=== PATIENT | female | born 1960 | race Caucasian/White ===

== ENCOUNTER 2020-09-19 11:19 | Outpatient (REF) | payer MEDICARE, MEDICAID, SELFPAY ==
[2020-09-19 12:18] LABS: MANUAL DIFF FLAG NO
[2020-09-19 12:21] LABS: Basophils Percent Auto 0.3 % (0-2); Eosinophils Percent Auto 29.6 % (0-4); Hematocrit 34.4 % (37-47); Hemoglobin 10.9 g/dl (12.0-16.0); Imm Gran Abs Auto 0.02 X10*3/uL (0.00-0.03); Imm Gran Pct Auto 0.2 % (0.0-0.4); Lymphocytes Absolute Auto 2.1 X10*3/uL (1.2-4.9); Lymphocytes Percent Auto 20.8 % (20-40); Mean Corpuscular HGB Conc 31.7 g/dl (31.0-35.0); Mean Corpuscular Hemoglobin 27.2 pg (27.0-33.0); Mean Corpuscular Volume 85.8 fL (80-98); Mean Platelet Volume 11.3 fL (9.4-12.3); Monocytes Absolute Auto 0.5 X10*3/uL (0.1-1.2); Monocytes Percent Auto 4.6 % (2-11); Neutrophils Absolute Auto 4.5 X10*3/uL (2.0-8.3); Neutrophils Percent Auto 44.5 % (45-73); Platelet Count 154 X10*3/uL (160-400); Red Blood Count 4.01 X10*6/uL (4.20-5.50); Red Cell Distribution Width 15.5 % (11.0-16.0); White Blood Count 10.1 X10*3/uL (4.8-10.8)
[2020-09-19 12:55] LABS: Alanine Aminotransferase 23 U/L (0-31); Albumin Level 4.1 g/dL (3.5-5.0); Alkaline Phosphatase 108 U/L (39-117); Anion Gap 12 (12-20); Aspartate Amino Transferase 25 U/L (5-31); Bilirubin Total 0.7 mg/dL (0.0-1.0); Blood Urea Nitrogen 19 mg/dL (9-16); Calcium 9.1 mg/dL (8.4-10.2); Carbon Dioxide 30 mmol/L (22-29); Chloride 105 mmol/L (96-108); Estimated Glomerular Filt Rate 47; Glucose Random 65 mg/dL (60-115); Potassium 4.3 mmol/l (3.3-5.1); Sodium 143 mmol/L (135-145); Total Protein 6.6 g/dL (6.5-8.0)
== END 2020-09-19 11:20 | disposition home or self-care (01) ==
LOC: HO.LAB 11:19
PROVIDERS: PCP Internal Medicine; Visit Provider Physician Assistant Medical
DX: L40.0 Psoriasis vulgaris (principal); Z79.899 Other long term (current) drug therapy
CPT/HCPCS: 36415; 80053; 85025; 86481

== ENCOUNTER → 2020-09-20 13:46 | Outpatient (BNVA) | payer MEDICARE, MEDICAID, SELFPAY | PROVIDERS: PCP Internal Medicine; Visit Provider Internal Medicine Endocrinology, Diabetes & Metabolism | DX: Z13.89 Encounter for screening for other disorder (principal) | CPT/HCPCS: 99214 ==

== ENCOUNTER 2020-11-01 12:14 | Outpatient (REF) | payer MEDICARE, MEDICAID, SELFPAY ==
[2020-11-01 14:09] LABS: Estimated Average Glucose 128 mg/dL; Hemoglobin A1c % 6.1 %
== END 2020-11-01 12:15 | disposition home or self-care (01) ==
LOC: HO.WFDLDS 12:14
PROVIDERS: Visit Provider Internal Medicine Endocrinology, Diabetes & Metabolism
DX: E11.65 Type 2 diabetes mellitus with hyperglycemia (principal)
CPT/HCPCS: 83036

== ENCOUNTER → 2020-11-16 10:53 | Outpatient (BNVA) | payer MEDICAID, SELFPAY | PROVIDERS: PCP Internal Medicine; Referring Provider Internal Medicine; Visit Provider Dietitian, Registered | DX: Z76.89 Persons encountering health services in other specified circumstances (principal) ==

== ENCOUNTER → 2020-12-20 12:59 | Outpatient (BNVA) | payer MEDICARE, MEDICAID, SELFPAY | PROVIDERS: PCP Internal Medicine; Visit Provider Internal Medicine Endocrinology, Diabetes & Metabolism | DX: E11.65 Type 2 diabetes mellitus with hyperglycemia (principal); E11.22 Type 2 diabetes mellitus with diabetic chronic kidney disease; E11.21 Type 2 diabetes mellitus with diabetic nephropathy; I12.9 Hypertensive chronic kidney disease with stage 1 through stage 4 chronic kidney disease, or unspecified chronic kidney disease; N18.30 Chronic kidney disease, stage 3 unspecified; E78.5 Hyperlipidemia, unspecified; E66.01 Morbid (severe) obesity due to excess calories; Z71.3 Dietary counseling and surveillance; Z79.4 Long term (current) use of insulin; Z96.41 Presence of insulin pump (external) (internal); Z46.81 Encounter for fitting and adjustment of insulin pump | CPT/HCPCS: Q3014 ==

== ENCOUNTER 2021-03-08 10:37 | Outpatient (REF) | payer MEDICARE, MEDICAID, SELFPAY ==
[2021-03-08 15:39] LABS: Anion Gap 12 (12-20); Blood Urea Nitrogen 27 mg/dL (9-16); Calcium 9.2 mg/dL (8.4-10.2); Carbon Dioxide 32 mmol/L (22-29); Chloride 100 mmol/L (96-108); Estimated Glomerular Filt Rate 40; Phosphorus 4.2 mg/dL (2.7-4.5); Potassium 3.9 mmol/L (3.3-5.1); Sodium 140 mmol/L (135-145)
[2021-03-08 15:52] LABS: Creatinine Urine 42.62 mg/dL
[2021-03-08 19:18] LABS: Renal w Reflex Lab Use Only Order verified
== END 2021-03-08 10:38 | disposition home or self-care (01) ==
LOC: HO.WFDLDS 10:37
PROVIDERS: Visit Provider Internal Medicine Nephrology
DX: N17.9 Acute kidney failure, unspecified (principal); I12.9 Hypertensive chronic kidney disease with stage 1 through stage 4 chronic kidney disease, or unspecified chronic kidney disease; N18.30 Chronic kidney disease, stage 3 unspecified; R80.9 Proteinuria, unspecified
CPT/HCPCS: 36415; 80051; 82043; 82310; 82565; 84100; 84520

== ENCOUNTER → 2021-03-15 09:16 | Outpatient (BNVA) | payer MEDICARE, MEDICAID, SELFPAY | PROVIDERS: PCP Internal Medicine; Visit Provider Dietitian, Registered | DX: E11.22 Type 2 diabetes mellitus with diabetic chronic kidney disease (principal); I12.9 Hypertensive chronic kidney disease with stage 1 through stage 4 chronic kidney disease, or unspecified chronic kidney disease; N18.30 Chronic kidney disease, stage 3 unspecified; E66.01 Morbid (severe) obesity due to excess calories | CPT/HCPCS: 97803 ==

== ENCOUNTER → 2021-03-21 14:14 | Outpatient (BNVA) | payer MEDICARE, MEDICAID, SELFPAY | PROVIDERS: PCP Internal Medicine; Visit Provider Internal Medicine Endocrinology, Diabetes & Metabolism | DX: E11.65 Type 2 diabetes mellitus with hyperglycemia (principal); E11.21 Type 2 diabetes mellitus with diabetic nephropathy; E11.22 Type 2 diabetes mellitus with diabetic chronic kidney disease; I12.9 Hypertensive chronic kidney disease with stage 1 through stage 4 chronic kidney disease, or unspecified chronic kidney disease; N18.30 Chronic kidney disease, stage 3 unspecified; Z79.4 Long term (current) use of insulin; E78.5 Hyperlipidemia, unspecified; E66.01 Morbid (severe) obesity due to excess calories | CPT/HCPCS: 82947; 99212 ==

== ENCOUNTER → 2021-06-14 09:15 | Outpatient (BNVA) | payer MEDICARE, MEDICAID, SELFPAY | PROVIDERS: PCP Internal Medicine; Visit Provider Dietitian, Registered | DX: E11.22 Type 2 diabetes mellitus with diabetic chronic kidney disease (principal); N18.30 Chronic kidney disease, stage 3 unspecified; E66.01 Morbid (severe) obesity due to excess calories; Z68.42 Body mass index [BMI] 45.0-49.9, adult | CPT/HCPCS: 97803 ==

== ENCOUNTER → 2021-06-20 14:08 | Outpatient (BNVA) | payer MEDICARE, MEDICAID, SELFPAY | PROVIDERS: PCP Internal Medicine; Visit Provider Internal Medicine Endocrinology, Diabetes & Metabolism | DX: E11.65 Type 2 diabetes mellitus with hyperglycemia (principal); E11.21 Type 2 diabetes mellitus with diabetic nephropathy; E11.22 Type 2 diabetes mellitus with diabetic chronic kidney disease; I12.9 Hypertensive chronic kidney disease with stage 1 through stage 4 chronic kidney disease, or unspecified chronic kidney disease; N18.30 Chronic kidney disease, stage 3 unspecified; E66.01 Morbid (severe) obesity due to excess calories; Z68.42 Body mass index [BMI] 45.0-49.9, adult; Z96.41 Presence of insulin pump (external) (internal); Z88.8 Allergy status to other drugs, medicaments and biological substances; Z79.4 Long term (current) use of insulin; Z79.899 Other long term (current) drug therapy; Z46.81 Encounter for fitting and adjustment of insulin pump | CPT/HCPCS: 82947; 99212 ==

== ENCOUNTER → 2021-11-01 13:38 | Outpatient (BNVA) | payer MEDICARE, MEDICAID, SELFPAY | PROVIDERS: PCP Internal Medicine; Visit Provider Nurse Practitioner Gerontology | DX: E11.65 Type 2 diabetes mellitus with hyperglycemia (principal); E11.21 Type 2 diabetes mellitus with diabetic nephropathy; E11.22 Type 2 diabetes mellitus with diabetic chronic kidney disease; I12.9 Hypertensive chronic kidney disease with stage 1 through stage 4 chronic kidney disease, or unspecified chronic kidney disease; N18.30 Chronic kidney disease, stage 3 unspecified; E78.5 Hyperlipidemia, unspecified; E66.01 Morbid (severe) obesity due to excess calories; Z79.4 Long term (current) use of insulin | CPT/HCPCS: 82947; 83036; 99212 ==

== ENCOUNTER → 2021-12-11 10:00 | Outpatient (BNVA) | payer MEDICARE, MEDICAID, SELFPAY | PROVIDERS: PCP Internal Medicine; Visit Provider Registered Nurse Diabetes Educator | DX: Z46.81 Encounter for fitting and adjustment of insulin pump (principal); E11.22 Type 2 diabetes mellitus with diabetic chronic kidney disease; N18.30 Chronic kidney disease, stage 3 unspecified; Z79.4 Long term (current) use of insulin | CPT/HCPCS: 99211 ==

== ENCOUNTER → 2022-01-08 09:55 | Outpatient (BNVA) | payer MEDICARE, MEDICAID, SELFPAY | PROVIDERS: PCP Internal Medicine; Visit Provider Registered Nurse Diabetes Educator | DX: E11.22 Type 2 diabetes mellitus with diabetic chronic kidney disease (principal); N18.30 Chronic kidney disease, stage 3 unspecified | CPT/HCPCS: 99211 ==

== ENCOUNTER → 2022-02-05 12:54 | Outpatient (BNVA) | payer MEDICARE, MEDICAID, SELFPAY | PROVIDERS: PCP Internal Medicine; Visit Provider Registered Nurse Diabetes Educator | DX: E11.21 Type 2 diabetes mellitus with diabetic nephropathy (principal); Z79.4 Long term (current) use of insulin; Z96.41 Presence of insulin pump (external) (internal) | CPT/HCPCS: 98968; Q3014 ==

== ENCOUNTER 2022-02-10 10:06 | Outpatient (REF) | payer MEDICARE, MEDICAID, SELFPAY ==
[2022-02-10 12:38] LABS: Alanine Aminotransferase 21 U/L (0-31); Albumin Level 4.1 g/dL (3.5-5.0); Alkaline Phosphatase 70 U/L (39-117); Anion Gap 13 (12-20); Aspartate Amino Transferase 26 U/L (5-31); Bilirubin Total 0.6 mg/dL (0.0-1.0); Blood Urea Nitrogen 27 mg/dL (9-16); Calcium 9.9 mg/dL (8.4-10.2); Carbon Dioxide 30 mmol/L (22-29); Chloride 105 mmol/L (96-108); Cholesterol 128 mg/dL; Creatinine Urine 65.17 mg/dL; Estimated Glomerular Filt Rate 43; Glucose Fasting 92 mg/dL (60-99); HDL Cholesterol 38 mg/dL; Microalbum/Creatinine Ratio Ur 673.6 ug/mg cr; Potassium 4.7 mmol/L (3.3-5.1); Sodium 143 mmol/L (135-145); Total Protein 6.8 g/dL (6.5-8.0)
[2022-02-10 13:19] LABS: LDL Cholesterol Calculated 46 mg/dl; Triglycerides 223 mg/dL
[2022-02-11 18:25] LABS: LDL Cholesterol Direct 61 mg/dL (<100)
== END 2022-02-10 10:07 | disposition home or self-care (01) ==
LOC: HO.WFDLDS 10:06
PROVIDERS: Visit Provider Nurse Practitioner Gerontology
DX: E11.65 Type 2 diabetes mellitus with hyperglycemia (principal)
CPT/HCPCS: 36415; 80053; 80061; 82043; 83721

== ENCOUNTER → 2022-02-17 13:20 | Outpatient (BNVA) | payer MEDICARE, MEDICAID, SELFPAY | PROVIDERS: PCP Internal Medicine; Visit Provider Nurse Practitioner Gerontology | DX: E11.65 Type 2 diabetes mellitus with hyperglycemia (principal); E11.21 Type 2 diabetes mellitus with diabetic nephropathy; E11.22 Type 2 diabetes mellitus with diabetic chronic kidney disease; I12.9 Hypertensive chronic kidney disease with stage 1 through stage 4 chronic kidney disease, or unspecified chronic kidney disease; N18.30 Chronic kidney disease, stage 3 unspecified; E78.5 Hyperlipidemia, unspecified; E66.01 Morbid (severe) obesity due to excess calories; Z68.43 Body mass index [BMI] 50.0-59.9, adult; Z79.4 Long term (current) use of insulin | CPT/HCPCS: 82947; 83036; 99212 ==

== ENCOUNTER → 2022-03-20 12:31 | Outpatient (BNVA) | payer MEDICARE, MEDICAID, SELFPAY | PROVIDERS: PCP Internal Medicine; Visit Provider Registered Nurse Diabetes Educator | DX: Z46.81 Encounter for fitting and adjustment of insulin pump (principal); E11.21 Type 2 diabetes mellitus with diabetic nephropathy; E11.22 Type 2 diabetes mellitus with diabetic chronic kidney disease; N18.30 Chronic kidney disease, stage 3 unspecified | CPT/HCPCS: 99211 ==

== ENCOUNTER → 2022-04-16 10:17 | Outpatient (BNVA) | payer MEDICARE, MEDICAID, SELFPAY | PROVIDERS: PCP Internal Medicine; Visit Provider Registered Nurse Diabetes Educator | DX: E11.21 Type 2 diabetes mellitus with diabetic nephropathy (principal); Z46.81 Encounter for fitting and adjustment of insulin pump; Z79.4 Long term (current) use of insulin | CPT/HCPCS: 99211 ==

== ENCOUNTER → 2022-05-19 13:51 | Outpatient (BNVA) | payer MEDICARE, MEDICAID, SELFPAY | PROVIDERS: PCP Internal Medicine; Visit Provider Nurse Practitioner Gerontology | DX: E11.65 Type 2 diabetes mellitus with hyperglycemia (principal); E11.21 Type 2 diabetes mellitus with diabetic nephropathy; E11.22 Type 2 diabetes mellitus with diabetic chronic kidney disease; I12.9 Hypertensive chronic kidney disease with stage 1 through stage 4 chronic kidney disease, or unspecified chronic kidney disease; N18.30 Chronic kidney disease, stage 3 unspecified; E78.5 Hyperlipidemia, unspecified; I10 Essential (primary) hypertension; E66.01 Morbid (severe) obesity due to excess calories; Z79.4 Long term (current) use of insulin; Z68.43 Body mass index [BMI] 50.0-59.9, adult | CPT/HCPCS: 82947; 83036; 99212 ==

== ENCOUNTER → 2022-07-18 10:27 | Outpatient (BNVA) | payer MEDICARE, MEDICAID, SELFPAY | PROVIDERS: PCP Internal Medicine; Visit Provider Registered Nurse Diabetes Educator | DX: E11.65 Type 2 diabetes mellitus with hyperglycemia (principal); Z46.81 Encounter for fitting and adjustment of insulin pump; Z79.4 Long term (current) use of insulin | CPT/HCPCS: 99211 ==

== ENCOUNTER → 2022-08-19 10:23 | Outpatient (BNVA) | payer MEDICARE, MEDICAID, SELFPAY | PROVIDERS: PCP Internal Medicine; Visit Provider Internal Medicine Endocrinology, Diabetes & Metabolism | DX: E11.21 Type 2 diabetes mellitus with diabetic nephropathy (principal); Z96.41 Presence of insulin pump (external) (internal); Z79.4 Long term (current) use of insulin | CPT/HCPCS: 82947; 83036; 99212 ==

== ENCOUNTER 2022-08-25 11:52 | Outpatient (REF) | payer MEDICARE, MEDICAID, SELFPAY ==
[2022-08-25 14:44] LABS: Anion Gap 16 (12-20); Blood Urea Nitrogen 26 mg/dL (9-16); Calcium 10.1 mg/dL (8.4-10.2); Carbon Dioxide 30 mmol/L (22-29); Chloride 101 mmol/L (96-108); Estimated Glomerular Filt Rate 41; Potassium 4.4 mmol/L (3.3-5.1); Sodium 143 mmol/L (135-145)
[2022-08-25 15:03] LABS: Creatinine Urine 74.51 mg/dL; Protein/Creatinine Ratio, Ur 0.67 (<0.2); Total Protein Urine Random 50 mg/dL (<12)
== END 2022-08-25 11:53 | disposition home or self-care (01) ==
LOC: HO.WFDLDS 11:52
PROVIDERS: Visit Provider Internal Medicine Nephrology
DX: I12.9 Hypertensive chronic kidney disease with stage 1 through stage 4 chronic kidney disease, or unspecified chronic kidney disease (principal); E11.22 Type 2 diabetes mellitus with diabetic chronic kidney disease; N18.31 Chronic kidney disease, stage 3a; E11.21 Type 2 diabetes mellitus with diabetic nephropathy
CPT/HCPCS: 36415; 80051; 82310; 82565; 84156; 84520

== ENCOUNTER → 2022-09-30 11:25 | Outpatient (BNVA) | payer MEDICARE, MEDICAID, SELFPAY | PROVIDERS: PCP Internal Medicine; Visit Provider Internal Medicine Endocrinology, Diabetes & Metabolism | DX: E11.65 Type 2 diabetes mellitus with hyperglycemia (principal) | CPT/HCPCS: 82947; 99212 ==

== ENCOUNTER → 2022-10-17 10:36 | Outpatient (BNVA) | payer MEDICARE, MEDICAID, SELFPAY | PROVIDERS: PCP Internal Medicine; Visit Provider Registered Nurse Diabetes Educator | DX: E11.22 Type 2 diabetes mellitus with diabetic chronic kidney disease (principal); N18.30 Chronic kidney disease, stage 3 unspecified; Z96.41 Presence of insulin pump (external) (internal) | CPT/HCPCS: Q3014 ==

== ENCOUNTER → 2022-10-31 14:19 | Outpatient (BNVA) | payer MEDICARE, MEDICAID, SELFPAY | PROVIDERS: PCP Internal Medicine; Visit Provider Registered Nurse Diabetes Educator | DX: Z46.81 Encounter for fitting and adjustment of insulin pump (principal); E11.65 Type 2 diabetes mellitus with hyperglycemia; Z79.4 Long term (current) use of insulin | CPT/HCPCS: 99211 ==

== ENCOUNTER → 2022-12-17 12:26 | Outpatient (BNVA) | payer MEDICARE, MEDICAID, SELFPAY | PROVIDERS: PCP Internal Medicine; Visit Provider Registered Nurse Diabetes Educator | DX: Z46.81 Encounter for fitting and adjustment of insulin pump (principal); E11.21 Type 2 diabetes mellitus with diabetic nephropathy | CPT/HCPCS: 99211 ==

== ENCOUNTER → 2022-12-31 10:52 | Outpatient (BNVA) | payer MEDICARE, MEDICAID, SELFPAY | PROVIDERS: PCP Internal Medicine; Visit Provider Internal Medicine Endocrinology, Diabetes & Metabolism | DX: E11.65 Type 2 diabetes mellitus with hyperglycemia (principal); Z96.41 Presence of insulin pump (external) (internal) | CPT/HCPCS: 82947; 83036; 99212 ==

== ENCOUNTER → 2023-03-05 14:10 | Outpatient (BNVA) | payer MEDICARE, MEDICAID, SELFPAY | PROVIDERS: PCP Internal Medicine; Visit Provider Internal Medicine Endocrinology, Diabetes & Metabolism | DX: E11.65 Type 2 diabetes mellitus with hyperglycemia (principal) | CPT/HCPCS: 82947; 99212 ==

== ENCOUNTER → 2023-05-19 10:24 | Outpatient (BNVA) | payer MEDICARE, MEDICAID, SELFPAY | PROVIDERS: PCP Physician Assistant; Visit Provider Registered Nurse Diabetes Educator | DX: E11.22 Type 2 diabetes mellitus with diabetic chronic kidney disease (principal); N18.30 Chronic kidney disease, stage 3 unspecified; Z46.81 Encounter for fitting and adjustment of insulin pump | CPT/HCPCS: 99211 ==

== ENCOUNTER → 2023-06-04 13:55 | Outpatient (BNVA) | payer MEDICARE, MEDICAID, SELFPAY | PROVIDERS: PCP Physician Assistant; Visit Provider Internal Medicine Endocrinology, Diabetes & Metabolism | DX: E11.65 Type 2 diabetes mellitus with hyperglycemia (principal) | CPT/HCPCS: 82947; 83036; 99212 ==

== ENCOUNTER 2023-08-19 10:34 | Outpatient (AMB) | payer MEDICARE, MEDICAID, SELFPAY ==
--- NOTE | 2023-08-19 11:05 | MHC.AMDMED ---
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 Accompanied by: Self / Same As Patient Allergies citalopram [From Celexa] Allergy (Mild, Verified 06/04/23 14:01) cramps Niacin Preparations Allergy (Mild, Verified 06/04/23 14:01) vomitinf/flu symptoms/flushing lisinopril Allergy (Unknown, Verified 06/04/23 14:01) cough/all ACEI niacin Allergy (Unknown, Verified 06/04/23 14:01) unknown tirzepatide [From Mounjaro] Adverse Reaction (Severe, Verified 06/04/23 14:01) Diarrhea ziprasidone [Geodon] Adverse Reaction (Unknown, Verified 06/04/23 14:01) Unknown Metformin ER Allergy (Unknown, Uncoded 06/04/23 14:01) GI upset HPI Comprehensive Diabetes Asmnt Most Recent Diabetes Results: No Data to Display [facility] Medical History Anemia Arthritis CKD stage 3 due to type 2 diabetes mellitus Diabetes type 2, uncontrolled Diabetic nephropathy associated with type 2 diabetes mellitus Dyslipidemia Hypertension senior living (current) use of insulin Morbid obesity Psoriasis Stress incontinence Surgical History History of carpal tunnel release History of selective laser trabeculoplasty History of total abdominal hysterectomy and bilateral salpingo-oophorectomy Hx of cholecystectomy Family History Father CVD (cardiovascular disease) Obesity Diabetes Mother CVD (cardiovascular disease) Diabetes Obesity Chronic lymphocytic leukemia Hx of myocardial infarction Social History Household Members: Spouse and Children Alcohol intake: current Alcohol intake frequency: does not drink Patient Tobacco Use Status: Never used Tobacco Assessment & Plan Assessment & Plan (1) Diabetes type 2, uncontrolled: Code(s): E11.65 - Type 2 diabetes mellitus with hyperglycemia Plan: Patient presents for pump training for transitioning from Omnipod dash to Omnipod 5 with Dexcom G6 patient given copy of pump settings recommended she call Omnipod to enter new settings into new PDM The following topics were reviewed today: - activity setting, for exercise or yd work - manual mode verses automatic mode ?Sensor setting (if applicable) ??? High Alert: 200 mg/dl ??? Low Alert: 70 mg/dl ?patient's average glucose for the past 2 weeks 144 mg/dL ?above target 19% ?at target 79% ?below target 2% Patient's last A1c on 06/04/2023 6.7% At visit today we discussed GLP 1 action. Patient has tried Ozempic and Mounjaro was unable to tolerate either of them due to GI side effects. Recommended patient's would like to consider additional GLP 1 she discuss Trulicity at her next visit with Dr. Wolfe Reviewed with patient importance of changing insulin delivery set/Pod every 72 hours, with site rotation. ?no changes made to patient's pump settings at today's visit Basal rate(s) (units/hour) : 12 AM? to 1 AM? 1.5 units / hr 1 AM? to 8 AM? 1.4 units / hr 8 AM to 8 PM? 1.3 units / hr 8 PM? to 12 AM? 1.7 units / hr Bolus setting Insulin Carbohydrate Ratio (s) 12 AM? to 5 PM? 1:5 5 PM to 12 AM 1:4.5 Correction Factor / Sensitivity Factor 12 AM? to 12 PM? 1:15 Active Insulin Time:? 4 hours Target(s): 12 AM? to 12 PM? 120 mg/dL Correction Threshhold 120 mg/dL Patient Instructions: Patient will follow-up with nurses educator in 3 months Coding Level of Care Code Est Pt Level 1 (60293) Diagnoses Diabetes type 2, uncontrolled E11.65
== END 2023-08-19 11:12 | disposition home or self-care (01) ==
PROVIDERS: PCP Physician Assistant; Visit Provider Registered Nurse Diabetes Educator
DX: E11.65 Type 2 diabetes mellitus with hyperglycemia (principal)

== ENCOUNTER → 2023-08-19 10:34 | Outpatient (BNVA) | payer MEDICARE, MEDICAID, SELFPAY | PROVIDERS: PCP Physician Assistant; Visit Provider Registered Nurse Diabetes Educator | DX: Z46.81 Encounter for fitting and adjustment of insulin pump (principal); E11.65 Type 2 diabetes mellitus with hyperglycemia; Z79.4 Long term (current) use of insulin | CPT/HCPCS: 99211 ==

== ENCOUNTER 2023-09-03 11:45 | Outpatient (AMB) | payer MEDICARE, MEDICAID, SELFPAY ==
[2023-09-03 11:47] VITALS: BP 126/62; PULSE 60; BMI 49.7
--- NOTE | 2023-09-03 11:47 | MHC.OFFVIS ---
Intake Vital Signs 09/03/23 11:47 Height 5 ft 2 in Weight 271 lb 13.279 oz BMI 49.7 BP 126/62 Blood Pressure Location Lt brachial Position Sitting Pulse 60 Pulse Source Pulse Oximeter Intake Visit Reasons: DM-CONFIRMED Intake Note: Patient present today to follow up on Type 2 Diabetes Mellitus. [facility]. [facility]od 5 gen are rec'd [facility]. Last Diabetic Eye exam: 06/2023 Last Podiatry Visit: 11/2022 Random Glucose: 104 mg/dl HgA1C: 6.6% Desizing Machine Back Tender Required: No Accompanied by: Self / Same As Patient Allergies citalopram [From Celexa] Allergy (Mild, Verified 09/03/23 11:54) cramps Niacin Preparations Allergy (Mild, Verified 09/03/23 11:54) vomitinf/flu symptoms/flushing lisinopril Allergy (Unknown, Verified 09/03/23 11:54) cough/all ACEI niacin Allergy (Unknown, Verified 09/03/23 11:54) unknown tirzepatide [From Mounjaro] Adverse Reaction (Severe, Verified 09/03/23 11:54) Diarrhea ziprasidone [Geodon] Adverse Reaction (Unknown, Verified 09/03/23 11:54) Unknown Metformin ER Allergy (Unknown, Uncoded 06/04/23 14:01) GI upset HPI HPI Comments History of Present Illness Details Patient is a 63-year-old female with DM type 2 diagnosed in 2002 who presents for management of diabetes. Past medical history: Diabetes type 2 dyslipidemia, hypertension chronic kidney disease stage 3, nephropathy, psoriasis Micro and macrovascular complications: nephropathy Diabetes medications: Humulin U 500 via Omnipod 5. Reports that she did not tolerate Ozempic or Trulicity due to constipation. She did not tolerate Jardiance due to vaginal itching.Not on Mounjaro 2.5 mg Qwkly because of GI side effects Total Daily Dose 56.1 units a day 51% basal 49 % bolus Basal rate(s) (units/hour) : 12 AM? to 1 AM? 1.5 units / hr 1 AM? to 8 AM? 1.4 units / hr 8 AM to 8 PM? 1.3 units / hr 8 PM? to 12 AM? 1.7 units / hr Bolus setting Insulin Carbohydrate Ratio (s) 12 AM? to 5 PM? 1:5 5 PM to 12 AM 1:4.5 Correction Factor / Sensitivity Factor 12 AM? to 12 PM? 1:15 Active Insulin Time:? 4 hours Target(s): 12 AM? to 12 PM? 120 mg/dL Correction Threshhold 120 mg/d Continuous glucose monitoring: Average blood glucose 155, blood glucose low from 55-69, 1%. Glucose in target range of 70-180, 69%. Glucose high from 181-249,26 %. Blood glucose very high over 250,4 %. GMI is 7 CGMS active 100%. Symptoms reported: denies numbness, tingling, cramping in lower extremities Hypoglycemia:none , Symptoms of shakiness and sweatiness Hyperglycemia: reports urinary frequency (reports diuretic), +nocturia, +polydypsia (reports drymouth) Exercise: limited due to arthritis, walks some. Has some chair exercises that is beginning. 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 no retinopathy Other specialists: nephrology, dermatology, hematology Laboratory Tests 02/17/22 13:50 Hgb A1c (Clinic) 6.9 H 02/10/22 02/10/22 02/10/22 10:14 10:14 10:14 Creatinine 1.27 Estimated GFR 43 Triglycerides 223 Cholesterol 128 LDL Cholesterol Di rect 61 LDL Cholesterol, C alc 46 HDL Cholesterol 38 Microalb/Creat Rat io 673.6 03/08/21 03/08/21 06/20/21 10:55 10:55 14:36 Creatinine 1.36 Estimated GFR 40 Hgb A1c (Clinic) 7.5 H Microalb/Creat Rat io 739.0 [facility] Medical History Anemia Arthritis CKD stage 3 due to type 2 diabetes mellitus Diabetes type 2, uncontrolled Diabetic nephropathy associated with type 2 diabetes mellitus Dyslipidemia 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 Morbid obesity Psoriasis Stress incontinence Surgical History History of selective laser trabeculoplasty History of total abdominal hysterectomy and bilateral salpingo-oophorectomy History of carpal tunnel release Hx of cholecystectomy Family History Father CVD (cardiovascular disease) Obesity Diabetes Mother CVD (cardiovascular disease) Diabetes Obesity Chronic lymphocytic leukemia Hx of myocardial infarction Social History Household Members: Spouse and Children Alcohol intake: current Alcohol intake frequency: does not drink Patient Tobacco Use Status: Never used Tobacco Physical Exam Vital Signs: Last Vital Signs Pulse 60 09/03/23 11:47 BP 126/62 09/03/23 11:47 BMI result Body Mass Index 49.7 Absence of Cushingoid features. Absence of acromegalic features. Neck exam reveals nl size thyroid about 15 gms. No thyroid nodules palpable. No carotid bruits present. Lungs CTA. Heart S1 S2, Reg R/R. No M/R/ G. Skin exam reveals absence of vitiligo but presence of acanthosis nigricans behind neck with excessive skin tags . Abdominal exam reveals Soft NT/ND with NA BS. No organomegaly present. Neck Other: . Extrem Other: Visual exam of foot performed. No ulcerations or open lesions. No onchomycosis, no callouses.Pulses 2 + distally Sensation intact to monofilament exam. Vibratory sensation sensed is intact with 128 Hz tuning fork Results AMB Hemoglobin A1c AMB Hemoglobin A1c 6.6 % Last Edit by Abeba Reynoso on 09/03/23 13:17 Results Reviewed Results Reviewed: 09/03/23 11:58 Glucose, Whole Blood Routine Laboratory Last Values Glucose (Clinic) 104 mg/dL (60-115) 09/03/23 11:58 Hgb A1c (Clinic) 6.6 % (4.0-6.0) H 09/03/23 12:17 Assessment & Plan Assessment & Plan (1) Diabetes type 2, uncontrolled: Code(s): E11.65 - Type 2 diabetes mellitus with hyperglycemia Plan: This is a 63-year-old white female with a history of type 2 diabetes insulin resistance currently being treated with an Omnipod 5 with excellent glycemic control and known microvascular complications namely CKD stage 3. patient did not tolerate Ozempic or Trulicity or Mounjaro in the past The plan is to continue the current regimen. she will follow-up with the outreach educator. Orders: Orders AMB Hemoglobin A1c Today E11.65 - Type 2 diabetes mellitus with hyperglycemia Coding Level of Care Code Est Pt Level 4 (33324) Diagnoses Diabetes type 2, uncontrolled E11.65
== END 2023-09-03 12:15 | disposition home or self-care (01) ==
PROVIDERS: PCP Physician Assistant; Visit Provider Internal Medicine Endocrinology, Diabetes & Metabolism
DX: E11.65 Type 2 diabetes mellitus with hyperglycemia (principal)
CPT/HCPCS: 99214

== ENCOUNTER → 2023-09-03 11:45 | Outpatient (BNVA) | payer MEDICARE, MEDICAID, SELFPAY | PROVIDERS: PCP Physician Assistant; Visit Provider Internal Medicine Endocrinology, Diabetes & Metabolism | DX: E11.65 Type 2 diabetes mellitus with hyperglycemia (principal); E11.22 Type 2 diabetes mellitus with diabetic chronic kidney disease; N18.30 Chronic kidney disease, stage 3 unspecified; Z96.41 Presence of insulin pump (external) (internal) | CPT/HCPCS: 82947; 83036; 99212 ==

== ENCOUNTER 2023-11-02 10:14 | Outpatient (AMB) | payer MEDICARE, MEDICAID, SELFPAY ==
[2023-11-02 10:36] VITALS: BP 130/70; PULSE 67; BMI 49.5
--- NOTE | 2023-11-02 10:36 | HO.NEPHOV_ITS ---
HPI HPI Comments History of Present Illness Details I had the privilege of seeing Dyan in follow-up of her chronic kidney disease, diabetic nephropathy and hypertension. Her bipedal edema was resolved after discontinuation of amlodipine and being on diuretics. She is trying to have a low-sodium diet. Her weight is stable. Her blood sugars are better. She is on insulin pump. She could not tolerate Jardiance. She denies nausea, vomiting, shortness of breath, proximal nocturnal dyspnea, orthopnea, urinary symptoms. She does not have any vascular complaints. She has no orthostasis. She feels well otherwise. [facility] Medical History Anemia Arthritis CKD stage 3 due to type 2 diabetes mellitus Diabetes type 2, uncontrolled Diabetic nephropathy associated with type 2 diabetes mellitus Dyslipidemia Hypertension [facility] (current) use of insulin Morbid obesity Psoriasis Stress incontinence Surgical History History of selective laser trabeculoplasty History of total abdominal hysterectomy and bilateral salpingo-oophorectomy History of carpal tunnel release Hx of cholecystectomy Family History Father CVD (cardiovascular disease) Obesity Diabetes Mother CVD (cardiovascular disease) Diabetes Obesity Chronic lymphocytic leukemia Hx of myocardial infarction Social History Household Members: Spouse and Children Alcohol intake: current Alcohol intake frequency: does not drink Patient Tobacco Use Status: Never used Tobacco Vital Signs 11/02/23 10:36 Height 5 ft 2 in Weight 270 lb 8 oz BMI 49.5 BP 130/70 Blood Pressure Location Rt brachial Position Sitting Pulse 67 Pulse Source Pulse Oximeter Physical Exam Vital Signs: Last Vital Signs Pulse 67 11/02/23 10:36 BP 130/70 11/02/23 10:36 BMI result Body Mass Index 49.5 Const General: comfortable and no acute distress Orientation/consciousness: patient oriented x3 HEENT Head: Yes normocephalic Mouth: Normal oral and palatal mucosa present Eyes EOM: EOMs intact bilaterally Neck Neck: Yes supple Resp Auscultation: clear to auscultation bilaterally Cardio Jugular venous distension: no JVD Rate: regular rate GI Palpation (GI): Soft to palpation Auscultation: normal bowel sounds General: Yes no CVA tenderness Back/Spine/Pelvis Back: no CVA tenderness Skin General skin exam: no rashes or lesions noted Neuro General: patient oriented x3 and moves all extremities Extrem General: Yes no pedal edema Assessment & Plan Assessment & Plan (1) CKD stage 3 due to type 2 diabetes mellitus: Code(s): E11.22 - Type 2 diabetes mellitus with diabetic chronic kidney disease; N18.30 - Chronic kidney disease, stage 3 unspecified (2) Diabetic nephropathy associated with type 2 diabetes mellitus: Code(s): E11.21 - Type 2 diabetes mellitus with diabetic nephropathy Plan Reason has chronic kidney disease due to diabetic nephropathy. She is hypertensive and is on medications. Her blood pressure needs to be at goal. Her serum creatinine has been marginally up from baseline which could be due to progression of renal disease. She could not tolerate Jardiance. She will benefit from gastric sleeve surgery. She avoids nonsteroidal anti-inflammatory medications and maintain good hydration. Follow-up blood work ordered. Answered all questions. Follow-up given Orders: Orders Blood Urea Nitrogen 11/02/23 E11.22 - Type 2 diabetes mellitus with diabetic chronic kidney disease, N18.30 - Chronic kidney disease, stage 3 unspecified, E11.21 - Type 2 diabetes mellitus with diabetic nephropathy Electrolytes 11/02/23 E11.22 - Type 2 diabetes mellitus with diabetic chronic kidney disease, N18.30 - Chronic kidney disease, stage 3 unspecified, E11.21 - Type 2 diabetes mellitus with diabetic nephropathy Creatinine 11/02/23 E11.22 - Type 2 diabetes mellitus with diabetic chronic kidney disease, N18.30 - Chronic kidney disease, stage 3 unspecified, E11.21 - Type 2 diabetes mellitus with diabetic nephropathy Coding Level of Care Code Est Pt Level 3 (41967) Diagnoses CKD stage 3 due to type 2 diabetes mellitus E11.22; N18.30 Diabetic nephropathy associated with type 2 diabetes mellitus E11.21 Results Reviewed Nephrology Results: No Data to Display
== END 2023-11-02 11:13 | disposition home or self-care (01) ==
PROVIDERS: PCP Physician Assistant; Referring Provider Physician Assistant; Visit Provider Internal Medicine Nephrology
DX: E11.22 Type 2 diabetes mellitus with diabetic chronic kidney disease (principal); N18.30 Chronic kidney disease, stage 3 unspecified; E11.21 Type 2 diabetes mellitus with diabetic nephropathy
CPT/HCPCS: 99213

== ENCOUNTER → 2023-11-02 10:14 | Outpatient (BNVA) | payer MEDICARE, MEDICAID, SELFPAY | PROVIDERS: PCP Physician Assistant; Visit Provider Internal Medicine Nephrology | DX: E11.65 Type 2 diabetes mellitus with hyperglycemia (principal); E11.22 Type 2 diabetes mellitus with diabetic chronic kidney disease; E11.21 Type 2 diabetes mellitus with diabetic nephropathy; I12.9 Hypertensive chronic kidney disease with stage 1 through stage 4 chronic kidney disease, or unspecified chronic kidney disease; N18.30 Chronic kidney disease, stage 3 unspecified; Z79.4 Long term (current) use of insulin | CPT/HCPCS: 99212 ==

== ENCOUNTER 2024-02-11 09:32 | Outpatient (REF) | payer MEDICARE, MEDICAID, SELFPAY ==
[2024-02-11 11:50] LABS: Anion Gap 12 (12-20); Blood Urea Nitrogen 29 mg/dL (9-16); Calcium 9.6 mg/dL (8.4-10.2); Carbon Dioxide 26 mmol/L (22-29); Chloride 105 mmol/L (96-108); Estimated Glomerular Filt Rate 33; Potassium 3.9 mmol/L (3.3-5.1); Sodium 139 mmol/L (135-145)
[2024-02-11 12:02] LABS: Creatinine Urine 54.26 mg/dL; Protein/Creatinine Ratio, Ur 0.22 (<0.2); Total Protein Urine Random 12 mg/dL (<12)
== END 2024-02-11 09:33 | disposition home or self-care (01) ==
LOC: HO.WFDLDS 09:32
PROVIDERS: Visit Provider Internal Medicine Nephrology
DX: E11.22 Type 2 diabetes mellitus with diabetic chronic kidney disease (principal); N18.30 Chronic kidney disease, stage 3 unspecified; E11.21 Type 2 diabetes mellitus with diabetic nephropathy
CPT/HCPCS: 36415; 80051; 82310; 82565; 82570; 84156; 84520

== ENCOUNTER 2024-02-18 13:58 | Outpatient (AMB) | payer MEDICARE, MEDICAID, SELFPAY ==
[2024-02-18 14:06] VITALS: BP 146/74; PULSE 73; O2SAT 97; BMI 49.2
--- NOTE | 2024-02-18 14:06 | HO.NEPHOV_ITS ---
HPI HPI Comments History of Present Illness Details I had the privilege of seeing Dyan in follow-up of her chronic kidney disease, diabetic nephropathy and hypertension. Her bipedal edema was resolved after discontinuation of amlodipine and being on diuretics. She is trying to have a low-sodium diet. Her weight is stable. Her blood sugars are better. She is on insulin pump. She could not tolerate Jardiance. She denies nausea, vomiting, shortness of breath, proximal nocturnal dyspnea, orthopnea, urinary symptoms. She does not have any vascular complaints. She has no orthostasis. She feels well otherwise. 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 Morbid obesity Psoriasis Stress incontinence Surgical History History of selective laser trabeculoplasty History of total abdominal hysterectomy and bilateral salpingo-oophorectomy History of carpal tunnel release Hx of cholecystectomy Family History Father CVD (cardiovascular disease) Obesity Diabetes Mother CVD (cardiovascular disease) Diabetes Obesity Chronic lymphocytic leukemia Hx of myocardial infarction Social History Household Members: Spouse and Children Alcohol intake: current Alcohol intake frequency: does not drink Patient Tobacco Use Status: Never used Tobacco Vital Signs 02/18/24 14:06 Height 5 ft 2 in Weight 269 lb BMI 49.2 BP 146/74 H Blood Pressure Location Lt brachial Position Sitting Pulse 73 Pulse Source Pulse Oximeter Pulse Oximetry (%) 97 Oxygen Delivery Method Room Air Physical Exam Vital Signs: Last Vital Signs Pulse 73 02/18/24 14:06 BP 146/74 H 02/18/24 14:06 Pulse Ox 97 02/18/24 14:06 Oxygen Delivery Method Room Air 02/18/24 14:06 BMI result Body Mass Index 49.2 Const General: comfortable and no acute distress Orientation/consciousness: patient oriented x3 HEENT Head: Yes normocephalic Mouth: Normal oral and palatal mucosa present Eyes EOM: EOMs intact bilaterally Neck Neck: Yes supple Resp Auscultation: clear to auscultation bilaterally Cardio Jugular venous distension: no JVD Rate: regular rate GI Palpation (GI): Soft to palpation Auscultation: normal bowel sounds General: Yes no CVA tenderness Back/Spine/Pelvis Back: no CVA tenderness Skin General skin exam: no rashes or lesions noted Neuro General: patient oriented x3 and moves all extremities Extrem General: Yes no pedal edema Assessment & Plan Assessment & Plan (1) CKD stage 3 due to type 2 diabetes mellitus: Code(s): E11.22 - Type 2 diabetes mellitus with diabetic chronic kidney disease; N18.30 - Chronic kidney disease, stage 3 unspecified (2) Hypertension: Code(s): I10 - Essential (primary) hypertension Qualifiers: Hypertension type: primary hypertension Qualified Code(s): I10 - Essential (primary) hypertension (3) Diabetic nephropathy associated with type 2 diabetes mellitus: Code(s): E11.21 - Type 2 diabetes mellitus with diabetic nephropathy Jose Looney has chronic kidney disease due to diabetic nephropathy. She is hypertensive and is on medications. Her blood pressure needs to be at goal. Her serum creatinine has been marginally up from baseline which could be due to progression of renal disease. She could not tolerate Jardiance. She will benefit from gastric sleeve surgery. I may back off on losartan if her serum creatinine rises. She avoids nonsteroidal anti-inflammatory medications and maintain good hydration. Follow-up blood work ordered. Answered all questions. Follow-up given Orders: Orders Creatinine Today E11.21 - Type 2 diabetes mellitus with diabetic nephropathy, E11.22 - Type 2 diabetes mellitus with diabetic chronic kidney disease, I10 - Essential (primary) hypertension, N18.30 - Chronic kidney disease, stage 3 unspecified Electrolytes Today E11.21 - Type 2 diabetes mellitus with diabetic nephropathy, E11.22 - Type 2 diabetes mellitus with diabetic chronic kidney disease, I10 - Essential (primary) hypertension, N18.30 - Chronic kidney disease, stage 3 unspecified Blood Urea Nitrogen Today E11.21 - Type 2 diabetes mellitus with diabetic nephropathy, E11.22 - Type 2 diabetes mellitus with diabetic chronic kidney disease, I10 - Essential (primary) hypertension, N18.30 - Chronic kidney disease, stage 3 unspecified Coding Level of Care Code Est Pt Level 4 (39417) Diagnoses CKD stage 3 due to type 2 diabetes mellitus E11.22; N18.30 Primary hypertension I10 Hypertension type: primary hypertension Diabetic nephropathy associated with type 2 diabetes mellitus E11.21 Results Reviewed Nephrology Results: Sodium 139 mmol/L (135-145) 02/11/24 Potassium 3.9 mmol/L (3.3-5.1) 02/11/24 Chloride 105 mmol/L (96-108) 02/11/24 Carbon Dioxide 26 mmol/L (22-29) 02/11/24 BUN 29 mg/dL (9-16) H 02/11/24 Creatinine 1.60 mg/dL (0.5-1.4) H 02/11/24 Calcium 9.6 mg/dL (8.4-10.2) 02/11/24 Urine Creatinine 54.26 mg/dL 02/11/24 Protein/Creatinin Ratio 0.22 (<0.2) H 02/11/24
== END 2024-02-18 14:35 | disposition home or self-care (01) ==
PROVIDERS: PCP Physician Assistant; Visit Provider Internal Medicine Nephrology
DX: E11.22 Type 2 diabetes mellitus with diabetic chronic kidney disease (principal); N18.30 Chronic kidney disease, stage 3 unspecified; I10 Essential (primary) hypertension; E11.21 Type 2 diabetes mellitus with diabetic nephropathy
CPT/HCPCS: 99214

== ENCOUNTER → 2024-02-18 13:58 | Outpatient (BNVA) | payer MEDICARE, MEDICAID, SELFPAY | PROVIDERS: PCP Physician Assistant; Visit Provider Internal Medicine Nephrology | DX: E11.22 Type 2 diabetes mellitus with diabetic chronic kidney disease (principal); I12.9 Hypertensive chronic kidney disease with stage 1 through stage 4 chronic kidney disease, or unspecified chronic kidney disease; N18.30 Chronic kidney disease, stage 3 unspecified; E11.21 Type 2 diabetes mellitus with diabetic nephropathy | CPT/HCPCS: 99212 ==

== ENCOUNTER 2024-04-04 10:39 | Outpatient (AMB) | payer MEDICARE, MEDICAID, SELFPAY ==
--- NOTE | 2024-04-04 10:41 | MHC.OFFVIS ---
Vital Signs 04/04/24 10:42 Height 5 ft 2 in Weight 274 lb 4.081 oz BMI 50.2 BP 138/72 Blood Pressure Location Lt brachial Position Sitting Pulse 72 Pulse Source Pulse Oximeter Intake Visit Reasons: F/u Type 2 DM Intake Note: Patient presents today to follow up on D2MT. 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 Accompanied by: Self / Same As Patient Allergies citalopram [From Celexa] Allergy (Mild, Verified 04/04/24 10:47) cramps Niacin Preparations Allergy (Mild, Verified 04/04/24 10:47) vomitinf/flu symptoms/flushing lisinopril Allergy (Unknown, Verified 04/04/24 10:47) cough/all ACEI niacin Allergy (Unknown, Verified 04/04/24 10:47) unknown tirzepatide [From Mounjaro] Adverse Reaction (Severe, Verified 04/04/24 10:47) Diarrhea ziprasidone [Geodon] Adverse Reaction (Unknown, Verified 04/04/24 10:47) Unknown Metformin ER Allergy (Unknown, Uncoded 04/04/24 10:47) GI upset HPI Comments Details: Patient is a 63-year-old female with DM type 2 diagnosed in 2002 who presents for management of diabetes. Past medical history: Diabetes type 2 dyslipidemia, hypertension chronic kidney disease stage 3, nephropathy, psoriasis Micro and macrovascular complications: nephropathy Diabetes medications: Humulin U 500 via Omnipod 5. Reports that she did not tolerate Ozempic or Trulicity due to constipation. She did not tolerate Jardiance due to vaginal itching.Not on Mounjaro 2.5 mg Qwkly because of GI side effects Total Daily Dose 63.1 units a day 54% basal 46 % bolus Basal rate(s) (units/hour) : 12 AM? to 1 AM? 1.5 units / hr 1 AM? to 8 AM? 1.4 units / hr 8 AM to 8 PM? 1.3 units / hr 8 PM? to 12 AM? 1.7 units / hr Bolus setting Insulin Carbohydrate Ratio (s) 12 AM? to 5 PM? 1:5 5 PM to 12 AM 1:4.5 Correction Factor / Sensitivity Factor 12 AM? to 12 PM? 1:15 Active Insulin Time:? 4 hours Target(s): 12 AM? to 12 PM? 120 mg/dL Correction Threshhold 120 mg/d Continuous glucose monitoring: Average blood glucose 159, blood glucose low from 55-69, 2%. Glucose in target range of 70-180, 66%. Glucose high from 181-249,29 %. Blood glucose very high over 250,3 %. GMI is 7.1CGMS active 100%. Symptoms reported: denies numbness, tingling, cramping in lower extremities Hypoglycemia:none , Symptoms of shakiness and sweatiness. Very rare hypoglycemia Hyperglycemia: reports urinary frequency (reports diuretic), +nocturia, +polydypsia (reports drymouth) Exercise: limited due to arthritis, walks some. Has some chair exercises that is beginning. 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 no retinopathy Other specialists: nephrology, dermatology, hematology Laboratory Tests 02/17/22 13:50 Hgb A1c (Clinic) 6.9 H 02/10/22 02/10/22 02/10/22 10:14 10:14 10:14 Creatinine 1.27 Estimated GFR 43 Triglycerides 223 Cholesterol 128 LDL Cholesterol Direct 61 LDL Cholesterol, Calc 46 HDL Cholesterol 38 Microalb/Creat Ratio 673.6 03/08/21 03/08/21 06/20/21 10:55 10:55 14:36 Creatinine 1.36 Estimated GFR 40 Hgb A1c (Clinic) 7.5 H Microalb/Creat Ratio 739.0 [facility] Medical History Anemia Arthritis CKD stage 3 due to type 2 diabetes mellitus Diabetes type 2, uncontrolled Diabetic nephropathy associated with type 2 diabetes mellitus Dyslipidemia Hypertension 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 Morbid obesity Psoriasis Stress incontinence Surgical History History of selective laser trabeculoplasty History of total abdominal hysterectomy and bilateral salpingo-oophorectomy History of carpal tunnel release Hx of cholecystectomy Family History Father CVD (cardiovascular disease) Obesity Diabetes Mother CVD (cardiovascular disease) Diabetes Obesity Chronic lymphocytic leukemia Hx of myocardial infarction Social History Household Members: Spouse and Children Alcohol intake: current Alcohol intake frequency: does not drink Patient Tobacco Use Status: Never used Tobacco Physical Exam Vital Signs: Last Vital Signs Pulse 72 04/04/24 10:42 BP 138/72 04/04/24 10:42 BMI result Body Mass Index 50.2 Absence of Cushingoid features. Absence of acromegalic features. Neck exam reveals nl size thyroid about 15 gms. No thyroid nodules palpable. No carotid bruits present. Lungs CTA. Heart S1 S2, Reg R/R. No M/R/ G. Skin exam reveals absence of vitiligo but presence of acanthosis nigricans behind neck with excessive skin tags . Abdominal exam reveals Soft NT/ND with NA BS. No organomegaly present. Neck Other: . Extrem Other: Visual exam of foot performed. No ulcerations or open lesions. No onchomycosis, no callouses.Pulses 2 + distally Sensation intact to monofilament exam. Vibratory sensation sensed is intact with 128 Hz tuning fork Results AMB Hemoglobin A1c AMB Hemoglobin A1c 6.8 % Last Edit by LYLE Guzman on 04/04/24 11:01 Results Reviewed Results Reviewed: Laboratory Last Values Glucose (Clinic) 226 mg/dL (60-115) H 04/04/24 10:50 Assessment & Plan Assessment & Plan (1) Diabetes type 2, uncontrolled: Code(s): E11.65 - Type 2 diabetes mellitus with hyperglycemia Category: Medical Plan: This is a 63-year-old white female with a history of type 2 diabetes insulin resistance currently being treated with an Omnipod 5 with excellent glycemic control and known microvascular complications namely CKD stage 3. patient did not tolerate Ozempic or Trulicity or Mounjaro in the past The plan is to continue the current regimen. she will follow-up with the bookmaker map. Orders: Orders AMB Hemoglobin A1c Today E11.65 - Type 2 diabetes mellitus with hyperglycemia, Z13.9 - Encounter for screening, unspecified Coding Level of Care Code Est Pt Level 4 (19395) Diagnoses Diabetes type 2, uncontrolled E11.65
[2024-04-04 10:42] VITALS: BP 138/72; PULSE 72; BMI 50.2
[2024-04-04 10:54] LABS: Glucose, Whole Blood 226 mg/dL (60-115)
== END 2024-04-04 12:10 | disposition home or self-care (01) ==
PROVIDERS: PCP Physician Assistant; Visit Provider Internal Medicine Endocrinology, Diabetes & Metabolism
DX: Z13.9 Encounter for screening, unspecified (principal); E11.65 Type 2 diabetes mellitus with hyperglycemia
CPT/HCPCS: 99214

== ENCOUNTER → 2024-04-04 10:39 | Outpatient (BNVA) | payer MEDICARE, MEDICAID, SELFPAY | PROVIDERS: PCP Physician Assistant; Visit Provider Internal Medicine Endocrinology, Diabetes & Metabolism | DX: Z46.81 Encounter for fitting and adjustment of insulin pump (principal); E11.65 Type 2 diabetes mellitus with hyperglycemia; Z79.4 Long term (current) use of insulin | CPT/HCPCS: 82947; 83036; 99212 ==

== ENCOUNTER 2024-05-25 14:01 | Outpatient (AMB) | payer MEDICARE, MEDICAID, SELFPAY ==
--- NOTE | 2024-05-25 14:03 | A.OFFPC_ITS ---
Vital Signs 05/25/24 14:16 Height 5 ft 2 in Weight 272 lb 4 oz BMI 49.8 BP 122/72 Blood Pressure Location Rt brachial Position Sitting Pulse 68 Pulse Source Pulse Oximeter Pulse Oximetry (%) 98 Oxygen Delivery Method Room Air Intake Visit Reasons: Mental health Intake Note: patient here for new patient visit c/o mental health issues and ENT issues. Early Interventionist Required: No Is last menstrual period known: No Post menopausal: No Patient : No Allergies citalopram [From Celexa] Allergy (Mild, Verified 05/25/24 14:11) cramps Niacin Preparations Allergy (Mild, Verified 05/25/24 14:11) vomitinf/flu symptoms/flushing lisinopril Allergy (Unknown, Verified 05/25/24 14:11) cough/all ACEI niacin Allergy (Unknown, Verified 05/25/24 14:11) unknown tirzepatide [From Mounjaro] Adverse Reaction (Severe, Verified 05/25/24 14:11) Diarrhea ziprasidone [Geodon] Adverse Reaction (Unknown, Verified 05/25/24 14:11) Unknown Metformin ER Allergy (Unknown, Uncoded 04/04/24 10:47) GI upset Medication List - Last Reconciled 05/25/24 by Shelby Escobar PA-C atenolol 75 mg PO BID blood sugar diagnostic As directed testing 5x per day. blood sugar diagnostic (OneTouch Verio test strips) 5 x/day blood-glucose meter (OneTouch Verio Meter) As directed blood-glucose sensor (Dexcom G6 Sensor device) DIRECTED EVERY 10 DAYS blood-glucose transmitter (Dexcom G6 Transmitter device) USE 1 EVERY 3 MONTHS DIRECTED chlorthalidone 25 mg PO DAILY cholecalciferol (vitamin D3) 2,000 units PO DAILY clobetasol 0.05% mL topical diclofenac sodium 1% 1 g topical TID insulin pump cart,auto,BT-cntr (Omnipod 5 G6 Intro Kit (Gen 5) subcutaneous cartridge with controller) As directed insulin pump cart,automated,BT (Omnipod 5 G6 Pods (Gen 5) subcutaneous cartridge) CHANGE POD EVERY 72 HOURS insulin regular hum U-500 conc (Humulin R U-500 (Concentrated) Insulin) Use up to 450 units via insulin pump subcut daily; insulin regular hum U-500 conc (Humulin R U-500 (Conc) Insulin Kwikpen) 16 units subcutaneously prior to meals; insulin U-500 syringe-needle As directed 4 times a day ixekizumab (Taltz Autoinjector) mg subcut lancets As directed 5 times a day lorazepam 1 mg PO Q8H PRN losartan 50 mg PO BID 90 days pen needle, diabetic (Comfort EZ Pen [place]) As directed simvastatin 40 mg PO BEDTIME Tobacco use date assessed: 05/25/24 Dental Screening Dental Screen Date: 05/25/24 Did you have a dental visit in the last 12 months?: Yes Did you have a dental problem in the last 6 months where you did not have access to dental care?: No Was dental information given to patient?: Patient has dentist HPI Mental health HPI Details Patient is a 64-year-old female with a significant past medical history of anxiety, depression, type 2 diabetes, insulin-dependent, proteinuria, CKD, anemia, hypertension, hyperlipidemia, morbid obesity and psoriasis. She made this appointment for increased anxiety Endo: Follows with Dr. Wolfe and has a CGM and a pump. Last a1c was 6.8. No lows. Nephro: Her laundry tub maker is Dr. Santos and sees him every 6 months. CV: Blood pressure today in the office is 122/72 and she is on chlorthalidone, losartan and atenolol. She is excited because her cholesterol has come down with simvastatin. She says that she needs a refill of this today. Psych: She has followed for years with a therapist and almost 20 years ago was on different SSRIs for her anxiety and depression but it has generally been under good control until recently. She states that her has been suffering from increased chronic back pain and has been somewhat miserable at home. 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 She states that everything seems to be coming to a head in her life and she just feels overwhelmed. She states that she is increasingly tearful and just feeling frustrated. No SI/HI. She would like to go on something regularly. In the past has only used lorazepam as needed. She states that the other day she had a panic attack at [facility] and took 1 and it was helpful but made her feel drowsy. She has 1 mg tablets at home. Musculoskeletal: reports bilateral hand pain and weakness. Has had carpal tunnel syndrome surgery and then repeat EMG showed unchanged CTS. She does not want to repeat her EMG as the last test was very painful and she states it was just a few years ago. She does not have much numbness but she is getting weakness in her hands. She has a hard time holding dishes. Her hands are very painful. She has seen the hand surgeon who told her there was not a lot that he could do and she has seen a overhead crane operator who she felt was overall dismissive of her joint pains. She would like a 2nd opinion. -her recent x-ray from the [facility] showed the following: Findings: X-ray of the hands and wrists show signs of mild narrowing of the right 1st CMC joint with subchondral cysts and small osteophytes. There is also a small osteophyte at the right thumb IP joint. There is a large cyst in the capitate bone in the wrist. The intercarpal and radiocarpal joint spaces appear normal. In the left hand there is a moderate-sized osteophyte in the 1st IP joint. There is also mild narrowing and small osteophyte at the 1st CMC joint. The remaining left hand and wrist joints are, otherwise, normal. Derm: Follows with Dr. Swift and has been managed with Taltz. Recently she has been getting some increased hand pain and her bilingual trainer wonders if she has psoriatic arthritis. She states that the overhead crane operator disagreed with this. HEENT: Also complains today of feeling like her ears are full and she has a hard time hearing. Endoscopy: 2019-peptic duodenitis-was told to stop aspirin and symptoms and anemia resolved. 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 Diabetic nephropathy associated with type 2 diabetes mellitus Diabetes type 2, uncontrolled Surgical History (Updated 05/25/24 @ 14:21 by Lucy Benavides CMA) Hx of colonoscopy History of selective laser trabeculoplasty History of total abdominal hysterectomy and bilateral salpingo-oophorectomy History of carpal tunnel release Hx of cholecystectomy Family History (Updated 05/25/24 @ 14:23 by Lucy Benavides CMA) Father CVD (cardiovascular disease) Obesity Diabetes Alcohol abuse CAD (coronary artery disease) Mother CVD (cardiovascular disease) Diabetes Obesity Chronic lymphocytic leukemia Hx of myocardial infarction Brother Substance abuse Daughter FH: mental illness Paternal Aunt Breast cancer Social History Household Members: Spouse and Children Housing: Condominium Alcohol intake: current Alcohol intake frequency: does not drink Patient Tobacco Use Status: Never used Tobacco e-Cigarette/Vaping Use: Never Used Second Hand Smoke Exposure: No service: No Current occupational status: disabled Current occupational exposures/hazards: No Cognitive needs: No Hearing needs: Yes Vision needs: Yes Questionnaire PHQ-9 Over the last 2 weeks, how often have you been bothered by any of the following problems? 1. Little interest or pleasure in doing things: more than half the days 2. Feeling down, depressed, or hopeless: more than half the days 3. Trouble falling or staying asleep, or sleeping too much: nearly every day 4. Feeling tired or having little energy: nearly every day 5. Poor appetite or overeating: more than half the days 6. Feeling bad about yourself - or that you are a failure or have let yourself or your family down: more than half the days 7. Trouble concentrating on things, such as reading the newspaper or watching television: more than half the days 8. Moving or speaking so slowly that other people could have noticed. Or the opposite - being so fidgety or restless that you have been moving around a lot more than usual: not at all 9. Thoughts that you would be better off or of hurting yourself in some wa y: several days Total score: 17 Depression Screening Interpretation: Positive Depression Screening Follow-up: Existing condition, In treatment and New Medication prescribed Depression Screening Done: Yes 21258 - PHQ-9 Billing: Yes Source: Developed by Drs. Eligio Méndez, Mignon Colon, Pepe Turner and colleagues, with an educational nanette from [employer]. Thrive Questionnaire Date Thrive assessed: 05/25/24 I am a: Patient What is your living situation today?: I have a steady place to live Within the past 12 months, did the food you bought not last and you didn't have the money to get more?: Never true Within the past 12 months, did you worry whether your food would run out before you got money to buy more?: Never true Do you have trouble paying for medicines?: No Do you have trouble getting transportation to medical appointments?: No Do you have trouble paying your heating and electricity bill?: Yes Do you have trouble taking care of your child, family member or friend?: No Do you have trouble with day-to-day activities such as bathing, preparing meals, shopping, managing finances, etc.?: No Are you currently unemployed and looking for a job?: No Are you interested in more education?: No Please select the resources that you would like help with: Utilities Currently or been in a relationship where the following occur: No concerns reported THRIVE Score: 1 AUDIT C Alcohol Use Questionnaire (AUDIT-C) 1. How often do you have a drink containing alcohol?: Monthly or less 2. How many drinks containing alcohol do you have on a typical day when you are drinking?: 1 or 2 3. How often do you have six or more drinks on one occasion?: Never Total Score: 1 DENNIS-7 AMB Questionnaire DENNIS-7 Date DENNIS - 7 assessed: 05/25/24 Feeling nervous, anxious, or on edge: 2 = More than half the days Not being able to stop or control worryin = Nearly every day Worrying too much about different things: 3 = Nearly every day Trouble relaxin = More than half the days Being so restless that it is hard to sit still: 0 = Not at all Becoming easily annoyed or irritable: 3 = Nearly every day Feeling afraid as if something awful might happen: 0 = Not at all Total DENNIS-7 score (0-4 normal; 5-9 mild; 10-14 moderate; 15-21 severe): 13 Source: Developed by Drs. Eligio Méndez, Mignon Colon, Pepe Turner and colleagues, with an educational nanette from [employer] DENNIS-7 Assessment Billing DENNIS-7 Assessment Tool: DENNIS-7 Assessment 99774 Physical exam (Primary Care) Vital Signs: Last Vital Signs Pulse 68 05/25/24 14:16 BP 122/72 05/25/24 14:16 Pulse Ox 98 05/25/24 14:16 Oxygen Delivery Method Room Air 05/25/24 14:16 BMI result Body Mass Index 49.8 Tobacco/Smoking Status: Tobacco use Status Tobacco use date assessed 05/25/24 05/25/24 14:13 Patient Tobacco Use Status Never used Tobacco 05/25/24 14:04 e-Cigarette/Vaping Use Never Used 05/25/24 14:13 PHQ-9: PHQ-9 Score PHQ-9: Total score 17 05/25/24 14:28 Depression Screening Interpretation: Positive Depression Screening Follow-up: Existing condition, In treatment and New Medication prescribed Thrive Assessment: Date of Thrive Assessment Date Thrive assessed 05/25/24 05/25/24 14:28 Currently or been in a relationship where the following occur: No concerns reported Const Orientation/consciousness: patient oriented x3 HENMT Ears: hearing grossly normal bilaterally, external ears normal and TM's normal bilaterally Face and sinus: Yes sinuses nontender Mouth: Normal oral and palatal mucosa present Neck Thyroid: Thyroid normal Lymphatic: no lymphadenopathy noted Resp Auscultation: clear to auscultation bilaterally Cardio Rate: regular rate Rhythm: regular rhythm Heart sounds: S1 normal heart sound present and S2 normal heart sound present GI Inspection: Yes normal to inspection Palpation (GI): Soft to palpation and Other GI palpation findings present (nontender, no cva tenderness) Auscultation: normoactive bowel sounds Rectal Exam - Female: deferred Skin General skin exam: no rashes or lesions noted Neuro General: patient oriented x3, gait normal and no focal motor deficits Extrem Other: Sensation intact. Radial pulses 2+ bilaterally. General: Yes full ROM and Yes capillary refill normal Results Reviewed Results Reviewed: Laboratory Tests 02/11/24 04/04/24 09:33 11:00 Sodium 139 Potassium 3.9 Chloride 105 Carbon Dioxide 26 BUN 29 H Creatinine 1.60 H Estimated GFR 33 Hgb A1c (Clinic) 6.8 H LDL 59 HDL 46 Triglycerides 161 total 132 Assessment and Plan Assessment & Plan (1) Hard of hearing: Code(s): H91.90 - Unspecified hearing loss, unspecified ear Qualifiers: Hearing loss type: unspecified Laterality: bilateral Qualified Code(s): H91.93 - Unspecified hearing loss, bilateral Plan: Referral to audiology (2) CKD stage 3 due to type 2 diabetes mellitus: Code(s): E11.22 - Type 2 diabetes mellitus with diabetic chronic kidney disease; N18.30 - Chronic kidney disease, stage 3 unspecified Plan: We will continue to monitor. (3) Hypertension: Code(s): I10 - Essential (primary) hypertension Qualifiers: Hypertension type: primary hypertension Qualified Code(s): I10 - Essent ial (primary) hypertension Plan: WNL. Continue current regimen (4) Dyslipidemia: Code(s): E78.5 - Hyperlipidemia, unspecified Plan: Refill simvastatin today. Labs ordered to be done in 6 months. 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 Wolfe. (6) Psoriasis: Code(s): L40.9 - Psoriasis, unspecified Plan: Continue with Dr. Swift (7) Bilateral hand pain: Code(s): M79.641 - Pain in right hand; M79.642 - Pain in left hand Plan: She will contact her insurance and let me know who she wants to see for a 2nd opinion for rheumatology. (8) Anxiety with depression: Code(s): F41.8 - Other specified anxiety disorders Plan: We will start on Prozac. Discussed risks and benefits and adverse effects of this medication including GI upset, increased risk of SI/HI. Advised to seek emergent medical treatment should she develop this. Follow up in 3-4 weeks. Sooner if needed. A short term prescription for lorazepam was provided. Orders: Referrals Audiology Referral H91.90 - Unspecified hearing loss, unspecified ear Medications: New lorazepam 0.5 mg PO DAILY 30 days PRN 30 tabs 0RF anxiety fluoxetine (Prozac) 10 mg PO DAILY 30 caps 1RF simvastatin 40 mg PO BEDTIME 90 tabs 3RF Coding Level of Care Code Est Pt Level 4 (94642) Complex EM visit Add On G2211 Diagnoses Bilateral hearing loss, unspecified hearing loss type H91.93 Hearing loss type: unspecified Laterality: bilateral CKD stage 3 due to type 2 diabetes mellitus E11.22; N18.30 Primary hypertension I10 Hypertension type: primary hypertension Dyslipidemia E78.5 group home (current) use of insulin Z79.4 Psoriasis L40.9 Bilateral hand pain M79.641; M79.642 Anxiety with depression F41.8 Additional Codes DENNIS-7 Assessment Billing - DENNIS-7 Assessment Tool: DENNIS-7 Assessment [id number] ([id number])
[2024-05-25 14:16] VITALS: BP 122/72; PULSE 68; O2SAT 98; BMI 49.8
== END 2024-05-25 15:19 | disposition home or self-care (01) ==
PROVIDERS: PCP Physician Assistant; Visit Provider Physician Assistant
DX: I12.9 Hypertensive chronic kidney disease with stage 1 through stage 4 chronic kidney disease, or unspecified chronic kidney disease (principal); E11.22 Type 2 diabetes mellitus with diabetic chronic kidney disease; N18.30 Chronic kidney disease, stage 3 unspecified; Z79.4 Long term (current) use of insulin; H91.93 Unspecified hearing loss, bilateral; E78.5 Hyperlipidemia, unspecified; L40.9 Psoriasis, unspecified; M79.641 Pain in right hand; M79.642 Pain in left hand; F41.8 Other specified anxiety disorders
CPT/HCPCS: 99214; G2211

== ENCOUNTER 2024-06-16 11:27 | Outpatient (REF) | payer MEDICARE, MEDICAID, SELFPAY ==
[2024-06-16 14:19] LABS: Anion Gap 17 (12-20); Blood Urea Nitrogen 32 mg/dL (9-16); Carbon Dioxide 25 mmol/L (22-29); Chloride 103 mmol/L (96-108); Estimated Glomerular Filt Rate 40; Potassium 4.1 mmol/L (3.3-5.1); Sodium 141 mmol/L (135-145)
[2024-06-16 14:35] LABS: Creatinine Urine 65.62 mg/dL; Microalbum/Creatinine Ratio Ur 473.9 ug/mg cr (<30)
== END 2024-06-16 11:28 | disposition home or self-care (01) ==
LOC: HO.WFDLDS 11:27
PROVIDERS: Internal Medicine Endocrinology, Diabetes & Metabolism; Visit Provider Internal Medicine Nephrology
DX: I10 Essential (primary) hypertension (principal); E11.22 Type 2 diabetes mellitus with diabetic chronic kidney disease; N18.30 Chronic kidney disease, stage 3 unspecified; E11.21 Type 2 diabetes mellitus with diabetic nephropathy; E11.65 Type 2 diabetes mellitus with hyperglycemia
CPT/HCPCS: 36415; 80051; 82043; 82565; 82570; 84520

== ENCOUNTER 2024-06-21 12:08 | Outpatient (AMB) | payer MEDICARE, MEDICAID, SELFPAY ==
[2024-06-21 12:16] VITALS: BP 132/78; PULSE 70; O2SAT 97; BMI 49.4
--- NOTE | 2024-06-21 12:16 | HO.NEPHOV_ITS ---
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 Accompanied by: Self / Same As Patient Allergies citalopram [From Celexa] Allergy (Mild, Verified 06/21/24 12:18) cramps Niacin Preparations Allergy (Mild, Verified 06/21/24 12:18) vomitinf/flu symptoms/flushing lisinopril Allergy (Unknown, Verified 06/21/24 12:18) cough/all ACEI niacin Allergy (Unknown, Verified 06/21/24 12:18) unknown tirzepatide [From Mounjaro] Adverse Reaction (Severe, Verified 06/21/24 12:18) Diarrhea ziprasidone [Geodon] Adverse Reaction (Unknown, Verified 06/21/24 12:18) Unknown Metformin ER Allergy (Unknown, Uncoded 04/04/24 10:47) GI upset HPI Comments Details: I had the privilege of seeing Dyan in follow-up of her chronic kidney disease, diabetic nephropathy and hypertension. Her bipedal edema was resolved after discontinuation of amlodipine and being on diuretics. She is trying to have a low-sodium diet. Her weight is stable. Her blood sugars are better. She is on insulin pump. She could not tolerate Jardiance. She denies nausea, vomiting, shortness of breath, proximal nocturnal dyspnea, orthopnea, urinary symptoms. She does not have any vascular complaints. She has no orthostasis. She feels well otherwise. 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 Diabetic nephropathy associated with type 2 diabetes mellitus Diabetes type 2, uncontrolled Surgical History Hx of colonoscopy History of selective laser trabeculoplasty History of total abdominal hysterectomy and bilateral salpingo-oophorectomy History of carpal tunnel release Hx of cholecystectomy Family History Father CVD (cardiovascular disease) Obesity Diabetes Alcohol abuse CAD (coronary artery disease) Mother CVD (cardiovascular disease) Diabetes Obesity Chronic lymphocytic leukemia Hx of myocardial infarction Brother Substance abuse Daughter FH: mental illness Paternal Aunt Breast cancer Social History Household Members: Spouse and Children Housing: Condominium Alcohol intake: current Alcohol intake frequency: does not drink Patient Tobacco Use Status: Never used Tobacco e-Cigarette/Vaping Use: Never Used Second Hand Smoke Exposure: No service: No Current occupational status: disabled Current occupational exposures/hazards: No Cognitive needs: No Hearing needs: Yes Vision needs: Yes Physical Exam Vital Signs: Last Vital Signs Pulse 70 06/21/24 12:16 BP 132/78 06/21/24 12:16 Pulse Ox 97 06/21/24 12:16 Oxygen Delivery Method Room Air 06/21/24 12:16 BMI result Body Mass Index 49.4 Const General: comfortable and no acute distress Orientation/consciousness: patient oriented x3 HEENT Head: Yes normocephalic Mouth: Normal oral and palatal mucosa present Eyes EOM: EOMs intact bilaterally Neck Neck: Yes supple Resp Auscultation: clear to auscultation bilaterally Cardio Jugular venous distension: no JVD Rate: regular rate GI Palpation (GI): Soft to palpation Auscultation: normal bowel sounds General: Yes no CVA tenderness Back/Spine/Pelvis Back: no CVA tenderness Skin General skin exam: no rashes or lesions noted Neuro General: patient oriented x3 and moves all extremities Extrem General: Yes no pedal edema Results Reviewed Nephrology Results: Sodium 141 mmol/L (135-145) 06/16/24 Potassium 4.1 mmol/L (3.3-5.1) 06/16/24 Chloride 103 mmol/L (96-108) 06/16/24 Carbon Dioxide 25 mmol/L (22-29) 06/16/24 BUN 32 mg/dL (9-16) H 06/16/24 Creatinine 1.35 mg/dL (0.5-1.4) 06/16/24 Calcium 9.6 mg/dL (8.4-10.2) 02/11/24 Urine Creatinine 65.62 mg/dL 06/16/24 Protein/Creatinin Ratio 0.22 (<0.2) H 02/11/24 Assessment & Plan Assessment & Plan (1) CKD stage 3 due to type 2 diabetes mellitus: Code(s): E11.22 - Type 2 diabetes mellitus with diabetic chronic kidney disease; N18.30 - Chronic kidney disease, stage 3 unspecified Category: Medical (2) Hypertension: Code(s): I10 - Essential (primary) hypertension Category: Medical Qualifiers: Hypertension type: primary hypertension Qualified Code(s): I10 - Essential (primary) hypertension (3) Diabetic nephropathy associated with type 2 diabetes mellitus: Code(s): E11.21 - Type 2 diabetes mellitus with diabetic nephropathy Category: Medical Plan Aure has chronic kidney disease due to diabetic nephropathy. She is hypertensive and is on medications. Her blood pressure needs to be at goal. Her serum creatinine is better. She could not tolerate Jardiance. I may back off on losartan if her serum creatinine rises. She avoids nonsteroidal anti- inflammatory medications and maintain good hydration. Follow-up blood work ordered. Answered all questions. Follow-up given Orders: Orders Blood Urea Nitrogen 6 Months E11.22 - Type 2 diabetes mellitus with diabetic chronic kidney disease, N18.30 - Chronic kidney disease, stage 3 unspecified Creatinine 6 Months E11.22 - Type 2 diabetes mellitus with diabetic chronic kidney disease, N18.30 - Chronic kidney disease, stage 3 unspecified Electrolytes 6 Months E11.22 - Type 2 diabetes mellitus with diabetic chronic kidney disease, N18.30 - Chronic kidney disease, stage 3 unspecified Protein Creatinine Ratio, Ur 6 Months E11.22 - Type 2 diabetes mellitus with diabetic chronic kidney disease, N18.30 - Chronic kidney disease, stage 3 unspecified Coding Level of Care Code Est Pt Level 4 (71202) Diagnoses CKD stage 3 due to type 2 diabetes mellitus E11.22; N18.30 Primary hypertension I10 Hypertension type: primary hypertension Diabetic nephropathy associated with type 2 diabetes mellitus E11.21
== END 2024-06-21 12:39 | disposition home or self-care (01) ==
PROVIDERS: PCP Physician Assistant; Visit Provider Internal Medicine Nephrology
DX: E11.22 Type 2 diabetes mellitus with diabetic chronic kidney disease (principal); N18.30 Chronic kidney disease, stage 3 unspecified; I10 Essential (primary) hypertension; E11.21 Type 2 diabetes mellitus with diabetic nephropathy
CPT/HCPCS: 99214

== ENCOUNTER → 2024-06-21 12:08 | Outpatient (BNVA) | payer MEDICARE, MEDICAID, SELFPAY | PROVIDERS: PCP Physician Assistant; Visit Provider Internal Medicine Nephrology | DX: E11.22 Type 2 diabetes mellitus with diabetic chronic kidney disease (principal); N18.30 Chronic kidney disease, stage 3 unspecified; E11.21 Type 2 diabetes mellitus with diabetic nephropathy | CPT/HCPCS: 99212 ==

== ENCOUNTER 2024-06-22 10:00 | Outpatient (AMB) | payer MEDICARE, MEDICAID, SELFPAY ==
--- NOTE | 2024-06-22 10:27 | MHC.PC.OV ---
Vital Signs 06/22/24 10:29 BMI Reason not done Patient refused/unable BP 124/68 Blood Pressure Location Lt brachial Position Sitting Pulse 58 Pulse Source Pulse Oximeter Pulse Oximetry (%) 96 Oxygen Delivery Method Room Air Intake Visit Reasons: anxiey f/u Intake Note: Follow up Quality Assurance Coordinator Required: No Allergies citalopram [From Celexa] Allergy (Mild, Verified 06/22/24 10:27) cramps Niacin Preparations Allergy (Mild, Verified 06/22/24 10:27) vomitinf/flu symptoms/flushing lisinopril Allergy (Unknown, Verified 06/22/24 10:27) cough/all ACEI niacin Allergy (Unknown, Verified 06/22/24 10:27) unknown tirzepatide [From Mounjaro] Adverse Reaction (Severe, Verified 06/22/24 10:27) Diarrhea ziprasidone [Geodon] Adverse Reaction (Unknown, Verified 06/22/24 10:27) Unknown Metformin ER Allergy (Unknown, Uncoded 06/22/24 10:27) GI upset Medication List - Last Reconciled 06/22/24 by Shelby Escobar PA-C atenolol 75 mg PO BID blood sugar diagnostic As directed testing 5x per day. blood sugar diagnostic (OneTouch Verio test strips) 5 x/day blood-glucose meter (OneTouch Verio Meter) As directed blood-glucose sensor (Dexcom G6 Sensor device) DIRECTED EVERY 10 DAYS blood-glucose transmitter (Dexcom G6 Transmitter device) USE 1 EVERY 3 MONTHS DIRECTED chlorthalidone 25 mg PO DAILY cholecalciferol (vitamin D3) 2,000 units PO DAILY clobetasol 0.05% mL topical diclofenac sodium 1% 1 g topical TID insulin pump cart,auto,BT-cntr (Omnipod 5 G6 Intro Kit (Gen 5) subcutaneous cartridge with controller) As directed insulin pump cart,automated,BT (Omnipod 5 G6 Pods (Gen 5) subcutaneous cartridge) CHANGE POD EVERY 72 HOURS insulin regular hum U-500 conc (Humulin R U-500 (Concentrated) Insulin) Use up to 450 units via insulin pump subcut daily; insulin regular hum U-500 conc (Humulin R U-500 (Conc) Insulin Kwikpen) 16 units subcutaneously prior to meals; insulin U-500 syringe-needle As directed 4 times a day ixekizumab (Taltz Autoinjector) mg subcut lancets As directed 5 times a day lorazepam 0.5 mg PO DAILY PRN 30 days losartan 50 mg PO BID 90 days pen needle, diabetic (Comfort EZ Pen Mcloud) As directed simvastatin 40 mg PO BEDTIME Tobacco use date assessed: 05/25/24 Dental Screening Dental Screen Date: 05/25/24 HPI anxiey f/u HPI Details Patient is a 64-year-old female who presents today for a follow up. Psych: At our last visit I started her on Prozac. She says that this has made her feel drowsy. She would like to try something different. Her daughter was recently started on Lexapro and this has working well for her. Denies any SI/HI. States that she definitely feels much more mellow and less reactive. She has not needed to use the lorazepam. Endo: She follows with Dr. Wolfe for her diabetes and her last A1c was 6.8. She is on a pump and very compliant with her current regimen. She was on Ozempic and Trulicity in the past but it caused constipation. The last time she tried Mounjaro she actually was able to lose weight but had severe diarrhea. She says that she did not get this side effect for the 1st few weeks while taking this medication. She wonders if she could try it again because she really wants to lose weight. She denies any hypoglycemic events. She controls her cholesterol with simvastatin 40 mg. She is on an Arb. She does have diabetic nephropathy. She follows with Dr. Santos. Nephro: Up-to-date with Nephrology. Last kidney function stable. Avoid NSAIDs. CV: Blood pressure today in the office is 124/68. 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 Diabetic nephropathy associated with type 2 diabetes mellitus Diabetes type 2, uncontrolled Surgical History Hx of colonoscopy History of selective laser trabeculoplasty History of total abdominal hysterectomy and bilateral salpingo-oophorectomy History of carpal tunnel release Hx of cholecystectomy Family History Father CVD (cardiovascular disease) Obesity Diabetes Alcohol abuse CAD (coronary artery disease) Mother CVD (cardiovascular disease) Diabetes Obesity Chronic lymphocytic leukemia Hx of myocardial infarction Brother Substance abuse Daughter FH: mental illness Paternal Aunt Breast cancer Social History Household Members: Spouse and Children Housing: Condominium Alcohol intake: current Alcohol intake frequency: does not drink Patient Tobacco Use Status: Never used Tobacco e-Cigarette/Vaping Use: Never Used Second Hand Smoke Exposure: No service: No Current occupational status: disabled Current occupational exposures/hazards: No Cognitive needs: No Hearing needs: Yes Vision needs: Yes Questionnaire PHQ-9 Over the last 2 weeks, how often have you been bothered by any of the following problems? 1. Little interest or pleasure in doing things: not at all 2. Feeling down, depressed, or hopeless: not at all 3. Trouble falling or staying asleep, or sleeping too much: nearly every day 4. Feeling tired or having little energy: nearly every day 5. Poor appetite or overeating: not at all 6. Feeling bad about yourself - or that you are a failure or have let yourself or your family down: not at all 7. Trouble concentrating on things, such as reading the newspaper or watching television: not at all 8. Moving or speaking so slowly that other people could have noticed. Or the opposite - being so fidgety or restless that you have been moving around a lot more than usual: not at all 9. Thoughts that you would be better off or of hurting yourself in some way: not at all Total score: 6 Depression Screening Interpretation: Positive Depression Screening Done: Yes 94089 - PHQ-9 Billing: Yes Source: Developed by Drs. Eligio Méndez, Mignon Colon, Pepe Turner and colleagues, with an educational nanette from [employer]. Thrive Questionnaire Date Thrive assessed: 05/25/24 DENNIS-7 AMB Questionnaire DENNIS-7 Date DENNIS - 7 assessed: 06/22/24 Feeling nervous, anxious, or on edge: 0 = Not at all Not being able to stop or control worryin = Not at all Worrying too much about different things: 0 = Not at all Trouble relaxin = Not at all Being so restless that it is hard to sit still: 0 = Not at all Becoming easily annoyed or irritable: 0 = Not at all Feeling afraid as if something awful might happen: 0 = Not at all Total DENNIS-7 score (0-4 normal; 5-9 mild; 10-14 moderate; 15-21 severe): 0 Source: Developed by Drs. Eligio Méndez, Mignon Colon, Pepe Turner and colleagues, with an educational nanette from [employer]. DENNIS-7 Assessment Billing DENNIS-7 Assessment Tool: DENNIS-7 Assessment 43081 Physical exam (Primary Care) Vital Signs: Last Vital Signs Pulse 58 06/22/24 10:29 BP 124/68 06/22/24 10:29 Pulse Ox 96 06/22/24 10:29 Oxygen Delivery Method Room Air 06/22/24 10:29 Tobacco/Smoking Status: Tobacco use Status Tobacco use date assessed 05/25/24 06/22/24 10:32 Patient Tobacco Use Status Never used Tobacco 06/22/24 10:32 e-Cigarette/Vaping Use Never Used 06/22/24 10:32 PHQ-9: PHQ-9 Score PHQ-9: Total score 6 06/22/24 11:12 Depression Screening Interpretation: Positive Thrive Assessment: Date of Thrive Assessment Date Thrive assessed 05/25/24 06/22/24 10:32 Assessment and Plan Assessment & Plan (1) Anxiety with depression: Code(s): F41.8 - Other specified anxiety disorders Plan: We will discontinue the Prozac. We will start Lexapro. Discussed risks and benefits and adverse effects of this medication. Follow up in 4 weeks. Sooner if needed. (2) CKD stage 3 due to type 2 diabetes mellitus: Code(s): E11.22 - Type 2 diabetes mellitus with diabetic chronic kidney disease; N18.30 - Chronic kidney disease, stage 3 unspecified Plan: Last labs reviewed with patient. Continue follow up with Dr. Santos. (3) Morbid obesity: Code(s): E66.01 - Morbid (severe) obesity due to excess calories Plan: We will start Mounjaro. (4) Diabetic nephropathy associated with type 2 diabetes mellitus: Code(s): E11.21 - Type 2 diabetes mellitus with diabetic nephropathy Plan: As above. Has follow up in the fall arranged with Dr. Wolfe. (5) Dyslipidemia: Code(s): E78.5 - Hyperlipidemia, unspecified Plan: Lipids and LFTs ordered. We will follow up pending test results. Orders: Orders Complete Blood Count Auto Diff Today E11.21 - Type 2 diabetes mellitus with diabetic nephropathy, E11.22 - Type 2 diabetes mellitus with diabetic chronic kidney disease, E66.01 - Morbid (severe) obesity due to excess calories, E78.5 - Hyperlipidemia, unspecified, F41.8 - Other specified anxiety disorders, N18.30 - Chronic kidney disease, stage 3 unspecified TSH reflex Free T4 Today E11.21 - Type 2 diabetes mellitus with diabetic nephropathy, E11.22 - Type 2 diabetes mellitus with diabetic chronic kidney disease, E66.01 - Morbid (severe) obesity due to excess calories, E78.5 - Hyperlipidemia, unspecified, F41.8 - Other specified anxiety disorders, N18.30 - Chronic kidney disease, stage 3 unspecified Vitamin B12 and Folate Today E11.21 - Type 2 diabetes mellitus with diabetic nephropathy, E11.22 - Type 2 diabetes mellitus with diabetic chronic kidney disease, E66.01 - Morbid (severe) obesity due to excess calories, E78.5 - Hyperlipidemia, unspecified, F41.8 - Other specified anxiety disorders, N18.30 - Chronic kidney disease, stage 3 unspecified Lipid Panel Today E11.21 - Type 2 diabetes mellitus with diabetic nephropathy, E11.22 - Type 2 diabetes mellitus with diabetic chronic kidney disease, E66.01 - Morbid (severe) obesity due to excess calories, E78.5 - Hyperlipidemia, unspecified, F41.8 - Other specified anxiety disorders, N18.30 - Chronic kidney disease, stage 3 unspecified IRON PROFILE Today E11.22 - Type 2 diabetes mellitus with diabetic chronic kidney disease, E66.01 - Morbid (severe) obesity due to excess calories, F41.8 - Other specified anxiety disorders, N18.30 - Chronic kidney disease, stage 3 unspecified Comprehensive [place]. Panel Fast Today E11.21 - Type 2 diabetes mellitus with diabetic nephropathy, E11.22 - Type 2 diabetes mellitus with diabetic chronic kidney disease, E66.01 - Morbid (severe) obesity due to excess calories, E78.5 - Hyperlipidemia, unspecified, F41.8 - Other specified anxiety disorders, N18.30 - Chronic kidney disease, stage 3 unspecified Referrals Open Access Screening Colonoscopy Referral Z12.11 - Encounter for screening for malignant neoplasm of colon, Z12.12 - Encounter for screening for malignant neoplasm of rectum Medications: New escitalopram oxalate (Lexapro) 5 mg PO DAILY 90 tabs 0RF tirzepatide (Mounjaro) 2.5 mg (0.5 mL) subcut QWEEK 4 weeks 2 mL 3RF Coding Level of Care Code Est Pt Level 4 (30623) Complex EM visit Add On G2211 Diagnoses Anxiety with depression F41.8 CKD stage 3 due to type 2 diabetes mellitus E11.22; N18.30 Morbid obesity E66.01 Diabetic nephropathy associated with type 2 diabetes mellitus E11.21 Dyslipidemia E78.5 Additional Codes DENNIS-7 Assessment Billing - DENNIS-7 Assessment Tool: DENNIS-7 Assessment [id number] ([id number])
[2024-06-22 10:29] VITALS: BP 124/68; PULSE 58; O2SAT 96
== END 2024-06-22 11:29 | disposition home or self-care (01) ==
PROVIDERS: PCP Physician Assistant; Visit Provider Physician Assistant
DX: E11.22 Type 2 diabetes mellitus with diabetic chronic kidney disease (principal); N18.30 Chronic kidney disease, stage 3 unspecified; E66.01 Morbid (severe) obesity due to excess calories; E11.21 Type 2 diabetes mellitus with diabetic nephropathy; F41.8 Other specified anxiety disorders; E78.5 Hyperlipidemia, unspecified
CPT/HCPCS: 96127; 99214; G2211

== ENCOUNTER 2024-06-25 10:47 | Outpatient (REF) | payer MEDICARE, MEDICAID, SELFPAY ==
[2024-06-25 11:03] LABS: MANUAL DIFF FLAG NO
[2024-06-25 11:14] LABS: Basophils Percent Auto 0.3 % (0-2); Eosinophils Absolute Auto 0.9 X10*3/uL (0.0-0.4); Eosinophils Percent Auto 10.2 % (0-4); Hematocrit 36.6 % (37.0-47.0); Hemoglobin 11.8 g/dl (12.0-16.0); Imm Gran Abs Auto 0.03 X10*3/uL (0.00-0.03); Imm Gran Pct Auto 0.3 % (0.0-0.4); Lymphocytes Absolute Auto 1.9 X10*3/uL (1.2-4.9); Lymphocytes Percent Auto 21.1 % (20-40); Mean Corpuscular HGB Conc 32.2 g/dl (31.0-35.0); Mean Corpuscular Hemoglobin 28.5 pg (27.0-33.0); Mean Corpuscular Volume 88.4 fL (80.0-98.0); Mean Platelet Volume 10.8 fL (9.4-12.3); Monocytes Absolute Auto 0.6 X10*3/uL (0.1-1.2); Monocytes Percent Auto 6.9 % (2-11); Neutrophils Absolute Auto 5.4 x10*3/uL (2.0-8.3); Neutrophils Percent Auto 61.2 % (45-73); Platelet Count 208 X10*3/uL (160-400); Red Blood Count 4.14 X10*6/uL (4.20-5.50); Red Cell Distribution Width 14.2 % (11.0-16.0); White Blood Count 8.9 X10*3/uL (4.8-10.8)
[2024-06-25 12:13] LABS: Alanine Aminotransferase 18 U/L (0-31); Albumin Level 4.2 g/dL (3.5-5.0); Alkaline Phosphatase 76 U/L (39-117); Anion Gap 13 (12-20); Aspartate Amino Transferase 20 U/L (5-31); Bilirubin Total 0.8 mg/dL (0.0-1.0); Blood Urea Nitrogen 36 mg/dL (9-16); Calcium 9.4 mg/dL (8.4-10.2); Carbon Dioxide 28 mmol/L (22-29); Chloride 104 mmol/L (96-108); Cholesterol 119 mg/dL (<200); Estimated Glomerular Filt Rate 34; Glucose Fasting 133 mg/dL (60-99); HDL Cholesterol 42 mg/dL (>40); Iron 70 mcg/dL (30-160); LDL Cholesterol Calculated 55 mg/dL (<100); Percent Iron Saturation 23 % (15-50); Potassium 4.4 mmol/L (3.3-5.1); Sodium 141 mmol/L (135-145); Total Iron Binding Capacity 303 mcg/dL (228-428); Triglycerides 113 mg/dL (<150); Unsaturated Iron Binding 233 ug/dL
[2024-06-25 12:15] LABS: TSH reflex Free T4 0.31 uIU/mL (0.32-4.0)
[2024-06-25 12:28] LABS: Folate 6.2 ng/mL (> or = 4.0); Vitamin B12 471 pg/mL (200-900)
[2024-06-25 12:45] LABS: Free T4 (Free Thyroxine) 0.93 ng/dL (0.71-1.85)
== END 2024-06-25 10:48 | disposition home or self-care (01) ==
LOC: HO.LAB 10:47
PROVIDERS: Absent Provider Internal Medicine Endocrinology, Diabetes & Metabolism; PCP Physician Assistant; Referring Provider Internal Medicine Endocrinology, Diabetes & Metabolism; Visit Provider Physician Assistant
DX: F41.8 Other specified anxiety disorders (principal); E11.22 Type 2 diabetes mellitus with diabetic chronic kidney disease; N18.30 Chronic kidney disease, stage 3 unspecified; E66.01 Morbid (severe) obesity due to excess calories; E78.5 Hyperlipidemia, unspecified; E11.21 Type 2 diabetes mellitus with diabetic nephropathy
CPT/HCPCS: 36415; 80053; 80061; 82607; 82746; 83540; 84439; 84443; 85025

== ENCOUNTER 2024-07-01 10:23 | Outpatient (AMB) | payer MEDICARE, MEDICAID, SELFPAY ==
--- NOTE | 2024-07-01 10:26 | A.OFFVIS_ITS ---
Vital Signs 07/01/24 10:34 Height 5 ft 2 in Weight 271 lb 2.697 oz BMI 49.6 BP 120/70 Blood Pressure Location Rt brachial Position Sitting Pulse 59 Pulse Source Pulse Oximeter Intake Visit Reasons: Type 2 DM/CONFIRMED Intake Note: Patient presents today to re-establish treatment for Type 2 Diabetes Mellitus: Last Diabetic eye exam was on: DUE, next appt end of Jun Last Podiatry exam was on: Does not see a Bricklayer Tender Most recent HbA1c: 6.8%, 04/04/2024 Random Glucose- 142 mg/dL, Today Take Away Man Required: No Accompanied by: Self / Same As Patient Allergies citalopram [From Celexa] Allergy (Mild, Verified 07/01/24 10:29) cramps Niacin Preparations Allergy (Mild, Verified 07/01/24 10:29) vomitinf/flu symptoms/flushing lisinopril Allergy (Unknown, Verified 07/01/24 10:29) cough/all ACEI niacin Allergy (Unknown, Verified 07/01/24 10:29) unknown tirzepatide [From Mounjaro] Adverse Reaction (Severe, Verified 07/01/24 10:29) Diarrhea ziprasidone [Geodon] Adverse Reaction (Unknown, Verified 07/01/24 10:29) Unknown Metformin ER Allergy (Unknown, Uncoded 07/01/24 10:29) GI upset HPI Comments Details: Patient is a 64-year-old female with DM type 2 diagnosed in 2002 who presents for management of diabetes. She has been on an Omnipod 5 with G6 for several ye ars. Past medical history: Diabetes type 2 dyslipidemia, hypertension chronic kidney disease stage 3, nephropathy, psoriasis Micro and macrovascular complications: nephropathy Diabetes medications: Humulin U 500 via Omnipod 5. PCP recently sent prescription for mounjaro, has some GI intolerance in the past Reports that she did not tolerate Ozempic or Trulicity due to constipation. She did not tolerate Jardiance due to vaginal itching. Total Daily Dose 51 49 % basal 25 51 % bolus 26 Dexcom average glucose: [141 ] Glucose Managment indicator 6.7 % TIme in range: [ 2] % very high (above 250) Fourteen % high ?(181-250) 82 % in range ?(70-180] 2 % low (69-55) 0 % ?very low (below 54) [ 94] % TIme CGM Active Details [some lows after lunch ] Basal rate(s) (units/hour) : 12 AM? to 1 AM? 1.5 units / hr 1 AM? to 8 AM? 1.4 units / hr 8 AM to 8 PM? 1.3 units / hr 8 PM? to 12 AM? 1.7 units / hr Bolus setting Insulin Carbohydrate Ratio (s) 12 AM? to 5 PM? 1:5 5 PM to 12 AM 1:4.5 Correction Factor / Sensitivity Factor 12 AM? to 12 PM? 1:15 new 12am 1:15 12pm 1:18 4pm 1:15 Active Insulin Time:? 4 hours Target(s): 12 AM? to 12 PM? 120 mg/dL Correction Threshhold 120 mg/d Symptoms reported: denies numbness, tingling, cramping in lower extremities Hypoglycemia:none , Symptoms of shakiness and sweatiness. Very rare hypoglycemia Hyperglycemia: reports urinary frequency (reports diuretic), +nocturia, +polydypsia (reports drymouth) Treats low with 3-4 tablets has been having some lows after lunch when she has higher before lunch Exercise: limited due to arthritis, walks some. 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: has been awhile Dental exam: goes every 6 months Ophthalmology evaluation: last appt in 06/2023 scheduled this month no reti nopathy Other specialists: nephrology, dermatology, no longer seeing hematology(anemia resolved) She has follow-up scheduled with nephrology Fibrosis-4 (Fib-4) Index for liver fibrosis (calculated on most recent lab work 2023) [ 0.62] points Advanced fibrosis [excluded] Approximate Fibrosis stage Tor[place] [0-1] PFSH Medical History Hx of mammogram Psoriatic arthritis Microalbuminuria due to type 2 diabetes mellitus Anxiety Arthritis Anemia CKD stage 3 due to type 2 diabetes mellitus Psoriasis Stress incontinence Morbid obesity Hypertension Dyslipidemia senior care (current) use of insulin Diabetic nephropathy associated with type 2 diabetes mellitus Diabetes type 2, uncontrolled Surgical History Hx of colonoscopy History of selective laser trabeculoplasty History of total abdominal hysterectomy and bilateral salpingo-oophorectomy History of carpal tunnel release Hx of cholecystectomy Family History Father CVD (cardiovascular disease) Obesity Diabetes Alcohol abuse CAD (coronary artery disease) Mother CVD (cardiovascular disease) Diabetes Obesity Chronic lymphocytic leukemia Hx of myocardial infarction Brother Substance abuse Daughter FH: mental illness Paternal Aunt Breast cancer Social History Household Members: Spouse and Children Housing: [facility] Alcohol intake: current Alcohol intake frequency: does not drink Patient Tobacco Use Status: Never used Tobacco e-Cigarette/Vaping Use: Never Used Second Hand Smoke Exposure: No service: No Current occupational status: disabled Current occupational exposures/hazards: No Cognitive needs: No Hearing needs: Yes Vision needs: Yes Physical Exam Vital Signs: Last Vital Signs Pulse 59 07/01/24 10:34 BP 120/70 07/01/24 10:34 BMI result Body Mass Index 49.6 Const General: cooperative and healthy appearing Nutritional Appearance: obese Orientation/consciousness: patient oriented x3 Neck Neck: Yes normal visual inspection Thyroid: Thyroid normal Resp Effort & Inspection: normal respiratory effort Cardio Jugular venous distension: no JVD Rhythm: regular rhythm Heart sounds: S1 normal heart sound present and S2 normal heart sound present Neuro General: patient oriented x3 Extrem Other: Visual exam of foot performed. No ulcerations or open lesions. No onchomycosis, no callouses. skin drySensation intact to monofilament exam. Vibratory sensation is normal with 128 Hz tuning fork. Results Reviewed Results Reviewed: Laboratory Last Values Glucose (Clinic) 142 mg/dL (60-115) H 07/01/24 10:42 Laboratory Tests 06/16/24 06/25/24 11:42 11:01 Potassium 4.4 Creatinine 1.56 H Estimated GFR 34 Fasting Glucose 133 H Calcium 9.4 AST 20 ALT 18 Triglycerides 113 Cholesterol 119 LDL Cholesterol, Calc 55 HDL Cholesterol 42 TSH 0.31 L Free T4 0.93 Urine Creatinine 65.62 Urine Microalbumin 311.0 Microalb/Creat Ratio 473.9 H Assessment & Plan Assessment & Plan (1) Diabetes type 2, uncontrolled: Code(s): E11.65 - Type 2 diabetes mellitus with hyperglycemia Category: Medical Plan: Type 2 diabetic with good control. Insulin pump settings were changed to deliver less of a correction after lunch when she is high. She was recently prescribed Mounjaro 0.25 mg by her PCP. She has had some intolerability to other GLP ones in the past. Fib 4 calculation excludes advanced fibrosis no additional studies ordered. We will switch over to G7. She just picked up several months worth of sensors so she was scheduled a follow-up with the Nory JOSÉ to convert over in about 9 weeks and I will see her several weeks after about. She will continue to follow up with her rigging loft mechanic and is up-to-date with Ophthalmology. Patient teaching: The patient was counseled to always carry a source of sugar and on the rule of 15's: Take 3 glucose tablets and repeat again in 15 minutes if blood sugar is not in normal range. Continue to repeat every 15 minutes until blood sugar is normal. Symptoms of DKA were reviewed: early: frequent urination, dry mouth, ketones in the urine, severe symptoms: abdominal pain, nausea, vomiting and weakness. It is important to hydrate with sugar free liquids every 30 minutes and bring the sugars down to normal levels. Backup insulin plan for pump failure. High glucose pump protocol reviewed. We will switch over to G7. She just picked up several months worth of sensors so she was scheduled a follow-up with the Nory JOSÉ to convert over in about 9 weeks and I will see her several weeks after about. She will continue to follow up with her rigging loft mechanic and is up-to-date with Ophthalmology. Patient teaching: The patient was counseled to always carry a source of sugar and on the rule of 15's: Take 3 glucose tablets and repeat again in 15 minutes if blood sugar is not in normal range. Continue to repeat every 15 minutes until blood sugar is normal. Symptoms of DKA were reviewed: early: frequent urination, dry mouth, ketones in the urine, severe symptoms: abdominal pain, nausea, vomiting and weakness. It is important to hydrate with sugar free liquids every 30 minutes and bring the sugars down to normal levels. Backup insulin plan for pump failure. High glucose pump protocol reviewed. We will switch over to G7. She just picked up several months worth of sensors so she was scheduled a follow-up with the Nory Schaefer CDE to convert over in about 9 weeks and I will see her several weeks after about. Coding Level of Care Code Est Pt Level 5 (56112) Complex EM visit Add On G2211 Diagnoses Diabetes type 2, uncontrolled E11.65
[2024-07-01 10:34] VITALS: BP 120/70; PULSE 59; BMI 49.6
[2024-07-01 10:46] LABS: Glucose, Whole Blood 142 mg/dL (60-115)
== END 2024-07-01 11:24 | disposition home or self-care (01) ==
PROVIDERS: PCP Physician Assistant; Visit Provider Nurse Practitioner Adult Health
DX: E11.65 Type 2 diabetes mellitus with hyperglycemia (principal)
CPT/HCPCS: 99215; G2211

== ENCOUNTER 2024-07-14 10:12 | Outpatient (REF) | payer MEDICARE, MEDICAID, SELFPAY | END 2024-07-14 10:13 | disposition home or self-care (01) | LOC: HO.SH 10:12 | PROVIDERS: Visit Provider Physician Assistant | DX: Z01.118 Encounter for examination of ears and hearing with other abnormal findings (principal); H90.3 Sensorineural hearing loss, bilateral | CPT/HCPCS: 92557; 92567 ==

== ENCOUNTER 2024-08-17 10:19 | Outpatient (AMB) | payer MEDICARE, MEDICAID, SELFPAY ==
--- NOTE | 2024-08-17 10:22 | A.OFFPC_ITS ---
Vital Signs 08/17/24 10:33 Height 5 ft 2 in Weight 277 lb 4 oz BMI 50.7 BP 128/74 Blood Pressure Location Lt brachial Position Sitting Pulse 71 Pulse Source Pulse Oximeter Pulse Oximetry (%) 97 Oxygen Delivery Method Room Air Intake Visit Reasons: follow up mounjaro/meds Intake Note: Medication follow up. Hasn't started Mounjaro, wanted to wait until after her anniversary incase it made her sick. Allergies citalopram [From Celexa] Allergy (Mild, Verified 08/17/24 10:32) cramps Niacin Preparations Allergy (Mild, Verified 08/17/24 10:32) vomitinf/flu symptoms/flushing lisinopril Allergy (Unknown, Verified 08/17/24 10:32) cough/all ACEI niacin Allergy (Unknown, Verified 08/17/24 10:32) unknown tirzepatide [From Mounjaro] Adverse Reaction (Severe, Verified 08/17/24 10:32) Diarrhea ziprasidone [Geodon] Adverse Reaction (Unknown, Verified 08/17/24 10:32) Unknown Metformin ER Allergy (Unknown, Uncoded 08/17/24 10:32) GI upset Medication List - Last Reconciled 08/17/24 by Shelby Escobar PA-C atenolol 75 mg PO BID blood sugar diagnostic As directed testing 5x per day. blood sugar diagnostic (OneTouch Verio test strips) 5 x/day blood-glucose meter (OneTouch Verio Meter) As directed blood-glucose sensor (Dexcom G6 Sensor device) DIRECTED EVERY 10 DAYS blood-glucose transmitter (Dexcom G6 Transmitter device) USE 1 EVERY 3 MONTHS DIRECTED chlorthalidone 25 mg PO DAILY cholecalciferol (vitamin D3) 2,000 units PO DAILY clobetasol 0.05% mL topical diclofenac sodium 1% 1 g topical TID insulin pump cart,auto,BT-cntr (Omnipod 5 G6 Intro Kit (Gen 5) subcutaneous cartridge with controller) As directed insulin pump cart,automated,BT (Omnipod 5 G6 Pods (Gen 5) subcutaneous cartridge) CHANGE POD EVERY 72 HOURS insulin regular hum U-500 conc (Humulin R U-500 (Concentrated) Insulin) Use up to 450 units via insulin pump subcut daily; insulin U-500 syringe-needle As directed 4 times a day ixekizumab (Taltz Autoinjector) 80 mg subcut lancets As directed 5 times a day lorazepam 0.5 mg PO DAILY PRN 30 days losartan 50 mg PO BID 90 days pen needle, diabetic (Comfort EZ Pen [place]) As directed simvastatin 40 mg PO BEDTIME tirzepatide (Mounjaro) 2.5 mg (0.5 mL) subcut QWEEK 4 weeks Tobacco use date assessed: 05/25/24 Dental Screening Dental Screen Date: 05/25/24 HPI follow up mounjaro/meds HPI Details Patient is a 64-year-old female with a significant past medical history of type 2 diabetes, psoriasis, psoriatic arthritis, hypertension, hyperlipidemia, obesity, anxiety and depression presenting today for a follow up. Endo: At our last visit I started her on Mounjaro to help with her diabetes and weight loss. She has not started this medication yet and plans to start it next week. She wanted to wait until after her anniversary in case it caused any GI upset. She is on an insulin pump in well managed. Denies any hypoglycemic events. Monitors her blood sugars very closely. CV: Blood pressure today in the office is 128/74. She is currently on atenolol 75 mg twice a day, chlorthalidone 25 mg daily, and losartan 50 mg twice a day. Cholesterol is managed with simvastatin 40 mg. Last lipids and LFTs WNL. Derm: Has been on Taltz for her psoriasis which is effective but initially also had improvement of her psoriatic arthritis. She states that unfortunately, after the 1st couple of months of taking the Taltz the joint pains returned. She has been on Taltz for about a year. Her cracking still operator has encouraged her to see a new shipping helper. She did not like the arthritis treatment [facility]. She was last there in October. Most of her joint pains are in her hands and wrists. Her left ankle has a recently just started bothering her. -in the past she has tried skyrizi, met hotrexate and Humira. Rheum: Joint pain started 3-4 years ago. States that it it was gradual with his onset. She states that she has RA negative and was [facility] that she has psoriatic arthritis. Most of the joint pains are in her hands, wrists and now her left ankle. She has not get any swelling. The pain is improved with NSAIDs but she unfortunately, can not take this due to her kidney function. Tylenol is ineffective. Nephro: Follows regularly with Nephrology. Kidney function has been stable. 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 Diabetic nephropathy associated with type 2 diabetes mellitus Diabetes type 2, uncontrolled Surgical History Hx of colonoscopy History of selective laser trabeculoplasty History of total abdominal hysterectomy and bilateral salpingo-oophorectomy History of carpal tunnel release Hx of cholecystectomy Family History Father CVD (cardiovascular disease) Obesity Diabetes Alcohol abuse CAD (coronary artery disease) Mother CVD (cardiovascular disease) Diabetes Obesity Chronic lymphocytic leukemia Hx of myocardial infarction Brother Substance abuse Daughter FH: mental illness Paternal Aunt Breast cancer Social History Household Members: Spouse and Children Housing: Condominium Alcohol intake: current Alcohol intake frequency: does not drink Patient Tobacco Use Status: Never used Tobacco e-Cigarette/Vaping Use: Never Used Second Hand Smoke Exposure: No service: No Current occupational status: disabled Current occupational exposures/hazards: No Cognitive needs: No Hearing needs: Yes Vision needs: Yes Questionnaire PHQ-9 Over the last 2 weeks, how often have you been bothered by any of the following problems? 1. Little interest or pleasure in doing things: not at all 2. Feeling down, depressed, or hopeless: several days 3. Trouble falling or staying asleep, or sleeping too much: several days 4. Feeling tired or having little energy: more than half the days 5. Poor appetite or overeating: more than half the days 6. Feeling bad about yourself - or that you are a failure or have let yourself or your family down: not at all 7. Trouble concentrating on things, such as reading the newspaper or watching television: several days 8. Moving or speaking so slowly that other people could have noticed. Or the opposite - being so fidgety or restless that you have been moving around a lot more than usual: not at all 9. Thoughts that you would be better off or of hurting yourself in some way: not at all Total score: 7 Source: Developed by Drs. Eligio Méndez, Mignon Colon, Pepe Turner and colleagues, with an educational nanette from [employer]. Thrive Questionnaire Date Thrive assessed: 08/15/24 I am a: Patient What is your living situation today?: I have a steady place to live Within the past 12 months, did the food you bought not last and you didn't have the money to get more?: Never true Within the past 12 months, did you worry whether your food would run out before you got money to buy more?: Never true Do you have trouble paying for medicines?: No Do you have trouble getting transportation to medical appointments?: No Do you have trouble paying your heating and electricity bill?: No Do you have trouble taking care of your child, family member or friend?: No Do you have trouble with day-to-day activities such as bathing, preparing meals, shopping, managing finances, etc.?: No Are you currently unemployed and looking for a job?: No Are you interested in more education?: No Please select the resources that you would like help with: None Currently or been in a relationship where the following occur: No concerns reported THRIVE Score: 0 AUDIT C Alcohol Use Questionnaire (AUDIT-C) 1. How often do you have a drink containing alcohol?: Monthly or less 2. How many drinks containing alcohol do you have on a typical day when you are drinking?: 1 or 2 3. How often do you have six or more drinks on one occasion?: Never Total Score: 1 DENNIS-7 AMB Questionnaire DENNIS-7 Date DENNIS - 7 assessed: 06/22/24 Feeling nervous, anxious, or on edge: 1 = Several days Not being able to stop or control worryin = Several days Worrying too much about different things: 1 = Several days Trouble relaxin = Several days Being so restless that it is hard to sit still: 0 = Not at all Becoming easily annoyed or irritable: 2 = More than half the days Feeling afraid as if something awful might happen: 0 = Not at all Total DENNIS-7 score (0-4 normal; 5-9 mild; 10-14 moderate; 15-21 severe): 6 Source: Developed by Drs. Eligio Méndez, Mignon Colon, Pepe Turner and colleagues, with an educational nanette from [employer]. Physical exam (Primary Care) Vital Signs: Last Vital Signs Pulse 71 08/17/24 10:33 BP 128/74 08/17/24 10:33 Pulse Ox 97 08/17/24 10:33 Oxygen Delivery Method Room Air 08/17/24 10:33 BMI result Body Mass Index 50.7 Tobacco/Smoking Status: Tobacco use Status Tobacco use date assessed 05/25/24 08/17/24 10:23 Patient Tobacco Use Status Never used Tobacco 08/17/24 10:23 e-Cigarette/Vaping Use Never Used 08/17/24 10:23 PHQ-9: PHQ-9 Score PHQ-9: Total score 7 08/17/24 10:38 Thrive Assessment: Date of Thrive Assessment Date Thrive assessed 08/15/24 08/17/24 10:23 Currently or been in a relationship where the following occur: No concerns reported Const Orientation/consciousness: patient oriented x3 HENMT Ears: hearing grossly normal bilaterally Neck Thyroid: Thyroid normal Lymphatic: no lymphadenopathy noted Resp Auscultation: clear to auscultation bilaterally Cardio Rate: regular rate Rhythm: regular rhythm Heart sounds: S1 normal heart sound present and S2 normal heart sound present Skin General skin exam: no rashes or lesions noted Neuro General: patient oriented x3, gait normal and no focal motor deficits Extrem General: Yes normal to inspection, Yes full ROM, Yes capillary refill normal and Yes no joint enlargement Results Reviewed Results Reviewed: Laboratory Tests 06/25/24 07/01/24 11:01 10:42 Sodium 141 Potassium 4.4 Chloride 104 Carbon Dioxide 28 Anion Gap 13 Creatinine 1.56 H Estimated GFR 34 Glucose (Clinic) 142 H AST 20 ALT 18 Triglycerides 113 Cholesterol 119 LDL Cholesterol, Calc 55 HDL Cholesterol 42 Vitamin B12 471 Assessment and Plan Assessment & Plan (1) Psoriatic arthritis: Code(s): L40.50 - Arthropathic psoriasis, unspecified Plan: Referral to rheumatology. (2) CKD stage 3 due to type 2 diabetes mellitus: Code(s): E11.22 - Type 2 diabetes mellitus with diabetic chronic kidney disease; N18.30 - Chronic kidney disease, stage 3 unspecified Plan: Currently stable. Discussed the importance of avoiding NSAIDs. (3) Diabetic nephropathy associated with type 2 diabetes mellitus: Code(s): E11.21 - Type 2 diabetes mellitus with diabetic nephropathy Plan: Labs reviewed. Continue current regimen. She will let me know how she does with the Raghu. (4) Hypertension: Code(s): I10 - Essential (primary) hypertension Qualifiers: Hypertension type: primary hypertension Qualified Code(s): I10 - Essential (primary) hypertension Plan: Well-controlled. Continue current regimen. Orders: Referrals Rheumatology Referral L40.50 - Arthropathic psoriasis, unspecified Coding Level of Care Code Est Pt Level 4 (24121) Complex EM visit Add On G2211 Diagnoses Psoriatic arthritis L40.50 CKD stage 3 due to type 2 diabetes mellitus E11.22; N18.30 Diabetic nephropathy associated with type 2 diabetes mellitus E11.21 Primary hypertension I10 Hypertension type: primary hypertension
[2024-08-17 10:33] VITALS: BP 128/74; PULSE 71; O2SAT 97; BMI 50.7
== END 2024-08-17 11:19 | disposition home or self-care (01) ==
PROVIDERS: PCP Physician Assistant; Visit Provider Physician Assistant
DX: L40.50 Arthropathic psoriasis, unspecified (principal); E11.22 Type 2 diabetes mellitus with diabetic chronic kidney disease; N18.30 Chronic kidney disease, stage 3 unspecified; E11.21 Type 2 diabetes mellitus with diabetic nephropathy; I10 Essential (primary) hypertension

== ENCOUNTER → 2024-08-17 10:19 | Outpatient (BNVA) | payer MEDICARE, MEDICAID, SELFPAY | PROVIDERS: PCP Physician Assistant; Visit Provider Physician Assistant | DX: L40.50 Arthropathic psoriasis, unspecified (principal); I12.9 Hypertensive chronic kidney disease with stage 1 through stage 4 chronic kidney disease, or unspecified chronic kidney disease; N18.30 Chronic kidney disease, stage 3 unspecified | CPT/HCPCS: 99212 ==

== ENCOUNTER 2024-09-02 14:59 | Outpatient (REF) | payer MEDICARE, MEDICAID, SELFPAY ==
[2024-09-02 17:46] LABS: MANUAL DIFF FLAG NO
[2024-09-02 18:18] LABS: TSH reflex Free T4 0.33 uIU/mL (0.32-4.0)
[2024-09-02 18:50] LABS: Anion Gap 10 (12-20); Blood Urea Nitrogen 28 mg/dL (9-16); Calcium 9.1 mg/dL (8.4-10.2); Carbon Dioxide 30 mmol/L (22-29); Chloride 104 mmol/L (96-108); Estimated Glomerular Filt Rate 34; Glucose Random 139 mg/dL (60-115); Sodium 140 mmol/L (135-145)
[2024-09-02 19:20] LABS: Basophils Percent Auto 0.3 % (0-2); Eosinophils Absolute Auto 0.9 X10*3/uL (0.0-0.4); Eosinophils Percent Auto 10.5 % (0-4); Hematocrit 36.1 % (37.0-47.0); Hemoglobin 11.6 g/dl (12.0-16.0); Imm Gran Abs Auto 0.03 X10*3/uL (0.00-0.03); Imm Gran Pct Auto 0.3 % (0.0-0.4); Lymphocytes Absolute Auto 1.9 X10*3/uL (1.2-4.9); Lymphocytes Percent Auto 21.9 % (20-40); Mean Corpuscular HGB Conc 32.1 g/dl (31.0-35.0); Mean Corpuscular Volume 90.3 fL (80.0-98.0); Mean Platelet Volume 11.2 fL (9.4-12.3); Monocytes Absolute Auto 0.6 X10*3/uL (0.1-1.2); Monocytes Percent Auto 6.5 % (2-11); Neutrophils Absolute Auto 5.2 x10*3/uL (2.0-8.3); Neutrophils Percent Auto 60.5 % (45-73); Platelet Count 220 X10*3/uL (160-400); Red Cell Distribution Width 14.3 % (11.0-16.0); White Blood Count 8.6 X10*3/uL (4.8-10.8)
[2024-09-05 08:38] LABS: TS Negative Control Passed; TS Panel A 0; TS Panel B 0; TS Positive Control Passed; TSpotTB Negative (Negative)
== END 2024-09-02 15:00 | disposition home or self-care (01) ==
LOC: HO.WFDLDS 14:59
PROVIDERS: Referring Provider Physician Assistant Medical; Visit Provider Physician Assistant
DX: R79.89 Other specified abnormal findings of blood chemistry (principal); L40.0 Psoriasis vulgaris; Z79.899 Other long term (current) drug therapy; L40.59 Other psoriatic arthropathy; L91.8 Other hypertrophic disorders of the skin
CPT/HCPCS: 36415; 80048; 84443; 85025; 86481

== ENCOUNTER → 2024-09-21 13:08 | Outpatient (BNVA) | payer MEDICARE, MEDICAID, SELFPAY | PROVIDERS: PCP Physician Assistant; Visit Provider Physician Assistant ==

== ENCOUNTER 2024-10-07 10:12 | Outpatient (AMB) | payer MEDICARE, MEDICAID, SELFPAY ==
--- NOTE | 2024-10-07 08:07 | A.OFFVIS_ITS ---
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 Supervisor Most recent HbA1c: 6.9%, 10/07/2024 Random Glucose- 128 mg/dL, Today Volumetric Weigher Required: No Accompanied by: Self / Same As Patient Allergies citalopram [From Celexa] Allergy (Mild, Verified 08/17/24 10:32) cramps Niacin Preparations Allergy (Mild, Verified 08/17/24 10:32) vomitinf/flu symptoms/flushing lisinopril Allergy (Unknown, Verified 08/17/24 10:32) cough/all ACEI niacin Allergy (Unknown, Verified 08/17/24 10:32) unknown tirzepatide [From Mounjaro] Adverse Reaction (Severe, Verified 08/17/24 10:32) Diarrhea ziprasidone [Geodon] Adverse Reaction (Unknown, Verified 08/17/24 10:32) Unknown Metformin ER Allergy (Unknown, Uncoded 08/17/24 10:32) GI upset Medication List - Last Reconciled 10/07/24 by Sally Sapp NP acetone (urine) test (Ketone Urine Test strips) prn glucose over 250, illness, nausea or vomiting tid atenolol 75 mg PO BID blood sugar diagnostic As directed testing 5x per day. blood sugar diagnostic (OneTouch Verio test strips) 5 x/day blood-glucose meter (OneTouch Verio Meter) As directed blood-glucose sensor (Dexcom G7 Sensor device) As directed every 10 days blood-glucose sensor (Dexcom G6 Sensor device) DIRECTED EVERY 10 DAYS blood-glucose sensor (Dexcom G6 Sensor device) As directed every 10 days (needs while she is off g7) blood-glucose transmitter (DexTransferGo G6 Transmitter device) USE 1 EVERY 3 MONTHS DIRECTED chlorthalidone 25 mg PO DAILY cholecalciferol (vitamin D3) 2,000 units PO DAILY clobetasol 0.05% mL topical diclofenac sodium 1% 1 g topical TID glucagon 3 mg/actuation (Baqsimi) 3 mg intranasal ONCE PRN 30 days MDD 6mg may repeat in 15 minutes insulin pump cart,auto,BT-cntr (Omnipod 5 G6 Intro Kit (Gen 5) subcutaneous cartridge with controller) As directed insulin pump cart,automated,BT (Omnipod 5 G6 Pods (Gen 5) subcutaneous cartridge) CHANGE POD EVERY 72 HOURS insulin regular hum U-500 conc (Humulin R U-500 (Concentrated) Insulin) Use up to 450 units via insulin pump subcut daily; insulin U-500 syringe-needle As directed 4 times a day ixekizumab (Taltz Autoinjector) 80 mg subcut lancets As directed 5 times a day lorazepam 0.5 mg PO DAILY PRN 30 days losartan 50 mg PO BID 90 days pen needle, diabetic (Comfort EZ Pen Presho) As directed simvastatin 40 mg PO BEDTIME tramadol 50 mg PO BID PRN 30 days HPI Comments Details: Patient is a 64-year-old female with DM type 2 diagnosed in 2002 who presents for management of diabetes. She was last seen by myself 3 months ago. She has been on an Omnipod 5 with G6 for several years. Hgb A1C 10/07/24 %, 04/04/24 6.8% Past medical history: Diabetes type 2 dyslipidemia, hypertension chronic kidney disease stage 3, nephropathy, psoriasis Micro and macrovascular complications: nephropathy Diabetes medications: Humulin U 500 via Omnipod 5. Raghu had some GI intolerance in the past restarted and felt too much nausea Reports that she did not tolerate Ozempic or Trulicity due to constipation. She did not tolerate Jardiance due to vaginal itching. 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 to 1 AM? 1.5 units / hr 1 AM? to 8 AM? 1.4 units / hr 8 AM to 8 PM? 1.3 units / hr 8 PM? to 12 AM? 1.7 units / hr Bolus setting Insulin Carbohydrate Ratio (s) 12 AM? to 5 PM? 1:5 5 PM to 12 AM 1:4.5 Correction Factor / Sensitivity Factor 12am 1:15 12pm 1:18 4pm 1:15 Active Insulin Time:? 4 hours Target(s): 12 AM? to 12 PM? 120 mg/dL Correction Threshhold 120 mg/d Symptoms reported: denies numbness, tingling, cramping in lower extremities Hypoglycemia:none , Symptoms of shakiness and sweatiness. Very rare hypoglycemi a Hyperglycemia: reports urinary frequency (reports diuretic), +nocturia, +polydypsia (reports drymouth) Treats low with 3-4 tablets has been having some lows after lunch when she has higher before lunch Exercise: limited due to arthritis, walks some. 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 Major Fibrosis-4 (Fib-4) Index for liver fibrosis (calculated on most recent lab work 2023) [ 0.62] points Advanced fibrosis [excluded] Approximate Fibrosis stage Torrey [0-1] PFSH Medical History (Updated 10/07/24 @ 10:27 by LYLE Harvey) Hx of mammogram Psoriatic arthritis Anxiety Arthritis Anemia Psoriasis Stress incontinence Morbid obesity Hypertension Dyslipidemia senior living (current) use of insulin Surgical History Hx of colonoscopy History of selective laser trabeculoplasty History of total abdominal hysterectomy and bilateral salpingo-oophorectomy History of carpal tunnel release Hx of cholecystectomy Family History Father CVD (cardiovascular disease) Obesity Diabetes Alcohol abuse CAD (coronary artery disease) Mother CVD (cardiovascular disease) Diabetes Obesity Chronic lymphocytic leukemia Hx of myocardial infarction Brother Substance abuse Daughter FH: mental illness Paternal Aunt Breast cancer Social History Household Members: Spouse and Children [facility] Alcohol intake: current Alcohol intake frequency: does not drink Patient Tobacco Use Status: Never used Tobacco e-Cigarette/Vaping Use: Never Used Second Hand Smoke Exposure: No service: No Current occupational status: disabled Current occupational exposures/hazards: No Cognitive needs: No Hearing needs: Yes Vision needs: Yes Physical Exam Vital Signs: Last Vital Signs Pulse 81 10/07/24 10:18 BP 128/72 10/07/24 10:18 BMI result Body Mass Index 49.6 Const Other: Absence of Cushingoid features. Absence of acromegalic features. Neck exam reveals nl size thyroid about 15 gms. No thyroid nodules palpable. No carotid bruits present. Lungs CTA. Heart S1 S2, Reg R/R. No M/R G. Skin exam reveals absence of vitiligo or acanthosis nigricans. No edema Visual exam of foot performed. No ulcerations or open lesions. No inter digit maceration or fissuring. No onychomycosis, no callouses. Sensation intact to monofilament exam. Vibratory sensation is normal with 128 Hz tuning fork. skin dry Office Procedures Glucose Monitoring Details Details: see [facility] 44988 - Glucose monitoring, continuous-physician I&R Procedure code (CPT) selection complete Results AMB Hemoglobin A1c AMB Hemoglobin A1c 6.9 % Last Edit by LYLE Harvey on 10/07/24 10:53 Results Reviewed Results Reviewed: Laboratory Last Values Glucose (Clinic) 128 mg/dL (60-115) H 10/07/24 10:20 Assessment & Plan Assessment & Plan (1) Diabetes type 2, uncontrolled: Code(s): E11.65 - Type 2 diabetes mellitus with hyperglycemia Category: Medical Plan: Type 2 diabetic on an Omnipod with Dexcom G6 with an A1c of 6.8% she is doing quite well. Had mild lows in the afternoon which he attributes to being overactive from painting a room. She recently purchased a treadmill in his doing 15 minutes and we will put the pods and exercise mode. No change in pump settings Prescription sent for ketone test strips and nasal spray glucagon. The patient had an opportunity to ask questions regarding treatment plan. The patient expressed understanding and agreement with the above treatment plan. The patient is aware they should contact our office by phone for worsening glu cose readings or for any low blood sugars which may warrant a change in diabetes medication. Compliance is encouraged with medications and any followup testing/consults which may have been ordered. Orders: Orders AMB Glucose Monitoring Today E11.65 - Type 2 diabetes mellitus with hyperglyc emia AMB Hemoglobin A1c Today E10.9 - Type 1 diabetes mellitus without complications Medications: New 2 acetone (urine) test (Ketone Urine Test strips) prn glucose over 250, illness, nausea or vomiting tid 25 ea 1RF glucagon 3 mg/actuation (Baqsimi) 3 mg intranasal ONCE 30 days PRN 2 ea 1RF unresponsive hypoglycemia MDD 6mg may repeat in 15 minutes Patient Instructions: The patient was counseled to always carry a source of sugar and on the rule of 15's: Take 3 glucose tablets and repeat again in 15 minutes if blood sugar is not in normal range. Continue to repeat every 15 minutes until blood sugar is normal. Symptoms of DKA (diabetic ketoacidosis): early: frequent urination, dry mouth, fatigue, feeling ill, severe symptoms: ketones in the urine, abdominal pain, nausea, vomiting and weakness. It is important to hydrate with sugar free liquids every 15-30 minutes and bring the sugars down to normal levels. If you are moderate or severe with ketones or unable to bring glucose to less than 200, go to the emergency room. Troubleshooting after starting new pod or inserting new insulin set: Occlusion, adhesive tape sensitivity, redness Check BG 2 hours after site change Safety information: Importance of a backup plan, for manual injections, proper prescriptions and emergency supplies ketone strips, and rules for testing for ketones Wear closed toe shoes, never walk barefooted and inspect the feet daily. For any signs of infection or open wound patient you should notify your PCP or go to urgent care/ER. Coding Level of Care Code Est Pt Level 5 (21350) Diagnoses Diabetes type 2, uncontrolled E11.65 CPT Codes Details - CPT: 57102 - Glucose monitoring, continuous-physician I&R ([id number]) Time Spent (min) 45 Comment Reviewing labs/provider notes, glucose sensor/pump reports, face to face, chart doc
[2024-10-07 10:18] VITALS: BP 128/72; PULSE 81; BMI 49.6
[2024-10-07 10:26] LABS: Glucose, Whole Blood 128 mg/dL (60-115)
== END 2024-10-07 11:07 | disposition home or self-care (01) ==
PROVIDERS: PCP Physician Assistant; Visit Provider Nurse Practitioner Adult Health
DX: E11.65 Type 2 diabetes mellitus with hyperglycemia (principal)
CPT/HCPCS: 95251; 99215

== ENCOUNTER → 2024-10-07 10:12 | Outpatient (BNVA) | payer MEDICARE, MEDICAID, SELFPAY | PROVIDERS: PCP Physician Assistant; Visit Provider Nurse Practitioner Adult Health | DX: Z46.81 Encounter for fitting and adjustment of insulin pump (principal); E11.65 Type 2 diabetes mellitus with hyperglycemia; Z79.4 Long term (current) use of insulin | CPT/HCPCS: 82947; 83036; 99212 ==

== ENCOUNTER 2024-10-12 14:51 | Outpatient (AMB) | payer MEDICARE, MEDICAID, SELFPAY ==
--- NOTE | 2024-10-12 14:52 | MHC.OFFVIS ---
Vital Signs 10/12/24 14:57 Height 5 ft 3 in Weight 273 lb 2.444 oz BMI 48.4 BP 122/64 Blood Pressure Location Lt brachial Position Sitting Pulse 71 Pulse Source Pulse Oximeter Pulse Oximetry (%) 97 Oxygen Delivery Method Room Air Intake Visit Reasons: Psoriasis/LM Intake Note: Patient presents for Psoriasis. Allergies citalopram [From Celexa] Allergy (Mild, Verified 10/12/24 14:56) cramps Niacin Preparations Allergy (Mild, Verified 10/12/24 14:56) vomitinf/flu symptoms/flushing lisinopril Allergy (Unknown, Verified 10/12/24 14:56) cough/all ACEI niacin Allergy (Unknown, Verified 10/12/24 14:56) unknown tirzepatide [From Mounjaro] Adverse Reaction (Severe, Verified 10/12/24 14:56) Diarrhea methotrexate Adverse Reaction (Intermediate, Verified 10/12/24 15:21) Nausea ziprasidone [Geodon] Adverse Reaction (Unknown, Verified 10/12/24 14:56) Unknown Metformin ER Allergy (Unknown, Uncoded 08/17/24 10:32) GI upset Medication List - Last Reconciled 10/12/24 by Antionette Paulino MD acetone (urine) test (Ketone Urine Test strips) prn glucose over 250, illness, nausea or vomiting tid atenolol 75 mg PO BID blood sugar diagnostic As directed testing 5x per day. blood sugar diagnostic (OneTouch Verio test strips) 5 x/day blood-glucose meter (OneTouch Verio Meter) As directed blood-glucose sensor (Dexcom G7 Sensor device) As directed every 10 days blood-glucose sensor (Dexcom G6 Sensor device) DIRECTED EVERY 10 DAYS blood-glucose sensor (Dexcom G6 Sensor device) As directed every 10 days (needs while she is off g7) blood-glucose transmitter (Dexcom G6 Transmitter device) USE 1 EVERY 3 MONTHS DIRECTED chlorthalidone 25 mg PO DAILY cholecalciferol (vitamin D3) 2,000 units PO DAILY clobetasol 0.05% mL topical diclofenac sodium 1% 1 g topical TID glucagon 3 mg/actuation (Baqsimi) 3 mg intranasal ONCE PRN 30 days MDD 6mg may repeat in 15 minutes insulin pump cart,auto,BT-cntr (Omnipod 5 G6 Intro Kit (Gen 5) subcutaneous cartridge with controller) As directed insulin pump cart,automated,BT (Omnipod 5 G6 Pods (Gen 5) subcutaneous cartridge) CHANGE POD EVERY 72 HOURS insulin regular hum U-500 conc (Humulin R U-500 (Concentrated) Insulin) Use up to 450 units via insulin pump subcut daily; insulin U-500 syringe-needle As directed 4 times a day ixekizumab (Taltz Autoinjector) 80 mg subcut lancets As directed 5 times a day lorazepam 0.5 mg PO DAILY PRN 30 days losartan 50 mg PO BID 90 days pen needle, diabetic (Comfort EZ Pen Rumely) As directed simvastatin 40 mg PO BEDTIME tramadol 50 mg PO BID PRN 30 days HPI Comments Details: This is a 64-year-old female with psoriasis and psoriatic arthritis who presents for follow-up. Since then she was diagnosed with psoriasis around 2011. Per patient, She took methotrexate briefly. Could not tolerate it due to significant nausea. She then took Humira for some time, it worked reasonably well for 1 year then it was discontinued due to secondary nonresponse. She was then switched to Cosentyx. She took it for approximately 1 year then it was discontinued due to secondary nonresponse. She then took site greasy did the same thing happened. She has been on Taltz regularly since 2021. Per patient it has been most effective. She takes 160 mg every 4 weeks. She states that she does feel the difference if her dose is delayed. She states that her psoriasis is generally very well controlled. She continues to have some patches behind her ears and on her scalp. She states that she has pain, stiffness and tingling and numbness of both her hands, more severe on the right, the stiffness lasts 30 minutes to 1 hour. Denies any other joint pain or swelling. Tylenol is not effective. Can not take NSAIDs due to CKD PFSH Medical History Hx of mammogram Psoriatic arthritis Anxiety Arthritis Anemia Psoriasis Stress incontinence Morbid obesity Hypertension Dyslipidemia senior care (current) use of insulin Surgical History Hx of colonoscopy History of selective laser trabeculoplasty History of total abdominal hysterectomy and bilateral salpingo-oophorectomy History of carpal tunnel release Hx of cholecystectomy Family History Father CVD (cardiovascular disease) Obesity Diabetes Alcohol abuse CAD (coronary artery disease) Mother CVD (cardiovascular disease) Diabetes Obesity Chronic lymphocytic leukemia Hx of myocardial infarction Brother Substance abuse Daughter FH: mental illness Paternal Aunt Breast cancer Social History Household Members: Spouse and Children Housing: Condominium Alcohol intake: current Alcohol intake frequency: does not drink Patient Tobacco Use Status: Never used Tobacco e-Cigarette/Vaping Use: Never Used Second Hand Smoke Exposure: No service: No Current occupational status: disabled Current occupational exposures/hazards: No Cognitive needs: No Hearing needs: Yes Vision needs: Yes Review of Systems Musc Reports arthralgias, Reports joint swelling and Reports stiffness Skin/Breast Reports rash Physical Exam Vital Signs: Last Vital Signs Pulse 71 10/12/24 14:57 BP 122/64 10/12/24 14:57 Pulse Ox 97 10/12/24 14:57 Oxygen Delivery Method Room Air 10/12/24 14:57 BMI result Body Mass Index 48.4 Const General: cooperative, healthy appearing and comfortable Nutritional Appearance: obese morbidly obese Orientation/consciousness: patient oriented x3 Limitations: no limitations HEENT Head: Yes normocephalic and Yes atraumatic Mouth: moist mucous membranes Resp Effort & Inspection: normal respiratory effort and able to speak in complete sentences Auscultation: clear to auscultation bilaterally Skin Other: Psoriasis patches behind left ear, small flaky patches on the outside of her right ear lobule Neuro General: patient oriented x3 Extrem Other: Osteoarthritic changes of both hands with no active synovitis Normal pain-free range of motion of hands, elbows, shoulders No knee pain with full flexion-extension No ankle swelling or tenderness bilaterally Assessment & Plan Assessment & Plan (1) Psoriasis: Comment: 2011 MTX DC d.t. nausea Humira DC about 1 year 2ry non-response Cosentyx DC about 1 year 2ry non-response Skyrizi BLANQUITA after 1 year 2ry nonresponse Ml 2021 Code(s): L40.9 - Psoriasis, unspecified Category: Medical (2) Psoriatic arthritis: Comment: dx 2021 Code(s): L40.50 - Arthropathic psoriasis, unspecified Category: Medical Plan: This is a 64-year-old female with psoriasis and psoriatic arthritis who presents for follow-up. Patient has been on multiple DMARDs over the years. She has been on Taltz 160 mg every 4 weeks regularly for the last 2 years. Per patient this seems to have been the most effective DMARD. She continues to have some pain and stiffness of her hands, mostly on the right, morning stiffness lasting 30 minutes to 1 hour. No significant swelling. On exam there is no active synovitis. I think at this time her psoriatic arthritis is very well controlled with Taltz. Residual symptoms are likely due to osteoarthritis. I do not think adding additional DMARDs is worth the risk given her comorbidities. Discussed symptoms and signs that are suggestive of active psoriatic arthritis. Advised patient to return as needed. Can consider adding a DMARD such as leflunomide 10 mg 2-3 days a week Follow-up as needed Plan I spent 30 minutes reviewing patient's chart, evaluating patient, counseling patient and documenting in the chart Coding Level of Care Code New Pt Level 3 (35282) Diagnoses Psoriasis L40.9 Psoriatic arthritis L40.50
[2024-10-12 14:57] VITALS: BP 122/64; PULSE 71; O2SAT 97; BMI 48.4
== END 2024-10-12 15:26 | disposition home or self-care (01) ==
PROVIDERS: PCP Physician Assistant; Visit Provider Student in an Organized Health Care Education/Training Program
DX: L40.9 Psoriasis, unspecified (principal); L40.50 Arthropathic psoriasis, unspecified
CPT/HCPCS: 99203

== ENCOUNTER → 2024-10-12 14:51 | Outpatient (BNVA) | payer MEDICARE, MEDICAID, SELFPAY | PROVIDERS: PCP Physician Assistant; Visit Provider Student in an Organized Health Care Education/Training Program | DX: L40.50 Arthropathic psoriasis, unspecified (principal); L40.9 Psoriasis, unspecified | CPT/HCPCS: 99202 ==

== ENCOUNTER 2024-11-17 11:04 | Outpatient (AMB) | payer MEDICARE, MEDICAID, SELFPAY ==
--- NOTE | 2024-11-17 11:16 | A.OFFPC_ITS ---
Vital Signs 11/17/24 11:21 Height 5 ft 2 in Weight 274 lb BMI 50.1 BP 136/74 Blood Pressure Location Lt brachial Position Sitting Pulse 66 Pulse Source Pulse Oximeter Pulse Oximetry (%) 99 Oxygen Delivery Method Room Air Intake Visit Reasons: med check Intake Note: Follow up medication Research Epidemiologist Required: No Allergies citalopram [From Celexa] Allergy (Mild, Verified 11/17/24 11:17) cramps Niacin Preparations Allergy (Mild, Verified 11/17/24 11:17) vomitinf/flu symptoms/flushing lisinopril Allergy (Unknown, Verified 11/17/24 11:17) cough/all ACEI niacin Allergy (Unknown, Verified 11/17/24 11:17) unknown tirzepatide [From Mounjaro] Adverse Reaction (Severe, Verified 11/17/24 11:17) Diarrhea methotrexate Adverse Reaction (Intermediate, Verified 11/17/24 11:17) Nausea ziprasidone [Geodon] Adverse Reaction (Unknown, Verified 11/17/24 11:17) Unknown Metformin ER Allergy (Unknown, Uncoded 11/17/24 11:17) GI upset Medication List - Last Reconciled 11/17/24 by Shelby Escobar PA-C acetone (urine) test (Ketone Urine Test strips) prn glucose over 250, illness, nausea or vomiting tid atenolol 75 mg PO BID blood sugar diagnostic As directed testing 5x per day. blood sugar diagnostic (OneTouch Verio test strips) USE 5 TIMES DAILY blood-glucose meter (OneTouch Verio Meter) As directed blood-glucose sensor (Dexcom G7 Sensor device) As directed every 10 days blood-glucose sensor (Dexcom G6 Sensor device) DIRECTED EVERY 10 DAYS blood-glucose sensor (Dexcom G6 Sensor device) As directed every 10 days (needs while she is off g7) blood-glucose transmitter (Dexcom G6 Transmitter device) USE DIRECTED TO CHECK BLOOD SUGAR. CHANGE EVERY 3 MONTHS. chlorthalidone 25 mg PO DAILY cholecalciferol (vitamin D3) 2,000 units PO DAILY clobetasol 0.05% mL topical diclofenac sodium 1% 1 g topical TID glucagon 3 mg/actuation (Baqsimi) 3 mg intranasal ONCE PRN 30 days MDD 6mg may repeat in 15 minutes insulin pump cart,auto,BT-cntr (Omnipod 5 G6 Intro Kit (Gen 5) subcutaneous cartridge with controller) As directed insulin pump cart,automated,BT (Omnipod 5 G6 Pods (Gen 5) subcutaneous cartridge) CHANGE POD EVERY 72 HOURS insulin regular hum U-500 conc (Humulin R U-500 (Concentrated) Insulin) Use up to 450 units via insulin pump subcut daily; insulin U-500 syringe-needle As directed 4 times a day ixekizumab (Taltz Autoinjector) 80 mg subcut lancets As directed 5 times a day lorazepam 0.5 mg PO DAILY PRN 30 days losartan 50 mg PO BID 90 days pen needle, diabetic (Comfort EZ Pen [place]) As directed simvastatin 40 mg PO BEDTIME tramadol 50 mg PO BID PRN 30 days Tobacco use date assessed: 05/25/24 Dental Screening Dental Screen Date: 05/25/24 HPI med check HPI Details History of Present Illness The patient is a 64-year-old female presenting for a follow-up visit to assess the management of multiple chronic conditions, including generalized anxiety disorder, type 2 diabetes mellitus, hyperlipidemia, hypertension, and obesity. Her anxiety has been less problematic due to increased involvement with her christianity as a coping mechanism. However, she has discontinued bupropion due to adverse effects such as drowsiness. Diabetes management has transitioned from Dr. Wolfe to Sally, who provided intensive information regarding diabetes care. The patient is on simvastatin for hyperlipidemia and reports it is well-managed. Hypertension is managed with losartan, chlorthalidone, and atenolol, with home monitoring showing blood pressures around 130/70 mmHg. The patient expressed interest in weight management options due to a history of unsuccessful weight loss with Mounjaro citing gastrointestinal side effects. She has taken Ozempic in the past but did have some constipation with it so discontinued it and trialed the Mounjaro which caused diarrhea. Additionally, she struggles with sugar cravings and reports difficulty moving due to weight, exacerbated by osteoarthritis. Chronic kidney disease was noted, limiting the use of certain weight management medications. The patient reported a productive cough, initially following a cold in August, which has persisted intermittently since then, improving somewhat recently. wonders if she is getting reoccurrence colds or if there is an allergy co mponent. Denies any GERD. Health Maintenance - Discussion of pneumonia vaccine approp riateness. - Weight management through dietary adju stments and medication (Ozempic). - Emphasis on reducing sugar and carbohy drate intake. - Kidney function monitoring due to mode rate chronic kidney disease. - Monitoring and management of hypertens ion, diabetes, and hyperlipidemia. Social History - Actively involved with her christianity, pro viding an outlet for anxiety management. 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 - Mentioned difficulty with mobility and exercise influenced by osteoarthritis and weight. - No current alcohol use. Discussed diet tim changes for weight management. Review of Systems - Constitutional: Reports feeling exhaus amos, weight gain. - Respiratory: Reports a persistent coug h with clear to green sputum since August. - Genitourinary: Negative for signs of s ignificant kidney function decline. - Musculoskeletal: Reports joint pain du e to osteoarthritis. - Neurological: Denies headaches or othe r nervous system issues not previously mentioned. - Psychiatric: Anxiety manageable throug h christianity involvement. Physical Exam General: Well developed, well nourished, in no acute distress. Appears stated age. Head: Normocephalic, atraumatic. Eyes: Pupils are equal, round and reactive to light and accommodation. Conjunc tivae are clear. Vision grossly normal. Ears: Tympanic membranes clear bilaterally, external auditory canal within normal limits Nose: Patent, without discharge. Mouth: There are no ulcers or lesions noted. No inflammation, no post nasal drip, no plaques nor exudates. Neck: Supple, no adenopathy or thyromegaly. Lungs: Clear to auscultation bilaterally. Heart: Regular rate and rhythm. No murmurs Extremities: No clubbing, cyanosis nor edema is noted. Skin: No rashes Psych: Normal eye contact, affect and mood appropriate, and normal interactions. Patient is alert and appropriate to context. Results - Labs: Moderate chronic kidney disease. - Proposed Diagnostic Test: Chest x-ray for intermittent cough evaluation. Plan 1. 25 mg with close monitoring of kidney function and address GI side effects preemptively with stool softeners: - Hyperlipidemia: Continue simvastatin; assess cholesterol levels regularly. - Hypertension: Continue current regimen of losartan, chlorthalidone, and aten olol; encourage regular blood pressure monitoring. - Obesity: Initiate Ozempic; focus on narvaez gar restriction and potential introduction of additional weight loss interventions as required. - Chronic Kidney Disease: Monitor kidney function biweekly and reassess based on results; avoid nephrotoxic medications where possible. - Respiratory: Order a chest x-ray to in vestigate chronic cough; initiate trial of Zyrtec for potential allergy component. Patient was informed and verbally consented to the use of an ambient scribe for clinic note documentation during this visit. Discussion Notes I discussed with the patient the various aspects and progressions of her chronic conditions. Continuation of non-pharmacologic interventions for anxiety was highlighted, and the patient was advised on the possible benefits and side effects of Ozempic. The importance of weight management considering her chronic kidney disease was emphasized, as well as the need for regular monitoring of kidney function. The risks of using bupropion and the interactions with potential new weight management drugs were addressed, given her previous reactions. The potential cause of her chronic cough was theorized, and a chest x-ray was ordered to explore further. Additionally, I reminded her about upcoming re-evaluations and follow-ups, ensuring informed decision-making for future management plans. Patient Instructions - Continue involvement in christianity and [facility] anxiety-reducing activities. - Follow the prescribed Ozempic regimen and report any adverse side effects. - Monitor blood pressure at home and wesly ntain dietary adjustments. - Obtain a chest x-ray and begin Zyrtec for allergy management. - Schedule a follow-up appointment for prasanna roper in four weeks, during which kidney function will be re-evaluated. - Consider lifestyle measures to prevent exacerbation of chronic conditions, such as regular light physical activity tailored to tolerance and capabilities. PFSH Medical History Hx of mammogram Psoriatic arthritis Anxiety Arthritis Anemia Psoriasis Stress incontinence Morbid obesity Hypertension Dyslipidemia care home (current) use of insulin Surgical History Hx of colonoscopy History of selective laser trabeculoplasty History of total abdominal hysterectomy and bilateral salpingo-oophorectomy History of carpal tunnel release Hx of cholecystectomy Family History Father CVD (cardiovascular disease) Obesity Diabetes Alcohol abuse CAD (coronary artery disease) Mother CVD (cardiovascular disease) Diabetes Obesity Chronic lymphocytic leukemia Hx of myocardial infarction Brother Substance abuse Daughter FH: mental illness Paternal Aunt Breast cancer Social History Household Members: Spouse and Children Housing: Condominium Alcohol intake: current Alcohol intake frequency: does not drink Patient Tobacco Use Status: Never used Tobacco e-Cigarette/Vaping Use: Never Used Second Hand Smoke Exposure: No service: No Current occupational status: disabled Current occupational exposures/hazards: No Cognitive needs: No Hearing needs: Yes Vision needs: Yes Questionnaire Thrive Questionnaire Date Thrive assessed: 08/15/24 I am a: Patient What is your living situation today?: I have a steady place to live Within the past 12 months, did the food you bought not last and you didn't have the money to get more?: Never true Within the past 12 months, did you worry whether your food would run out before you got money to buy more?: Never true Do you have trouble paying for medicines?: No Do you have trouble getting transportation to medical appointments?: No Do you have trouble paying your heating and electricity bill?: No Do you have trouble taking care of your child, family member or friend?: No Do you have trouble with day-to-day activities such as bathing, preparing meals, shopping, managing finances, etc.?: No Are you currently unemployed and looking for a job?: No Are you interested in more education?: No Please select the resources that you would like help with: None Currently or been in a relationship where the following occur: No concerns reported THRIVE Score: 0 DENNIS-7 AMB Questionnaire DENNIS-7 Date DENNIS - 7 assessed: 06/22/24 Source: Developed by Drs. Eligio Méndez, Mignon Colon, Pepe Turner and colleagues, with an educational nanette from [employer]. Physical exam (Primary Care) Vital Signs: Last Vital Signs Pulse 66 11/17/24 11:21 BP 136/74 11/17/24 11:21 Pulse Ox 99 11/17/24 11:21 Oxygen Delivery Method Room Air 11/17/24 11:21 BMI result Body Mass Index 50.1 Tobacco/Smoking Status: Tobacco use Status Tobacco use date assessed 05/25/24 11/17/24 11:18 Patient Tobacco Use Status Never used Tobacco 11/17/24 11:18 e-Cigarette/Vaping Use Never Used 11/17/24 11:18 Thrive Assessment: Date of Thrive Assessment Date Thrive assessed 08/15/24 11/17/24 11:18 Currently or been in a relationship where the following occur: No concerns reported Coding Level of Care Code Est Pt Level 4 (11540) Complex EM visit Add On G2211 Diagnoses Primary hypertension I10 Hypertension type: primary hypertension Morbid obesity E66.01 CKD stage 3 due to type 2 diabetes mellitus E11.22; N18.30 Assessment & Plan Assessment & Plan (1) Hypertension: Code(s): I10 - Essential (primary) hypertension Category: Medical Qualifiers: Hypertension type: primary hypertension Qualified Code(s): I10 - Essential (primary) hypertension (2) Morbid obesity: Code(s): E66.01 - Morbid (severe) obesity due to excess calories Category: Medical (3) CKD stage 3 due to type 2 diabetes mellitus: Code(s): E11.22 - Type 2 diabetes mellitus with diabetic chronic kidney disease; N18.30 - Chronic kidney disease, stage 3 unspecified Category: Medical Plan . Orders: Orders XR chest 2V Today R05.9 - Cough, unspecified Basic Metabolic Panel Today E11.22 - Type 2 diabetes mellitus with diabetic chronic kidney disease, E66.01 - Morbid (severe) obesity due to excess calories, I10 - Essential (primary) hypertension, N18.30 - Chronic kidney disease, stage 3 unspecified Medications: New semaglutide (Ozempic) for 4 weeks; then increase to 0.5 mg every week 0.25 mg (0.368 mL) subcut QWEEK 3 mL 1RF docusate sodium (Colace) 100 mg PO BID 60 caps 11RF cetirizine (Zyrtec) 10 mg PO DAILY 90 tabs 1RF Discontinued tramadol Discontinued Reason: Doctor's Order 50 mg PO BID 30 days PRN 60 tabs 0RF pain
[2024-11-17 11:21] VITALS: BP 136/74; PULSE 66; O2SAT 99; BMI 50.1
== END 2024-11-17 11:57 | disposition home or self-care (01) ==
PROVIDERS: PCP Physician Assistant; Visit Provider Physician Assistant
DX: I12.9 Hypertensive chronic kidney disease with stage 1 through stage 4 chronic kidney disease, or unspecified chronic kidney disease (principal); E66.01 Morbid (severe) obesity due to excess calories; E11.22 Type 2 diabetes mellitus with diabetic chronic kidney disease; N18.30 Chronic kidney disease, stage 3 unspecified; Z68.43 Body mass index [BMI] 50.0-59.9, adult

== ENCOUNTER → 2024-11-17 11:04 | Outpatient (BNVA) | payer MEDICARE, MEDICAID, SELFPAY | PROVIDERS: PCP Physician Assistant; Visit Provider Physician Assistant | DX: L40.50 Arthropathic psoriasis, unspecified (principal); I12.9 Hypertensive chronic kidney disease with stage 1 through stage 4 chronic kidney disease, or unspecified chronic kidney disease; E11.22 Type 2 diabetes mellitus with diabetic chronic kidney disease; N18.30 Chronic kidney disease, stage 3 unspecified; E66.01 Morbid (severe) obesity due to excess calories | CPT/HCPCS: 99212 ==

== ENCOUNTER 2024-11-29 09:53 | Outpatient (REF) | payer MEDICARE, SELFPAY ==
[2024-11-29 11:50] LABS: B Type Natriuretic Peptide 25 pg/mL (<100)
[2024-11-29 11:56] LABS: Anion Gap 11 (12-20); Blood Urea Nitrogen 25 mg/dL (9-16); Calcium 9.4 mg/dL (8.4-10.2); Carbon Dioxide 30 mmol/L (22-29); Chloride 107 mmol/L (96-108); Cholesterol 129 mg/dL (<200); Estimated Glomerular Filt Rate 40; Glucose Random 115 mg/dL (60-115); HDL Cholesterol 44 mg/dL (>40); LDL Cholesterol Calculated 58 mg/dL (<100); Potassium 3.9 mmol/L (3.3-5.1); Sodium 144 mmol/L (135-145); Triglycerides 138 mg/dL (<150)
[2024-11-29 15:40] LABS: Creatinine Urine 128.54 mg/dL; Protein/Creatinine Ratio, Ur 0.79 (<0.2); Total Protein Urine Random 101 mg/dL (<12)
== END 2024-11-29 09:54 | disposition home or self-care (01) ==
LOC: HO.WFDLDS 09:53
PROVIDERS: Internal Medicine Endocrinology, Diabetes & Metabolism; Referring Provider Internal Medicine Nephrology; Visit Provider Physician Assistant
DX: E11.65 Type 2 diabetes mellitus with hyperglycemia (principal); I12.9 Hypertensive chronic kidney disease with stage 1 through stage 4 chronic kidney disease, or unspecified chronic kidney disease; E11.22 Type 2 diabetes mellitus with diabetic chronic kidney disease; N18.30 Chronic kidney disease, stage 3 unspecified; E66.01 Morbid (severe) obesity due to excess calories; I51.7 Cardiomegaly; J18.9 Pneumonia, unspecified organism
CPT/HCPCS: 36415; 80048; 80061; 82570; 83880; 84156

== ENCOUNTER → 2024-12-08 10:51 | Outpatient (REF) | payer MEDICARE, SELFPAY ==
--- NOTE | 2024-12-08 10:54 | CA_ITS ---
Transthoracic Echocardiogram Patient (Last, First, Middle): uAre Ricks, Gender: Female Date of : 1960 Age: 64 Procedure Date: 12/08/2024 Procedure Type: Transthoracic Echocardiogram Location: OP Height: 157.48 cm Weight: 124.29 kg BSA: 2.19 m2 Heart Rate: bpm BP: 136 / 74 mmHg Acid Leveler: MAYTE Referring MD: Shelby Escobar PA-C Symptoms: I51.7 - Cardiomegaly Study Quality: Fair/Contrast ECG Rhythm: Sinus Conclusions: - The left ventricular systolic function is normal. The calculated ejection fraction is 64% by biplane method. - No obvious valvular pathology seen on this study. Findings Procedure Information Contrast agent, definity, is being given per protocol without apparent complications. Left Ventricle Normal left ventricular cavity size. There is mildly increased left ventricular wall thickness. The left ventricular systolic function is normal. The calculated ejection fraction is 64% by biplane method. There is no evidence of regional wall motion abnormalities. Diastolic function is normal for age. Right Ventricle Normal right ventricular cavity size and systolic function. Atria Both atria are normal in size. Aortic Valve The aortic valve was not well visualized. There is no aortic valve stenosis. There is no aortic valve regurgitation. Mitral Valve The mitral valve appears normal. There is no mitral valve regurgitation. There is no mitral valve stenosis. Pulmonic Valve The pulmonic valve is likely normal. Tricuspid Valve There is trace tricuspid valve regurgitation. Tricuspid regurgitation envelope is inadequate for calculation of right ventricular systolic pressure. Great Vessels The asc aorta is normal in size. Venous The inferior vena cava was not well visualized. Pericardium/Pleural There is no evidence of pericardial effusion. Prior Study Comparison No prior study available for comparison. Recommendations, Care & Conclusions No obvious valvular pathology seen on this study. Measurements 2D Linear Measurements IVSd: 1.15 0.6-0.9/0.6-1.0 cm LVIDd: 4.99 3.9-5.3/4.2-5.9 cm LVIDd Index: 2.28 2.4-3.2/2.2-3.1 cm/m2 LVIDs: 3.16 2.0-3.6 cm LVPWd: 1.42 0.7-1.1 cm LA Diam: 4.40 2.7-3.8/3.0-4.0 cm LAIDs Index: 2.01 1.5-2.3 cm/m2 LV Mass: 320.14 67-162/88-224 g LV Mass Index: 146.18 43-95/49-115 g/m2 LVOT Diam: 2.00 3.0+(-)1.3 cm 2D Systolic Function EF 4C: 65.80 >55% EF 2C: 65.20 >55% EF BiP: 63.60 >55% Mitral Valve MV Pk E: 1.13 MV PK A: 0.99 MV Decel Time: 230.00 E/A: 1.10 E'Lateral: 6.64 E'Medial: 5.66 E/E' Med: 20.00 E/E' Lat: 17.00 PHT: 67.00 MVA PHT: 3.28 Decel [place]: 4.92 Aortic Valve AoV Pk Felix: 1.85 AoV Mn Felix: 1.27 AoV VTI: 0.41 AoV Pk Grad: 14.00 Aov Mn Grad: 7.00 JAMARI Cont.VTI: 1.92 LVOT LVOT Pk Felix: 1.13 LVOT Mn Felix: 0.67 LVOT VTI: 0.25 LVOT Pk Grad: 5.00 LVOT Mn Grad: 2.00 LVOT Diam: 2.00 LVOT Area: 3.14 Diastolic Function MV Pk E: 1.13 MV Pk A: 0.99 E/A: 1.10 E'Medial: 5.66 E/E' Med: 20.00 E' Laterial: 6.64 E/E' Lat: 17.00 Right Ventricle TAPSE (mm): 27.20 TVS' Felix: 12.90 Great Vessels Aorta Sinus of Valsalva: 2.74 2.0-3.[address] [place]: 2.50 1.7-3.4 cm Ao Asc: 3.30 2.1-3.4 cm Updated in Other Vendor System with Status of Final Grey Wilkins MD electronically signed on 12/10/2024 11:39:11 AM with status of Final
== END ==
LOC: HO.CARD 10:51
PROVIDERS: PCP Physician Assistant; Visit Provider Physician Assistant
DX: I51.7 Cardiomegaly (principal); J18.9 Pneumonia, unspecified organism
CPT/HCPCS: 93306; Q9957

== ENCOUNTER → 2024-12-08 10:54 | Outpatient (BNV) | payer MEDICARE, SELFPAY | PROVIDERS: PCP Physician Assistant; Visit Provider Internal Medicine | DX: I51.7 Cardiomegaly (principal) | CPT/HCPCS: 93306 ==

== ENCOUNTER 2024-12-21 15:08 | Outpatient (AMB) | payer MEDICARE, MEDICAID, SELFPAY ==
--- NOTE | 2024-12-21 15:32 | A.OFFPC_ITS ---
Intake Visit Reasons: labs and weight Intake Note: Lab results and discuss weight. Gate Keeper Required: No Allergies citalopram [From Celexa] Allergy (Mild, Verified 12/21/24 15:32) cramps Niacin Preparations Allergy (Mild, Verified 12/21/24 15:32) vomitinf/flu symptoms/flushing lisinopril Allergy (Unknown, Verified 12/21/24 15:32) cough/all ACEI niacin Allergy (Unknown, Verified 12/21/24 15:32) unknown tirzepatide [From Mounjaro] Adverse Reaction (Severe, Verified 12/21/24 15:32) Diarrhea methotrexate Adverse Reaction (Intermediate, Verified 12/21/24 15:32) Nausea ziprasidone [Geodon] Adverse Reaction (Unknown, Verified 12/21/24 15:32) Unknown Metformin ER Allergy (Unknown, Uncoded 12/21/24 15:32) GI upset Medication List - Last Reconciled 12/21/24 by Shelby Escobar PA-C acetone (urine) test (Ketone Urine Test strips) prn glucose over 250, illness, nausea or vomiting tid atenolol 75 mg PO BID blood sugar diagnostic As directed testing 5x per day. blood sugar diagnostic (OneTouch Verio test strips) USE 5 TIMES DAILY blood-glucose meter (OneTouch Verio Meter) As directed blood-glucose sensor (Dexcom G7 Sensor device) As directed every 10 days blood-glucose sensor (Dexcom G6 Sensor device) DIRECTED EVERY 10 DAYS blood-glucose sensor (Dexcom G6 Sensor device) As directed every 10 days (needs while she is off g7) blood-glucose transmitter (Dexcom G6 Transmitter device) USE DIRECTED TO CHECK BLOOD SUGAR. CHANGE EVERY 3 MONTHS. cetirizine (Zyrtec) 10 mg PO DAILY chlorthalidone 25 mg PO DAILY cholecalciferol (vitamin D3) 2,000 units PO DAILY clobetasol 0.05% mL topical diclofenac sodium 1% 1 g topical TID docusate sodium (Colace) 100 mg PO BID glucagon 3 mg/actuation (Baqsimi) 3 mg intranasal ONCE PRN 30 days MDD 6mg may repeat in 15 minutes insulin pump cart,auto,BT-cntr (Omnipod 5 G6 Intro Kit (Gen 5) subcutaneous cartridge with controller) As directed insulin pump cart,automated,BT (Omnipod 5 G6 Pods (Gen 5) subcutaneous cartridge) CHANGE POD EVERY 72 HOURS insulin regular hum U-500 conc (Humulin R U-500 (Concentrated) Insulin) Use up to 450 units via insulin pump subcut daily; insulin U-500 syringe-needle As directed 4 times a day ixekizumab (Taltz Autoinjector) 80 mg subcut lactobacillus combination no.4 (Probiotic) 3,000 mmu cells PO DAILY lancets As directed 5 times a day lorazepam 0.5 mg PO DAILY PRN 30 days losartan 50 mg PO BID 90 days pen needle, diabetic (Comfort EZ Pen [place]) As directed semaglutide (Ozempic) 0.25 mg (0.368 mL) subcut QWEEK simvastatin 40 mg PO BEDTIME Tobacco use date assessed: 05/25/24 Dental Screening Dental Screen Date: 05/25/24 HPI labs and weight HPI Details Patient is a 64-year-old female with a significant past medical history of diabetes, diabetic nephropathy, chronic kidney disease, anemia, anxiety and depression, psoriatic arthritis, hypertension, hyperlipidemia morbid obesity presenting today for a follow up. Endo: Last A1c was 6.9. Managed by endocrinology. Controlled with her current insulin regimen. Recently starting on a diet. She was supposed to trial Ozempic but has not done this yet. States that she was unsure if doing this around the holidays but she plans to started this week. Derm: Psoriasis is currently well-controlled on Taltz. She does have some exacerbation of arthritic changes. Has not yet trialed tramadol. She can not use NSAIDs due to her kidney disease. PULM: Was recently seen and treated for a possible lung infection with doxycycline. States that her cough has significantly improved/resolved. She is due to get her chest x-ray rechecked. Nephro: Labs are stable. Follows closely with Nephrology. Psych: Stable. Does not want any medications for this. CV: Blood pressure today in the office is 136/74. She is currently on losartan 50 mg daily, chlorthalidone 25 mg and atenolol 75 mg twice a day. Cholesterol is managed with simvastatin 40 mg. [facility] Medical History Hx of mammogram Psoriatic arthritis Anxiety Arthritis Anemia Psoriasis Stress incontinence Morbid obesity Hypertension Dyslipidemia detention (current) use of insulin Surgical History Hx of colonoscopy History of selective laser trabeculoplasty History of total abdominal hysterectomy and bilateral salpingo-oophorectomy History of carpal tunnel release Hx of cholecystectomy Family History Father CVD (cardiovascular disease) Obesity Diabetes Alcohol abuse CAD (coronary artery disease) Mother CVD (cardiovascular disease) Diabetes Obesity Chronic lymphocytic leukemia Hx of myocardial infarction Brother Substance abuse Daughter FH: mental illness Paternal Aunt Breast cancer Social History Household Members: Spouse and Children Housing: Condominium Alcohol intake: current Alcohol intake frequency: does not drink Patient Tobacco Use Status: Never used Tobacco e-Cigarette/Vaping Use: Never Used Second Hand Smoke Exposure: No service: No Current occupational status: disabled Current occupational exposures/hazards: No Cognitive needs: No Hearing needs: Yes Vision needs: Yes Questionnaire Thrive Questionnaire Date Thrive assessed: 12/15/24 I am a: Patient What is your living situation today?: I have a steady place to live Within the past 12 months, did the food you bought not last and you didn't have the money to get more?: Never true Within the past 12 months, did you worry whether your food would run out before you got money to buy more?: Never true Do you have trouble paying for medicines?: No Do you have trouble getting transportation to medical appointments?: No Do you have trouble paying your heating and electricity bill?: No Do you have trouble taking care of your child, family member or friend?: No Do you have trouble with day-to-day activities such as bathing, preparing meals, shopping, managing finances, etc.?: No Are you currently unemployed and looking for a job?: No Are you interested in more education?: No Please select the resources that you would like help with: None Currently or been in a relationship where the following occur: No concerns reported THRIVE Score: 0 AUDIT C Alcohol Use Questionnaire (AUDIT-C) 1. How often do you have a drink containing alcohol?: 2-4 times a month 2. How many drinks containing alcohol do you have on a typical day when you are drinking?: 1 or 2 3. How often do you have six or more drinks on one occasion?: Never Total Score: 2 DENNIS-7 AMB Questionnaire DENNIS-7 Date DENNIS - 7 assessed: 06/22/24 Feeling nervous, anxious, or on edge: 0 = Not at all Not being able to stop or control worryin = Several days Worrying too much about different things: 1 = Several days Trouble relaxin = Several days Being so restless that it is hard to sit still: 0 = Not at all Becoming easily annoyed or irritable: 1 = Several days Feeling afraid as if something awful might happen: 0 = Not at all Total DENNIS-7 score (0-4 normal; 5-9 mild; 10-14 moderate; 15-21 severe): 4 Source: Developed by Drs. Eligio Méndez, Mignon Colon, Pepe Turner and colleagues, with an educational nanette from [employer]. Physical exam (Primary Care) Tobacco/Smoking Status: Tobacco use Status Tobacco use date assessed 05/25/24 12/21/24 15:35 Patient Tobacco Use Status Never used Tobacco 12/21/24 15:35 e-Cigarette/Vaping Use Never Used 12/21/24 15:35 Thrive Assessment: Date of Thrive Assessment Date Thrive assessed 12/15/24 12/21/24 15:35 Currently or been in a relationship where the following occur: No concerns reported Const Orientation/consciousness: patient oriented x3 HENMT Ears: hearing grossly normal bilaterally Neck Thyroid: Thyroid normal Lymphatic: no lymphadenopathy noted Resp Auscultation: clear to auscultation bilaterally Cardio Rate: regular rate Rhythm: regular rhythm Heart sounds: S1 normal heart sound present and S2 normal heart sound present GI Inspection: Yes normal to inspection Palpation (GI): Soft to palpation and Other GI palpation findings present (nontender, no cva tenderness) Auscultation: normoactive bowel sounds Rectal Exam - Female: deferred Skin General skin exam: no rashes or lesions noted Neuro General: patient oriented x3, gait normal and no focal motor deficits Results AMB Hemoglobin A1c AMB Hemoglobin A1c 6.3 % Last Edit by Lucy Benavides CMA on 12/21/24 16:16 Coding Level of Care Code Est Pt Level 4 (55474) Complex EM visit Add On G2211 Diagnoses Diabetic nephropathy associated with type 2 diabetes mellitus E11.21 CKD stage 3 due to type 2 diabetes mellitus E11.22; N18.30 Morbid obesity E66.01 Primary hypertension I10 Hypertension type: primary hypertension Dyslipidemia E78.5 Assessment & Plan Assessment & Plan (1) Diabetic nephropathy associated with type 2 diabetes mellitus: Code(s): E11.21 - Type 2 diabetes mellitus with diabetic nephropathy Category: Medical Plan: See below (2) CKD stage 3 due to type 2 diabetes mellitus: Code(s): E11.22 - Type 2 diabetes mellitus with diabetic chronic kidney disease; N18.30 - Chronic kidney disease, stage 3 unspecified Category: Medical Plan: Plans to trial Ozempic. Last A1c was 6.9. Follows with endocrinology and nephrology (3) Morbid obesity: Code(s): E66.01 - Morbid (severe) obesity due to excess calories Category: Medical Plan: Has not yet started Ozempic but plans to this week. (4) Hypertension: Code(s): I10 - Essential (primary) hypertension Category: Medical Qualifiers: Hypertension type: primary hypertension Qualified Code(s): I10 - Essential (primary) hypertension Plan: continue current plan (5) Dyslipidemia: Code(s): E78.5 - Hyperlipidemia, unspecified Category: Medical Plan: Continue simvastatin Orders: Orders AMB Hemoglobin A1c Today E11.21 - Type 2 diabetes mellitus with diabetic nephropathy Medications: Refilled semaglutide (Ozempic) for 4 weeks; then increase to 0.5 mg every week 0.25 mg (0.368 mL) subcut QWEEK 3 mL 1RF
--- OUTSIDE RECORDS SUMMARY | 2024-12-21 17:35 | XMS_ITS | Clinical Summary ---
Author Organization [facility] Address [address] [facility] [address] [place] [address] Phone Care Team Providers Care Information Clerk Cashier Name Role Phone Keiko Reyes MD Primary Care Provider [phone] Allergies Active Allergy Reactions Criticality Noted Date Comments Roberto Inhibitors 01/24/2020 Amoxicillin 01/24/2020 Citalopram Other (see comments) 01/24/2020 Niacin Other (see comments) 01/24/2020 Ziprasidone 01/24/2020 Medications cholecalciferol (VITAMIN D-3) 25 MCG (1000 UT) capsule Take 1 capsule by mouth 2 (two) times a day Active insulin regular (HumuLIN R) 500 UNIT/ML CONCENTRATED injection Active LORazepam (ATIVAN) 1 MG tablet Take 1 tablet by mouth if needed Active Multiple Vitamins-Minerals (OCUVITE PO) Take 1 tablet by mouth 1 (one) time each day Active clobetasol (TEMOVATE) 0.05 % external solution APPLY TWICE DAILY TO PSORIASIS ON SCALP FOR TWO WEEKS, THEN BREAK 1 WEEK AND REPEAT NEEDED FOR FLARES 1 Active Skyrizi Pen 150 MG/ML solution auto-injector 1 Active acetaminophen (TYLENOL) 500 MG tablet Take by mouth every 6 (six) hours if needed for mild pain Active Tirzepatide (Mounjaro) 2.5 MG/0.5ML solution pen-injector 2 Active Baqsimi Two Pack 3 MG/DOSE powder 2 Active Diclofenac Sodium 1 % gel APPLY 1GM TOPICALLY 3 TIMES DAILY NEEDED FOR PAIN 2 Active hydrALAZINE (APRESOLINE) 10 MG tablet Take 1 tablet (10 mg total) by mouth in the morning and 1 tablet (10 mg total) in the evening. 60 tablet 3 3 Active chlorthalidone 25 MG tablet TAKE ONE TABLET BY MOUTH DAILY 30 tablet 5 3 Active losartan (COZAAR) 50 MG tablet TAKE 1 TABLET BY MOUTH TWICE DAILY 180 tablet 3 3 Active Insulin Disposable Pump (Omnipod 5 G6 Pod, Gen 5,) misc CHANGE POD EVERY 72 HOURS 3 Active atenolol (TENORMIN) 50 MG tablet Take 1.5 tablets (75 mg total) by mouth in the morning and 1.5 tablets (75 mg total) in the evening. 270 tablet 11 3 Active simvastatin (ZOCOR) 40 MG tablet Take 1 tablet (40 mg total) by mouth every night 90 tablet 4 Active Active Problems Problem Noted Date Diagnosed Date Type 2 diabetes mellitus with diabetic nephropat hy 10/11/2021 Acute nontraumatic kidney injury 01/17/2021 Stage 3a chronic kidney disease 01/17/2021 Essential hypertension 01/17/2021 Proteinuria 01/17/2021 Type 2 diabetes mellitus wit h diabetic chronic kidney disease 01/17/2021 Hypertension 01/17/2021 Chronic iron deficiency anemia secondary to bloo d loss 01/25/2020 Normocytic anemia 01/25/2020 Immunizations Name Administration Dates Next Due Influenza, Quadrivalent, Preservative Free 09/23 Family History Medical History Relation Comments Cancer Child Diabetes Father Heart disease Father Hypertension Father Cancer Mother Diabetes Mother Hypertension Mother Relation Status Comments Child Father Mother Social History Tobacco Use Types Packs/Day Years Used Date Smoking Tobacco: Never Smokeless Tobacco: Never Tobacco Cessation:Counseling Given: No Alcohol Use Standard Drinks/Week Comments Not Currently 0 (1 standard drink = 0.6 oz pur e alcohol) Comments Unknown Sex and Gender Information Value Date Recorded Sex Assigned at Not on file Legal Sex Female 5:04 PM EST Gender Identity Not on file Sexual Orientation Not on file Last Filed Vital Signs Vital Sign Reading Time Taken Comments Blood Pressure 120/60 05/25/2023 2:54 PM EDT Pulse 72 08/26/2022 2:32 PM EDT Temperature - - Respiratory Rate - - Oxygen Saturation 96% 08/26/2022 2:32 PM EDT Inhaled Oxygen Concentration - - Weight 122 kg (269 lb) 05/25/2023 2:29 PM EDT Height 160 cm (5' 3 ) 10/11/2021 1:27 PM EST Body Mass Index 47.65 10/11/2021 1:27 PM EST Plan of Treatment Health Maintenance Due Date Last Done Comments Breast Cancer Screening 1962 Pneumococcal Vaccine: Pediat rics (0 to 5 Years) and At-Risk Patients (6 to 64 Years) (1 of 2 - PCV) 1968 Colorectal Cancer Screening: Annual FOBT 2011 Colorectal Cancer Screening: Colonoscopy 2011 Colorectal Cancer Screening: Sigmoidoscopy 2011 Diabetes: Hemoglobin A1C 01/17/2021 Diabetes: Ophthalmology Exam 01/17/2021 Diabetes: Pedal Pulse Checked 01/17/2021 Diabetes: Sensory Foot Exam 01/17/2021 Diabetes: Visual Foot Exam 01/17/2021 Influenza Vaccine (#1) 2024 09/23/2020 Hepatitis B Vaccine Aged Out No longe r eligible based on patient's age to complete this topic Insurance [facility] [place] [facility] [place] Care Teams Information Clerk Cashier Relationship Specialty Start Date End Date Keiko Reyes MD PCP - General Internal Medicine 03/15/21
--- OUTSIDE RECORDS SUMMARY | 2024-12-21 17:35 | XMS_ITS | Encounter Summary ---
Author Organization [facility] Address [address] [place] [address] Phone Care Team Providers Care Dryer And Washer Mechanic Name Role Phone Keiko Reyes MD Primary Care Provider [phone] Encounter Details Date Type Department Care Team ([facility] st Contact Info) Description 09/10/2023 Office Communication [facility] [address] [place] [id number] Alessandro Roman MD [address] [facility] [address] [place] [phone] Social History Tobacco Use Types Packs/Day Years Used Date Smoking Tobacco: Never Smokeless Tobacco: Never Alcohol Use Standard Drinks/Week Comments Not Currently 0 (1 standard drink = 0.6 oz pur e alcohol) Comments Unknown Sex and Gender Information Value Date Recorded Sex Assigned at Not on file Legal Sex Female 5:04 PM EST Gender Identity Not on file Sexual Orientation Not on file documented as of this encounter Miscellaneous Notes * Telephone Encounter - Alessandro Roman MD - 09/10/2023 4:52 PM EDT Needs f/u with me in 3-4 wks documented in this encounter Plan of Treatment Not on file documented as of this encounter Visit Diagnoses Not on filedocumented in this encounter Care Teams Dryer And Washer Mechanic Relationship Specialty Start Date End Date Keiko Reyes MD PCP - General Internal Medicine 03/15/21 documented as of this encounter
--- OUTSIDE RECORDS SUMMARY | 2024-12-21 17:35 | XMS_ITS | Encounter Summary ---
Author Organization [facility] Address [address] [place] [address] Phone Care Team Providers Care Seedling Sorter Name Role Phone Keiko Reyes MD Primary Care Provider [phone] Encounter Details Date Type Department Care Team (Late st Contact Info) Description 04/16/2021 Orders Only [facility] [address] [place] [address] Otto Major MD Type 2 diabetes mellitus with diabetic chronic kidney disease (HCC); Other proteinuria; Hypertension; Stage 3a chronic kidney disease (HCC) Social History Tobacco Use Types Packs/Day Years [...] on file documented as of this encounter Plan of Treatment Not on file documented as of this encounter Procedures Procedure Name Priority Date/Time Associated Diagnosis Comments RENAL FUNCTION PANEL Routine 05/30/2021 1:18 PM EDT Type 2 diabetes mellitus with diabetic chronic kidney disease (HCC) Other proteinuria Hypertension Stage 3a chronic kidney disease (HCC) documented in this encounter Results * (ABNORMAL) Renal function panel (05/30/2021 1:18 PM EDT) Glucose 141(H) (70-99) MG/DL [facility] BUN 19 (6-20) MG/DL [facility] Creatinine 1.4(H) (0.5-1.0) MG/DL [facility] Sodium 143 (133-145) MMOL/L [facility] Potassium 4.8 (3.6-5.2) MMOL/L [facility] Chloride 104 (98-107) MMOL/L [facility] Bicarbonate (CO2) 31(H) (22-29) MMOL/L [facility] Anion Gap 8 (4-17) [facility] Albumin 4.2 (3.4-4.8) GM/DL [facility] Calcium 9.5 (8.6-10.5) MG/DL [facility] Phosphorus, Serum 3.9 (2.5-4.5) MG/DL [facility] Est GFR Non 41 ML/MIN/1.7 3 M2 [facility] Comment: Creatinine based estimated glomerular filtration rate (eGFR) is calculated using the Chronic Kidney Disease Epidemiology Collaboration (CKD-EPI). The CKD-EPI creatinine equation has not been validated in children (<18 years), women or in some racial or ethnic subgroups other than Caucasians and Americans. EST GFR 47 ML/MIN/1.7 3 M2 [facility] Comment: Creatinine based estimated glomerular filtration rate (eGFR) is calculated using the Chronic Kidney Disease Epidemiology Collaboration (CKD-EPI). The CKD-EPI creatinine equation has not been validated in children (<18 years), women or in some racial or ethnic subgroups other than Caucasians and Americans. Testing performed or reported by [facility], a Service of [facility], [address] [place] [address] Oksana Siegel MD, Rebar Fabricator Blood (Blood, Venous) 05/30/2021 1:18 PM EDT 05/30/2021 1:20 PM EDT us Otto Major MD LAB BLOOD ORDERABLES Final Resul t [facility] documented in this encounter Visit Diagnoses Diagnosis Type 2 diabetes mellitus with diabetic chronic kidney disease (HCC) Other proteinuria Hypertension Stage 3a chronic kidney disease (HCC) documented in this encounter Care Teams Seedling Sorter Relationship Specialty Start Date End Date Keiko Reyes MD PCP - General Internal Medicine 03/15/21 documented as of this encounter
--- OUTSIDE RECORDS SUMMARY | 2024-12-21 17:35 | XMS_ITS | Encounter Summary ---
Author Organization [facility] Address [address] [place] [address] Phone Care Team Providers Care Cotton Tipper Name Role Phone Keiko Reyes MD Primary Care Provider [phone] Encounter Details Date Type Department Care Team ([facility] st Contact Info) Description 05/24/2024 Office Communication [facility] [address] [place] [address] Alessadnro Roman MD [address] [facility] [address] [place] [phone] Social History Tobacco Use Types Packs/Day Years [...] on filedocumented in this encounter Care Teams Cotton Tipper Relationship Specialty Start Date End Date Keiko Reyes MD PCP - General Internal Medicine 03/15/21 documented as of this encounter
--- OUTSIDE RECORDS SUMMARY | 2024-12-21 17:35 | XMS_ITS | Clinical Summary ---
Author Organization [facility] Address [address] [place] [address] Care Team Providers Care Chief Ultrasound Technologist Name Role Phone Shelby Escobar PA-C Primary Care Provider Allergies Active Allergy Reactions Criticality Noted Date Comments Roberto Inhibitors 01/24/2020 Amoxicillin 01/24/2020 Citalopram 01/24/2020 Ziprasidone 01/24/2020 Niacin 01/24/2020 Medications Medication Sig Dispensed Refills Start Date End Date Status polyethylene glycol-electrolytes (NULYTELY) 420 g solution Take 4,000 mL by mouth once. 0 Active Guselkumab (TREMFYA SC) Inject under the skin. 0 Active LORazepam (ATIVAN) 1 MG tablet Take 1 mg by mouth every 6 (six) hours as needed. 0 Active Semaglutide (OZEMPIC, 1 MG/DOSE, SC) Inject under the skin every 7 days. 0 Active Iron-Vitamin C 65-125 MG TABS Take 1 tablet by mouth 3 (three) times a day after meals. 0 Active atenolol (TENORMIN) tablet 50 mg Take 575 mg by mouth 2 (two) times a week. 1 1/2 tab bid 0 Active latanoprost (XALATAN) 0.005 % ophthalmic solution 1 drop. 0 Active losartan 50 MG TABS 2 tablet, hydroCHLOROthiazide 25 MG TABS 1 tablet Take 1 tablet by mouth daily. 0 Active insulin regular (concentrated) (HumuLIN R U-500) injection 500 units/mL Inject under the skin 3 (three) times a day before meals. 0 Active Multiple Vitamins-Minerals (MULTIVITAMIN PO) Take by mouth daily. 0 Active metFORMIN (GLUCOPHAGE) tablet 500 mg Take 500 mg by mouth every morning with breakfast. 0 Active Clobetasol Prop Emollient Base 0.05 % emollient cream Apply topically 2 (two) times a day. 0 Active Cholecalciferol (VITAMIN D3) 50 MCG (2000 UT) capsule Take 1,000 Units by mouth daily. 0 Active ibuprofen (ADVIL,MOTRIN) 800 MG tablet Take by mouth every 8 (eight) hours as needed for pain. 0 Active Probiotic Product (PROBIOTIC ADVANCED) CAPS Take by mouth. 0 Active cetirizine (ZyrTEC) 10 MG tablet Take 10 mg by mouth daily. 0 Active simvastatin (ZOCOR) tablet 40 mg Take 40 mg by mouth every night at bedtime. 0 Active aspirin EC 81 MG tablet Take 81 mg by mouth daily. 0 Active amLODIPine (NORVASC) tablet 5 mg Take 5 mg by mouth daily. 0 Active losartan (COZAAR) tablet 50 mg Take 50 mg by mouth daily. 0 Active risankizumab-rzaa (Skyrizi Pen) 150 MG/ML SOAJ Inject under the skin. 0 Active CHLORTHALIDONE PO Take by mouth. 0 Act lorena Active Problems Problem Noted Date Diagnosed Date Normocytic anemia 01/25/2020 Iron deficiency anemia due to chronic blood loss 01/25/2020 Social History Tobacco Use Types Packs/Day Years Used Date Smoking Tobacco: Never Smokeless Tobacco: Never Alcohol Use Standard Drinks/Week Comments Yes 0 (1 standard drink = 0.6 oz pur e alcohol) Sex and Gender Information Value Date Recorded Sex Assigned at Not on file Gender Identity Not on file Sexual Orientation Not on file Job Start Date Occupation Industry Not on file Not on file Not on file Last Filed Vital Signs Vital Sign Reading Time Taken Comments Blood Pressure 190/72 07/21/2023 10:30 AM EDT Pulse 68 07/21/2023 10:30 AM EDT Temperature 36.3 ??C (97.4 ??F) 07/21/2023 1 0:29 AM EDT Respiratory Rate - - Oxygen Saturation 98% 07/21/2023 10: 30 AM EDT Inhaled Oxygen Concentration - - Weight 123.6 kg (272 lb 6.4 oz) 023 10:29 AM EDT Height 160 cm (5' 3 ) 07/21/2023 10:29 AM EDT Body Mass Index 48.25 07/21/2023 10:29 AM EDT Plan of Treatment Health Maintenance Due Date Last Done Comments Hepatitis C Screening 1962 COVID-19 Vaccine (#1) 1962 Depression Screening 1974 BMI Counseling 1980 Preventative Health Evaluation 1980 Cervical Cancer Screening (Pap Smear) 1983 Colon Cancer Screening (Colonoscopy) 2007 Breast Cancer Screening (Mammogram) 2012 DTap / Tdap / Td (2 - Td or Tdap) 08/26/2022 08/26/2012 Influenza Vaccine (#1) 2024 , 08/28/2021, 08/28/2021, Additional history exists RSV Adult > 60+ Yrs or (1 - 1-dose 75+ series) 2037 Pneumococcal Vaccine Aged Out 01/09/2007 No long er eligible based on patient's age to complete this topic Shingrix-Zoster Vaccine Completed 02/15/2022, 10/03 Hepatitis B Vaccines Aged Out No long er eligible based on patient's age to complete this topic RSV Ped < 20 months Aged Out No longe r eligible based on patient's age to complete this topic Care Teams Chief Ultrasound Technologist Relationship Specialty Start Date End Date Shelby Escobar, ROYCEC PCP - General Physician Wet Finisher Wool 07/21/23
== END 2024-12-21 16:02 | disposition home or self-care (01) ==
PROVIDERS: PCP Physician Assistant; Visit Provider Physician Assistant
DX: I12.9 Hypertensive chronic kidney disease with stage 1 through stage 4 chronic kidney disease, or unspecified chronic kidney disease (principal); E11.21 Type 2 diabetes mellitus with diabetic nephropathy; E11.22 Type 2 diabetes mellitus with diabetic chronic kidney disease; N18.30 Chronic kidney disease, stage 3 unspecified; E66.01 Morbid (severe) obesity due to excess calories; E78.5 Hyperlipidemia, unspecified

== ENCOUNTER → 2024-12-21 15:08 | Outpatient (BNVA) | payer MEDICARE, MEDICAID, SELFPAY | PROVIDERS: PCP Physician Assistant; Visit Provider Physician Assistant | DX: E11.21 Type 2 diabetes mellitus with diabetic nephropathy (principal); I12.9 Hypertensive chronic kidney disease with stage 1 through stage 4 chronic kidney disease, or unspecified chronic kidney disease; E11.22 Type 2 diabetes mellitus with diabetic chronic kidney disease; N18.30 Chronic kidney disease, stage 3 unspecified; E66.01 Morbid (severe) obesity due to excess calories; E78.5 Hyperlipidemia, unspecified; Z71.3 Dietary counseling and surveillance | CPT/HCPCS: 83036; 99212 ==

== ENCOUNTER 2025-01-03 15:11 | Outpatient (AMB) | payer MEDICARE, MEDICAID, SELFPAY ==
--- NOTE | 2025-01-03 15:13 | HO.NEPHOV ---
Vital Signs 01/03/25 15:20 Height 5 ft 2 in Weight 277 lb 6 oz BMI 50.7 BP 150/80 H Blood Pressure Location Lt brachial Position Sitting Pulse 67 Pulse Source Pulse Oximeter Pulse Oximetry (%) 97 Oxygen Delivery Method Room Air Intake Visit Reasons: 4 month F/U-Conf Paper Sheeter Required: No Accompanied by: Self / Same As Patient Allergies citalopram [From Celexa] Allergy (Mild, Verified 01/03/25 15:20) cramps Niacin Preparations Allergy (Mild, Verified 01/03/25 15:20) vomitinf/flu symptoms/flushing lisinopril Allergy (Unknown, Verified 01/03/25 15:20) cough/all ACEI niacin Allergy (Unknown, Verified 01/03/25 15:20) unknown tirzepatide [From Mounjaro] Adverse Reaction (Severe, Verified 01/03/25 15:20) Diarrhea methotrexate Adverse Reaction (Intermediate, Verified 01/03/25 15:20) Nausea ziprasidone [Geodon] Adverse Reaction (Unknown, Verified 01/03/25 15:20) Unknown Metformin ER Allergy (Unknown, Uncoded 12/21/24 15:32) GI upset HPI Comments Details: Dyan was seen in follow-up of her chronic kidney disease, diabetic nephropathy and hypertension. Her bipedal edema was resolved after discontinuation of amlodipine and being on diuretics. She is trying to have a low-sodium diet. Her weight is stable. Her blood sugars are better. She is on insulin pump. She could not tolerate Jardiance. She denies nausea, vomiting, shortness of breath, proximal nocturnal dyspnea, orthopnea, urinary symptoms. She does not have any vascular complaints. She has no orthostasis. She feels well otherwise. 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 Surgical History Hx of colonoscopy History of selective laser trabeculoplasty History of total abdominal hysterectomy and bilateral salpingo-oophorectomy History of carpal tunnel release Hx of cholecystectomy Family History Father CVD (cardiovascular disease) Obesity Diabetes Alcohol abuse CAD (coronary artery disease) Mother CVD (cardiovascular disease) Diabetes Obesity Chronic lymphocytic leukemia Hx of myocardial infarction Brother Substance abuse Daughter FH: mental illness Paternal Aunt Breast cancer Social History Household Members: Spouse and Children Housing: Condominium Alcohol intake: current Alcohol intake frequency: does not drink Patient Tobacco Use Status: Never used Tobacco e-Cigarette/Vaping Use: Never Used Second Hand Smoke Exposure: No service: No Current occupational status: disabled Current occupational exposures/hazards: No Cognitive needs: No Hearing needs: Yes Vision needs: Yes Review of Systems Const All systems reviewed & are unremarkable except as noted in HPI and below Physical Exam Vital Signs: Last Vital Signs Pulse 67 01/03/25 15:20 BP 150/80 H 01/03/25 15:20 Pulse Ox 97 01/03/25 15:20 Oxygen Delivery Method Room Air 01/03/25 15:20 BMI result Body Mass Index 50.7 Const General: comfortable and no acute distress Orientation/consciousness: patient oriented x3 HEENT Head: Yes normocephalic Mouth: Normal oral and palatal mucosa present Eyes EOM: EOMs intact bilaterally Neck Neck: Yes supple Resp Auscultation: clear to auscultation bilaterally Cardio Jugular venous distension: no JVD Rate: regular rate GI Palpation (GI): Soft to palpation Auscultation: normal bowel sounds General: Yes no CVA tenderness Back/Spine/Pelvis Back: no CVA tenderness Skin General skin exam: no rashes or lesions noted Neuro General: patient oriented x3 and moves all extremities Extrem General: Yes no pedal edema Results Reviewed Nephrology Results: Sodium 144 mmol/L (135-145) 11/29/24 Potassium 3.9 mmol/L (3.3-5.1) 11/29/24 Chloride 107 mmol/L (96-108) 11/29/24 Carbon Dioxide 30 mmol/L (22-29) H 11/29/24 BUN 25 mg/dL (9-16) H 11/29/24 Creatinine 1.33 mg/dL (0.5-1.4) 11/29/24 Calcium 9.4 mg/dL (8.4-10.2) 11/29/24 Urine Creatinine 128.54 mg/dL 11/29/24 Protein/Creatinin Ratio 0.79 (<0.2) H 11/29/24 Assessment & Plan Assessment & Plan (1) CKD stage 3 due to type 2 diabetes mellitus: Code(s): E11.22 - Type 2 diabetes mellitus with diabetic chronic kidney disease; N18.30 - Chronic kidney disease, stage 3 unspecified Category: Medical (2) Hypertension: Code(s): I10 - Essential (primary) hypertension Category: Medical Qualifiers: Hypertension type: primary hypertension Qualified Code(s): I10 - Essential (primary) hypertension (3) Diabetic nephropathy associated with type 2 diabetes mellitus: Code(s): E11.21 - Type 2 diabetes mellitus with diabetic nephropathy Category: Medical Plan Aure has chronic kidney disease due to diabetic nephropathy. She is hypertensive and is on medications. Her blood pressure needs to be at goal. Her serum creatinine is better/stable. She could not tolerate Jardiance. I reduced her Chlorthalidone to every other day. I may back off on losartan if her serum creatinine rises. She avoids nonsteroidal anti-inflammatory medications and maintain good hydration. Follow-up blood work ordered. Answered all questions. Follow-up given Orders: Orders Creatinine 6 Months E11.22 - Type 2 diabetes mellitus with diabetic chronic kidney disease, N18.30 - Chronic kidney disease, stage 3 unspecified Blood Urea Nitrogen 6 Months E11.22 - Type 2 diabetes mellitus with diabetic chronic kidney disease, N18.30 - Chronic kidney disease, stage 3 unspecified Electrolytes 6 Months E11.22 - Type 2 diabetes mellitus with diabetic chronic kidney disease, N18.30 - Chronic kidney disease, stage 3 unspecified Coding Level of Care Code Est Pt Level 4 (35987) Diagnoses CKD stage 3 due to type 2 diabetes mellitus E11.22; N18.30 Primary hypertension I10 Hypertension type: primary hypertension Diabetic nephropathy associated with type 2 diabetes mellitus E11.21
--- OUTSIDE RECORDS SUMMARY | 2025-01-03 15:14 | XMS_ITS | Encounter Summary ---
Author Organization [facility] Address [address] [place] [address] Phone Care Team Providers Care Group Exercise Manager Name Role Phone Keiko Reyes MD Primary Care Provider [phone] Encounter Details Date Type Department Care Team (Late st Contact Info) Description 04/16/2021 Orders Only [facility] [address] [place] [address] Otto Major MD Type 2 diabetes mellitus [...] 1:18 PM EDT) Glucose 141(H) (70-99) MG/DL [facility] BUN 19 (6-20) MG/DL [facility] Creatinine 1.4(H) (0.5-1.0) MG/DL [facility] Sodium 143 (133-145) MMOL/L [facility] Potassium 4.8 (3.6-5.2) MMOL/L [facility] Chloride 104 (98-107) MMOL/L [facility] Bicarbonate (CO2) 31(H) (22-29) MMOL/L [facility] Anion Gap 8 (4-17) [facility] Albumin 4.2 (3.4-4.8) GM/DL [facility] Calcium 9.5 (8.6-10.5) MG/DL [facility] Phosphorus, Serum 3.9 (2.5-4.5) MG/DL [facility] Est GFR Non 41 ML/MIN/1.7 3 M2 [facility] Comment: Creatinine based estimated glomerular filtration rate (eGFR) is calculated using the Chronic Kidney Disease Epidemiology Collaboration (CKD-EPI). The CKD-EPI creatinine equation has not been validated in children (<18 years), women or in some racial or ethnic subgroups other than Caucasians and Americans. EST GFR 47 ML/MIN/1.7 3 M2 [facility] Comment: Creatinine based estimated glomerular filtration rate (eGFR) is calculated using the Chronic Kidney Disease Epidemiology Collaboration (CKD-EPI). The CKD-EPI creatinine equation has not been validated in children (<18 years), women or in some racial or ethnic subgroups other than Caucasians and Americans. Testing performed or reported by [facility], a Service of [facility], [address] [place] [address] Oksana Siegel MD, Concert Or Lecture Hall Manager Blood (Blood, Venous) 05/30/2021 1:18 PM EDT 05/30/2021 1:20 PM EDT us Otto Major MD LAB BLOOD ORDERABLES Final Resul t [facility] documented in this encounter Visit Diagnoses Diagnosis Type 2 diabetes mellitus with diabetic chronic kidney disease (HCC) Other proteinuria Hypertension Stage 3a chronic kidney disease (HCC) documented in this encounter Care Teams Group Exercise Manager Relationship Specialty Start Date End Date Keiko Reyes MD PCP - General Internal Medicine 03/15/21 documented as of this encounter
--- OUTSIDE RECORDS SUMMARY | 2025-01-03 15:14 | XMS_ITS | Encounter Summary ---
Author Organization [facility] Address [address] [place] [address] Phone Care Team Providers Care Journalism Professor Name Role Phone Keiko Reyes MD Primary Care Provider [phone] Encounter Details Date Type Department Care Team ([facility] st Contact Info) Description 05/24/2024 Office Communication [facility] [address] [place] [address] Alessandro Rmoan MD [address] [facility] [address] [place] [phone] Social History Tobacco Use Types Packs/Day Years [...] on filedocumented in this encounter Care Teams Journalism Professor Relationship Specialty Start Date End Date Keiko Reyes MD PCP - General Internal Medicine 03/15/21 documented as of this encounter
--- OUTSIDE RECORDS SUMMARY | 2025-01-03 15:14 | XMS_ITS | Clinical Summary ---
Author Organization [facility] Address [address] [place] [address] Care Team Providers Care Specimen Transporter Name Role Phone Shelby Escobar PA-C Primary [...] age to complete this topic Care Teams Specimen Transporter Relationship Specialty Start Date End Date Shelby Escobar, ROYCEC PCP - General Physician Social Media Developer 07/21/23
--- OUTSIDE RECORDS SUMMARY | 2025-01-03 15:14 | XMS_ITS | Encounter Summary ---
Author Organization [facility] Address [address] [place] [address] Phone Care Team Providers Care Qa Internship Name Role Phone Keiko Reyes MD Primary Care Provider [phone] Encounter Details Date Type Department Care Team ([facility] st Contact Info) Description 09/10/2023 Office Communication [facility] [address] [place] [phone] Alessandro Roman MD [address] [facility] [address] [place] [phone] Social History Tobacco Use Types Packs/Day Years [...] on filedocumented in this encounter Care Teams Qa Internship Relationship Specialty Start Date End Date Keiko Reyes MD PCP - General Internal Medicine 03/15/21 documented as of this encounter
--- OUTSIDE RECORDS SUMMARY | 2025-01-03 15:14 | XMS_ITS | Clinical Summary ---
Author Organization [facility] Address [address] [facility] [address] [place] [address] Phone Care Team Providers Care Skimmer Reverberatory Name Role Phone Keiko Reyes MD Primary Care Provider [phone] Allergies Active Allergy Reactions Criticality Noted Date [...] patient's age to complete this topic Insurance [facility] [place]ID [place] [facility] [place]ID [place] Care Teams Skimmer Reverberatory Relationship Specialty Start Date End Date Keiko Reyes MD PCP - General Internal Medicine 03/15/21
[2025-01-03 15:20] VITALS: BP 150/80; PULSE 67; O2SAT 97; BMI 50.7
== END 2025-01-03 15:37 | disposition home or self-care (01) ==
PROVIDERS: PCP Physician Assistant; Visit Provider Internal Medicine Nephrology
DX: E11.22 Type 2 diabetes mellitus with diabetic chronic kidney disease (principal); N18.30 Chronic kidney disease, stage 3 unspecified; I10 Essential (primary) hypertension; E11.21 Type 2 diabetes mellitus with diabetic nephropathy
CPT/HCPCS: 99214

== ENCOUNTER → 2025-01-03 15:11 | Outpatient (BNVA) | payer MEDICARE, MEDICAID, SELFPAY | PROVIDERS: PCP Physician Assistant; Visit Provider Internal Medicine Nephrology | DX: E11.22 Type 2 diabetes mellitus with diabetic chronic kidney disease (principal); I12.9 Hypertensive chronic kidney disease with stage 1 through stage 4 chronic kidney disease, or unspecified chronic kidney disease; E11.21 Type 2 diabetes mellitus with diabetic nephropathy; N18.30 Chronic kidney disease, stage 3 unspecified | CPT/HCPCS: 99212 ==

== ENCOUNTER → 2025-01-06 11:40 | Outpatient (BNVA) | payer MEDICARE, MEDICAID, SELFPAY | PROVIDERS: PCP Physician Assistant; Visit Provider Nurse Practitioner Adult Health | DX: E11.9 Type 2 diabetes mellitus without complications (principal) | CPT/HCPCS: 82947; 99212 ==

== ENCOUNTER → 2025-01-06 11:40 | Outpatient (AMB) | payer MEDICARE, MEDICAID, SELFPAY ==
--- NOTE | 2025-01-06 10:25 | MHC.OFFVIS ---
Vital Signs 01/06/25 11:43 Height 5 ft 2 in Weight 277 lb 12.519 oz BMI 50.8 BP 132/78 Blood Pressure Location Rt brachial Position Sitting Pulse 77 Pulse Source Pulse Oximeter Intake Visit Reasons: T2DM Intake Note: Patient presents today to re-establish treatment for Type 1 Diabetes Mellitus: Last Diabetic eye exam was on: 06/2024 Last Podiatry exam was on: Does not see a Technical Services Consultant Most recent HbA1c: 6.3%, 12/21/2024 Random Glucose- 150 mg/dL, Today Fell Cutter Required: No Accompanied by: Self / Same As Patient Allergies citalopram [From Celexa] Allergy (Mild, Verified 01/03/25 15:20) cramps Niacin Preparations Allergy (Mild, Verified 01/03/25 15:20) vomitinf/flu symptoms/flushing lisinopril Allergy (Unknown, Verified 01/03/25 15:20) cough/all ACEI niacin Allergy (Unknown, Verified 01/03/25 15:20) unknown tirzepatide [From Mounjaro] Adverse Reaction (Severe, Verified 01/03/25 15:20) Diarrhea methotrexate Adverse Reaction (Intermediate, Verified 01/03/25 15:20) Nausea ziprasidone [Geodon] Adverse Reaction (Unknown, Verified 01/03/25 15:20) Unknown Metformin ER Allergy (Unknown, Uncoded 12/21/24 15:32) GI upset Medication List - Last Reconciled 01/06/25 by Sally Sapp NP acetone (urine) test (Ketone Urine Test strips) prn glucose over 250, illness, nausea or vomiting tid atenolol 75 mg PO BID blood sugar diagnostic As directed testing 5x per day. blood sugar diagnostic (OneTouch Verio test strips) USE 5 TIMES DAILY blood-glucose meter (OneTouch Verio Meter) As directed blood-glucose sensor (Dexcom G7 Sensor device) As directed every 10 days blood-glucose sensor (Dexcom G6 Sensor device) DIRECTED EVERY 10 DAYS blood-glucose sensor (Dexcom G6 Sensor device) As directed every 10 days (needs while she is off g7) blood-glucose transmitter (Dexcom G6 Transmitter device) USE DIRECTED TO CHECK BLOOD SUGAR. CHANGE EVERY 3 MONTHS. cetirizine (Zyrtec) 10 mg PO DAILY chlorthalidone 25 mg PO Q OTHER DAY cholecalciferol (vitamin D3) 2,000 units PO DAILY clobetasol 0.05% mL topical diclofenac sodium 1% 1 g topical TID docusate sodium (Colace) 100 mg PO BID glucagon 3 mg/actuation (Baqsimi) 3 mg intranasal ONCE PRN 30 days MDD 6mg may repeat in 15 minutes insulin pump cart,auto,BT,G6/7 (Omnipod 5 G6-G7 Pods (Gen 5) subcutaneous cartridge) CHANGE POD EVERY 72 HOURS insulin pump cart,auto,BT-cntr (Omnipod 5 G6 Intro Kit (Gen 5) subcutaneous cartridge with controller) As directed insulin regular hum U-500 conc (Humulin R U-500 (Concentrated) Insulin) Use up to 450 units via insulin pump subcut daily; insulin U-500 syringe-needle As directed 4 times a day ixekizumab (Taltz Autoinjector) 80 mg subcut lactobacillus combination no.4 (Probiotic) 3,000 mmu cells PO DAILY lancets As directed 5 times a day lorazepam 0.5 mg PO DAILY PRN 30 days losartan 50 mg PO BID 90 days pen needle, diabetic (Comfort EZ Pen [place]) As directed semaglutide (Ozempic) 0.25 mg (0.368 mL) subcut QWEEK simvastatin 40 mg PO BEDTIME HPI Comments Details: Patient is a 64-year-old female with DM type 2 diagnosed in 2002 who presents for management of diabetes. She was last seen by myself 3 months ago. She has been on an Omnipod 5 with G6 for several years. Hgb A1C 12/21/24 6.3%, 10/07/24 6.9%, 04/04/24 6.8% Diabetes medications: Humulin U 500 via Omnipod 5. Raghu had some GI intolerance in the past restarted and felt too much nausea Reports that she did not tolerate Ozempic or Trulicity due to constipation. She did not tolerate Jardiance due to vaginal itching. Dexcom average glucose: 159 14 day continuous glucose monitor report reviewed Glucose Managment indicator [ ] % Days with CGM data 100 % TIme in ranges: Eight % very high (above 250) 30 % high ?(181-250) 60 % in range ?(70-180] 2 % low (69-55) Less than 1 % ?very low (below 54) Interpretation [ some lows after meals Basal rate(s) (units/hour) : 12 AM? to 1 AM? 1.5 units / hr 1 AM? to 8 AM? 1.4 units / hr 8 AM to 8 PM? 1.3 units / hr 8 PM? to 12 AM? 1.7 units / hr Bolus setting Insulin Carbohydrate Ratio (s) 12 AM? to 5 PM? 1:5 new 5.5 5 PM to 12 AM 1:4.5 new 5.0 Correction Factor / Sensitivity Factor 12am 1:15 12pm 1:18 4pm 1:15 Active Insulin Time:? 4 hours new 5 Target(s): 12 AM? to 12 PM? 120 mg/dL Correction Threshhold 120 mg/d Symptoms reported: denies numbness, tingling, cramping in lower extremities Hypoglycemia:none , Symptoms of shakiness and sweatiness. Very rare hypoglycemia Treats low with 3-4 tablets has been having some lows after lunch when she has higher before lunch Exercise: limited due to arthritis, walks some. 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 Surgical History Hx of colonoscopy History of selective laser trabeculoplasty History of total abdominal hysterectomy and bilateral salpingo-oophorectomy History of carpal tunnel release Hx of cholecystectomy Family History Father CVD (cardiovascular disease) Obesity Diabetes Alcohol abuse CAD (coronary artery disease) Mother CVD (cardiovascular disease) Diabetes Obesity Chronic lymphocytic leukemia Hx of myocardial infarction Brother Substance abuse Daughter FH: mental illness Paternal Aunt Breast cancer Social History Household Members: Spouse and Children Housing: Condominium Alcohol intake: current Alcohol intake frequency: does not drink Patient Tobacco Use Status: Never used Tobacco e-Cigarette/Vaping Use: Never Used Second Hand Smoke Exposure: No service: No Current occupational status: disabled Current occupational exposures/hazards: No Cognitive needs: No Hearing needs: Yes Vision needs: Yes Physical Exam Vital Signs: Last Vital Signs Pulse 77 01/06/25 11:43 BP 132/78 01/06/25 11:43 BMI result Body Mass Index 50.8 Const Other: Absence of Cushingoid features. Absence of acromegalic features. Neck exam reveals nl size thyroid about 15 gms. No thyroid nodules palpable. No carotid bruits present. Lungs CTA. Heart S1 S2, Reg R/R. No M/R G. Skin exam reveals absence of vitiligo or acanthosis nigricans. No edema Visual exam of foot performed. No ulcerations or open lesions. No inter digit maceration or fissuring. No onychomycosis, no callouses. Sensation intact to monofilament exam. Vibratory sensation is normal with 128 Hz tuning fork. Office Procedures Glucose Monitoring Details Details: [facility] - Glucose monitoring, continuous-physician I&R Procedure code (CPT) selection complete Results Reviewed Results Reviewed: Laboratory Last Values Glucose (Clinic) 150 mg/dL (60-115) H 01/06/25 11:47 Assessment & Plan Assessment & Plan (1) Type 2 diabetes mellitus: Code(s): E11.9 - Type 2 diabetes mellitus without complications Category: Medical Plan: 64-year-old type 2 diabetic with nephropathy on an insulin pump with U500 insulin. She is having some postprandial lows in the afternoon. Settings were adjusted to give her less prandial insulin in the active insulin time of the U500 was reduced to 4 hours. Today she questioned whether she might be able to switch to a U 200. She has almost a full 3 days and was advised if she switch to U 200 she would need to fill the pods from the pen which would need to be transferred to a syringe and that she would need to change the pods every 1-1/2 days. She will set up an appointment with Nory JOSÉ to discuss switching over and also to change from G6 to G7. She has been given a a prescription for Ozempic at 0.25 which she plans to start next week. She has had constipation with several GLP 1 agonist in the past. She was given a prescription for Colace by her provider and she was advised to increase her water and to discontinue if she becomes constipated. She was also advised she may need additional adjustment to her prandial insulin once on Ozempic and that she should watch her sugars quite closely. The patient had an opportunity to ask questions regarding treatment plan. The patient expressed understanding and agreement with the above treatment plan. The patient is aware they should contact our office by phone for worsening glucose readings or for any low blood sugars which may warrant a change in diabetes medication. Compliance is encouraged with medications and any followup testing/consults which may have been ordered. Orders: Orders AMB Glucose Monitoring Today E11.9 - Type 2 diabetes mellitus without complications Patient Instructions: Take 15 carb carbohydrate grams to treat a low sugar (3-4 glucose tablets, half a glass of juice or 15 carbohydrate grams of soft candy such as gummie snacks). Recheck your sugar in 15 minutes and re-treat again with 15 carbohydrate grams if low or still with symptoms. Do not drive a car or operate machinery if you do not know what your blood sugar is, if it is low or in excess of 300. The patient was counseled to achieve a target A1C of 7% (154 avg). Fasting blood sugars should be 90-130 in the morning and less than 180 two hours after meals. Reviewed the relationship between poor diabetic control and the development of complications. Check your feet daily looking for any signs of infection, drainage, redness, ulceration and seek medical attention if this occurs. Break in shoes gradually and do not wear open-toed shoes or walk stocking footed or barefooted. Coding Level of Care Code Est Pt Level 4 (05148) Complex EM visit Add On G2211 Diagnoses Type 2 diabetes mellitus E11.9 CPT Codes Details - CPT: 11261 - Glucose monitoring, continuous-physician I&R ([id number])
[2025-01-06 11:52] LABS: Glucose, Whole Blood 150 mg/dL (60-115)
== END | disposition home or self-care (01) ==
PROVIDERS: PCP Physician Assistant; Visit Provider Nurse Practitioner Adult Health
DX: E11.9 Type 2 diabetes mellitus without complications (principal)
CPT/HCPCS: 95251; 99214; G2211

== ENCOUNTER 2025-01-31 11:29 | Outpatient (AMB) | payer MEDICARE, MEDICAID, SELFPAY ==
--- NOTE | 2025-01-31 12:29 | A.OFFVIS_ITS ---
Intake Intake Visit Reasons: T2DM Adjudication Specialist Required: No Accompanied by: Self / Same As Patient Allergies citalopram [From Celexa] Allergy (Mild, Verified 01/03/25 15:20) cramps Niacin Preparations Allergy (Mild, Verified 01/03/25 15:20) vomitinf/flu symptoms/flushing lisinopril Allergy (Unknown, Verified 01/03/25 15:20) cough/all ACEI niacin Allergy (Unknown, Verified 01/03/25 15:20) unknown tirzepatide [From Mounjaro] Adverse Reaction (Severe, Verified 01/03/25 15:20) Diarrhea methotrexate Adverse Reaction (Intermediate, Verified 01/03/25 15:20) Nausea ziprasidone [Geodon] Adverse Reaction (Unknown, Verified 01/03/25 15:20) Unknown Metformin ER Allergy (Unknown, Uncoded 12/21/24 15:32) GI upset HPI Comprehensive Diabetes Asmnt Most Recent Diabetes Results: Microalb/Creat Ratio 473.9 ug/mg cr (<30) H 06/16/24 Cholesterol 129 mg/dL (<200) 11/29/24 HDL Cholesterol 44 mg/dL (>40) 11/29/24 Triglycerides 138 mg/dL (<150) 11/29/24 Creatinine 1.33 mg/dL (0.5-1.4) 11/29/24 Blood Urea Nitrogen 25 mg/dL (9-16) H 11/29/24 Sodium 144 mmol/L (135-145) 11/29/24 Potassium 3.9 mmol/L (3.3-5.1) 11/29/24 Chloride 107 mmol/L (96-108) 11/29/24 Carbon Dioxide 30 mmol/L (22-29) H 11/29/24 Calcium 9.4 mg/dL (8.4-10.2) 11/29/24 AST 20 U/L (5-31) 06/25/24 ALT 18 U/L (0-31) 06/25/24 Total Protein 7.0 g/dL (6.5-8.0) 06/25/24 Albumin 4.2 g/dL (3.5-5.0) 06/25/24 [facility] Medical History (Updated 01/06/25 @ 14:29 by Sally J Senait, FLAT HAMMERER) Type 2 diabetes mellitus Hx of mammogram Psoriatic arthritis Anxiety Arthritis Anemia Psoriasis Stress incontinence Morbid obesity Hypertension Dyslipidemia senior care (current) use of insulin Surgical History Hx of colonoscopy History of selective laser trabeculoplasty History of total abdominal hysterectomy and bilateral salpingo-oophorectomy History of carpal tunnel release Hx of cholecystectomy Family History Father CVD (cardiovascular disease) Obesity Diabetes Alcohol abuse CAD (coronary artery disease) Mother CVD (cardiovascular disease) Diabetes Obesity Chronic lymphocytic leukemia Hx of myocardial infarction Brother Substance abuse Daughter FH: mental illness Paternal Aunt Breast cancer Social History Household Members: Spouse and Children [facility] Alcohol intake: current Alcohol intake frequency: does not drink Patient Tobacco Use Status: Never used Tobacco e-Cigarette/Vaping Use: Never Used Second Hand Smoke Exposure: No service: No Current occupational status: disabled Current occupational exposures/hazards: No Cognitive needs: No Hearing needs: Yes Vision needs: Yes Assessment & Plan Assessment & Plan (1) Type 2 diabetes mellitus: Code(s): E11.9 - Type 2 diabetes mellitus without complications Plan: Patient presents for pump training for transitioning from Omnipod 5 with Dexcom G6 to Dexcom G7 Downloaded G7 kimmy on patient's smart phone, patient did not remember log in information, could not reset password through e-mail. Called Dexcom support, password reset for Dexcom account with help The following topics were reviewed today: - Dexcom G6 verses Dexcom G7 - ?Sensor setting (if applicable) ??? High Alert: 200 mg/dl ??? Low Alert: 70 mg/dl ?patient's average glucose for the past 2 weeks 156 mg/dL ?above target 29% ?at target 67% ?below target 1% Auto mode 98% Manual mode 2% Patient's last A1c on 01/21/2025 6.3% Instructed patient on how to insert and set up Dexcom G7 sensor, in Omnipod 5 blind hanger Set up Dexcom G7 kimmy on patient's smart phone Patient left visit with Dexcom G7 sensor in warmup on back of right arm ?no changes made to patient's pump settings at today's visit Basal rate(s) (units/hour) : 12 AM? to 1 AM? 1.5 units / hr 1 AM? to 8 AM? 1.4 units / hr 8 AM to 8 PM? 1.3 units / hr 8 PM? to 12 AM? 1.7 units / hr Bolus setting Insulin Carbohydrate Ratio (s) 12 AM? to 5 PM? 1:5.5 5 PM to 12 AM 1:5.5 Correction Factor / Sensitivity Factor 12 AM? to 4 AM? 1:15 4 AM to 12 AM 1:22 Active Insulin Time:? 4 hours Target(s): 12 AM? to 12 PM? 120 mg/dL Correction Threshhold 180 mg/dL Medications: Discontinued blood-glucose sensor (Dexcom G6 Sensor device) Discontinued Reason: No Longer Medically Relevant DIRECTED EVERY 10 DAYS 9 ea 11RF E11.65 - Type 2 diabetes mellitus with hyperglycemia blood-glucose sensor (Dexcom G6 Sensor device) Discontinued Reason: No Longer Medically Relevant As directed every 10 days (needs while she is off g7) 3 ea 6RF blood-glucose transmitter (Dexcom G6 Transmitter device) Discontinued Reason: No Longer Medically Relevant USE DIRECTED TO CHECK BLOOD SUGAR. CHANGE EVERY 3 MONTHS. 1 ea 1RF E11.65 - Type 2 diabetes mellitus with hyperglycemia Coding Level of Care Code Est Pt Level 1 (07602) Diagnoses Type 2 diabetes mellitus E11.9
--- OUTSIDE RECORDS SUMMARY | 2025-01-31 14:32 | XMS_ITS | Clinical Summary ---
Author Organization [facility] Address [address] [place] [address] Care Team Providers Care Senior Linux Systems Engineer Name Role Phone Shelby Escobar PA-C Primary [...] age to complete this topic Care Teams Senior Linux Systems Engineer Relationship Specialty Start Date End Date Shelby Escobar, ROYCEC PCP - General Physician Coat Presser 07/21/23
== END 2025-01-31 12:54 | disposition home or self-care (01) ==
PROVIDERS: PCP Physician Assistant; Visit Provider Registered Nurse Diabetes Educator
DX: E11.9 Type 2 diabetes mellitus without complications (principal)

== ENCOUNTER 2025-01-31 13:54 | Outpatient (REF) | payer MEDICARE, MEDICAID, SELFPAY ==
--- NOTE | ~2025-01-31 | XR_ITS ---
EXAMINATION: XR CHEST CLINICAL INFORMATION: I51.7 - Cardiomegaly COMPARISON: None available. TECHNIQUE: 2 views of the chest were obtained. FINDINGS: Pulmonary reticular pattern. Linear opacities in the left lower hemithorax, peripherally. No gross consolidation, pleural effusion or pneumothorax. Cardiomediastinal silhouette is mildly prominent. Multilevel thoracic and upper lumbar spondylosis. Vascular clips right upper quadrant abdomen. XR/XR chest 2V IMPRESSION: Chronic interstitial lung disease. Mild interstitial lung edema should be considered in the correct clinical settings. Electronically signed by: Gt Panchal MD 02/03/2025 08:56 AM EST
--- OUTSIDE RECORDS SUMMARY | 2025-01-31 17:33 | XMS_ITS | Encounter Summary ---
Author Organization [facility] Address [address] [place] [address] Phone Care Team Providers Care Real Estate Sales Supervisor Name Role Phone Keiko Reyes MD Primary Care Provider [phone] Encounter Details Date Type Department Care Team ([facility] st Contact Info) Description 09/10/2023 Office Communication [facility] [address] [place] [id number] Alessandro Roman MD [address] [facility] [address] [place] [phone] Social History Tobacco Use Types Packs/Day Years [...] on filedocumented in this encounter Care Teams Real Estate Sales Supervisor Relationship Specialty Start Date End Date Keiko Reyes MD PCP - General Internal Medicine 03/15/21 documented as of this encounter
--- OUTSIDE RECORDS SUMMARY | 2025-01-31 17:33 | XMS_ITS | Encounter Summary ---
Author Organization [facility] Address [address] [place] [address] Phone Care Team Providers Care Computerized Table Cutter Name Role Phone Keiko Reyes MD Primary Care Provider [phone] Encounter Details Date Type Department Care Team (Late st Contact Info) Description 04/16/2021 Orders Only [facility] [address] [place] [phone] Otto Major MD Type 2 diabetes mellitus [...] 1:18 PM EDT) Glucose 141(H) (70-99) MG/DL [facility] BUN 19 (6-20) MG/DL [facility] Creatinine 1.4(H) (0.5-1.0) MG/DL [facility] Sodium 143 (133-145) MMOL/L [facility] Potassium 4.8 (3.6-5.2) MMOL/L [facility] Chloride 104 (98-107) MMOL/L [facility] Bicarbonate (CO2) 31(H) (22-29) MMOL/L [facility] Anion Gap 8 (4-17) [facility] Albumin 4.2 (3.4-4.8) GM/DL [facility] Calcium 9.5 (8.6-10.5) MG/DL [facility] Phosphorus, Serum 3.9 (2.5-4.5) MG/DL [facility] Est GFR Non 41 ML/MIN/1.7 3 M2 [facility] Comment: Creatinine based estimated glomerular filtration rate (eGFR) is calculated using the Chronic Kidney Disease Epidemiology Collaboration (CKD-EPI). The CKD-EPI creatinine equation has not been validated in children (<18 years), women or in some racial or ethnic subgroups other than Caucasians and Americans. EST GFR 47 ML/MIN/1.7 3 M2 [facility] Comment: Creatinine based estimated glomerular filtration rate (eGFR) is calculated using the Chronic Kidney Disease Epidemiology Collaboration (CKD-EPI). The CKD-EPI creatinine equation has not been validated in children (<18 years), women or in some racial or ethnic subgroups other than Caucasians and Americans. Testing performed or reported by [facility], a Service of [facility], [address] [place] [address] Oksana Siegel MD, Jailer/Training Officer Blood (Blood, Venous) 05/30/2021 1:18 PM EDT 05/30/2021 1:20 PM EDT us Otto Major MD LAB BLOOD ORDERABLES Final Resul t [facility] documented in this encounter Visit Diagnoses Diagnosis Type 2 diabetes mellitus with diabetic chronic kidney disease (HCC) Other proteinuria Hypertension Stage 3a chronic kidney disease (HCC) documented in this encounter Care Teams Computerized Table Cutter Relationship Specialty Start Date End Date Keiko Reyes MD PCP - General Internal Medicine 03/15/21 documented as of this encounter
--- OUTSIDE RECORDS SUMMARY | 2025-01-31 17:33 | XMS_ITS | Clinical Summary ---
Author Organization [facility] Address [address] [facility] [address] [place] [address] Phone Care Team Providers Care Stud Driver Name Role Phone Keiko Reyes MD Primary Care Provider [phone] Allergies Active Allergy Reactions Criticality Noted Date [...] Comments Breast Cancer Screening 1960 Pneumococcal Vaccine: Pediatrics (0 to 5 Years) and At-Risk Patients (6 to 64 Years) (2 of 2 - PCV) 01/09/2008 01/09/2007 Colorectal Cancer Screening: Annual FOBT 2011 Colorectal Cancer Screening: Colonoscopy 2011 Colorectal Cancer Screening: Sigmoidoscopy 2011 Diabetes: Hemoglobin A1C 01/17/2021 Diabetes: Ophthalmology Exam 01/17/2021 Diabetes: Pedal Pulse Checked 01/17/2021 Diabetes: Sensory Foot Exam 01/17/2021 Diabetes: Visual Foot Exam 01/17/2021 Influenza Vaccine (#1) 2024 0, 12/10/2006 Hepatitis B Vaccine Aged Out No longe r eligible based on patient's age to complete this topic Insurance [facility] [place] [facility] [place] Care Teams Stud Driver Relationship Specialty Start Date End Date Keiko Reyes MD PCP - General Internal Medicine 03/15/21
--- OUTSIDE RECORDS SUMMARY | 2025-01-31 17:33 | XMS_ITS | Encounter Summary ---
Author Organization [facility] Address [address] [place] [address] Phone Care Team Providers Care Commissary Production Supervisor Name Role Phone Keiko Reyes MD Primary Care Provider [phone] Encounter Details Date Type Department Care Team ([facility] st Contact Info) Description 05/24/2024 Office Communication [facility] [address] [place] [address] Alessandro Roman MD [address] [facility] [address] [place] [phone] Social History Tobacco Use Types Packs/Day Years [...] on filedocumented in this encounter Care Teams Commissary Production Supervisor Relationship Specialty Start Date End Date Keiko Reyes MD PCP - General Internal Medicine 03/15/21 documented as of this encounter
--- OUTSIDE RECORDS SUMMARY | 2025-01-31 17:33 | XMS_ITS | Clinical Summary ---
Author Organization [facility] Address [address] [place] [address] Care Team Providers Care Senior Pastor Name Role Phone Shelby Escobar PA-C Primary [...] to complete this topic Care Teams Senior Pastor Relationship Specialty Start Date End Date Shelby Escobar, ROYCEC PCP - General Physician Panama Hat Smearer 07/21/23
== END 2025-01-31 13:55 | disposition home or self-care (01) ==
LOC: HO.XRAY 13:54
PROVIDERS: PCP Physician Assistant; Visit Provider Physician Assistant
DX: I51.7 Cardiomegaly (principal); J18.9 Pneumonia, unspecified organism; E11.9 Type 2 diabetes mellitus without complications
CPT/HCPCS: 71046; 99211

== ENCOUNTER → 2025-01-31 14:02 | Outpatient (BNV) | payer MEDICARE, MEDICAID, SELFPAY | PROVIDERS: PCP Physician Assistant; Visit Provider Radiology Diagnostic Radiology | DX: I51.7 Cardiomegaly (principal) | CPT/HCPCS: 71046 ==

== ENCOUNTER 2025-02-28 10:27 | Outpatient (AMB) | payer MEDICARE, MEDICAID, SELFPAY ==
[2025-02-28 10:30] VITALS: BP 142/70; PULSE 77; O2SAT 93; BMI 50.3
--- NOTE | 2025-02-28 10:30 | A.OFFVIS_ITS ---
Vital Signs 02/28/25 10:30 Height 5 ft 2 in Weight 275 lb BMI 50.3 BP 142/70 H Blood Pressure Location Lt brachial Position Sitting Pulse 77 Pulse Source Pulse Oximeter Pulse Oximetry (%) 93 Oxygen Delivery Method Room Air Intake Visit Reasons: Interstitial pulmonary disease Insurance Attorney Required: No Oncology Research Rn: Oncology Research Rn offered & declined Allergies citalopram [From Celexa] Allergy (Mild, Verified 02/28/25 10:37) cramps Niacin Preparations Allergy (Mild, Verified 02/28/25 10:37) vomitinf/flu symptoms/flushing lisinopril Allergy (Unknown, Verified 02/28/25 10:37) cough/all ACEI niacin Allergy (Unknown, Verified 02/28/25 10:37) unknown tirzepatide [From Mounjaro] Adverse Reaction (Severe, Verified 02/28/25 10:37) Diarrhea methotrexate Adverse Reaction (Intermediate, Verified 02/28/25 10:37) Nausea ziprasidone [Geodon] Adverse Reaction (Unknown, Verified 02/28/25 10:37) Unknown Metformin ER Allergy (Unknown, Uncoded 02/28/25 10:37) GI upset Medication List - Last Reconciled 02/28/25 by Rita Houston LPN acetone (urine) test (Ketone Urine Test strips) prn glucose over 250, illness, nausea or vomiting tid atenolol 75 mg PO BID bimekizumab-bkzx (Bimzelx Autoinjector) 160 mg subcut Q4W blood sugar diagnostic As directed testing 5x per day. blood sugar diagnostic (OneTouch Verio test strips) USE 5 TIMES DAILY blood-glucose meter (OneTouch Verio Meter) As directed blood-glucose sensor (StartSpanish G7 Sensor device) As directed every 10 days cetirizine (Zyrtec) 10 mg PO DAILY chlorthalidone 25 mg PO DAILY cholecalciferol (vitamin D3) 2,000 units PO DAILY clobetasol 0.05% mL topical diclofenac sodium 1% 1 g topical TID docusate sodium (Colace) 100 mg PO BID glucagon 3 mg/actuation (Baqsimi) 3 mg intranasal ONCE PRN 30 days MDD 6mg may repeat in 15 minutes insulin pump cart,auto,BT,G6/7 (Omnipod 5 G6-G7 Pods (Gen 5) subcutaneous cartridge) CHANGE POD EVERY 72 HOURS insulin pump cart,auto,BT-cntr (Omnipod 5 G6 Intro Kit (Gen 5) subcutaneous cartridge with controller) As directed insulin regular hum U-500 conc (Humulin R U-500 (Concentrated) Insulin) Use up to 450 units via insulin pump subcut daily; insulin U-500 syringe-needle As directed 4 times a day ixekizumab (Taltz Autoinjector) 80 mg subcut lactobacillus combination no.4 (Probiotic) 3,000 mmu cells PO DAILY lancets As directed 5 times a day lorazepam 0.5 mg PO DAILY PRN 30 days losartan 50 mg PO BID 90 days pen needle, diabetic (Comfort EZ Pen [place]) As directed semaglutide (Ozempic) 0.25 mg (0.368 mL) subcut QWEEK simvastatin 40 mg PO BEDTIME HPI HPI Interstitial pulmonary disease: Details: Aure montiel a pleasant 64 year old female, never smoker with underlying Psoriatic Arthritis, HTN, DMII, Anemia and CKDIII. She was referred by PCP for pulmonary evaluation after abnormal CXR. Patient was recently treated for URI, treated with Doxycycline with significant improvement in symptoms and sent for repeat CXR to assess for resolution. CXR revealed chronic interstial changes and was sent here for further evaluation. She denies prior h/o abnormal chest imaging. Denies prior chest CT. She continues with intermittent dry cough and wheezing, mostly at night, denies dyspnea or chest tightness. She denies h/o asthma, endorses second hand smoke exposure. Reports prior h/o recurrent respiratory infections however since retiring in 2013 she denies reccurence. She denies seasonal allergies however with ear/sinus symptoms recently prescribed zyrtec. She denies occupational exposures. She denies any pertinent family history. She was previosly under the care of rheumatology for Psoriatic arthritis and has trialed multiple DMARDS including methotrexate, Humira, Cosentyz and Skyrizi with suboptimal effect. She is currently doing well on Talz and has upcoming appt with rheumatology to reestablish care. 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 Surgical History Hx of colonoscopy History of selective laser trabeculoplasty History of total abdominal hysterectomy and bilateral salpingo-oophorectomy History of carpal tunnel release Hx of cholecystectomy Family History Father CVD (cardiovascular disease) Obesity Diabetes Alcohol abuse CAD (coronary artery disease) Mother CVD (cardiovascular disease) Diabetes Obesity Chronic lymphocytic leukemia Hx of myocardial infarction Brother Substance abuse Daughter FH: mental illness Paternal Aunt Breast cancer Social History Household Members: Spouse and Children Housing: Condominium Alcohol intake: current Alcohol intake frequency: does not drink Patient Tobacco Use Status: Never used Tobacco e-Cigarette/Vaping Use: Never Used Second Hand Smoke Exposure: No service: No Current occupational status: disabled Current occupational exposures/hazards: No Cognitive needs: No Hearing needs: Yes Vision needs: Yes Review of Systems Const Denies chills, Denies excessive sweating, Denies fever(s), Denies headache(s) and Denies night sweats Eyes Denies dry eyes, Denies irritation and Denies itchy eyes ENT Reports Normal hearing present, Denies headache(s), Denies nasal congestion, Denies nasal discharge, Denies post nasal drip and Denies sore throat Card Denies chest pain, Denies chest pain at rest, Denies chest pain with activity, Denies claudication, Denies leg edema, Denies orthopnea and Denies paroxysmal nocturnal dyspnea Resp Denies chest congestion, Denies cough, Denies excessive phlegm production, Denies pain on inspiration, Denies pain with cough and Denies stridor Musc Denies myalgias Neuro Reports Normal hearing present and Denies headache(s) Endo Denies excessive sweating Donell/Lymph Denies lymphadenopathy Aller/Immun Denies itchy eyes and Denies seasonal rhinorrhea Physical Exam Vital Signs: Last Vital Signs Pulse 77 02/28/25 10:30 BP 142/70 H 02/28/25 10:30 Pulse Ox 93 02/28/25 10:30 Oxygen Delivery Method Room Air 02/28/25 10:30 BMI result Body Mass Index 50.3 Const General: cooperative, healthy appearing, comfortable, no acute distress, well developed and alert Nutritional Appearance: obese Orientation/consciousness: patient oriented x3 Limitations: no limitations HEENT Head: Yes normal to inspection, Yes normocephalic and Yes atraumatic Ears: hearing grossly normal bilaterally and external ears normal Eyes General: appearance normal, both eyes and all related structures Eyelids: Yes eyelids normal Sclerae: sclerae normal EOM: EOMs intact bilaterally Neck Neck: Yes normal visual inspection and Yes no lymphadenopathy Lymphatic: no lymphadenopathy noted Chest Chest palpation & inspection: normal inspection of the chest Resp Effort & Inspection: normal respiratory effort, able to speak in complete sentences, no audible wheezes, no cough, no stridor, not tachypneic, no tripod positioning and no use of accessory muscles Auscultation: clear to auscultation bilaterally Cardio Jugular venous distension: no JVD Rate: regular rate Rhythm: regular rhythm Skin Other: warm, dry General skin exam: no rashes or lesions noted Neuro General: patient oriented x3 Cranial nerves: Yes Normal hearing present Cognition (Neuro): normal cognition Gait exam (Neuro): Normal gait present Extrem General: Yes normal to inspection, Yes capillary refill normal, Yes no clubbing, cyanosis or edema and Yes no pedal edema Psych Appearance: grossly normal and well kempt Speech and movement: Normal speech and movement present and Clear speech present Affect: normal affect Attitude: cooperative Thought process: Normal thought process present Thought content: Normal thought content present Insight: Good insight present (Psych) Judgement: Good judgement present (Psych) Assessment & Plan Assessment & Plan (1) Chronic cough: Code(s): R05.3 - Chronic cough Category: Medical (2) Abnormal chest xray: Code(s): R93.89 - Abnormal findings on diagnostic imaging of other specified body structures Category: Medical (3) Psoriatic arthritis: Comment: dx 2021 Code(s): L40.50 - Arthropathic psoriasis, unspecified Category: Medical Plan Aure presents with improving cough after recent URI and abnormal CXR revealing chronic interstitial changes. Unclear if interstitial changes may be related to underlying autoimmune condition. Will attempt to obtain [facility]. PCP sent for PFT and chest CT for further evaluation scheduled 03/24. All questions were answered and patient is in agreement of plan. Will follow up to review result or sooner if needed. Medications: New nystatin administer 1/2 of dose in each side of the mouth 400,000 units (4 mL) buccal QID 473 mL 0RF Coding Level of Care Code New Pt Level 4 (65423) Diagnoses Chronic cough R05.3 Abnormal chest xray R93.89 Psoriatic arthritis L40.50
--- OUTSIDE RECORDS SUMMARY | 2025-02-28 12:22 | XMS_ITS | Clinical Summary ---
Author Organization [facility] Address [address] [facility] [address] [place] [address] Phone Care Team Providers Care Bean Weigher Name Role Phone Keiko Reyes MD Primary Care Provider [phone] Allergies Active Allergy Reactions Criticality Noted Date [...] patient's age to complete this topic Insurance [facility] [place]ID [place] [facility] [place] Care Teams Bean Weigher Relationship Specialty Start Date End Date Keiko Reyes MD PCP - General Internal Medicine 03/15/21
--- OUTSIDE RECORDS SUMMARY | 2025-02-28 12:22 | XMS_ITS | Encounter Summary ---
Author Organization [facility] Address [address] [place] [address] Phone Care Team Providers Care Tobacco Wetter Name Role Phone Keiko Reyes MD Primary Care Provider [phone] Encounter Details Date Type Department Care Team (Late st Contact Info) Description 04/16/2021 Orders Only [facility] [address] [place] [address] Otto Major MD Type 2 diabetes mellitus [...] 1:18 PM EDT) Glucose 141(H) (70-99) MG/DL [facility] BUN 19 (6-20) MG/DL [facility] Creatinine 1.4(H) (0.5-1.0) MG/DL [facility] Sodium 143 (133-145) MMOL/L [facility] Potassium 4.8 (3.6-5.2) MMOL/L [facility] Chloride 104 (98-107) MMOL/L [facility] Bicarbonate (CO2) 31(H) (22-29) MMOL/L [facility] Anion Gap 8 (4-17) [facility] Albumin 4.2 (3.4-4.8) GM/DL [facility] Calcium 9.5 (8.6-10.5) MG/DL [facility] Phosphorus, Serum 3.9 (2.5-4.5) MG/DL [facility] Est GFR Non 41 ML/MIN/1.7 3 M2 [facility] Comment: Creatinine based estimated glomerular filtration rate (eGFR) is calculated using the Chronic Kidney Disease Epidemiology Collaboration (CKD-EPI). The CKD-EPI creatinine equation has not been validated in children (<18 years), women or in some racial or ethnic subgroups other than Caucasians and Americans. EST GFR 47 ML/MIN/1.7 3 M2 [facility] Comment: Creatinine based estimated glomerular filtration rate (eGFR) is calculated using the Chronic Kidney Disease Epidemiology Collaboration (CKD-EPI). The CKD-EPI creatinine equation has not been validated in children (<18 years), women or in some racial or ethnic subgroups other than Caucasians and Americans. Testing performed or reported by [facility], a Service of [facility], [address] [place] [address] Oksana Siegel MD, Radio Broadcaster Blood (Blood, Venous) 05/30/2021 1:18 PM EDT 05/30/2021 1:20 PM EDT us Otto Major MD LAB BLOOD ORDERABLES Final Resul t [facility] documented in this encounter Visit Diagnoses Diagnosis Type 2 diabetes mellitus with diabetic chronic kidney disease (HCC) Other proteinuria Hypertension Stage 3a chronic kidney disease (HCC) documented in this encounter Care Teams Tobacco Wetter Relationship Specialty Start Date End Date Keiko Reyes MD PCP - General Internal Medicine 03/15/21 documented as of this encounter
--- OUTSIDE RECORDS SUMMARY | 2025-02-28 12:22 | XMS_ITS | Encounter Summary ---
Author Organization [facility] Address [address] [place] [address] Phone Care Team Providers Care Assistant Executive Housekeeper Name Role Phone Keiko Reyes MD Primary Care Provider [phone] Encounter Details Date Type Department Care Team ([facility] st Contact Info) Description 05/24/2024 Office Communication [facility] [address] [place] [address] Alessandro Roman MD [id number] [facility] [address] [place] [id number] Social History Tobacco Use Types Packs/Day Years [...] on filedocumented in this encounter Care Teams Assistant Executive Housekeeper Relationship Specialty Start Date End Date Keiko Reyes MD PCP - General Internal Medicine 03/15/21 documented as of this encounter
== END 2025-02-28 11:12 | disposition home or self-care (01) ==
LOC: HO.HPSW 10:29
PROVIDERS: PCP Physician Assistant; Referring Provider Physician Assistant; Visit Provider Nurse Practitioner Family
DX: R05.3 Chronic cough (principal); R93.89 Abnormal findings on diagnostic imaging of other specified body structures; L40.50 Arthropathic psoriasis, unspecified
CPT/HCPCS: 99204

== ENCOUNTER → 2025-02-28 10:27 | Outpatient (BNVA) | payer MEDICARE, MEDICAID, SELFPAY | PROVIDERS: PCP Physician Assistant; Referring Provider Physician Assistant; Visit Provider Nurse Practitioner Family | DX: R05.3 Chronic cough (principal); R93.89 Abnormal findings on diagnostic imaging of other specified body structures; L40.50 Arthropathic psoriasis, unspecified | CPT/HCPCS: 99202 ==

== ENCOUNTER 2025-03-22 11:00 | Outpatient (AMB) | payer MEDICARE, MEDICAID, SELFPAY ==
--- NOTE | 2025-03-22 11:08 | MHC.PC.OV ---
Vital Signs 03/22/25 11:18 Height 5 ft 2 in Weight 277 lb BMI 50.7 BP 136/80 Blood Pressure Location Rt brachial Position Sitting Respiration 16 Pulse 61 Pulse Source Pulse Oximeter Pulse Oximetry (%) 98 Oxygen Delivery Method Room Air Intake Visit Reasons: dm, htn, labs Intake Note: Diabetes and HTN followup. County Sheriff Required: No Allergies citalopram [From Celexa] Allergy (Mild, Verified 03/22/25 11:16) cramps Niacin Preparations Allergy (Mild, Verified 03/22/25 11:16) vomitinf/flu symptoms/flushing lisinopril Allergy (Unknown, Verified 03/22/25 11:16) cough/all ACEI niacin Allergy (Unknown, Verified 03/22/25 11:16) unknown tirzepatide [From Mounjaro] Adverse Reaction (Severe, Verified 03/22/25 11:16) Diarrhea methotrexate Adverse Reaction (Intermediate, Verified 03/22/25 11:16) Nausea ziprasidone [Geodon] Adverse Reaction (Unknown, Verified 03/22/25 11:16) Unknown Metformin ER Allergy (Unknown, Uncoded 03/22/25 11:16) GI upset Medication List - Last Reconciled 03/22/25 by Shelby Escobar PA-C acetone (urine) test (Ketone Urine Test strips) prn glucose over 250, illness, nausea or vomiting tid atenolol 75 mg (1.5 x 50 mg) PO BID 90 days blood sugar diagnostic As directed testing 5x per day. blood sugar diagnostic (OneTouch Verio test strips) USE 5 TIMES DAILY blood-glucose meter (OneTouch Verio Meter) As directed blood-glucose sensor (DexCityHawk G7 Sensor device) As directed every 10 days bupropion HCl XL (Wellbutrin XL) 150 mg PO QAM cetirizine (Zyrtec) 10 mg PO DAILY chlorthalidone 25 mg PO DAILY cholecalciferol (vitamin D3) 2,000 units PO DAILY clobetasol 0.05% mL topical diclofenac sodium 1% 1 g topical TID glucagon 3 mg/actuation (Baqsimi) 3 mg intranasal ONCE PRN 30 days MDD 6mg may repeat in 15 minutes insulin pump cart,auto,BT,G6/7 (Omnipod 5 G6-G7 Pods (Gen 5) subcutaneous cartridge) CHANGE POD EVERY 72 HOURS insulin pump cart,auto,BT-cntr (Omnipod 5 G6 Intro Kit (Gen 5) subcutaneous cartridge with controller) As directed insulin regular hum U-500 conc (Humulin R U-500 (Concentrated) Insulin) Use up to 450 units via insulin pump subcut daily; insulin U-500 syringe-needle As directed 4 times a day lactobacillus combination no.4 (Probiotic) 3,000 mmu cells PO DAILY lancets As directed 5 times a day lorazepam 0.5 mg PO DAILY PRN 30 days losartan 50 mg PO BID 90 days nystatin 400,000 units (4 mL) buccal QID pen needle, diabetic (Comfort EZ Pen [place]) As directed Tobacco use date assessed: 05/25/24 Dental Screening Dental Screen Date: 05/25/24 HPI dm, htn, labs HPI Details Patient is a 64-year-old female with a significant past medical history of diabetes, diabetic nephropathy, chronic kidney disease, anemia, anxiety and depression, psoriatic arthritis, hypertension, hyperlipidemia morbid obesity presenting today for a follow up. Endo: Her A1c today is 6.8. Managed by endocrinology. Controlled with her current insulin regimen. Recently starting on a diet. She was supposed to trial Ozempic to see if this could help with weight loss but she states that she is just too nervous to take this as she had side effects in the past. She just is going to cancel this. Derm: Psoriasis was controlled on Taltz but insurance would not cover. She is going back [facility]. She did have some exacerbation of arthritic symptoms however, stopped the statin and states that this improved significantly. Rheum: Recently discontinued simvastatin and states that her aches and pains in her hands are significantly improved. She is seeing [facility] rheumatology next week. PULM: Was recently seen and treated for a possible lung infection with doxycycline. States that her cough has significantly improved/resolved. She did repeat her chest x-ray which is consistent with interstitial lung disease and possible pulmonary edema. Has an appointment for a CT soon. She is following with pulmonology. She says that she is not really getting any shortness on breath. There is no chest pain. Nephro: Labs are stable. Follows closely with Nephrology. Psych: A bit exacerbated. Has been recently had spine surgery and she states that he is very inactive and she is taking care of him a lot. She is working a lot at the [employer] and takes care of her handicapped daughter who struggles significantly with mental health. Patient states that she wants to try something that is not going to make her feel too tired. She is following with her therapist closely. No SI/HI. She has tried prozac, zoloft, lexapro, geodon, CV: Blood pressure today in the office is 136/74. She is currently on losartan 50 mg daily, chlorthalidone 25 mg and atenolol 75 mg twice a day. Cholesterol is currently being diet controlled. She has been off of the statin for 2 months and states that her aches and pains are a lot better. [facility] Medical History (Updated 03/03/25 @ 13:16 by Manju Hargrove NP) Type 2 diabetes mellitus Hx of mammogram Psoriatic arthritis Anxiety Arthritis Anemia Psoriasis Stress incontinence Morbid obesity Hypertension Dyslipidemia shelter (current) use of insulin Surgical History Hx of colonoscopy History of selective laser trabeculoplasty History of total abdominal hysterectomy and bilateral salpingo-oophorectomy History of carpal tunnel release Hx of cholecystectomy Family History Father CVD (cardiovascular disease) Obesity Diabetes Alcohol abuse CAD (coronary artery disease) Mother CVD (cardiovascular disease) Diabetes Obesity Chronic lymphocytic leukemia Hx of myocardial infarction Brother Substance abuse Daughter FH: mental illness Paternal Aunt Breast cancer Social History Household Members: Spouse and Children Housing: Condominium Alcohol intake: current Alcohol intake frequency: does not drink Patient Tobacco Use Status: Never used Tobacco e-Cigarette/Vaping Use: Never Used Second Hand Smoke Exposure: No service: No Current occupational status: disabled Current occupational exposures/hazards: No Cognitive needs: No Hearing needs: Yes Vision needs: Yes Questionnaire PHQ-9 Over the last 2 weeks, how often have you been bothered by any of the following problems? 1. Little interest or pleasure in doing things: several days 2. Feeling down, depressed, or hopeless: more than half the days 3. Trouble falling or staying asleep, or sleeping too much: more than half the days 4. Feeling tired or having little energy: more than half the days 5. Poor appetite or overeating: several days 6. Feeling bad about yourself - or that you are a failure or have let yourself or your family down: several days 7. Trouble concentrating on things, such as reading the newspaper or watching television: several days 8. Moving or speaking so slowly that other people could have noticed. Or the opposite - being so fidgety or restless that you have been moving around a lot more than usual: not at all 9. Thoughts that you would be better off or of hurting yourself in some way: not at all Total score: 10 Depression Screening Interpretation: Positive Depression Screening Follow-up: Existing condition and New Medication prescribed Depression Screening Done: Yes 64437 - PHQ-9 Billing: Yes Source: Developed by Drs. Eligio Méndez, Mignon Colon, Pepe Turner and colleagues, with an educational nanette from [employer]. Thrive Questionnaire Date Thrive assessed: 03/22/25 I am a: Patient What is your living situation today?: I have a steady place to live Within the past 12 months, did the food you bought not last and you didn't have the money to get more?: Never true Within the past 12 months, did you worry whether your food would run out before you got money to buy more?: Never true Do you have trouble paying for medicines?: No Do you have trouble getting transportation to medical appointments?: No Do you have trouble paying your heating and electricity bill?: No Do you have trouble taking care of your child, family member or friend?: No Do you have trouble with day-to-day activities such as bathing, preparing meals, shopping, managing finances, etc.?: No Are you currently unemployed and looking for a job?: No Are you interested in more education?: No Please select the resources that you would like help with: None Currently or been in a relationship where the following occur: No concerns reported THRIVE Score: 0 DENNIS-7 AMB Questionnaire DENNIS-7 Date DENNIS - 7 assessed: 06/22/24 Source: Developed by Drs. Eligio Méndez, Mignon Colon, Pepe Turner and colleagues, with an educational nanette from [employer]. Physical exam (Primary Care) Vital Signs: Last Vital Signs Pulse 61 03/22/25 11:18 Resp 16 03/22/25 11:18 BP 136/80 03/22/25 11:18 Pulse Ox 98 03/22/25 11:18 Oxygen Delivery Method Room Air 03/22/25 11:18 BMI result Body Mass Index 50.7 Tobacco/Smoking Status: Tobacco use Status Tobacco use date assessed 05/25/24 03/22/25 11:09 Patient Tobacco Use Status Never used Tobacco 03/22/25 11:09 e-Cigarette/Vaping Use Never Used 03/22/25 11:09 PHQ-9: PHQ-9 Score PHQ-9: Total score 10 03/22/25 11:46 Depression Screening Interpretation: Positive Depression Screening Follow-up: Existing condition and New Medication prescribed Thrive Assessment: Date of Thrive Assessment Date Thrive assessed 03/22/25 03/22/25 11:09 Currently or been in a relationship where the following occur: No concerns reported Const Orientation/consciousness: patient oriented x3 HENMT Ears: hearing grossly normal bilaterally Neck Thyroid: Thyroid normal Lymphatic: no lymphadenopathy noted Resp Auscultation: clear to auscultation bilaterally Cardio Rate: regular rate Rhythm: regular rhythm Heart sounds: S1 normal heart sound present and S2 normal heart sound present GI Inspection: Yes normal to inspection Palpation (GI): Soft to palpation and Other GI palpation findings present (nontender, no cva tenderness) Auscultation: normoactive bowel sounds Rectal Exam - Female: deferred Skin General skin exam: no rashes or lesions noted Neuro General: patient oriented x3, gait normal and no focal motor deficits Results AMB Hemoglobin A1c AMB Hemoglobin A1c 6.8 % Last Edit by Lucy Benavides CMA on 03/22/25 12:18 Results Reviewed Results Reviewed: Laboratory Last Values Hgb A1c (Clinic) 6.8 % (4.0-6.0) H 03/22/25 12:18 Coding Level of Care Code Est Pt Level 4 (86927) Complex EM visit Add On G2211 Diagnoses Diabetic nephropathy associated with type 2 diabetes mellitus E11.21 shelter (current) use of insulin Z79.4 Dyslipidemia E78.5 Primary hypertension I10 Hypertension type: primary hypertension Psoriatic arthritis L40.50 Anxiety with depression F41.8 Chronic interstitial lung disease J84.9 Additional Codes PHQ-9 - 86494 - PHQ-9 Billing: Yes ([id number]) Assessment & Plan Assessment & Plan (1) Diabetic nephropathy associated with type 2 diabetes mellitus: Code(s): E11.21 - Type 2 diabetes mellitus with diabetic nephropathy Category: Medical Plan: A1c is stable. Continue current regimen. (2) superintendent container terminal (current) use of insulin: Code(s): Z79.4 - superintendent container terminal (current) use of insulin Category: Medical Plan: As above (3) Dyslipidemia: Code(s): E78.5 - Hyperlipidemia, unspecified Category: Medical Plan: Currently off of statins. States that she really does not want to take an and is curious to see what her cholesterol looks like. (4) Hypertension: Code(s): I10 - Essential (primary) hypertension Category: Medical Qualifiers: Hypertension type: primary hypertension Qualified Code(s): I10 - Essential (primary) hypertension Plan: WNL. Continue current regimen (5) Psoriatic arthritis: Comment: dx 2021 Code(s): L40.50 - Arthropathic psoriasis, unspecified Category: Medical Plan: Has an appointment with a new upholstered goods crafter next week. The arthritis pains are improved with discontinuation of the statin. (6) Anxiety with depression: Code(s): F41.8 - Other specified anxiety disorders Category: Medical Plan: We will try Wellbutrin. We discussed risks and benefits and adverse effects of this medication. Wants her cortisol checked. (7) Chronic interstitial lung disease: Code(s): J84.9 - Interstitial pulmonary disease, unspecified Category: Medical Plan: following with pulm and has chest CT ordered. Orders: Orders Cortisol Random Today E11.21 - Type 2 diabetes mellitus with diabetic nephropathy, E78.5 - Hyperlipidemia, unspecified, F41.8 - Other specified anxiety disorders, I10 - Essential (primary) hypertension, L40.50 - Arthropathic psoriasis, unspecified, Z79.4 - superintendent container terminal (current) use of insulin Lipid Panel Today E11.21 - Type 2 diabetes mellitus with diabetic nephropathy, E78.5 - Hyperlipidemia, unspecified, F41.8 - Other specified anxiety disorders, I10 - Essential (primary) hypertension, L40.50 - Arthropathic psoriasis, unspecified, Z79.4 - superintendent container terminal (current) use of insulin Comprehensive Churdan. Panel Fast Today E11.21 - Type 2 diabetes mellitus with diabetic nephropathy, E78.5 - Hyperlipidemia, unspecified, F41.8 - Other specified anxiety disorders, I10 - Essential (primary) hypertension, L40.50 - Arthropathic psoriasis, unspecified, Z79.4 - superintendent container terminal (current) use of insulin TSH reflex Free T4 Today E11.21 - Type 2 diabetes mellitus with diabetic nephropathy, E78.5 - Hyperlipidemia, unspecified, F41.8 - Other specified anxiety disorders, I10 - Essential (primary) hypertension, L40.50 - Arthropathic psoriasis, unspecified, Z79.4 - shelter (current) use of insulin AMB Hemoglobin A1c Today E11.9 - Type 2 diabetes mellitus without complications Medications: New bupropion HCl XL (Wellbutrin XL) 150 mg PO QAM 90 tabs 0RF Discontinued simvastatin Discontinued Reason: Doctor's Order 40 mg PO BEDTIME 90 tabs 3RF
[2025-03-22 11:18] VITALS: BP 136/80; PULSE 61; RESP 16; O2SAT 98; BMI 50.7
--- OUTSIDE RECORDS SUMMARY | 2025-03-22 13:17 | XMS_ITS | Encounter Summary ---
Author Organization [facility] Address [address] [place] [address] Phone Care Team Providers Care Bench Grinder Name Role Phone Keiko Reyes MD Primary Care Provider [phone] Encounter Details Date Type Department Care Team ([facility] st Contact Info) Description 05/24/2024 Office Communication [facility] [address] [place] [address] Alessandro Roman MD [address] [facility] [address] [place] [phone] Social History Tobacco Use Types Packs/Day Years [...] on filedocumented in this encounter Care Teams Bench Grinder Relationship Specialty Start Date End Date Keiko Reyes MD PCP - General Internal Medicine 03/15/21 documented as of this encounter
--- OUTSIDE RECORDS SUMMARY | 2025-03-22 13:17 | XMS_ITS | Clinical Summary ---
Author Organization [facility] Address [address] [place] [address] Care Team Providers Care Lav Crewman Name Role Phone Shelby Escobar PA-C Primary Care Provider [phone] Allergies Active Allergy Reactions Criticality Noted Date [...] age to complete this topic Care Teams Lav Crewman Relationship Specialty Start Date End Date Shelby Escobar, ROYCEC PCP - General Physician Yield Loss Inspector 07/21/23
--- OUTSIDE RECORDS SUMMARY | 2025-03-22 13:17 | XMS_ITS | Encounter Summary ---
Author Organization [facility] Address [address] [place] [address] Phone Care Team Providers Care Search Advertising Strategist Name Role Phone Keiko Reyes MD Primary Care Provider [phone] Encounter Details Date Type Department Care Team (Late st Contact Info) Description 04/16/2021 Orders Only [facility] [address] [place] [address] Otto Major MD Type 2 diabetes mellitus [...] 1:18 PM EDT) Glucose 141(H) (70-99) MG/DL [facility] BUN 19 (6-20) MG/DL [facility] Creatinine 1.4(H) (0.5-1.0) MG/DL [facility] Sodium 143 (133-145) MMOL/L [facility] Potassium 4.8 (3.6-5.2) MMOL/L [facility] Chloride 104 (98-107) MMOL/L [facility] Bicarbonate (CO2) 31(H) (22-29) MMOL/L [facility] Anion Gap 8 (4-17) [facility] Albumin 4.2 (3.4-4.8) GM/DL [facility] Calcium 9.5 (8.6-10.5) MG/DL [facility] Phosphorus, Serum 3.9 (2.5-4.5) MG/DL [facility] Est GFR Non 41 ML/MIN/1.7 3 M2 [facility] Comment: Creatinine based estimated glomerular filtration rate (eGFR) is calculated using the Chronic Kidney Disease Epidemiology Collaboration (CKD-EPI). The CKD-EPI creatinine equation has not been validated in children (<18 years), women or in some racial or ethnic subgroups other than Caucasians and Americans. EST GFR 47 ML/MIN/1.7 3 M2 [facility] Comment: Creatinine based estimated glomerular filtration rate (eGFR) is calculated using the Chronic Kidney Disease Epidemiology Collaboration (CKD-EPI). The CKD-EPI creatinine equation has not been validated in children (<18 years), women or in some racial or ethnic subgroups other than Caucasians and Americans. Testing performed or reported by [facility], a Service of [facility], [address] [place] [address] Oksana Siegel MD, Naval Inspector Blood (Blood, Venous) 05/30/2021 1:18 PM EDT 05/30/2021 1:20 PM EDT us Otto Major MD LAB BLOOD ORDERABLES Final Resul t [facility] documented in this encounter Visit Diagnoses Diagnosis Type 2 diabetes mellitus with diabetic chronic kidney disease (HCC) Other proteinuria Hypertension Stage 3a chronic kidney disease (HCC) documented in this encounter Care Teams Search Advertising Strategist Relationship Specialty Start Date End Date Keiko Reyes MD PCP - General Internal Medicine 03/15/21 documented as of this encounter
--- OUTSIDE RECORDS SUMMARY | 2025-03-22 13:17 | XMS_ITS | Clinical Summary ---
Author Organization [facility] Address [address] [facility] [address] [place] [address] Phone Care Team Providers Care Paper Pattern Inspector Name Role Phone Keiko Reyes MD Primary Care Provider [phone] Allergies Active Allergy Reactions Criticality Noted Date [...] d loss 01/25/2020 Normocytic anemia 01/25/2020 Immunizations Immunization Administration Dates Next Due Influenza, Quadrivalent, Preservative [...] Comments Breast Cancer Screening 1960 Pneumococcal Vaccine: 50+ Years (2 of 2 - PCV) 01/09/2008 01/09/2007 Colorectal Cancer Screening: Annual FOBT 2011 Colorectal Cancer Screening: Colonoscopy 2011 Colorectal Cancer Screening: Sigmoidoscopy 2011 Diabetes: Hemoglobin A1C 01/17/2021 Diabetes: Ophthalmology Exam 01/17/2021 Diabetes: Pedal Pulse Checked 01/17/2021 Diabetes: Sensory Foot Exam 01/17/2021 Diabetes: Visual Foot Exam 01/17/2021 Influenza Vaccine (Season Ended) 2025 09/23/2020, 12/10/2006 Pneumococcal Vaccine: Peds ( 0 to 5 Years) and At-Risk Patients (6 to 49 Years) Discontinued 01/09/2007 Hepatitis B Vaccine Aged Out No longe r eligible based on patient's age to complete this topic Insurance [facility] Medicaid [place] [facility] Medicaid [place] Care Teams Paper Pattern Inspector Relationship Specialty Start Date End Date Keiko Reyes MD PCP - General Internal Medicine 03/15/21
== END 2025-03-22 12:00 | disposition home or self-care (01) ==
LOC: HO.HMCFM 11:00
PROVIDERS: PCP Physician Assistant; Visit Provider Physician Assistant
DX: E11.21 Type 2 diabetes mellitus with diabetic nephropathy (principal); Z79.4 Long term (current) use of insulin; E78.5 Hyperlipidemia, unspecified; I10 Essential (primary) hypertension; L40.50 Arthropathic psoriasis, unspecified; F41.8 Other specified anxiety disorders; J84.9 Interstitial pulmonary disease, unspecified

== ENCOUNTER → 2025-03-22 11:00 | Outpatient (BNVA) | payer MEDICARE, MEDICAID, SELFPAY | PROVIDERS: PCP Physician Assistant; Visit Provider Physician Assistant | DX: E11.21 Type 2 diabetes mellitus with diabetic nephropathy (principal); E11.22 Type 2 diabetes mellitus with diabetic chronic kidney disease; I12.9 Hypertensive chronic kidney disease with stage 1 through stage 4 chronic kidney disease, or unspecified chronic kidney disease; N18.9 Chronic kidney disease, unspecified; D63.1 Anemia in chronic kidney disease; F41.8 Other specified anxiety disorders; F32.A Depression, unspecified; L40.50 Arthropathic psoriasis, unspecified; E78.5 Hyperlipidemia, unspecified; E66.01 Morbid (severe) obesity due to excess calories; J84.9 Interstitial pulmonary disease, unspecified; Z68.43 Body mass index [BMI] 50.0-59.9, adult | CPT/HCPCS: 83036; 96127; 99212 ==

== ENCOUNTER 2025-03-23 09:52 | Outpatient (REF) | payer MEDICARE, MEDICAID, SELFPAY ==
--- OUTSIDE RECORDS SUMMARY | 2025-03-23 11:06 | XMS_ITS | Encounter Summary ---
Author Organization [facility] Address [address] [place] [address] Phone Care Team Providers Care General Maintenance Technician Name Role Phone Keiko Reyes MD Primary Care Provider [phone] Encounter Details Date Type Department Care Team (Late st Contact Info) Description 04/16/2021 Orders Only [facility] [address] [place] [address] Otto Major MD Type 2 diabetes mellitus [...] 1:18 PM EDT) Glucose 141(H) (70-99) MG/DL [facility] BUN 19 (6-20) MG/DL [facility] Creatinine 1.4(H) (0.5-1.0) MG/DL [facility] Sodium 143 (133-145) MMOL/L [facility] Potassium 4.8 (3.6-5.2) MMOL/L [facility] Chloride 104 (98-107) MMOL/L [facility] Bicarbonate (CO2) 31(H) (22-29) MMOL/L [facility] Anion Gap 8 (4-17) [facility] Albumin 4.2 (3.4-4.8) GM/DL [facility] Calcium 9.5 (8.6-10.5) MG/DL [facility] Phosphorus, Serum 3.9 (2.5-4.5) MG/DL [facility] Est GFR Non 41 ML/MIN/1.7 3 M2 [facility] Comment: Creatinine based estimated glomerular filtration rate (eGFR) is calculated using the Chronic Kidney Disease Epidemiology Collaboration (CKD-EPI). The CKD-EPI creatinine equation has not been validated in children (<18 years), women or in some racial or ethnic subgroups other than Caucasians and Americans. EST GFR 47 ML/MIN/1.7 3 M2 [facility] Comment: Creatinine based estimated glomerular filtration rate (eGFR) is calculated using the Chronic Kidney Disease Epidemiology Collaboration (CKD-EPI). The CKD-EPI creatinine equation has not been validated in children (<18 years), women or in some racial or ethnic subgroups other than Caucasians and Americans. Testing performed or reported by [facility], a Service of [facility], [address] [place] [address] Oksana Siegel MD, Hand Fur Cleaner Blood (Blood, Venous) 05/30/2021 1:18 PM EDT 05/30/2021 1:20 PM EDT us Otto Major MD LAB BLOOD ORDERABLES Final Resul t [facility] documented in this encounter Visit Diagnoses Diagnosis Type 2 diabetes mellitus with diabetic chronic kidney disease (HCC) Other proteinuria Hypertension Stage 3a chronic kidney disease (HCC) documented in this encounter Care Teams General Maintenance Technician Relationship Specialty Start Date End Date Keiko Reyes MD PCP - General Internal Medicine 03/15/21 documented as of this encounter
--- OUTSIDE RECORDS SUMMARY | 2025-03-23 11:06 | XMS_ITS | Encounter Summary ---
Author Organization [facility] Address [address] [place] [address] Phone Care Team Providers Care Outside Event Sales Specialist Name Role Phone Keiko Reyes MD Primary Care Provider [phone] Encounter Details Date Type Department Care Team ([facility] st Contact Info) Description 05/24/2024 Office Communication [facility] [address] [place] [address] Alessandro Roman MD [address] [facility] [address] [place] [phone] Social History Tobacco Use Types Packs/Day Years [...] on filedocumented in this encounter Care Teams Outside Event Sales Specialist Relationship Specialty Start Date End Date Keiko Reyes MD PCP - General Internal Medicine 03/15/21 documented as of this encounter
--- OUTSIDE RECORDS SUMMARY | 2025-03-23 11:07 | XMS_ITS | Clinical Summary ---
Author Organization [facility] Address [address] [facility] [address] [place] [address] Phone Care Team Providers Care Lab Rn Name Role Phone Keiko Reyes MD Primary Care Provider [phone] Allergies Active Allergy Reactions Criticality Noted Date [...] complete this topic Insurance [facility] Medicaid [place] [facility] Medicaid [place] Care Teams Lab Rn Relationship Specialty Start Date End Date Keiko Reyes MD PCP - General Internal Medicine 03/15/21
--- OUTSIDE RECORDS SUMMARY | 2025-03-23 11:07 | XMS_ITS | Clinical Summary ---
Author Organization [facility] Address [address] [place] [address] Care Team Providers Care Cooler Conveyor Loader Name Role Phone Shelby Escobar PA-C Primary [...] age to complete this topic Care Teams Cooler Conveyor Loader Relationship Specialty Start Date End Date Shelby Escobar, ROYCEC PCP - General Physician Driver Guard 07/21/23
[2025-03-23 11:55] LABS: Alanine Aminotransferase 20 U/L (0-31); Alkaline Phosphatase 75 U/L (39-117); Anion Gap 10 (12-20); Aspartate Amino Transferase 33 U/L (5-31); Bilirubin Total 0.5 mg/dL (0.0-1.0); Blood Urea Nitrogen 27 mg/dL (9-16); Calcium 9.4 mg/dL (8.4-10.2); Carbon Dioxide 29 mmol/L (22-29); Chloride 105 mmol/L (96-108); Cholesterol 209 mg/dL (<200); Estimated Glomerular Filt Rate 47; Glucose Fasting 128 mg/dL (60-99); HDL Cholesterol 42 mg/dL (>40); LDL Cholesterol Calculated 124 mg/dL (<100); Sodium 140 mmol/L (135-145); Total Protein 7.1 g/dL (6.5-8.0); Triglycerides 216 mg/dL (<150)
[2025-03-23 11:59] LABS: TSH reflex Free T4 0.45 uIU/mL (0.32-4.0)
[2025-03-23 12:11] LABS: Cortisol Random 8.9 ug/dL
== END 2025-03-23 09:53 | disposition home or self-care (01) ==
LOC: HO.WFDLDS 09:52
PROVIDERS: Visit Provider Physician Assistant
DX: E11.21 Type 2 diabetes mellitus with diabetic nephropathy (principal); I10 Essential (primary) hypertension; E78.5 Hyperlipidemia, unspecified; F41.8 Other specified anxiety disorders; L40.50 Arthropathic psoriasis, unspecified; Z79.4 Long term (current) use of insulin
CPT/HCPCS: 36415; 80053; 80061; 82533; 84443

== ENCOUNTER 2025-03-24 13:57 | Outpatient (REF) | payer MEDICARE, MEDICAID, SELFPAY ==
--- NOTE | ~2025-03-24 | CT_ITS ---
CLINICAL HISTORY: J84.9 - Interstitial pulmonary disease, unspecified CT chest without contrast, HRCT Comparison: CR/SC/SR - XR CHEST 2V - 01/31/25 14:12 EST Findings: No mediastinal mass or lymphadenopathy. Unremarkable heart and vasculature. Subsegmental atelectasis versus linear scarring in the right middle lobe, lingula and left lower lobe. Calcified granuloma. Pulmonary nodules measure up to 2 mm. No pneumothorax or pleural effusion. No acute osseous or soft tissue abnormality. No acute pathology in the imaged portion of the upper abdomen. Status post cholecystectomy. Nodular contour of the liver capsule may indicate cirrhosis. Impression: No evidence of interstitial lung disease. Pulmonary nodules measuring up to 2 mm, likely infectious/inflammatory. No follow-up is required in low risk individuals. High risk individuals have the option of a 1 year follow-up chest CT. This document has been electronically signed by: Lacey Ortega MD on 03/27/2025 17:20:01
--- NOTE | 2025-03-24 14:39 | PFT_ITS ---
Flows: FEV1: 62 % of predicted at 1.39 L FVC: 50 % of predicted at 1.67 L FEV1/FVC: 83 % Bronchodilator response: Absent Volumes: Total lung capacity: 60 % of predicted at 2.84 L Residual volume: 56 % of predicted at 0.93 L Slow vital capacity: 62 % of predicted at 1.92 L Expiratory reserve volume: 0 % of predicted at 0 L Diffusion capacity: Mildly decreased, corrects to normal after adjustment for alveolar ventilation. Impression: Moderate restrictive ventilatory defect with no bronchodilator response. Decreased expiratory reserve volume suggests extrathoracic restriction likely secondary to abdominal obesity. Combination of decreased diffusion capacity and restrictive ventilatory defect suggests underlying pulmonary parenchymal disease. Clinical correlation is advised. MTDD
--- OUTSIDE RECORDS SUMMARY | 2025-03-24 14:39 | XMS_ITS | Encounter Summary ---
Author Organization [facility] Address [address] [place] [address] Phone Care Team Providers Care Reactor Kettle Operator Name Role Phone Keiko Reyes MD Primary Care Provider Encounter Details Date Type Department Care Team (Late st Contact Info) Description 04/16/2021 Orders Only [facility] [address] [place] [address] Otto Major MD Type 2 diabetes mellitus [...] PM EDT) Glucose 141(H) (70-99) MG/DL [facility] BUN 19 (6-20) MG/DL [facility] Creatinine 1.4(H) (0.5-1.0) MG/DL [facility] Sodium 143 (133-145) MMOL/L [facility] Potassium 4.8 (3.6-5.2) MMOL/L [facility] Chloride 104 (98-107) MMOL/L [facility] Bicarbonate (CO2) 31(H) (22-29) MMOL/L [facility] Anion Gap 8 (4-17) [facility] Albumin 4.2 (3.4-4.8) GM/DL [facility] Calcium 9.5 (8.6-10.5) MG/DL [facility] Phosphorus, Serum 3.9 (2.5-4.5) MG/DL [facility] Est GFR Non 41 ML/MIN/1.7 3 M2 [facility] Comment: Creatinine based estimated glomerular filtration rate (eGFR) is calculated using the Chronic Kidney Disease Epidemiology Collaboration (CKD-EPI). The CKD-EPI creatinine equation has not been validated in children (<18 years), women or in some racial or ethnic subgroups other than Caucasians and Americans. EST GFR 47 ML/MIN/1.7 3 M2 [facility] Comment: Creatinine based estimated glomerular filtration rate (eGFR) is calculated using the Chronic Kidney Disease Epidemiology Collaboration (CKD-EPI). The CKD-EPI creatinine equation has not been validated in children (<18 years), women or in some racial or ethnic subgroups other than Caucasians and Americans. Testing performed or reported by [facility], a Service of [facility], [address] [place] [address] Oksana Siegel MD, Print Binding And Finishing Worker Blood (Blood, Venous) 05/30/2021 1:18 PM EDT 05/30/2021 1:20 PM EDT us Otto Major MD LAB BLOOD ORDERABLES Final Resul t [facility] documented in this encounter Visit Diagnoses Diagnosis Type 2 diabetes mellitus with diabetic chronic kidney disease (HCC) Other proteinuria Hypertension Stage 3a chronic kidney disease (HCC) documented in this encounter Care Teams Reactor Kettle Operator Relationship Specialty Start Date End Date Keiko Reyes MD PCP - General Internal Medicine 03/15/21 documented as of this encounter
--- OUTSIDE RECORDS SUMMARY | 2025-03-24 14:40 | XMS_ITS | Encounter Summary ---
Author Organization [facility] Address [address] [place] [address] Phone Care Team Providers Care Hot Metal Crane Operator Name Role Phone eKiko Reyes MD Primary Care Provider [phone] Encounter Details Date Type Department Care Team ([facility] st Contact Info) Description 05/24/2024 Office Communication [facility] [address] [place] [address] Alessandro Roman MD [address] [facility] [address] [place] [id number] Social History Tobacco Use Types Packs/Day Years [...] on filedocumented in this encounter Care Teams Hot Metal Crane Operator Relationship Specialty Start Date End Date Keiko Reyes MD PCP - General Internal Medicine 03/15/21 documented as of this encounter
--- OUTSIDE RECORDS SUMMARY | 2025-03-24 14:40 | XMS_ITS | Clinical Summary ---
Author Organization [facility] Address [address] [place] [address] Care Team Providers Care Custody Assistant Name Role Phone Shelby Escobar PA-C Primary Care Provider [phone] Allergies Active Allergy Reactions Criticality Noted Date [...] age to complete this topic Care Teams Custody Assistant Relationship Specialty Start Date End Date Shelby Escobar, ROYCEC PCP - General Physician Ice Skater 07/21/23
--- OUTSIDE RECORDS SUMMARY | 2025-03-24 14:40 | XMS_ITS | Clinical Summary ---
Author Organization [facility] Address [address] [facility] [address] [place] [address] Phone Care Team Providers Care Grain Drier Operator Name Role Phone Keiko Reyes MD Primary Care Provider Allergies Active Allergy Reactions [...] patient's age to complete this topic Insurance [facility] [place] [facility] [place] Care Teams Grain Drier Operator Relationship Specialty Start Date End Date Keiko Reyes MD PCP - General Internal Medicine 03/15/21
[2025-03-24 15:52] VITALS: PULSE 72; O2SAT 95
== END 2025-03-24 13:58 | disposition home or self-care (01) ==
LOC: HO.CT 13:57
PROVIDERS: PCP Physician Assistant; Visit Provider Physician Assistant
DX: J84.9 Interstitial pulmonary disease, unspecified (principal); R93.89 Abnormal findings on diagnostic imaging of other specified body structures; R05.3 Chronic cough; E78.5 Hyperlipidemia, unspecified
CPT/HCPCS: 71250; 94010; 94640; 94727; 94729

== ENCOUNTER → 2025-03-24 14:03 | Outpatient (BNV) | payer MEDICARE, MEDICAID, SELFPAY | PROVIDERS: PCP Physician Assistant; Visit Provider Radiology Diagnostic Radiology | DX: R91.8 Other nonspecific abnormal finding of lung field (principal) | CPT/HCPCS: 71250 ==

== ENCOUNTER → 2025-03-24 14:39 | Outpatient (BNV) | payer MEDICARE, MEDICAID, SELFPAY | PROVIDERS: PCP Physician Assistant; Visit Provider Internal Medicine Pulmonary Disease | DX: J84.9 Interstitial pulmonary disease, unspecified (principal) | CPT/HCPCS: 94060; 94727; 94729 ==

== ENCOUNTER 2025-03-29 11:09 | Outpatient (AMB) | payer MEDICARE, MEDICAID, SELFPAY ==
[2025-03-29 11:15] VITALS: BP 130/70; PULSE 76; O2SAT 97; BMI 50.1
--- NOTE | 2025-03-29 11:15 | A.OFFVIS_ITS ---
Vital Signs 03/29/25 11:15 Height 5 ft 2 in Weight 274 lb BMI 50.1 BP 130/70 Blood Pressure Location Rt brachial Position Sitting Pulse 76 Pulse Source Pulse Oximeter Pulse Oximetry (%) 97 Oxygen Delivery Method Room Air Intake Visit Reasons: Interstitial pulmonary disease Squeegee Finisher Required: No Dehydrator Tender: Dehydrator Tender offered & declined Accompanied by: Self / Same As Patient Allergies citalopram [From Celexa] Allergy (Mild, Verified 03/29/25 11:19) cramps Niacin Preparations Allergy (Mild, Verified 03/29/25 11:19) vomitinf/flu symptoms/flushing lisinopril Allergy (Unknown, Verified 03/29/25 11:19) cough/all ACEI niacin Allergy (Unknown, Verified 03/29/25 11:19) unknown tirzepatide [From Mounjaro] Adverse Reaction (Severe, Verified 03/29/25 11:19) Diarrhea methotrexate Adverse Reaction (Intermediate, Verified 03/29/25 11:19) Nausea ziprasidone [Geodon] Adverse Reaction (Unknown, Verified 03/29/25 11:19) Unknown Metformin ER Allergy (Unknown, Uncoded 03/29/25 11:19) GI upset Medication List - Last Reconciled 03/29/25 by Rita Houston LPN acetone (urine) test (Ketone Urine Test strips) prn glucose over 250, illness, nausea or vomiting tid atenolol 75 mg (1.5 x 50 mg) PO BID 90 days blood sugar diagnostic As directed testing 5x per day. blood sugar diagnostic (OneTouch Verio test strips) USE 5 TIMES DAILY blood-glucose meter (OneTouch Verio Meter) As directed blood-glucose sensor (Bouncefootball G7 Sensor device) As directed every 10 days bupropion HCl XL (Wellbutrin XL) 150 mg PO QAM cetirizine (Zyrtec) 10 mg PO DAILY chlorthalidone 25 mg PO DAILY cholecalciferol (vitamin D3) 2,000 units PO DAILY clobetasol 0.05% mL topical diclofenac sodium 1% 1 g topical TID glucagon 3 mg/actuation (Baqsimi) 3 mg intranasal ONCE PRN 30 days MDD 6mg may repeat in 15 minutes insulin pump cart,auto,BT,G6/7 (Omnipod 5 G6-G7 Pods (Gen 5) subcutaneous cartridge) CHANGE POD EVERY 72 HOURS insulin pump cart,auto,BT-cntr (Omnipod 5 G6 Intro Kit (Gen 5) subcutaneous cartridge with controller) As directed insulin regular hum U-500 conc (Humulin R U-500 (Concentrated) Insulin) Use up to 450 units via insulin pump subcut daily; insulin U-500 syringe-needle As directed 4 times a day lactobacillus combination no.4 (Probiotic) 3,000 mmu cells PO DAILY lancets As directed 5 times a day lorazepam 0.5 mg PO DAILY PRN 30 days losartan 50 mg PO BID 90 days nystatin 400,000 units (4 mL) buccal QID pen needle, diabetic (Comfort EZ Pen [place]) As directed HPI HPI Interstitial pulmonary disease: Details: Aure montiel a pleasant 64 year old female, never smoker with underlying Psoriatic Arthritis, HTN, DMII, Anemia and CKDIII. She was previosly under the care of rheumatology for Psoriatic arthritis and has trialed multiple DMARDS including methotrexate, Humira, Cosentyz and Skyrizi with suboptimal effect. She is currently doing well on Talz. She was initially referred after abnormal CXR which suggested chronic interstitial changes. At the time of the CXR she did have URI and with treated treated with Doxycycline with significant improvement in symptoms. She currently reports intermittent cough which she attributes to possible allergies, otherwise denies chest tightness, dyspnea or wheezing. She does have zyrtec prescribed which she has not taken. Today she presents to review chest CT and PFT results. 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 Surgical History Hx of colonoscopy History of selective laser trabeculoplasty History of total abdominal hysterectomy and bilateral salpingo-oophorectomy History of carpal tunnel release Hx of cholecystectomy Family History Father CVD (cardiovascular disease) Obesity Diabetes Alcohol abuse CAD (coronary artery disease) Mother CVD (cardiovascular disease) Diabetes Obesity Chronic lymphocytic leukemia Hx of myocardial infarction Brother Substance abuse Daughter FH: mental illness Paternal Aunt Breast cancer Social History Household Members: Spouse and Children Housing: Condominium Alcohol intake: current Alcohol intake frequency: does not drink Patient Tobacco Use Status: Never used Tobacco e-Cigarette/Vaping Use: Never Used Second Hand Smoke Exposure: No service: No Current occupational status: disabled Current occupational exposures/hazards: No Cognitive needs: No Hearing needs: Yes Vision needs: Yes Review of Systems Const Denies chills, Denies excessive sweating, Denies fever(s), Denies headache(s) and Denies night sweats Eyes Denies dry eyes, Denies irritation and Denies itchy eyes ENT Reports Normal hearing present, Denies headache(s), Denies nasal congestion, Denies nasal discharge and Denies sore throat Card Denies chest pain, Denies chest pain at rest, Denies chest pain with activity, Denies claudication, Denies leg edema, Denies dyspnea on exertion, Denies orthopnea and Denies paroxysmal nocturnal dyspnea Resp Denies chest congestion, Denies excessive phlegm production, Denies pain on inspiration, Denies pain with cough, Denies dyspnea on exertion, Denies stridor and Denies wheezing Musc Denies myalgias Neuro Reports Normal hearing present and Denies headache(s) Endo Denies excessive sweating Donell/Lymph Denies lymphadenopathy Aller/Immun Denies itchy eyes, Denies seasonal rhinorrhea and Denies wheezing Physical Exam Vital Signs: Last Vital Signs Pulse 76 03/29/25 11:15 BP 130/70 03/29/25 11:15 Pulse Ox 97 03/29/25 11:15 Oxygen Delivery Method Room Air 03/29/25 11:15 BMI result Body Mass Index 50.1 Neuro Cranial nerves: Yes Normal hearing present Results Reviewed Results Reviewed: [address] [address] [address] Scan Report Signed Patient: Aure Ricks MR#: [id number] : 1960 Acct:[id number] Age/Sex: 64 / F ADM Date: 03/24/25 Loc: HO.CT Attending Dr: Shelby Escobar PA-C Ordering Physician: Shelby Escobar Date of Service: 03/24/25 Procedure(s): CT chest wo IV con Accession Number(s): [id number] cc: Shelby Escobar~ Report Number: [id number]: Total DLP = 0.00 mGy-cm CLINICAL HISTORY: J84.9 - Interstitial pulmonary disease, unspecified CT chest without contrast, HRCT Comparison: CR/TX/SR - XR CHEST 2V - 01/31/25 14:12 EST Findings: No mediastinal mass or lymphadenopathy. Unremarkable heart and vasculature. Subsegmental atelectasis versus linear scarring in the right middle lobe, lingula and left lower lobe. Calcified granuloma. Pulmonary nodules measure up to 2 mm. No pneumothorax or pleural effusion. No acute osseous or soft tissue abnormality. No acute pathology in the imaged portion of the upper abdomen. Status post cholecystectomy. Nodular contour of the liver capsule may indicate cirrhosis. Impression: No evidence of interstitial lung disease. Pulmonary nodules measuring up to 2 mm, likely infectious/inflammatory. No follow-up is required in low risk individuals. High risk individuals have the option of a 1 year follow-up chest CT. This document has been electronically signed by: Lacey Ortega MD on 03/27/2025 17:20:01 Dictated By: Lacey Keith MD Signed By: <Electronically signed by Lacey Keith MD in OV> 03/27/25 172 DD/ 172 TD/TT: 03/27/251719 Public Transit Trolley Driver: Assessment & Plan Assessment & Plan (1) Chronic cough: Code(s): R05.3 - Chronic cough Category: Medical (2) Psoriatic arthritis: Comment: dx 2021 Code(s): L40.50 - Arthropathic psoriasis, unspecified Category: Medical (3) Multiple pulmonary nodules: Code(s): R91.8 - Other nonspecific abnormal finding of lung field Category: Medical Plan CT revealed subsegmental atelectasis versus linear scarring in the right middle lobe, lingula and left lower lobe. Calcified granuloma. Pulmonary nodules measuring up to 2 mm. No signs of interstitial lung disease. Will repeat in one year to assess stability of nodules. Reviewed PFT which revealed moderate restrictive ventilatory defect with no bronchodilator response. Decreased expiratory reserve volume suggests extrathoracic restriction likely secondary to abdominal obesity. Combination of decreased diffusion capacity and restrictive ventilatory defect suggests underlying pulmonary parenchymal disease however no significant findings at this time on imaging. At this time Aure reports overall improvements in cough, continues with intermittent productive cough possibly attributed to allergies. Deferred allergy testing at this time. Recommended to trial sinus rinse, antihistamine and Flonase. All questions were answered and patient is in agreement of plan. Will follow up in 3-6 months or sooner if needed. Orders: Orders CT chest wo IV con 11 Months R91.8 - Other nonspecific abnormal finding of lung field Coding Level of Care Code Est Pt Level 4 (10928) Diagnoses Chronic cough R05.3 Psoriatic arthritis L40.50 Multiple pulmonary nodules R91.8
--- OUTSIDE RECORDS SUMMARY | 2025-03-29 12:48 | XMS_ITS | Clinical Summary ---
Author Organization [facility] Address [address] [place] [address] Care Team Providers Care Fire Watchman Name Role Phone Shelby Escobar PA-C Primary [...] age to complete this topic Care Teams Fire Watchman Relationship Specialty Start Date End Date Shelby Escobar, ROYCEC PCP - General Physician Director Of Aviation 07/21/23
--- OUTSIDE RECORDS SUMMARY | 2025-03-29 12:48 | XMS_ITS | Encounter Summary ---
Author Organization [facility] Address [address] [place] [address] Phone Care Team Providers Care Senior Scheduler Name Role Phone Keiko Reyes MD Primary Care Provider [phone] Encounter Details Date Type Department Care Team (Late st Contact Info) Description 04/16/2021 Orders Only [facility] [address] [place] [address] Otto Major MD Type 2 diabetes mellitus [...] 1:18 PM EDT) Glucose 141(H) (70-99) MG/DL [facility] BUN 19 (6-20) MG/DL [facility] Creatinine 1.4(H) (0.5-1.0) MG/DL [facility] Sodium 143 (133-145) MMOL/L [facility] Potassium 4.8 (3.6-5.2) MMOL/L [facility] Chloride 104 (98-107) MMOL/L [facility] Bicarbonate (CO2) 31(H) (22-29) MMOL/L [facility] Anion Gap 8 (4-17) [facility] Albumin 4.2 (3.4-4.8) GM/DL [facility] Calcium 9.5 (8.6-10.5) MG/DL [facility] Phosphorus, Serum 3.9 (2.5-4.5) MG/DL [facility] Est GFR Non 41 ML/MIN/1.7 3 M2 [facility] Comment: Creatinine based estimated glomerular filtration rate (eGFR) is calculated using the Chronic Kidney Disease Epidemiology Collaboration (CKD-EPI). The CKD-EPI creatinine equation has not been validated in children (<18 years), women or in some racial or ethnic subgroups other than Caucasians and Americans. EST GFR 47 ML/MIN/1.7 3 M2 [facility] Comment: Creatinine based estimated glomerular filtration rate (eGFR) is calculated using the Chronic Kidney Disease Epidemiology Collaboration (CKD-EPI). The CKD-EPI creatinine equation has not been validated in children (<18 years), women or in some racial or ethnic subgroups other than Caucasians and Americans. Testing performed or reported by [facility], a Service of [facility], [address] [place] [address] Oksana Siegel MD, Senior Ui Ux Designer Blood (Blood, Venous) 05/30/2021 1:18 PM EDT 05/30/2021 1:20 PM EDT us Otto Major MD LAB BLOOD ORDERABLES Final Resul t [facility] documented in this encounter Visit Diagnoses Diagnosis Type 2 diabetes mellitus with diabetic chronic kidney disease (HCC) Other proteinuria Hypertension Stage 3a chronic kidney disease (HCC) documented in this encounter Care Teams Senior Scheduler Relationship Specialty Start Date End Date Keiko Reyes MD PCP - General Internal Medicine 03/15/21 documented as of this encounter
--- OUTSIDE RECORDS SUMMARY | 2025-03-29 12:48 | XMS_ITS | Clinical Summary ---
Author Organization [facility] Address [address] [place] [address] Care Team Providers Care Environmental Education Specialist Name Role Phone EscobarShelby story Primary Care Provider [phone] Allergies Active Allergy Reactions Criticality Noted Date Comments Acamprosate Diarrhea 03/27/2025 Roberto Inhibitors Cough 01/24/2020 Amoxicillin Itching 01/24/2020 Citalopram Muscle Pain,Other (see comments) Niacin Flushing,Nausea,Hot flashes,Other (see comments),Vomiting 01/24/2020 Ziprasidone Unknown 01/24/2020 Ziprasidone Hcl Other (see comments) 03/27/2025 Medications chlorthalidone (HYGROTON) 25 mg tablet Take 25 mg by mouth once a day. Active clobetasoL (TEMOVATE) 0.05% cream Apply 1 application. topically to the affected area 2 times a day. Active clobetasoL-niacin amide 0.05-4 % solution 1 application. by Topical (top) route 2 times a day as needed. Active risankizumab (Skyrizi) 60 mg/mL solution Infuse intravenously. Use as directed Active insulin regular (HumuLIN R - 500 units/mL) 500 units/mL CONCENTRATED injection Inject under the skin. Use as directed via pump Active buPROPion SR (WELLBUTRIN SR) 150 mg tablet Take 150 mg by mouth once a day. Active losartan (COZAAR) 50 mg tablet Take 50 mg by mouth 2 times a day. Active atenoloL (TENORMIN) 50 mg tablet Take 75 mg by mouth 2 (two) times a day. Active cholecalciferol (VITAMIN D3) 2,000 unit capsule Take 1 capsule by mouth once a day. Active LORazepam (ATIVAN) 1 mg tablet Take 1 mg by mouth every 6 hours as needed for anxiety. Active simvastatin (ZOCOR) 40 mg tablet Take 40 mg by mouth nightly. Active diclofenac (VOLTAREN) 1% gel Apply 2 g topically to the affected area 4 times a day. Active traMADoL (ULTRAM) 50 mg tablet 50 mg every 8 hours as needed for pain. Active Lactobacillus rhamnosus GG (Culturelle) 10 billion cell capsule Take 1 capsule by mouth once a day. Active Active Problems Problem Noted Date Diagnosed Date Pain in both wrists 03/27/2025 Assessment & Plan (03/27/2025 1:57 PM EDT): -Specifically at CMCs but also at ulnar aspect of wrists. -Location of pain is more suggestive of osteoarthritis rather than PsA. Pt's joint pain has also not responded to multiple lines of treatment for psoriasis which would also argue towards osteoarthritis diagnosis. -Denies dactylitis hx or prolonged am stiffness. No synovitis on exam today. [place] nodes in a few DIPs. -Cannot use topical Voltaren gel (has pets) and Tylenol is not effective. Oral NSAIDs CI due to hx of CKD. -Luckily her level of pain is 1-2/10 more recently. -We discussed using her thumb braces when pain level increases and topical heat (heated gloves or wax treatments). May consider CMC injections if pain level is very high. -Turmeric may be helpful too. -Will check xrays to look for any PsA features but suspicion is lower. Chronic right shoulder pain 03/27/2025 Assessment & Plan (03/27/2025 1:54 PM EDT): -Xrays ordered today -Suspect rotator cuff tendinosis. -Denies any trauma. -May apply topical Voltaren gel bid or 3 times a day. -If no improvement may consider MRI Chronic cough 03/27/2025 Assessment & Plan (03/27/2025 1:59 PM EDT): -Started after an infection in Aug 2024. -Reports abnormal CXR and PFTs with restrictive features. Has CT done on Thursday, report not available. Has appt with Pulmonology. -Pt knows to let me know if there is any suspicion for an autoimmune process from Client Experience Specialist, at which time we can re-connect for a relevant workup. Today without objective muscle weakness or rashes. No synovitis. No Raynaud's. Encounters Date Type Department Care Team Description 03/27/2025 1:50 PM EDT - 03/27/2025 11:59 PM EDT Hospital En[facility] [address] [place] [id number] Batsheva Marino MD Chronic right shoulder pain; Pain in both wrists Discharge Disposition: Home or Self Care () 03/27/2025 1:00 PM EDT Office Visit [facility] [address] [place] [id number] Gang Rider: Batsheva Saldivar MD Chronic right shoulder pain (Primary Dx); Pain in both wrists; Chronic cough from Last 3 Months Social History Tobacco Use Types Packs/Day Years Used Date Smoking Tobacco: Never Passive Smoke Exposure: Past Smokeless Tobacco: Never Alcohol Use Standard Drinks/Week Comments Not Currently 0 (1 standard drink = 0.6 oz pur e alcohol) Comments Unknown Sex and Gender Information Value Date Recorded Sex Assigned at Female 01/19/2025 3:58 PM EST Legal Sex Female 3:54 PM EST Gender Identity Female 03/26/2025 9:32 PM EDT Sexual Orientation Straight 03/26/2025 9: 32 PM EDT Last Filed Vital Signs Vital Sign Reading Time Taken Comments Blood Pressure 144/70 03/27/2025 12:30 PM EDT Pulse 73 03/27/2025 12:30 PM EDT Temperature 36.7 ??C (98.1 ??F) 03/27/2025 1 2:30 PM EDT Respiratory Rate - - Oxygen Saturation - - Inhaled Oxygen Concentration - - Weight 123.9 kg (273 lb 3.2 oz) 025 12:30 PM EDT Height 160 cm (5' 3 ) 03/27/2025 12:30 PM EDT Body Mass Index 48.4 03/27/2025 12:30 PM EDT Plan of Treatment Upcoming Encounters Date Type Department Care Team (Late st Contact Info) Description 10/16/2025 3:20 PM EST Follow-Up [facility] [address] [place] [address] Gang Rider: Batsheva Saldivar MD [address] [place] [address] Health Maintenance Due Date Last Done Comments Cervical Cancer Screening 1962 Cologuard 1962 Colon Cancer Screening 1962 Colonoscopy 1962 FOBT / Fit Test 1962 HIV Screening 1962 HPV and Pap Smear 1962 Hepatitis C Screening 1962 Pap Smear 1962 Sigmoidoscopy 1962 Mammogram 2002 Pneumococcal Vaccine: 50+ Years (2 of 2 - PCV) 2012 01/09/2007 RSV Vaccine (60+ years old and patients) (1 - Risk 60-74 years 1-dose series) 2022 COVID-19 Vaccine ( season) 2024 12/06/2021, 02/21/2021, 01/24/2021 Alcohol/Substance Use Screening 11/30/2024 Depression Screening and Follow-Up 11/30/2024 Social Drivers of Health Annual Screening 11/30/2024 DTaP,Tdap,and Td Vaccines (3 - Td or Tdap) 06/19/2032 06/19/2022, 08/26/2012, 01/09/2007 Zoster Vaccines Completed 02/15/2022, 10/03/2021 Influenza Vaccine Completed 01/21/2025, , 10/07/2022, Additional history exists Hepatitis B Vaccines Aged Out No long er eligible based on patient's age to complete this topic Procedures * Due to [place] state law, this organization might not be sharing negative HIV tests. Procedure Name Priority Date/Time Associated Diagnosis Comments XR SHOULDER 2+ VW LEFT Routine 03/27/2025 2:35 PM EDT Chronic right shoulder pain XR WRIST 3+ VW LEFT Routine 03/27/2025 2 :35 PM EDT Pain in both wrists XR WRIST 3+ VW RIGHT Routine 03/27/2025 2:35 PM EDT Pain in both wrists XR HAND 3+ VW LEFT Routine 03/27/2025 2: 35 PM EDT Pain in both wrists XR HAND 3+ VW RIGHT Routine 03/27/2025 2 :35 PM EDT Pain in both wrists XR SHOULDER 2+ VW RIGHT Routine 03/27/2025 2:35 PM EDT Chronic right shoulder pain LAB - SCANNED 03/21/2025 from Last 3 Months Results * Due to [place] state law, this organization might not be sharing negative HIV tests. * XR Hand 3+ vw Right (03/27/2025 2:35 PM EDT) Anatomical Region Laterality Modality Upper Extremities, Hand Right Computed Radiography 03/27/2025 5:08 PM EDT Impressions 03/27/2025 5:09 PM EDT FINDINGS/IMPRESSION: Bilateral shoulders: No acute fracture or dislocation. ??No osseous erosions noted arthropathy. ??Glenohumeral alignment maintained. ??Mild acromioclavicular osteoarthritis. ??Amorphous calcifications adjacent to the right greater tuberosity related to calcific tendinopathy. ??Soft tissues unremarkable. Bilateral hands and wrists: No osseous erosions to suggest inflammatory arthropathy. ??Mild to moderate first carpometacarpal, triscaphe, distal radioulnar and interphalangeal joints osteoarthritis. ??No acute fracture or dislocation. ??Mild negative ulnar variance bilaterally. ??Soft tissues unremarkable. If this radiology report contains a blank impression section, it is an incomplete radiology report. ??Please contact the interpreting radiologist or applicable radiology division as soon as possible to obtain the completed interpretation. ? Workstation ID: [id number] Narrative 03/27/2025 5:09 PM EDT COMPARISON: None. ?? Resulting Agency Comment [id number] Procedure Note Prince Estes MD - 03/27/2025 COMPARISON: None. IMPRESSION: FINDINGS/IMPRESSION: Bilateral shoulders: No acute fracture or dislocation. No osseouserosions noted arthropathy. Glenohumeral alignment maintained. Mildacromioclavicular osteoarthritis. Amorphous calcifications adjacent tothe right greater tuberosity related to calcific tendinopathy. Softtissues unremarkable. Bilateral hands and wrists: No osseous erosions to suggest inflammatoryarthropathy. Mild to moderate first carpometacarpal, triscaphe, distalradioulnar and interphalangeal joints osteoarthritis. No acute fractureor dislocation. Mild negative ulnar variance bilaterally. Soft tissuesunremarkable. If this radiology report contains a blank impression section, it is anincomplete radiology report. Please contact the interpreting radiologistor applicable radiology division as soon as possible to obtain thecompleted interpretation. Workstation ID: [id number] us Batsheva Marino MD IMG XR PROCEDURES Final Resul t * XR Hand 3+ vw Left (03/27/2025 2:35 PM EDT) Anatomical Region Laterality Modality Upper Extremities, Hand Left Computed Radiography 03/27/2025 5:08 PM EDT Impressions 03/27/2025 5:09 PM EDT FINDINGS/IMPRESSION: Bilateral shoulders: No acute fracture or dislocation. ??No osseous erosions noted arthropathy. ??Glenohumeral alignment maintained. ??Mild acromioclavicular osteoarthritis. ??Amorphous calcifications adjacent to the right greater tuberosity related to calcific tendinopathy. ??Soft tissues unremarkable. Bilateral hands and wrists: No osseous erosions to suggest inflammatory arthropathy. ??Mild to moderate first carpometacarpal, triscaphe, distal radioulnar and interphalangeal joints osteoarthritis. ??No acute fracture or dislocation. ??Mild negative ulnar variance bilaterally. ??Soft tissues unremarkable. If this radiology report contains a blank impression section, it is an incomplete radiology report. ??Please contact the interpreting radiologist or applicable radiology division as soon as possible to obtain the completed interpretation. ? Workstation ID: [id number] Narrative 03/27/2025 5:09 PM EDT COMPARISON: None. ?? Resulting Agency Comment [id number] Procedure Note Prince Estes MD - 03/27/2025 COMPARISON: None. IMPRESSION: FINDINGS/IMPRESSION: Bilateral shoulders: No acute fracture or dislocation. No osseouserosions noted arthropathy. Glenohumeral alignment maintained. Mildacromioclavicular osteoarthritis. Amorphous calcifications adjacent tothe right greater tuberosity related to calcific tendinopathy. Softtissues unremarkable. Bilateral hands and wrists: No osseous erosions to suggest inflammatoryarthropathy. Mild to moderate first carpometacarpal, triscaphe, distalradioulnar and interphalangeal joints osteoarthritis. No acute fractureor dislocation. Mild negative ulnar variance bilaterally. Soft tissuesunremarkable. If this radiology report contains a blank impression section, it is anincomplete radiology report. Please contact the interpreting radiologistor applicable radiology division as soon as possible to obtain thecompleted interpretation. Workstation ID: [id number] us Batsheva Marino MD IMG XR PROCEDURES Final Resul t * X-Ray Wrist Right 3+ Views (03/27/2025 2:35 PM EDT) Anatomical Region Laterality Modality Upper Extremities, Wrist Right Compute d Radiography 03/27/2025 5:08 PM EDT Impressions 03/27/2025 5:09 PM EDT FINDINGS/IMPRESSION: Bilateral shoulders: No acute fracture or dislocation. ??No osseous erosions noted arthropathy. ??Glenohumeral alignment maintained. ??Mild acromioclavicular osteoarthritis. ??Amorphous calcifications adjacent to the right greater tuberosity related to calcific tendinopathy. ??Soft tissues unremarkable. Bilateral hands and wrists: No osseous erosions to suggest inflammatory arthropathy. ??Mild to moderate first carpometacarpal, triscaphe, distal radioulnar and interphalangeal joints osteoarthritis. ??No acute fracture or dislocation. ??Mild negative ulnar variance bilaterally. ??Soft tissues unremarkable. If this radiology report contains a blank impression section, it is an incomplete radiology report. ??Please contact the interpreting radiologist or applicable radiology division as soon as possible to obtain the completed interpretation. ? Workstation ID: [id number] Narrative 03/27/2025 5:09 PM EDT COMPARISON: None. ?? Resulting Agency Comment [id number] Procedure Note Prince Estes MD - 03/27/2025 COMPARISON: None. IMPRESSION: FINDINGS/IMPRESSION: Bilateral shoulders: No acute fracture or dislocation. No osseouserosions noted arthropathy. Glenohumeral alignment maintained. Mildacromioclavicular osteoarthritis. Amorphous calcifications adjacent tothe right greater tuberosity related to calcific tendinopathy. Softtissues unremarkable. Bilateral hands and wrists: No osseous erosions to suggest inflammatoryarthropathy. Mild to moderate first carpometacarpal, triscaphe, distalradioulnar and interphalangeal joints osteoarthritis. No acute fractureor dislocation. Mild negative ulnar variance bilaterally. Soft tissuesunremarkable. If this radiology report contains a blank impression section, it is anincomplete radiology report. Please contact the interpreting radiologistor applicable radiology division as soon as possible to obtain thecompleted interpretation. Workstation ID: [id number] us Batsheva Marino MD IMG XR PROCEDURES Final Resul t * X-Ray Wrist Left 3+ Views (03/27/2025 2:35 PM EDT) Anatomical Region Laterality Modality Upper Extremities, Wrist Left Compute d Radiography 03/27/2025 5:08 PM EDT Impressions 03/27/2025 5:09 PM EDT FINDINGS/IMPRESSION: Bilateral shoulders: No acute fracture or dislocation. ??No osseous erosions noted arthropathy. ??Glenohumeral alignment maintained. ??Mild acromioclavicular osteoarthritis. ??Amorphous calcifications adjacent to the right greater tuberosity related to calcific tendinopathy. ??Soft tissues unremarkable. Bilateral hands and wrists: No osseous erosions to suggest inflammatory arthropathy. ??Mild to moderate first carpometacarpal, triscaphe, distal radioulnar and interphalangeal joints osteoarthritis. ??No acute fracture or dislocation. ??Mild negative ulnar variance bilaterally. ??Soft tissues unremarkable. If this radiology report contains a blank impression section, it is an incomplete radiology report. ??Please contact the interpreting radiologist or applicable radiology division as soon as possible to obtain the completed interpretation. ? Workstation ID: [id number] Narrative 03/27/2025 5:09 PM EDT COMPARISON: None. ?? Resulting Agency Comment [id number] Procedure Note Prince Estes MD - 03/27/2025 COMPARISON: None. IMPRESSION: FINDINGS/IMPRESSION: Bilateral shoulders: No acute fracture or dislocation. No osseouserosions noted arthropathy. Glenohumeral alignment maintained. Mildacromioclavicular osteoarthritis. Amorphous calcifications adjacent tothe right greater tuberosity related to calcific tendinopathy. Softtissues unremarkable. Bilateral hands and wrists: No osseous erosions to suggest inflammatoryarthropathy. Mild to moderate first carpometacarpal, triscaphe, distalradioulnar and interphalangeal joints osteoarthritis. No acute fractureor dislocation. Mild negative ulnar variance bilaterally. Soft tissuesunremarkable. If this radiology report contains a blank impression section, it is anincomplete radiology report. Please contact the interpreting radiologistor applicable radiology division as soon as possible to obtain thecompleted interpretation. Workstation ID: [id number] us Batsheva Marino MD IMG XR PROCEDURES Final Resul t * XR Shoulder 2+ vw Right (03/27/2025 2:35 PM EDT) Anatomical Region Laterality Modality Upper Extremities, Shoulder Right Comp uted Radiography 03/27/2025 5:08 PM EDT Impressions 03/27/2025 5:09 PM EDT FINDINGS/IMPRESSION: Bilateral shoulders: No acute fracture or dislocation. ??No osseous erosions noted arthropathy. ??Glenohumeral alignment maintained. ??Mild acromioclavicular osteoarthritis. ??Amorphous calcifications adjacent to the right greater tuberosity related to calcific tendinopathy. ??Soft tissues unremarkable. Bilateral hands and wrists: No osseous erosions to suggest inflammatory arthropathy. ??Mild to moderate first carpometacarpal, triscaphe, distal radioulnar and interphalangeal joints osteoarthritis. ??No acute fracture or dislocation. ??Mild negative ulnar variance bilaterally. ??Soft tissues unremarkable. If this radiology report contains a blank impression section, it is an incomplete radiology report. ??Please contact the interpreting radiologist or applicable radiology division as soon as possible to obtain the completed interpretation. ? Workstation ID: [id number] Narrative 03/27/2025 5:09 PM EDT COMPARISON: None. ?? Resulting Agency Comment [id number] Procedure Note Prince Estes MD - 03/27/2025 COMPARISON: None. IMPRESSION: FINDINGS/IMPRESSION: Bilateral shoulders: No acute fracture or dislocation. No osseouserosions noted arthropathy. Glenohumeral alignment maintained. Mildacromioclavicular osteoarthritis. Amorphous calcifications adjacent tothe right greater tuberosity related to calcific tendinopathy. Softtissues unremarkable. Bilateral hands and wrists: No osseous erosions to suggest inflammatoryarthropathy. Mild to moderate first carpometacarpal, triscaphe, distalradioulnar and interphalangeal joints osteoarthritis. No acute fractureor dislocation. Mild negative ulnar variance bilaterally. Soft tissuesunremarkable. If this radiology report contains a blank impression section, it is anincomplete radiology report. Please contact the interpreting radiologistor applicable radiology division as soon as possible to obtain thecompleted interpretation. Workstation ID: [id number] us Batsheva Marino MD IMG XR PROCEDURES Final Resul t * XR Shoulder 2+ vw Left (03/27/2025 2:35 PM EDT) Anatomical Region Laterality Modality Upper Extremities, Shoulder Left Comp uted Radiography 03/27/2025 5:08 PM EDT Impressions 03/27/2025 5:09 PM EDT FINDINGS/IMPRESSION: Bilateral shoulders: No acute fracture or dislocation. ??No osseous erosions noted arthropathy. ??Glenohumeral alignment maintained. ??Mild acromioclavicular osteoarthritis. ??Amorphous calcifications adjacent to the right greater tuberosity related to calcific tendinopathy. ??Soft tissues unremarkable. Bilateral hands and wrists: No osseous erosions to suggest inflammatory arthropathy. ??Mild to moderate first carpometacarpal, triscaphe, distal radioulnar and interphalangeal joints osteoarthritis. ??No acute fracture or dislocation. ??Mild negative ulnar variance bilaterally. ??Soft tissues unremarkable. If this radiology report contains a blank impression section, it is an incomplete radiology report. ??Please contact the interpreting radiologist or applicable radiology division as soon as possible to obtain the completed interpretation. ? Workstation ID: [id number] Narrative 03/27/2025 5:09 PM EDT COMPARISON: None. ?? Resulting Agency Comment [id number] Procedure Note Prince Estes MD - 03/27/2025 COMPARISON: None. IMPRESSION: FINDINGS/IMPRESSION: Bilateral shoulders: No acute fracture or dislocation. No osseouserosions noted arthropathy. Glenohumeral alignment maintained. Mildacromioclavicular osteoarthritis. Amorphous calcifications adjacent tothe right greater tuberosity related to calcific tendinopathy. Softtissues unremarkable. Bilateral hands and wrists: No osseous erosions to suggest inflammatoryarthropathy. Mild to moderate first carpometacarpal, triscaphe, distalradioulnar and interphalangeal joints osteoarthritis. No acute fractureor dislocation. Mild negative ulnar variance bilaterally. Soft tissuesunremarkable. If this radiology report contains a blank impression section, it is anincomplete radiology report. Please contact the interpreting radiologistor applicable radiology division as soon as possible to obtain thecompleted interpretation. Workstation ID: [id number] us Batsheva Marino MD IMG XR PROCEDURES Final Resul t * LAB - SCANNED (03/21/2025) us Onbase Scan [facility] LAB HISTORICAL RESULTS Final Result from Last 3 Months Insurance [facility] MCR REPLACE PPO [facility] Care Teams Environmental Education Specialist Relationship Specialty Start Date End Date Shelby Escobar [address], [place] [id number] PCP - General Internal Medicine 01/19/25
--- OUTSIDE RECORDS SUMMARY | 2025-03-29 12:48 | XMS_ITS | Clinical Summary ---
Author Organization [facility] Address [address] [place] [address] Phone Care Team Providers Care Admitting Coordinator Name Role Phone Keiko Reyes MD Primary Care Provider [phone] Allergies Active Allergy Reactions Criticality Noted Date [...] patient's age to complete this topic Insurance [facility] [place] [facility] Medicaid [place] Care Teams Admitting Coordinator Relationship Specialty Start Date End Date Keiko Reyes MD PCP - General Internal Medicine 03/15/21
--- OUTSIDE RECORDS SUMMARY | 2025-03-29 12:48 | XMS_ITS | Referral Summary ---
Author Organization [facility] Address [address] [place] [address] Care Team Providers Care Stretching Machine Operator Name Role Phone Wm Escobarzi Primary Care Provider [phone] Encounters Date Type Department Care Team Description 03/27/2025 1:50 PM EDT - 03/27/2025 11:59 PM EDT Hospital Encounter [facility] X[facility] [address] [place] [address] Batsheva Marino MD Chronic right shoulder pain; Pain in both wrists Discharge Disposition: Home or Self Care () 03/27/2025 1:00 PM EDT Office Visit [facility] [address] [place] [address] Enterprise Services Manager: Batsheva Saldivar MD Chronic right shoulder pain (Primary Dx); Pain in both wrists; Chronic cough from Last 3 Months Allergies Active Allergy Reactions Criticality Noted Date [...] any suspicion for an autoimmune process from [place], at which time we can re-connect for a relevant workup. Today without objective muscle weakness or rashes. No synovitis. No Raynaud's. Social History Tobacco Use Types Packs/Day Years [...] 9:32 PM EDT Sexual Orientation Straight 03/26/2025 9 :32 PM EDT Last Filed Vital Signs Vital [...] Info) Description 10/16/2025 3:20 PM EST Follow-Up [facility] [address] [place] [id number] Enterprise Services Manager: Batsheva Saldivar MD [address] [place] [id number] Procedures * Due to [place] + [place] law, this organization might not be sharing [...] Last 3 Months Results * Due to [place] Porter + [place]ail law, this organization might not be sharing [...] obtain the completed interpretation. ? Workstation ID: [id number] Narrative 03/27/2025 5:09 PM EDT COMPARISON: None. ?? Resulting Agency Comment [id number] Procedure Note Prince Estes MD - 03/27/2025 [...] possible to obtain thecompleted interpretation. Workstation ID: [id number] us Batsheva Marino MD IMG XR PROCEDURES [...] obtain the completed interpretation. ? Workstation ID: [id number] Narrative 03/27/2025 5:09 PM EDT COMPARISON: None. ?? Resulting Agency Comment [id number] Procedure Note Prince Estes MD - 03/27/2025 [...] possible to obtain thecompleted interpretation. Workstation ID: [id number] us Batsheva Marino MD IMG XR PROCEDURES [...] obtain the completed interpretation. ? Workstation ID: [id number] Narrative 03/27/2025 5:09 PM EDT COMPARISON: None. ?? Resulting Agency Comment [id number] Procedure Note Prince Estes MD - 03/27/2025 [...] possible to obtain thecompleted interpretation. Workstation ID: [id number] us Batsheva Marino MD IMG XR PROCEDURES [...] obtain the completed interpretation. ? Workstation ID: [id number] Narrative 03/27/2025 5:09 PM EDT COMPARISON: None. ?? Resulting Agency Comment [id number] Procedure Note Prince Estes MD - 03/27/2025 [...] possible to obtain thecompleted interpretation. Workstation ID: [id number] us Batsheva Marino MD IMG XR PROCEDURES [...] obtain the completed interpretation. ? Workstation ID: [id number] Narrative 03/27/2025 5:09 PM EDT COMPARISON: None. ?? Resulting Agency Comment [id number] Procedure Note Prince Estes MD - 03/27/2025 [...] possible to obtain thecompleted interpretation. Workstation ID: [id number] us Batsheva Marino MD IMG XR PROCEDURES [...] obtain the completed interpretation. ? Workstation ID: [id number] Narrative 03/27/2025 5:09 PM EDT COMPARISON: None. ?? Resulting Agency Comment [id number] Procedure Note Prince Estes MD - 03/27/2025 [...] possible to obtain thecompleted interpretation. Workstation ID: [id number] us Batsheva Marino MD IMG XR PROCEDURES Final Resul t * LAB - SCANNED (03/21/2025) us Onbase Scan [facility] HISTORICAL RESULTS Final Result from Last 3 Months Insurance [facility] Care Teams Stretching Machine Operator Relationship Specialty Start Date End Date Escobar Shelby [address] [place] [address] PCP - General Internal Medicine 01/19/25
--- OUTSIDE RECORDS SUMMARY | 2025-03-29 12:48 | XMS_ITS | Encounter Summary ---
Author Organization [facility] Address [address] [place] [address] Care Team Providers Care Delivery Associate Name Role Phone Shelby Escobar Primary Care Provider [phone] Encounter Details Date Type Department Care Team (Latest Contact Info) Description 03/27/2025 1:50 PM EDT - 03/27/2025 11:59 PM EDT Hospital Encounter [facility] XRay [address] [place] [address] Batsheva Marino MD [address] [place] [address] Chronic right shoulder pain; Pain in both wrists Discharge Disposition: Home or Self Care (01) Social History Tobacco Use Types Packs/Day Years [...] Orientation Straight 03/26/2025 9: 32 PM EDT documented as of this encounter Medications at Time of Discharge atenoloL (TENORMIN) 50 mg tablet Take 75 mg by mouth 2 (two) times a day. buPROPion SR (WELLBUTRIN SR) 150 mg tablet Take 150 mg by mouth once a day. chlorthalidone (HYGROTON) 25 mg tablet Take 25 mg by mouth once a day. cholecalciferol (VITAMIN D3) 2,000 unit capsule Take 1 capsule by mouth once a day. clobetasoL (TEMOVATE) 0.05% cream Apply 1 application. topically to the affected area 2 times a day. clobetasoL-niacina mide 0.05-4 % solution 1 application. by Topical (top) route 2 times a day as needed. diclofenac (VOLTAREN) 1% gel Apply 2 g topically to the affected area 4 times a day. insulin regular (HumuLIN R - 500 units/mL) 500 units/mL CONCENTRATED injection Inject under the skin. Use as directed via pump Lactobacillus rhamnosus GG (Culturelle) 10 billion cell capsule Take 1 capsule by mouth once a day. LORazepam (ATIVAN) 1 mg tablet Take 1 mg by mouth every 6 hours as needed for anxiety. losartan (COZAAR) 50 mg tablet Take 50 mg by mouth 2 times a day. risankizumab (Skyrizi) 60 mg/mL solution Infuse intravenously. Use as directed simvastatin (ZOCOR) 40 mg tablet Take 40 mg by mouth nightly. traMADoL (ULTRAM) 50 mg tablet 50 mg every 8 hours as needed for pain. documented as of this encounter Plan of Treatment Upcoming Encounters Date Type Department Care Team (Late st Contact Info) Description 10/16/2025 3:20 PM EST Follow-Up [facility] [address] [place] [id number] Entertainment Manager: Batsheva Saldivar MD [address] [place] [id number] documented as of this encounter Procedures * Due to [place] state law, this organization might not be sharing negative HIV tests. Procedure Name Priority Date/Time Associated Diagnosis Comments XR HAND 3+ VW RIGHT Routine 03/27/2025 2 :35 PM EDT Pain in both wrists XR HAND 3+ VW LEFT Routine 03/27/2025 2: 35 PM EDT Pain in both wrists XR WRIST 3+ VW RIGHT Routine 03/27/2025 2:35 PM EDT Pain in both wrists XR WRIST 3+ VW LEFT Routine 03/27/2025 2 :35 PM EDT Pain in both wrists XR SHOULDER 2+ VW RIGHT Routine 03/27/2025 2:35 PM EDT Chronic right shoulder pain XR SHOULDER 2+ VW LEFT Routine 03/27/2025 2:35 PM EDT Chronic right shoulder pain documented in this encounter Results * Due to [place] state law, this organization might not be sharing negative HIV tests. * XR Shoulder 2+ vw Left (03/27/2025 [...] obtain the completed interpretation. ? Workstation ID: [id number] Narrative 03/27/2025 5:09 PM EDT COMPARISON: None. ?? Resulting Agency Comment [id number] Procedure Note Prince Estes MD - 03/27/2025 [...] possible to obtain thecompleted interpretation. Workstation ID: [id number] us Batsheva Marino MD IMG XR PROCEDURES [...] obtain the completed interpretation. ? Workstation ID: [id number] Narrative 03/27/2025 5:09 PM EDT COMPARISON: None. ?? Resulting Agency Comment [id number] Procedure Note Prince Estes MD - 03/27/2025 [...] possible to obtain thecompleted interpretation. Workstation ID: [id number] us Batsheva Marino MD IMG XR PROCEDURES [...] obtain the completed interpretation. ? Workstation ID: [id number] Narrative 03/27/2025 5:09 PM EDT COMPARISON: None. ?? Resulting Agency Comment [id number] Procedure Note Prince Estes MD - 03/27/2025 [...] possible to obtain thecompleted interpretation. Workstation ID: [id number] us Batsheva Marino MD IMG XR PROCEDURES [...] obtain the completed interpretation. ? Workstation ID: [id number] Narrative 03/27/2025 5:09 PM EDT COMPARISON: None. ?? Resulting Agency Comment [id number] Procedure Note Prince Estes MD - 03/27/2025 [...] possible to obtain thecompleted interpretation. Workstation ID: [id number] us Batsheva Marino MD IMG XR PROCEDURES Final Resul t * XR Hand 3+ vw Right (03/27/2025 [...] obtain the completed interpretation. ? Workstation ID: [id number] Narrative 03/27/2025 5:09 PM EDT COMPARISON: None. ?? Resulting Agency Comment [id number] Procedure Note Prince Estes MD - 03/27/2025 [...] possible to obtain thecompleted interpretation. Workstation ID: [id number] us Batsheva Marino MD IMG XR PROCEDURES [...] obtain the completed interpretation. ? Workstation ID: [id number] Narrative 03/27/2025 5:09 PM EDT COMPARISON: None. ?? Resulting Agency Comment [id number] Procedure Note Prince Estes MD - 03/27/2025 [...] possible to obtain thecompleted interpretation. Workstation ID: [id number] us Batsheva Marino MD IMG XR PROCEDURES Final Resul t documented in this encounter Visit Diagnoses Diagnosis Chronic right shoulder pain Pain in joint, shoulder region Pain in both wrists documented in this encounter Care Teams Delivery Associate Relationship Specialty Start Date End Date Shelby Escobar [address] [place] [id number] PCP - General Internal Medicine 01/19/25 documented as of this encounter
--- OUTSIDE RECORDS SUMMARY | 2025-03-29 12:48 | XMS_ITS | Encounter Summary ---
Author Organization [facility] Address [address] [place] [address] Phone Care Team Providers Care Cyber Defense Incident Responder Name Role Phone Keiko Reyes MD Primary Care Provider [phone] Encounter Details Date Type Department Care Team ([facility] st Contact Info) Description 05/24/2024 Office Communication [facility] [address] [place] [phone] Alessandro Roman MD [address] [facility] [address] [place] [id number] Social History Tobacco Use Types Packs/Day Years [...] on filedocumented in this encounter Care Teams Cyber Defense Incident Responder Relationship Specialty Start Date End Date Keiko Reyes MD PCP - General Internal Medicine 03/15/21 documented as of this encounter
--- OUTSIDE RECORDS SUMMARY | 2025-03-29 12:49 | XMS_ITS | Encounter Summary ---
Author Organization [facility] Address [address] [place] [address] Care Team Providers Care Information Resources Manager Name Role Phone Shelby Escobar Primary Care Provider Reason for Referral * Physical Therapy (Routine) - Pending Review Specialty Diagnoses / Procedures Referred By Tracey stover Referred To Contact Physical Therapy Diagnoses Chronic right shoulder pain Batsheva Marino MD [address] [place] [id number] Phone: tel: fax: Referral ID Status Reason Start Date Expiration Date Visits Requested Visits Authorized [id number] Pending Review Specialty Services Required 03/27/2025 04/26/2026 6 6 Reason for Visit * Reason Comments Follow-up PSA ? * Consultation (Routine) - Authorized Specialty Diagnoses / Procedures Referred By Tracey stover Referred To Contact Rheumatology Diagnoses Thoracic Arthritis Batsheva Marino MD [address] [place] [address] Phone: tel: fax: Referral ID Status Reason Start Date Expiration Date V isits Requested Visits Authorized [id number] Authorized 01/19/2025 07/21/2026 6 6 Encounter Details Date Type Department Care Team (Latest Contact Info) Description 03/27/2025 1:00 PM EDT Office Visit [facility] [address] [place] [id number] Glass Washer And Carrier: Batsheva Saldivar MD [address] [place] [address] Chronic right shoulder pain (Primary Dx); Pain in both wrists; Chronic cough Social History Tobacco Use Types Packs/Day Years [...] PM EDT documented as of this encounter Last Filed Vital Signs Vital Sign Reading [...] Mass Index 48.4 03/27/2025 12:30 PM EDT documented in this encounter Progress Notes * Batsheva Marino MD - 03/27/2025 1:00 PM EDT Images from the original note were not included. RHEUMATOLOGY CLINIC INITIAL VISIT CHIEF COMPLAINT Chief Complaint Patient presents with Follow-up PSA ? PROVIDERS Referred by: Shelby Escobar PCP: Shelby Escobar PA-C ASSESSMENT/PLAN 64 y.o. female background psoriasis (2012; guajardo/calf, elbows; scalp; neck) currently planning to goback on Skyrizi, DM2, HTN, HLP, CKD stage III, depression, anxiety, CTS release in both wrists, whopresents to clinic for evaluation of pain in CMCs and wrists. Problem List Items Addressed This Visit Pain in both wrists -Specifically at CMCs but also at ulnar [...] any PsA features but suspicion is lower. Relevant Orders XR Hand 3+ vw Right XR Hand 3+ vw Left X-Ray Wrist Right 3+ Views X-Ray Wrist Left 3+ Views Chronic right shoulder pain - Primary -Xrays ordered today -Suspect rotator cuff tendinosis. -Denies any trauma. -May apply topical Voltaren gel bid or 3 times a day. -If no improvement may consider MRI Relevant Orders Ambulatory referral to Physical Therapy XR Shoulder 2+ vw Left XR Shoulder 2+ vw Right Chronic cough -Started after an infection in Aug 2024. -Reports abnormal CXR and PFTs with restrictive features. Has CT done on Thursday, report not available. Has appt with Pulmonology. -Pt knows to let me know if there is any suspicion for an autoimmune process from Clinical Trials Data Coordinator, atwhich time we can re-connect for a relevant workup. Today without objective muscle weakness or rashes. No synovitis. No Raynaud's. -RTC in 6 months or earlier as needed. I spent a total of 53 minutes on the date of encounter, which included: ?? Preparing to see the patient (e.g., review of test results) ?? Performing a medically appropriate exam and/or evaluation ?? Counseling and educating the patient/family/caregiver ?? Ordering medications, tests, procedures ?? Referring and communicating with other healthcare professionals, when not separately reported ?? Documenting clinical information in the health record HISTORY OF PRESENTING ILLNESS Aure Ricks is a 64 y.o. female background psoriasis (2012; guajardo/calf, elbows; scalp; neck), DM2, HTN, HLP, CKD stage III, depression, anxiety, CTS release in both wrists, who presents to clinic for evaluation of pain in CMCs and wrists. Previously on Taltz but not covered anymore. Was taking for about 2 years. Stopped in Aug 2024. Before that on methotrexate, Humira, Cosentyx, Skyrizi. After Taltz, pt switched to bimekizumab: humanized interleukin-17A and F antagonist. Thrush and metnal issues. Now plans to resume Skyrizi. The provider would like to use a new technology product that will automatically document your encounter based on a recording of your conversation today. This will allow them to spend more time focused on you. Is it okay with you if we record your conversation? Patient consents to be recorded by [facility]. History of Present Illness She has been experiencing joint pain in her hands for several years, which was initially attributedto psoriatic arthritis by her jig bore tool maker. The pain is primarily localized at the base of her thumbs and the ulnar aspect of her wrist, with no reported pain in her fingers. She reports morning stiffness in her right shoulder, which she attributes to sleeping on her left side. She also experiences lower back pain, which she believes is muscular in origin. She reports morning stiffness in her back and hands, which lasts for a few minutes until she starts moving. She has been tested for rheumatoid arthritis, but the results were negative. She reports that her fingers turn slightly white in cold weather but denies changes consistent with Raynaud's when shown relevant pictures. She has noticed an improvement in her condition over the past 2 to 3 years, but still requires both hands to pick remover a glass. She does not use NSAIDs due to her kidney condition and has discontinued Tylenol as it was not providing relief. She has tried diclofenac gel, which provided some relief but could not continue using as she has pets and she's concerned about their exposure to the gel. She uses thumb braces occasionally and has not received injections in her thumbs. She rates her current pain level as 1 or 2 out of 10. She reports difficulty in reaching overhead and getting out of a chair. She has tried various biologics, including Taltz, which initially provided significant relief but eventually lost its efficacy. She also experienced side effects such as thrush and mental health issues with bimekizumab. She has previously consulted with other rheumatologists in [place], who per pt's report suggested invasive treatments such as infusions, but these were not pursued due to her other health conditions. She started Taltz approximately 2 years ago and discontinued it in 08/2024 due to insurance coverage issues. She felt great after her first Taltz dose from joint perspective but not thereafter. Her joint pain predates her use of Taltz. She has also tried methotrexate, Humira, and Cosentyx for her psoriasis, but these did not alleviate her joint pain. She is scheduled to resume Skyrizi this week. She reports that her joint pain worsens with high sodium intake and elevated blood sugar levels. She has had carpal tunnel surgery on both hands and trigger finger release in 2014. She has tried roberto turmeric tea for her pain. Denies isolated swelling of any finger or toe Denies abdominal pain blood or mucus in stool. She has a history of psoriasis, which started in 2011 and initially presented on her leg, calf, andshin before progressing to her elbows, scalp, and stomach. Currently, she only has mild psoriasis on her scalp and the back of her neck. She is currently on Skyrizi for her psoriasis. She has type 2 diabetes and is currently on Humulin. She has tried Mounjaro and Ozempic, but these were not well-tolerated. She has hypertension. She has interstitial lung disease and is scheduled to see a lining presser on Thursday. She had a chest x-ray and pulmonary function test following a persistent cough that started in 08/2024. She wascoughing up green phlegm and was treated with antibiotics twice. Had a CT done on Thursday and results are pending. CXR suggestive of interstitial changes. She continues to clear her throat and cough up a small amount of phlegm in the morning. She experiences shortness of breath when climbing stairs,a symptom that has developed over the past couple of years. She has a history of anemia, which was attributed to a stomach bleed from aspirin use. She underwent endoscopy and colonoscopy, which revealed a stomach bleed likely caused by aspirin. The bleeding resolved after discontinuing aspirin. Supplemental Information She has stage 3 kidney disease, which is stable. She is on bupropion and Wellbutrin for anxiety anddepression. She had a cholecystectomy in 1990 and a complete hysterectomy in 2016. 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 FAMILY HISTORY Her grandmother on her mother's side had rheumatoid arthritis. No family history of psoriasis. REVIEW OF SYSTEMS Review of Systems All other systems reviewed and are negative. MEDICAL HISTORY No past medical history on file. SURGICAL HISTORY No past surgical history on file. FAMILY HISTORY No family history on file. SOCIAL HISTORY reports that she has never smoked. She has been exposed to tobacco smoke. She has never used smokeless tobacco. She reports that she does not currently use alcohol. She reports that she does not use drugs. MEDICATIONS Current Outpatient Medications Medication Sig Dispense Refill atenoloL (TENORMIN) 50 mg tablet Take 75 [...] the affected area 2 times a day. clobetasoL-niacinamide 0.05-4 % solution 1 application. by Topical [...] every 8 hours as needed for pain. No current facility-administered medications for this visit. ALLERGIES Allergies Allergen Reactions Acamprosate Diarrhea Roberto Inhibitors Cough Amoxicillin Itching Citalopram Muscle Pain and Other (see comments) Niacin Flushing, Nausea, Hot flashes, Other (see comments) and Vomiting Ziprasidone Unknown Ziprasidone Hcl Other (see comments) PHYSICAL EXAM VITALS: Blood pressure (!) 144/70, pulse 73, temperature 36.7 ??C (98.1 ??F), height 1.6 m (5' 3 ),weight 123.9 kg (273 lb 3.2 oz). GEN: nil acute distress, well appearing HEENT: no alopecia PULM: clear breath sounds, nil wheeze/crackles CV: distant heart sounds, regular, heart sounds I+II present, nil murmurs EXT: nil edema MSK - Shoulders: no swelling, no redness, no warmth, no TTP, FROM but with discomfort in R shoulder; mildweakness of R shoulder with empty can test Elbows: no swelling, no redness, no warmth, no TTP, FROM Wrists: no swelling, no redness, no warmth, no TTP, FROM Hands: no swelling, no redness, no warmth, no TTP, FROM, L 2nd and R 2nd and 3rd DIPs with Heberdennodes Knees: no swelling, no redness, no warmth, no TTP, FROM Ankles: no swelling, no redness, no warmth, no TTP, FROM Feet: no pain on MTP squeeze Skin: no eruptions or lesions Neuro: motor and sensory systems grossly intact LABORATORY General labs scanned in Media STUDIES None relevant Batsheva Marino MD Nursery Nurseit systems manager Division of Rheumatology Office: [phone] documented in this encounter Miscellaneous Notes * Assessment & Plan Note - Batsheva Marino MD - 03/27/2025 1:59 PM EDT Associated Problem(s): Chronic cough -Started after an infection in Aug 2024. -Reports abnormal CXR and PFTs with restrictive features. Has CT done on Thursday, report not available. Has appt with Pulmonology. -Pt knows to let me know if there is any suspicion for an autoimmune process from Clinical Trials Data Coordinator, atwhich time we can re-connect for a relevant workup. Today without objective muscle weakness or rashes. No synovitis. No Raynaud's. * Assessment & Plan Note - Batsheva Marino MD - 03/27/2025 1:56 PM EDT Associated Problem(s): Pain in both wrists -Specifically at CMCs but also at ulnar [...] any PsA features but suspicion is lower. * Assessment & Plan Note - Batsheva Marino MD - 03/27/2025 1:54 PM EDT Associated Problem(s): Chronic right shoulder pain -Xrays ordered today -Suspect rotator cuff tendinosis. -Denies any trauma. -May apply topical Voltaren gel bid or 3 times a day. -If no improvement may consider MRI documented in this encounter Plan of Treatment Upcoming Encounters Date Type Department Care Team (Late st Contact Info) Description 10/16/2025 3:20 PM EST Follow-Up [facility] [address] [place] [id number] Glass Washer And Carrier: Batsheva Saldivar MD [address] [place] [phone] Scheduled Referrals Name Type Priority Associated Diagnoses Order Schedule Ambulatory referral to Physical Therapy Outpatient Referral Routine Chronic right shoulder pain Expected: 03/27/2025, Expires: 04/26/2026 documented as of this encounter Results * Due to [place] state law, this organization might not be sharing negative HIV tests. * XR Shoulder 2+ vw Right (03/27/2025 [...] obtain the completed interpretation. ? Workstation ID: [id number] Narrative 03/27/2025 5:09 PM EDT COMPARISON: None. ?? Resulting Agency Comment [id number] Procedure Note Prince Estes MD - 03/27/2025 [...] possible to obtain thecompleted interpretation. Workstation ID: [id number] us Batsheva Marino MD IMG XR PROCEDURES [...] obtain the completed interpretation. ? Workstation ID: [id number] Narrative 03/27/2025 5:09 PM EDT COMPARISON: None. ?? Resulting Agency Comment [id number] Procedure Note Prince Estes MD - 03/27/2025 [...] possible to obtain thecompleted interpretation. Workstation ID: [id number] us Batsheva Marino MD IMG XR PROCEDURES [...] obtain the completed interpretation. ? Workstation ID: [id number] Narrative 03/27/2025 5:09 PM EDT COMPARISON: None. ?? Resulting Agency Comment [id number] Procedure Note Prince Estes MD - 03/27/2025 [...] possible to obtain thecompleted interpretation. Workstation ID: [id number] us Batsheva Marino MD IMG XR PROCEDURES [...] obtain the completed interpretation. ? Workstation ID: [id number] Narrative 03/27/2025 5:09 PM EDT COMPARISON: None. ?? Resulting Agency Comment [id number] Procedure Note Prince Estes MD - 03/27/2025 [...] possible to obtain thecompleted interpretation. Workstation ID: [id number] us Batsheva Marino MD IMG XR PROCEDURES [...] obtain the completed interpretation. ? Workstation ID: [id number] Narrative 03/27/2025 5:09 PM EDT COMPARISON: None. ?? Resulting Agency Comment [id number] Procedure Note Prince Estes MD - 03/27/2025 [...] possible to obtain thecompleted interpretation. Workstation ID: [id number] us Batsheva Marino MD IMG XR PROCEDURES [...] obtain the completed interpretation. ? Workstation ID: [id number] Narrative 03/27/2025 5:09 PM EDT COMPARISON: None. ?? Resulting Agency Comment [id number] Procedure Note Prince Estes MD - 03/27/2025 [...] possible to obtain thecompleted interpretation. Workstation ID: [id number] us Batsheva Marino MD IMG XR PROCEDURES Final Resul t documented in this encounter Visit Diagnoses Diagnosis Chronic right shoulder pain- Primary Pain in joint, shoulder region Pain in both wrists Chronic cough Cough Chronic right shoulder pain Pain in joint, shoulder region Pain in both wrists documented in this encounter Care Teams Information Resources Manager Relationship Specialty Start Date End Date Shelby Escobar [address] [place] [address] PCP - General Internal Medicine 01/19/25 documented as of this encounter
== END 2025-03-29 11:56 | disposition home or self-care (01) ==
LOC: HO.HPSW 11:11
PROVIDERS: PCP Physician Assistant; Visit Provider Nurse Practitioner Family
DX: R05.3 Chronic cough (principal); L40.50 Arthropathic psoriasis, unspecified; R91.8 Other nonspecific abnormal finding of lung field
CPT/HCPCS: 99214

== ENCOUNTER → 2025-03-29 11:09 | Outpatient (BNVA) | payer MEDICARE, MEDICAID, SELFPAY | PROVIDERS: PCP Physician Assistant; Visit Provider Nurse Practitioner Family | DX: R05.3 Chronic cough (principal); R91.8 Other nonspecific abnormal finding of lung field; L40.50 Arthropathic psoriasis, unspecified | CPT/HCPCS: 99212 ==

== ENCOUNTER 2025-04-05 09:13 | Outpatient (AMB) | payer MEDICARE, MEDICAID, SELFPAY ==
--- NOTE | 2025-04-05 09:19 | A.OFFVIS_ITS ---
Vital Signs 04/05/25 09:21 Height 5 ft 2 in Weight 274 lb BMI 50.1 BP 148/66 H Blood Pressure Location Rt brachial Position Sitting Pulse 64 Pulse Source Pulse Oximeter Pulse Oximetry (%) 93 Oxygen Delivery Method Room Air Intake Visit Reasons: NEW PT. [place] screening Intake Note: NEW PATIENT for repeat colo screening. Last colo December 04, 2019. Pt unsure if it was [facility] or [facility]. Chief Complaint; Pt denies any GI sx or concerns at this time. Pt has hx of polypectomy with last colo. Fire Extinguisher Tester Required: No Accompanied by: Self / Same As Patient Allergies citalopram [From Celexa] Allergy (Mild, Verified 04/05/25 09:22) cramps Niacin Preparations Allergy (Mild, Verified 04/05/25 09:22) vomitinf/flu symptoms/flushing lisinopril Allergy (Unknown, Verified 04/05/25 09:22) cough/all ACEI niacin Allergy (Unknown, Verified 04/05/25 09:22) unknown tirzepatide [From Mounjaro] Adverse Reaction (Severe, Verified 04/05/25 09:22) Diarrhea methotrexate Adverse Reaction (Intermediate, Verified 04/05/25 09:22) Nausea metformin Adverse Reaction (Unknown, Verified 04/05/25 09:22) Abdominal Pain ziprasidone [Geodon] Adverse Reaction (Unknown, Verified 04/05/25 09:22) Unknown HPI HPI NEW PT. [place] screening: Details: 64 year old? female with past medical history of diabetes, pulmonary nodules, chronic interstitial lung disease, psoriatic arthritis, anxiety, morbid obesity, hypertension, dyslipidemia is here today for pre colonoscopy screening.? Patient was sent to us by her PCP.? Last colonoscopy 12/05/2019. One tubular adenoma found. Recommendation 5 year surveillance.? Patient denies any gastrointestinal symptoms in the past or at present.? Denies any personal or family history of gastrointestinal disease or CRC.? Denies history of difficulty with sedation or anesthesia in the past.? Negative for history of sleep apnea.? Denies any history of cardiac, renal, pulmonary, or hepatic disease.?? No history of infectious? diseases like hepatitis A, B, C, HIV or tuberculosis.? Patient is not on any anticoagulation [facility] Medical History Type 2 diabetes mellitus Hx of mammogram Psoriatic arthritis Anxiety Arthritis Anemia Psoriasis Stress incontinence Morbid obesity Hypertension Dyslipidemia half-way (current) use of insulin Surgical History Hx of colonoscopy History of selective laser trabeculoplasty History of total abdominal hysterectomy and bilateral salpingo-oophorectomy History of carpal tunnel release Hx of cholecystectomy Family History Father CVD (cardiovascular disease) Obesity Diabetes Alcohol abuse CAD (coronary artery disease) Mother CVD (cardiovascular disease) Diabetes Obesity Chronic lymphocytic leukemia Hx of myocardial infarction Brother Substance abuse Daughter FH: mental illness Paternal Aunt Breast cancer Social History Household Members: Spouse and Children Housing: [facility] Alcohol intake: current Alcohol intake frequency: does not drink Patient Tobacco Use Status: Never used Tobacco e-Cigarette/Vaping Use: Never Used Second Hand Smoke Exposure: No service: No Current occupational status: disabled Current occupational exposures/hazards: No Cognitive needs: No Hearing needs: Yes Vision needs: Yes Physical Exam Vital Signs: Last Vital Signs Pulse 64 04/05/25 09:21 BP 148/66 H 04/05/25 09:21 Pulse Ox 93 04/05/25 09:21 Oxygen Delivery Method Room Air 04/05/25 09:21 BMI result Body Mass Index 50.1 Assessment & Plan Assessment & Plan (1) Screen for colon cancer: Code(s): Z12.11 - Encounter for screening for malignant neoplasm of colon Plan Patient denies any GI, cardiac or respiratory symptoms.? Denies any issues with anesthesia in the past.? Denies any history of sleep apnea.? No history infectious diseases in the past or present.? Not on any anticoagulation therapy.? No family or personal history of colon cancer.? Patient denies melena, hematochezia, unintentional weight loss or ribbon like stools.? Discussed at length the pre-procedure,? prep, diet & medications as well as what to expect prior, during and after the procedure.?? Stressed the importance of good bowel prep.? Recommended the use of Vaseline or Calmoseptine OTC & baby wipes with bowel movements to promote comfort.? ?Patient verbalizes understanding and a grees to plan of care.? She was given the opportunity to ask questions and all questions answered.? We will see her after the procedure.? Medications: New polyethylene glycol 3350 (Miralax) As directed by gastroenterology department at [facility] 238 grams PO ONCE 238 grams 0RF Z12.11 - Encounter for screening for malignant neoplasm of colon bisacodyl (Dulcolax (bisacodyl)) take 4 tabs at noon the day before your colonoscopy 20 mg (4 x 5 mg) PO ONCE 1 day 4 tabs 0RF Z12.11 - Encounter for screening for malignant neoplasm of colon Coding Level of Care Code New Pt Level 3 (04693) Diagnoses Screen for colon cancer Z12.11 Time Spent (min) 40 Comment 30 minutes spent with patient and additional 10 minutes spent reviewing her records
[2025-04-05 09:21] VITALS: BP 148/66; PULSE 64; O2SAT 93; BMI 50.1
--- OUTSIDE RECORDS SUMMARY | 2025-04-05 09:45 | XMS_ITS | Encounter Summary ---
Author Organization [facility] Address [address] [place] [address] Phone Care Team Providers Care Finance Executive Name Role Phone Keiko Reyes MD Primary Care Provider [phone] Encounter Details Date Type Department Care Team (Late st Contact Info) Description 04/16/2021 Orders Only [facility] [address] [place] [id number] Otto Major MD Type 2 diabetes mellitus [...] 1:18 PM EDT) Glucose 141(H) (70-99) MG/DL [facility] BUN 19 (6-20) MG/DL [facility] Creatinine 1.4(H) (0.5-1.0) MG/DL [facility] Sodium 143 (133-145) MMOL/L [facility] Potassium 4.8 (3.6-5.2) MMOL/L [facility] Chloride 104 (98-107) MMOL/L [facility] Bicarbonate (CO2) 31(H) (22-29) MMOL/L [facility] Anion Gap 8 (4-17) [facility] Albumin 4.2 (3.4-4.8) GM/DL [facility] Calcium 9.5 (8.6-10.5) MG/DL [facility] Phosphorus, Serum 3.9 (2.5-4.5) MG/DL [facility] Est GFR Non 41 ML/MIN/1.7 3 M2 [facility] Comment: Creatinine based estimated glomerular filtration rate (eGFR) is calculated using the Chronic Kidney Disease Epidemiology Collaboration (CKD-EPI). The CKD-EPI creatinine equation has not been validated in children (<18 years), women or in some racial or ethnic subgroups other than Caucasians and Americans. EST GFR 47 ML/MIN/1.7 3 M2 [facility] Comment: Creatinine based estimated glomerular filtration rate (eGFR) is calculated using the Chronic Kidney Disease Epidemiology Collaboration (CKD-EPI). The CKD-EPI creatinine equation has not been validated in children (<18 years), women or in some racial or ethnic subgroups other than Caucasians and Americans. Testing performed or reported by [facility], a Service of [facility], [address] [place] [address] Oksana Siegel MD, Product Communications Manager Blood (Blood, Venous) 05/30/2021 1:18 PM EDT 05/30/2021 1:20 PM EDT us Otto Major MD LAB BLOOD ORDERABLES Final Resul t [facility] documented in this encounter Visit Diagnoses Diagnosis Type 2 diabetes mellitus with diabetic chronic kidney disease (HCC) Other proteinuria Hypertension Stage 3a chronic kidney disease (HCC) documented in this encounter Care Teams Finance Executive Relationship Specialty Start Date End Date Keiko Reyes MD PCP - General Internal Medicine 03/15/21 documented as of this encounter
--- OUTSIDE RECORDS SUMMARY | 2025-04-05 09:45 | XMS_ITS | Clinical Summary ---
Author Organization [facility] Address [address] [facility] [address] [place] [address] Phone Care Team Providers Care Legal Services Manager Name Role Phone Keiko Reyes MD Primary Care Provider [phone] Allergies Active Allergy Reactions Criticality Noted Date [...] patient's age to complete this topic Insurance [facility] [place] [facility] Medicaid [place] Care Teams Legal Services Manager Relationship Specialty Start Date End Date Keiko Reyes MD PCP - General Internal Medicine 03/15/21
--- OUTSIDE RECORDS SUMMARY | 2025-04-05 09:45 | XMS_ITS | Clinical Summary ---
Author Organization [facility] Address [address] [place] [address] Care Team Providers Care Nurse School Name Role Phone EscobarShelby story Primary Care Provider [phone] Allergies Active Allergy Reactions Criticality Noted Date [...] any suspicion for an autoimmune process from Condominium Association Manager, at which time we can re-connect for a relevant workup. Today without objective muscle weakness or rashes. No synovitis. No Raynaud's. Encounters Date Type Department Care Team Description 03/30/2025 Results Follow-Up [facility] [address] [place] [phone] Valet: Batsheva Saldivar MD 03/27/2025 1:50 PM EDT - 03/27/2025 11:59 PM EDT Hospital Encounter [facility] XRay [address] [place] [address] Batsheva Marino MD Chronic right shoulder pain; Pain in both wrists Discharge Disposition: Home or Self Care () 03/27/2025 1:00 PM EDT Office Visit [facility] [address] [place] [address] Valet: Batsheva Saldivar MD Chronic right shoulder pain [...] Info) Description 10/16/2025 3:20 PM EST Follow-Up [facility] [address] [place] [address] [phone] Valet: Batsheva Saldivar MD [address] [place] [address] Health Maintenance Due Date Last Done Comments Basic Metabolic Panel 1962 Cervical Cancer Screening 1962 Cologuard 1962 Colon Cancer Screening 1962 Colonoscopy 1962 FOBT / Fit Test 1962 HIV Screening 1962 HPV and Pap Smear 1962 Hemoglobin A1C 1962 Hepatitis C Screening 1962 Pap Smear 1962 Sigmoidoscopy 1962 Ophthalmology Exam 1972 Urine Microalbumin 1972 Mammogram 2002 Pneumococcal Vaccine: 50+ Years (2 of 2 - PCV) 01/09/2008 01/09/2007 RSV Vaccine (60+ years old and [...] complete this topic Procedures * Due to [place] [employer] law, this organization might not be sharing [...] Last 3 Months Results * Due to [place] [employer] law, this organization might not be sharing [...] obtain the completed interpretation. ? Workstation ID: [id number] Narrative 03/27/2025 5:09 PM EDT COMPARISON: None. ?? Resulting Agency Comment [id number] Procedure Note Prince Estes MD - 03/27/2025 [...] possible to obtain thecompleted interpretation. Workstation ID: [id number] us Batsheva Marino MD IMG XR PROCEDURES [...] obtain the completed interpretation. ? Workstation ID: [id number] Narrative 03/27/2025 5:09 PM EDT COMPARISON: None. ?? Resulting Agency Comment [id number] Procedure Note Prince Estes MD - 03/27/2025 [...] possible to obtain thecompleted interpretation. Workstation ID: [id number] us Batsheva Marino MD IMG XR PROCEDURES [...] obtain the completed interpretation. ? Workstation ID: [id number] Narrative 03/27/2025 5:09 PM EDT COMPARISON: None. ?? Resulting Agency Comment [id number] Procedure Note Prince Estes MD - 03/27/2025 [...] possible to obtain thecompleted interpretation. Workstation ID: [id number] us Batsheva Marino MD IMG XR PROCEDURES [...] obtain the completed interpretation. ? Workstation ID: [id number] Narrative 03/27/2025 5:09 PM EDT COMPARISON: None. ?? Resulting Agency Comment [id number] Procedure Note Prince Estes MD - 03/27/2025 [...] possible to obtain thecompleted interpretation. Workstation ID: [id number] Batsheva Marino MD IMG XR PROCEDURES Final [...] obtain the completed interpretation. ? Workstation ID: [id number] Narrative 03/27/2025 5:09 PM EDT COMPARISON: None. ?? Resulting Agency Comment [id number] Procedure Note Prince Estes MD - 03/27/2025 [...] possible to obtain thecompleted interpretation. Workstation ID: [id number] us Batsheva Marino MD IMG XR PROCEDURES [...] obtain the completed interpretation. ? Workstation ID: [id number] Narrative 03/27/2025 5:09 PM EDT COMPARISON: None. ?? Resulting Agency Comment [id number] Procedure Note Prince Estes MD - 03/27/2025 [...] possible to obtain thecompleted interpretation. Workstation ID: [id number] us Batsheva Marino MD IMG XR PROCEDURES Final Resul t * LAB - SCANNED (03/21/2025) us Onbase Scan [facility] LAB HISTORICAL RESULTS Final Result from Last 3 Months Insurance [employer] MCR REPLACE PPO [facility] Care Teams Nurse School Relationship Specialty Start Date End Date Shelby Escobar [address] [place] [address] [phone] PCP - General Internal Medicine 01/19/25
--- OUTSIDE RECORDS SUMMARY | 2025-04-05 09:45 | XMS_ITS | Encounter Summary ---
Author Organization [facility] Address [address] [place] [address] Care Team Providers Care Office Automation Technician Name Role Phone Shelby Escobar Primary Care Provider [phone] Encounter Details Date Type Department Care Team (Late st Contact Info) Description 03/30/2025 Results Follow-Up [facility] [address] [place] [address] Textile Slitting Machine Operator: Batsheva Saldivar MD [address] [place] [address] Social History Tobacco Use Types Packs/Day Years [...] PM EDT documented as of this encounter Miscellaneous Notes * Result Encounter Note - Batsheva Marino MD - 03/30/2025 12:51 PM EDT Hi Mrs. Ricks, The xrays of your right shoulder showed calcific tendinopathy, which is calcium deposit in an area of prior tendinitis. That can sometimes flare and cause lots of pain in the shoulder. If the pain issevere, we can do a steroid injection in the area which may help. If these flares recur, specialties like Sports Medicine or Physiatry can try to break down the calcific deposits. 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 There was no damage suggestive of psoriatic arthritis. Let me know if you have any questions. Best regards, Batsheva Marino MD Commercial Real Estate Manager Division of Rheumatology documented in this encounter Plan of Treatment Upcoming Encounters Date Type Department Care Team (Late st Contact Info) Description 10/16/2025 3:20 PM EST Follow-Up [facility] [address] [place] [address] Textile Slitting Machine Operator: Batsheva Saldivar MD [address] [place] [address] documented as of this encounter Visit Diagnoses Not on filedocumented in this encounter Care Teams Office Automation Technician Relationship Specialty Start Date End Date Shelby Escobar [address] [place] [phone] PCP - General Internal Medicine 01/19/25 documented as of this encounter
--- OUTSIDE RECORDS SUMMARY | 2025-04-05 09:45 | XMS_ITS | Referral Summary ---
Author Organization [facility] Address [address] [place] [address] Care Team Providers Care Apprentice Painter Neckties Name Role Phone Wm Escobarzi Primary Care Provider Encounters Date Type Department Care Team Description 03/30/2025 Results Follow-Up [facility] [address] [place] [phone] Invertebrate Paleontologist: Batsheva Saldivar MD 03/27/2025 1:50 PM EDT - 03/27/2025 11:59 PM EDT Hospital Encounter [facility] XRay [address] [place] [address] Batsheva Marino MD Chronic right shoulder pain; Pain in both wrists Discharge Disposition: Home or Self Care () 03/27/2025 1:00 PM EDT Office Visit [facility] [address] [place] [address] Invertebrate Paleontologist: Batsheva Saldivar MD Chronic right shoulder pain [...] any suspicion for an autoimmune process from Automotive Quality Engineer, at which time we can re-connect for [...] Info) Description 10/16/2025 3:20 PM EST Follow-Up [facility] [address] [place] [address] Invertebrate Paleontologist: Batsheva Saldivar MD [address] [place] [address] Procedures * Due to [place] [employer] law, this organization might not be sharing [...] Last 3 Months Results * Due to [place] [employer] law, this organization might not be sharing [...] obtain the completed interpretation. ? Workstation ID: [id number] Narrative 03/27/2025 5:09 PM EDT COMPARISON: None. ?? Resulting Agency Comment [id number] Procedure Note Prince Estes MD - 03/27/2025 [...] possible to obtain thecompleted interpretation. Workstation ID: [id number] us Batsheva Marino MD IMG XR PROCEDURES [...] obtain the completed interpretation. ? Workstation ID: [id number] Narrative 03/27/2025 5:09 PM EDT COMPARISON: None. ?? Resulting Agency Comment [id number] Procedure Note Prince Estes MD - 03/27/2025 [...] possible to obtain thecompleted interpretation. Workstation ID: [id number] us Batsheva Marino MD IMG XR PROCEDURES [...] obtain the completed interpretation. ? Workstation ID: [id number] Narrative 03/27/2025 5:09 PM EDT COMPARISON: None. ?? Resulting Agency Comment [id number] Procedure Note Prince Estes MD - 03/27/2025 [...] possible to obtain thecompleted interpretation. Workstation ID: [id number] us Batsheva Marino MD IMG XR PROCEDURES [...] obtain the completed interpretation. ? Workstation ID: [id number] Narrative 03/27/2025 5:09 PM EDT COMPARISON: None. ?? Resulting Agency Comment [id number] Procedure Note Prince Estes MD - 03/27/2025 [...] possible to obtain thecompleted interpretation. Workstation ID: [id number] us Batsheva Marino MD IMG XR PROCEDURES [...] obtain the completed interpretation. ? Workstation ID: [id number] Narrative 03/27/2025 5:09 PM EDT COMPARISON: None. ?? Resulting Agency Comment [id number] Procedure Note Prince Estes MD - 03/27/2025 [...] possible to obtain thecompleted interpretation. Workstation ID: [id number] us Batsheva Marino MD IMG XR PROCEDURES [...] obtain the completed interpretation. ? Workstation ID: [id number] Narrative 03/27/2025 5:09 PM EDT COMPARISON: None. ?? Resulting Agency Comment [id number] Procedure Note Prince Estes MD - 03/27/2025 [...] possible to obtain thecompleted interpretation. Workstation ID: [id number] us Batsheva Marino MD IMG XR PROCEDURES Final Resul t * LAB - SCANNED (03/21/2025) us Onbase Scan [facility] LAB HISTORICAL RESULTS Final Result from Last 3 Months Insurance [facility] MCR REPLACE PPO [facility] Care Teams Apprentice Painter Neckties Relationship Specialty Start Date End Date Shelby Escobar [address] [place] [address] PCP - General Internal Medicine 01/19/25
--- OUTSIDE RECORDS SUMMARY | 2025-04-05 09:45 | XMS_ITS | Clinical Summary ---
Author Organization [facility] Address [address] [place] [address] Care Team Providers Care Fire Tender Name Role Phone Shelby Escobar PA-C Primary [...] to complete this topic Care Teams Fire Tender Relationship Specialty Start Date End Date Shelby Escobar, ROYCEC PCP - General Physician Sea Foam Kiss Maker 07/21/23
--- OUTSIDE RECORDS SUMMARY | 2025-04-05 09:45 | XMS_ITS | Encounter Summary ---
Author Organization [facility] Address [address] [place] [address] Phone Care Team Providers Care Career Developer Name Role Phone Keiko Reyes MD Primary Care Provider [phone] Encounter Details Date Type Department Care Team ([facility] st Contact Info) Description 05/24/2024 Office Communication [facility] [address] [place] [address] Alessandro Roman MD [address] [facility] [address] [place] [phone] Social History Tobacco Use Types Packs/Day Years [...] on filedocumented in this encounter Care Teams Career Developer Relationship Specialty Start Date End Date Keiko Reyes MD PCP - General Internal Medicine 03/15/21 documented as of this encounter
== END 2025-04-05 10:01 | disposition home or self-care (01) ==
LOC: HO.HGI 09:14
PROVIDERS: PCP Physician Assistant; Visit Provider Nurse Practitioner Family
DX: Z01.818 Encounter for other preprocedural examination (principal); Z12.11 Encounter for screening for malignant neoplasm of colon; Z86.0101 Personal history of adenomatous and serrated colon polyps
CPT/HCPCS: 99024

== ENCOUNTER → 2025-04-05 09:13 | Outpatient (BNVA) | payer MEDICARE, MEDICAID, SELFPAY | PROVIDERS: PCP Physician Assistant; Visit Provider Nurse Practitioner Family | DX: Z12.11 Encounter for screening for malignant neoplasm of colon (principal) | CPT/HCPCS: 99212 ==

== ENCOUNTER 2025-04-17 09:29 | Outpatient (REF) | payer MEDICARE, MEDICAID, SELFPAY ==
--- OUTSIDE RECORDS SUMMARY | 2025-04-17 09:50 | XMS_ITS | Encounter Summary ---
Author Organization [facility] Address [address] [place] [address] Care Team Providers Care Heavy Duty Custodian Name Role Phone Shelby Escobar Primary Care Provider [phone] Encounter Details Date Type Department Care Team (Late st Contact Info) Description 03/30/2025 Results Follow-Up [facility] [address] [place] [address] Credit Relationship Manager: Batsheva Saldivar MD [address] [place] [phone] Social History Tobacco Use Types Packs/Day Years [...] any questions. Best regards, Batsheva Marino MD Manufacturing Quality Technician Division of Rheumatology documented in this encounter Plan of Treatment Upcoming Encounters Date Type Department Care Team (Late st Contact Info) Description 10/16/2025 3:20 PM EST Follow-Up [facility] [address] [place] [phone] Credit Relationship Manager: Batsheva Saldivar MD [address] [place] [phone] documented as of this encounter Visit Diagnoses Not on filedocumented in this encounter Care Teams Heavy Duty Custodian Relationship Specialty Start Date End Date Shelby Escobar [address] [place] [phone] PCP - General Internal Medicine 01/19/25 documented as of this encounter
--- OUTSIDE RECORDS SUMMARY | 2025-04-17 09:50 | XMS_ITS | Clinical Summary ---
Author Organization [facility] Address [address] [facility] [address] [place] [address] Phone Care Team Providers Care Co Founder And Director Name Role Phone Keiko Reyes MD Primary Care Provider [phone] Allergies Active Allergy Reactions Criticality Noted Date [...] patient's age to complete this topic Insurance [facility] [place] [facility] [place] Care Teams Co Founder And Director Relationship Specialty Start Date End Date Keiko Reyes MD PCP - General Internal Medicine 03/15/21
--- OUTSIDE RECORDS SUMMARY | 2025-04-17 09:50 | XMS_ITS | Referral Summary ---
Author Organization [facility] Address [address] [place] [address] Care Team Providers Care Chief Executive Name Role Phone Wm Escobarzi Primary Care Provider [phone] Encounters Date Type Department Care Team Description 03/30/2025 Results Follow-Up [facility] [address] [place] [address] Environmental Auditor: Batsheva Saldivar MD 03/27/2025 1:50 PM EDT - 03/27/2025 11:59 PM EDT Hospital Encounter [facility] XRay [address] [place] [address] Batsheva Marino MD Chronic right shoulder pain; Pain in both wrists Discharge Disposition: Home or Self Care () 03/27/2025 1:00 PM EDT Office Visit [facility] [address] [place] [address] Environmental Auditor: Batsheva Saldivar MD Chronic right shoulder pain [...] any suspicion for an autoimmune process from Film Projector Operator, at which time we can re-connect for [...] Info) Description 10/16/2025 3:20 PM EST Follow-Up [facility] [address] [place] [address] Environmental Auditor: Batsheva Saldivar MD [address] [place] [address] Procedures * Due to [place] [employer] law, this organization might not be sharing [...] Last 3 Months Results * Due to [place] [employer] law, this organization might not be sharing [...] obtain the completed interpretation. ? Workstation ID: [id number] Narrative 03/27/2025 5:09 PM EDT COMPARISON: None. ?? Resulting Agency Comment [id number] Procedure Note Prince Estes MD - 03/27/2025 [...] possible to obtain thecompleted interpretation. Workstation ID: [id number] us Batsheva Marino MD IMG XR PROCEDURES [...] obtain the completed interpretation. ? Workstation ID: [id number] Narrative 03/27/2025 5:09 PM EDT COMPARISON: None. ?? Resulting Agency Comment [id number] Procedure Note Prince Estes MD - 03/27/2025 [...] possible to obtain thecompleted interpretation. Workstation ID: [id number] us Batsheva Marino MD IMG XR PROCEDURES [...] obtain the completed interpretation. ? Workstation ID: [id number] Narrative 03/27/2025 5:09 PM EDT COMPARISON: None. ?? Resulting Agency Comment [id number] Procedure Note Prince Estes MD - 03/27/2025 [...] possible to obtain thecompleted interpretation. Workstation ID: [id number] us Batsheva Marino MD IMG XR PROCEDURES [...] obtain the completed interpretation. ? Workstation ID: [id number] Narrative 03/27/2025 5:09 PM EDT COMPARISON: None. ?? Resulting Agency Comment [id number] Procedure Note Prince Estes MD - 03/27/2025 [...] possible to obtain thecompleted interpretation. Workstation ID: [id number] us Batsheva Marino MD IMG XR PROCEDURES [...] obtain the completed interpretation. ? Workstation ID: [id number] Narrative 03/27/2025 5:09 PM EDT COMPARISON: None. ?? Resulting Agency Comment [id number] Procedure Note Prince Estes MD - 03/27/2025 [...] possible to obtain thecompleted interpretation. Workstation ID: [id number] us Batsheva Marino MD IMG XR PROCEDURES [...] obtain the completed interpretation. ? Workstation ID: [id number] Narrative 03/27/2025 5:09 PM EDT COMPARISON: None. ?? Resulting Agency Comment [id number] Procedure Note Prince Esets MD - 03/27/2025 COMPARISON: None. IMPRESSION: FINDINGS/IMPRESSION: [...] possible to obtain thecompleted interpretation. Workstation ID: [id number] us Batsheva Marino MD IMG XR PROCEDURES Final Resul t * LAB - SCANNED (03/21/2025) us Onbase Scan [facility] LAB HISTORICAL RESULTS Final Result from Last 3 Months Insurance [facility] MCR REPLACE PPO [facility] Care Teams Chief Executive Relationship Specialty Start Date End Date Shelby Escobar [address] [place] [address] PCP - General Internal Medicine 01/19/25
--- OUTSIDE RECORDS SUMMARY | 2025-04-17 09:50 | XMS_ITS | Clinical Summary ---
Author Organization [facility] Address [address] [place] [address] Care Team Providers Care Wardrobe Assistant Name Role Phone Shelby Escobar PA-C [...] age to complete this topic Care Teams Wardrobe Assistant Relationship Specialty Start Date End Date Shelby Escobar, ROYCEC PCP - General Physician Crank Hand 07/21/23
--- OUTSIDE RECORDS SUMMARY | 2025-04-17 09:50 | XMS_ITS | Encounter Summary ---
Author Organization [facility] Address [address] [place] [address] Phone Care Team Providers Care Risk Control Specialist Name Role Phone Keiko Reyes MD Primary Care Provider [phone] Encounter Details Date Type Department Care Team ([facility] st Contact Info) Description 05/24/2024 Office Communication [facility] [address] [place] [address] Alessandro Roman MD [address] [facility] [address] [place] [phone] Social History Tobacco Use Types Packs/Day Years [...] on filedocumented in this encounter Care Teams Risk Control Specialist Relationship Specialty Start Date End Date Keiko Reyes MD PCP - General Internal Medicine 03/15/21 documented as of this encounter
--- OUTSIDE RECORDS SUMMARY | 2025-04-17 09:50 | XMS_ITS | Encounter Summary ---
Author Organization [facility] Address [address] [place] [address] Phone Care Team Providers Care Laundry Machine Mechanic Name Role Phone Keiko Reyes MD Primary Care Provider [phone] Encounter Details Date Type Department Care Team (Late st Contact Info) Description 04/16/2021 Orders Only [facility] [address] [place] [address] Otto Major MD Type 2 diabetes mellitus [...] MG/DL [facility] BUN 19 (6-20) MG/DL [facility] Creatinine 1.4(H) (0.5-1.0) MG/DL [facility] Sodium 143 (133-145) MMOL/L [facility] Potassium 4.8 (3.6-5.2) MMOL/L [facility] Chloride 104 (98-107) MMOL/L [facility] Bicarbonate (CO2) 31(H) (22-29) MMOL/L [facility] Anion Gap 8 (4-17) [facility] Albumin 4.2 (3.4-4.8) GM/DL [facility] Calcium 9.5 (8.6-10.5) MG/DL [facility] Phosphorus, [...] and Americans. Testing performed or reported by [facility], a Service of [facility], [address] [place] [address] Oksana Siegel MD, Superintendent Ammunition Storage Blood (Blood, Venous) 05/30/2021 1:18 PM EDT 05/30/2021 1:20 PM EDT us Otto Major MD LAB BLOOD ORDERABLES Final Resul t [facility] documented in this encounter Visit Diagnoses Diagnosis Type 2 diabetes mellitus with diabetic chronic kidney disease (HCC) Other proteinuria Hypertension Stage 3a chronic kidney disease (HCC) documented in this encounter Care Teams Laundry Machine Mechanic Relationship Specialty Start Date End Date Keiko Reyes MD PCP - General Internal Medicine 03/15/21 documented as of this encounter
--- OUTSIDE RECORDS SUMMARY | 2025-04-17 09:50 | XMS_ITS | Clinical Summary ---
Author Organization [facility] Address [address] [place] [address] Care Team Providers Care Boatwright Name Role Phone EscobarShelby story Primary Care Provider [phone] Allergies Active Allergy Reactions Criticality Noted Date [...] any suspicion for an autoimmune process from Cosmetic Sales Advisor, at which time we can re-connect for a relevant workup. Today without objective muscle weakness or rashes. No synovitis. No Raynaud's. Encounters Date Type Department Care Team Description 03/30/2025 Results Follow-Up [facility] [address] [place] [phone] Liquor Bridge Operator: Batsheva Saldivar MD 03/27/2025 1:50 PM EDT - 03/27/2025 11:59 PM EDT Hospital Encounter [facility] [address] [place] [address] Batsheva Marino MD Chronic right shoulder pain; Pain in both wrists Discharge Disposition: Home or Self Care () 03/27/2025 1:00 PM EDT Office Visit [facility] [address] [place] [address] Liquor Bridge Operator: Batsheva Saldivar MD Chronic right shoulder pain [...] Info) Description 10/16/2025 3:20 PM EST Follow-Up [facility] [address] [place] [address] [phone] Liquor Bridge Operator: Batsheva Saldivar MD [address] [place] [address] Health Maintenance Due Date Last Done [...] complete this topic Procedures * Due to [place] [employer] law, this organization might not be sharing [...] Last 3 Months Results * Due to [place] [employer] law, this organization might not be sharing [...] obtain the completed interpretation. ? Workstation ID: [id number] Narrative 03/27/2025 5:09 PM EDT COMPARISON: None. ?? Resulting Agency Comment [id number] Procedure Note Prince Estes MD - 03/27/2025 [...] possible to obtain thecompleted interpretation. Workstation ID: [id number] us Batsheva Marino MD IMG XR PROCEDURES [...] obtain the completed interpretation. ? Workstation ID: [id number] Narrative 03/27/2025 5:09 PM EDT COMPARISON: None. ?? Resulting Agency Comment [id number] Procedure Note Prince Estes MD - 03/27/2025 [...] possible to obtain thecompleted interpretation. Workstation ID: [id number] us Batsheva Marino MD IMG XR PROCEDURES [...] obtain the completed interpretation. ? Workstation ID: [id number] Narrative 03/27/2025 5:09 PM EDT COMPARISON: None. ?? Resulting Agency Comment [id number] Procedure Note Prince Estes MD - 03/27/2025 [...] possible to obtain thecompleted interpretation. Workstation ID: [id number] us Batsheva Marino MD IMG XR PROCEDURES [...] obtain the completed interpretation. ? Workstation ID: [id number] Narrative 03/27/2025 5:09 PM EDT COMPARISON: None. ?? Resulting Agency Comment [id number] Procedure Note Prince Estes MD - 03/27/2025 [...] possible to obtain thecompleted interpretation. Workstation ID: [id number] Batsheva Marino MD IMG XR PROCEDURES Final [...] obtain the completed interpretation. ? Workstation ID: [id number] Narrative 03/27/2025 5:09 PM EDT COMPARISON: None. ?? Resulting Agency Comment [id number] Procedure Note Prince Estes MD - 03/27/2025 [...] possible to obtain thecompleted interpretation. Workstation ID: [id number] us Batsheva Marino MD IMG XR PROCEDURES [...] obtain the completed interpretation. ? Workstation ID: [id number] Narrative 03/27/2025 5:09 PM EDT COMPARISON: None. ?? Resulting Agency Comment [id number] Procedure Note Prince Estes MD - 03/27/2025 [...] possible to obtain thecompleted interpretation. Workstation ID: [id number] us Batsheva Marino MD IMG XR PROCEDURES Final Resul t * LAB - SCANNED (03/21/2025) us Onbase Scan [facility] LAB HISTORICAL RESULTS Final Result from Last 3 Months Insurance BCBS MCR REPLACE PPO [facility] Care Teams Boatwright Relationship Specialty Start Date End Date Shelby Escobar [address] [place] [address] [phone] PCP - General Internal Medicine 01/19/25
[2025-04-17 11:49] LABS: Cholesterol 185 mg/dL (<200); HDL Cholesterol 39 mg/dL (>40); LDL Cholesterol Calculated 97 mg/dL (<100); Triglycerides 245 mg/dL (<150)
== END 2025-04-17 09:30 | disposition home or self-care (01) ==
LOC: HO.WFDLDS 09:29
PROVIDERS: Visit Provider Physician Assistant
DX: E78.5 Hyperlipidemia, unspecified (principal)
CPT/HCPCS: 36415; 80061

== ENCOUNTER 2025-04-20 11:11 | Outpatient (AMB) | payer MEDICARE, MEDICAID, SELFPAY ==
--- NOTE | 2025-04-20 11:28 | MHC.PC.OV ---
Vital Signs 04/20/25 11:33 Height 5 ft 2 in Weight 272 lb 8 oz BMI 49.8 BP 132/76 Blood Pressure Location Lt brachial Position Sitting Respiration 14 Pulse 66 Pulse Source Pulse Oximeter Pulse Oximetry (%) 95 Oxygen Delivery Method Room Air Intake Visit Reasons: med check Intake Note: Medication follow up Composite Layup Worker Required: No Allergies citalopram [From Celexa] Allergy (Mild, Verified 04/20/25 11:28) cramps Niacin Preparations Allergy (Mild, Verified 04/20/25 11:28) vomitinf/flu symptoms/flushing lisinopril Allergy (Unknown, Verified 04/20/25 11:28) cough/all ACEI niacin Allergy (Unknown, Verified 04/20/25 11:28) unknown tirzepatide [From Mounjaro] Adverse Reaction (Severe, Verified 04/20/25 11:28) Diarrhea methotrexate Adverse Reaction (Intermediate, Verified 04/20/25 11:28) Nausea metformin Adverse Reaction (Unknown, Verified 04/20/25 11:28) Abdominal Pain ziprasidone [Geodon] Adverse Reaction (Unknown, Verified 04/20/25 11:28) Unknown Medication List - Last Reconciled 04/20/25 by Shelby Escobar PA-C acetone (urine) test (Ketone Urine Test strips) prn glucose over 250, illness, nausea or vomiting tid atenolol 75 mg (1.5 x 50 mg) PO BID 90 days bisacodyl (Dulcolax (bisacodyl)) 20 mg (4 x 5 mg) PO ONCE 1 day blood sugar diagnostic As directed testing 5x per day. blood sugar diagnostic (OneTouch Verio test strips) USE 5 TIMES DAILY blood-glucose meter (OneTouch Verio Meter) As directed blood-glucose sensor (DexNarvar G7 Sensor device) As directed every 10 days bupropion HCl XL (Wellbutrin XL) 300 mg PO QAM cetirizine (Zyrtec) 10 mg PO DAILY chlorthalidone 25 mg PO DAILY cholecalciferol (vitamin D3) 2,000 units PO DAILY clobetasol 0.05% mL topical diclofenac sodium 1% 1 g topical TID glucagon 3 mg/actuation (Baqsimi) 3 mg intranasal ONCE PRN 30 days MDD 6mg may repeat in 15 minutes insulin pump cart,auto,BT,G6/7 (Omnipod 5 G6-G7 Pods (Gen 5) subcutaneous cartridge) CHANGE POD EVERY 72 HOURS insulin pump cart,auto,BT-cntr (Omnipod 5 G6 Intro Kit (Gen 5) subcutaneous cartridge with controller) As directed insulin regular hum U-500 conc (Humulin R U-500 (Concentrated) Insulin) Use up to 450 units via insulin pump subcut daily; insulin U-500 syringe-needle As directed 4 times a day lactobacillus combination no.4 (Probiotic) 3,000 mmu cells PO DAILY lancets As directed 5 times a day lorazepam 0.5 mg PO DAILY PRN 30 days losartan 50 mg PO BID 90 days nystatin 400,000 units (4 mL) buccal QID pen needle, diabetic (Comfort EZ Pen Martin) As directed polyethylene glycol 3350 (Miralax) 238 grams PO ONCE risankizumab-rzaa (Skyrizi) mg subcut Tobacco use date assessed: 04/20/25 Dental Screening Dental Screen Date: 04/20/25 Did you have a dental visit in the last 12 months?: No Did you have a dental problem in the last 6 months where you did not have access to dental care?: No Was dental information given to patient?: Patient has dentist HPI med check HPI Details Patient is a 64-year-old female with a significant past medical history of diabetes, diabetic nephropathy, chronic kidney disease, anemia, anxiety and depression, psoriatic arthritis, hypertension, hyperlipidemia morbid obesity presenting today for a follow up. Endo: Her A1c was 6.8. Managed by endocrinology. Controlled with her current insulin regimen. Recently starting on a diet. Derm: Psoriasis was controlled on Taltz but insurance would not cover. She is going back [facility]. She did have some exacerbation of arthritic symptoms however, stopped the statin and states that this improved significantly. Rheum: Recently discontinued simvastatin and states that her aches and pains in her hands are significantly improved. She is seeing [facility] rheumatology next week. PULM: Was recently seen and treated for a possible lung infection with doxycycline. States that her cough has significantly improved/resolved. She did repeat her chest x-ray which is consistent with interstitial lung disease and possible pulmonary edema. Has an appointment for a CT soon. She is following with pulmonology. She says that she is not really getting any shortness on breath. There is no chest pain. Nephro: Labs are stable. Follows closely with Nephrology. Psych: She states that she is actually responding to the Wellbutrin and she is happy with this as she feels less hungry. She states that it seems to help her control her emotions little bit better. She does not feel a significant difference but does think that she could benefit from an increased dosage. She is following with her therapist closely. No SI/HI. She has tried prozac, zoloft, lexapro, geodon, CV: Blood pressure today in the office is 132/76. She is currently on losartan 50 mg daily, chlorthalidone 25 mg and atenolol 75 mg twice a day. Cholesterol is currently being diet controlled. She has been off of the statin for 2 months and states that her aches and pains are a lot better. Colonoscopy: had intake, waiting to hear on appointment. Mammo: OKD, booked in May at [place] Bone density: believe [facility] Medical History Type 2 diabetes mellitus Hx of mammogram Psoriatic arthritis Anxiety Arthritis Anemia Psoriasis Stress incontinence Morbid obesity Hypertension Dyslipidemia FPC (current) use of insulin Surgical History Hx of colonoscopy History of selective laser trabeculoplasty History of total abdominal hysterectomy and bilateral salpingo-oophorectomy History of carpal tunnel release Hx of cholecystectomy Family History Father CVD (cardiovascular disease) Obesity Diabetes Alcohol abuse CAD (coronary artery disease) Mother CVD (cardiovascular disease) Diabetes Obesity Chronic lymphocytic leukemia Hx of myocardial infarction Brother Substance abuse Daughter FH: mental illness Paternal Aunt Breast cancer Social History (Updated 04/20/25 @ 11:37 by Lucy Benavides CMA) Household Members: Spouse and Children Housing: Condominium Alcohol intake: current Alcohol intake frequency: does not drink Patient Tobacco Use Status: Never used Tobacco e-Cigarette/Vaping Use: Never Used Second Hand Smoke Exposure: No service: No Current occupational status: disabled Current occupational exposures/hazards: No Cognitive needs: No Hearing needs: Yes Vision needs: Yes Questionnaire PHQ-9 Over the last 2 weeks, how often have you been bothered by any of the following problems? 1. Little interest or pleasure in doing things: several days 2. Feeling down, depressed, or hopeless: nearly every day 3. Trouble falling or staying asleep, or sleeping too much: nearly every day 4. Feeling tired or having little energy: more than half the days 5. Poor appetite or overeating: not at all 6. Feeling bad about yourself - or that you are a failure or have let yourself or your family down: not at all 7. Trouble concentrating on things, such as reading the newspaper or watching television: several days 8. Moving or speaking so slowly that other people could have noticed. Or the opposite - being so fidgety or restless that you have been moving around a lot more than usual: not at all 9. Thoughts that you would be better off or of hurting yourself in some way: not at all Total score: 10 Depression Screening Interpretation: Positive Depression Screening Done: Yes 15948 - PHQ-9 Billing: Yes Source: Developed by Drs. Eligio Méndez, Mignon Colon, Pepe Turner and colleagues, with an educational nanette from [employer]. Thrive Questionnaire Date Thrive assessed: 04/20/25 I am a: Patient What is your living situation today?: I have a steady place to live Within the past 12 months, did the food you bought not last and you didn't have the money to get more?: Never true Within the past 12 months, did you worry whether your food would run out before you got money to buy more?: Never true Do you have trouble paying for medicines?: No Do you have trouble getting transportation to medical appointments?: No Do you have trouble paying your heating and electricity bill?: No Do you have trouble taking care of your child, family member or friend?: No Do you have trouble with day-to-day activities such as bathing, preparing meals, shopping, managing finances, etc.?: No Are you currently unemployed and looking for a job?: No Are you interested in more education?: No Please select the resources that you would like help with: None Currently or been in a relationship where the following occur: No concerns reported THRIVE Score: 0 AUDIT C Alcohol Use Questionnaire (AUDIT-C) 1. How often do you have a drink containing alcohol?: 2-4 times a month 2. How many drinks containing alcohol do you have on a typical day when you are drinking?: 1 or 2 3. How often do you have six or more drinks on one occasion?: Never Total Score: 2 DENNIS-7 AMB Questionnaire DENNIS-7 Date DENNIS - 7 assessed: 04/20/25 Feeling nervous, anxious, or on edge: 3 = Nearly every day Not being able to stop or control worryin = Nearly every day Worrying too much about different things: 3 = Nearly every day Trouble relaxin = Several days Being so restless that it is hard to sit still: 0 = Not at all Becoming easily annoyed or irritable: 2 = More than half the days Feeling afraid as if something awful might happen: 0 = Not at all Total DENNIS-7 score (0-4 normal; 5-9 mild; 10-14 moderate; 15-21 severe): 12 Source: Developed by Drs. Eligio Méndez, Mignon Colon, Pepe Turner and colleagues, with an educational nanette from [employer]. DENNIS-7 Assessment Billing DENNIS-7 Assessment Tool: DENNIS-7 Assessment 60134 Physical exam (Primary Care) Vital Signs: Last Vital Signs Pulse 66 04/20/25 11:33 Resp 14 04/20/25 11:33 BP 132/76 04/20/25 11:33 Pulse Ox 95 04/20/25 11:33 Oxygen Delivery Method Room Air 04/20/25 11:33 BMI result Body Mass Index 49.8 Tobacco/Smoking Status: Tobacco use Status Tobacco use date assessed 04/20/25 04/20/25 11:34 Patient Tobacco Use Status Never used Tobacco 04/20/25 11:37 e-Cigarette/Vaping Use Never Used 04/20/25 11:37 PHQ-9: PHQ-9 Score PHQ-9: Total score 10 04/20/25 11:41 Depression Screening Interpretation: Positive Thrive Assessment: Date of Thrive Assessment Date Thrive assessed 04/20/25 04/20/25 11:34 Currently or been in a relationship where the following occur: No concerns reported Const Orientation/consciousness: patient oriented x3 HENMT Ears: hearing grossly normal bilaterally Neck Thyroid: Thyroid normal Lymphatic: no lymphadenopathy noted Resp Auscultation: clear to auscultation bilaterally Cardio Rate: regular rate Rhythm: regular rhythm Heart sounds: S1 normal heart sound present and S2 normal heart sound present GI Inspection: Yes normal to inspection Palpation (GI): Soft to palpation and Other GI palpation findings present (nontender, no cva tenderness) Auscultation: normoactive bowel sounds Rectal Exam - Female: deferred Skin General skin exam: no rashes or lesions noted Neuro General: patient oriented x3, gait normal and no focal motor deficits Coding Level of Care Code Est Pt Level 4 (51020) Complex EM visit Add On G2211 Diagnoses Diabetic nephropathy associated with type 2 diabetes mellitus E11.21 Dyslipidemia E78.5 Primary hypertension I10 Hypertension type: primary hypertension CKD stage 3 due to type 2 diabetes mellitus E11.22; N18.30 Anxiety with depression F41.8 Additional Codes DENNIS-7 Assessment Billing - DENNIS-7 Assessment Tool: DENNIS-7 Assessment 75191 ([id number]) PHQ-9 - 73415 - PHQ-9 Billing: Yes ([id number]) Assessment & Plan Assessment & Plan (1) Diabetic nephropathy associated with type 2 diabetes mellitus: Code(s): E11.21 - Type 2 diabetes mellitus with diabetic nephropathy Category: Medical Plan: Continue current regimen. Following closely with endocrinology (2) Dyslipidemia: Code(s): E78.5 - Hyperlipidemia, unspecified Category: Medical Plan: Improved cholesterol with diet changes (3) Hypertension: Code(s): I10 - Essential (primary) hypertension Category: Medical Qualifiers: Hypertension type: primary hypertension Qualified Code(s): I10 - Essential (primary) hypertension Plan: WNL. Continue current regimen (4) CKD stage 3 due to type 2 diabetes mellitus: Code(s): E11.22 - Type 2 diabetes mellitus with diabetic chronic kidney disease; N18.30 - Chronic kidney disease, stage 3 unspecified Category: Medical Plan: Stable. We will continue to monitor (5) Anxiety with depression: Code(s): F41.8 - Other specified anxiety disorders Category: Medical Plan: Increase Wellbutrin to 300 mg. Orders: Orders Complete Blood Count Auto Diff Today E11.21 - Type 2 diabetes mellitus with diabetic nephropathy, E11.22 - Type 2 diabetes mellitus with diabetic chronic kidney disease, E78.5 - Hyperlipidemia, unspecified, F41.8 - Other specified anxiety disorders, I10 - Essential (primary) hypertension, N18.30 - Chronic kidney disease, stage 3 unspecified TSH reflex Free T4 Today E11.21 - Type 2 diabetes mellitus with diabetic nephropathy, E11.22 - Type 2 diabetes mellitus with diabetic chronic kidney disease, E78.5 - Hyperlipidemia, unspecified, F41.8 - Other specified anxiety disorders, I10 - Essential (primary) hypertension, N18.30 - Chronic kidney disease, stage 3 unspecified Microalbumin, Random (w Creat) Today E11.21 - Type 2 diabetes mellitus with diabetic nephropathy, E11.22 - Type 2 diabetes mellitus with diabetic chronic kidney disease, E78.5 - Hyperlipidemia, unspecified, F41.8 - Other specified anxiety disorders, I10 - Essential (primary) hypertension, N18.30 - Chronic kidney disease, stage 3 unspecified Lipid Panel Today E11.21 - Type 2 diabetes mellitus with diabetic nephropathy, E11.22 - Type 2 diabetes mellitus with diabetic chronic kidney disease, E78.5 - Hyperlipidemia, unspecified, F41.8 - Other specified anxiety disorders, I10 - Essential (primary) hypertension, N18.30 - Chronic kidney disease, stage 3 unspecified Comprehensive [place]. Panel Fast Today E11.21 - Type 2 diabetes mellitus with diabetic nephropathy, E11.22 - Type 2 diabetes mellitus with diabetic chronic kidney disease, E78.5 - Hyperlipidemia, unspecified, F41.8 - Other specified anxiety disorders, I10 - Essential (primary) hypertension, N18.30 - Chronic kidney disease, stage 3 unspecified Medications: New bupropion HCl XL (Wellbutrin XL) 300 mg PO QAM 90 tabs 1RF cholecalciferol (vitamin D3) 2,000 units PO DAILY 90 caps 3RF Discontinued bupropion HCl XL (Wellbutrin XL) Discontinued Reason: Doctor's Order 150 mg PO QAM 90 tabs 0RF
[2025-04-20 11:33] VITALS: BP 132/76; PULSE 66; RESP 14; O2SAT 95; BMI 49.8
--- OUTSIDE RECORDS SUMMARY | 2025-04-20 11:51 | XMS_ITS | Referral Summary ---
Author Organization [facility] Address [address] [place] [address] Care Team Providers Care Press Operator Instant Print Shop Name Role Phone Wm Escobarzi Primary Care Provider [phone] Encounters Date Type Department Care Team Description 03/30/2025 Results Follow-Up [facility] [address] [place] [phone] Overseer Kosher Kitchen: Batsheva Saldivar MD 03/27/2025 1:50 PM EDT - 03/27/2025 11:59 PM EDT Hospital Encounter [facility] [address] [place] [address] Batsheva Marino MD Chronic right shoulder pain; Pain in both wrists Discharge Disposition: Home or Self Care () 03/27/2025 1:00 PM EDT Office Visit [facility] [address] [place] [phone] Overseer Kosher Kitchen: Batsheva Saldivar MD Chronic right shoulder pain [...] any suspicion for an autoimmune process from Selling Underwriter, at which time we can re-connect for [...] Info) Description 10/16/2025 3:20 PM EST Follow-Up [facility] [address] [place] [address] Overseer Kosher Kitchen: Batsheva Saldivar MD [address] [place] [address] Procedures * Due to [place] [employer] law, this organization might not be sharing [...] Last 3 Months Results * Due to [place] [employer] law, this organization might not be sharing [...] obtain the completed interpretation. ? Workstation ID: [id number] Narrative 03/27/2025 5:09 PM EDT COMPARISON: None. ?? Resulting Agency Comment [id number] Procedure Note Prince Estes MD - 03/27/2025 [...] possible to obtain thecompleted interpretation. Workstation ID: [id number] us Batsheva Marino MD IMG XR PROCEDURES [...] obtain the completed interpretation. ? Workstation ID: [id number] Narrative 03/27/2025 5:09 PM EDT COMPARISON: None. ?? Resulting Agency Comment [id number] Procedure Note Prince Estes MD - 03/27/2025 [...] possible to obtain thecompleted interpretation. Workstation ID: [id number] us Batsheva Marino MD IMG XR PROCEDURES [...] obtain the completed interpretation. ? Workstation ID: [id number] Narrative 03/27/2025 5:09 PM EDT COMPARISON: None. ?? Resulting Agency Comment [id number] Procedure Note Prince Estes MD - 03/27/2025 [...] possible to obtain thecompleted interpretation. Workstation ID: [id number] us Batsheva Marino MD IMG XR PROCEDURES [...] obtain the completed interpretation. ? Workstation ID: [id number] Narrative 03/27/2025 5:09 PM EDT COMPARISON: None. ?? Resulting Agency Comment [id number] Procedure Note Prince Estes MD - 03/27/2025 [...] possible to obtain thecompleted interpretation. Workstation ID: [id number] us Batsheva Marino MD IMG XR PROCEDURES [...] obtain the completed interpretation. ? Workstation ID: [id number] Narrative 03/27/2025 5:09 PM EDT COMPARISON: None. ?? Resulting Agency Comment [id number] Procedure Note Prince Estes MD - 03/27/2025 [...] possible to obtain thecompleted interpretation. Workstation ID: [id number] us Batsheva Marino MD IMG XR PROCEDURES [...] obtain the completed interpretation. ? Workstation ID: [id number] Narrative 03/27/2025 5:09 PM EDT COMPARISON: None. ?? Resulting Agency Comment [id number] Procedure Note Prince Estes MD - 03/27/2025 [...] possible to obtain thecompleted interpretation. Workstation ID: [id number] us Batsheva Marino MD IMG XR PROCEDURES Final Resul t * LAB - SCANNED (03/21/2025) us Onbase Scan [facility] LAB HISTORICAL RESULTS Final Result from Last 3 Months Insurance [facility] MCR REPLACE PPO [facility] Care Teams Press Operator Instant Print Shop Relationship Specialty Start Date End Date Shelby Escobar [address] [place] [address] PCP - General Internal Medicine 01/19/25
--- OUTSIDE RECORDS SUMMARY | 2025-04-20 11:51 | XMS_ITS | Clinical Summary ---
Author Organization [facility] Address [address] [place] [address] Care Team Providers Care Associate Of Science In Nursing Name Role Phone EscobarShelby story Primary Care Provider [phone] Allergies Active Allergy Reactions Criticality Noted Date [...] any suspicion for an autoimmune process from Surgical Processor, at which time we can re-connect for a relevant workup. Today without objective muscle weakness or rashes. No synovitis. No Raynaud's. Encounters Date Type Department Care Team Description 03/30/2025 Results Follow-Up [facility] [address] [place] [id number] Jitterbug Operator: Batsheva Saldivar MD 03/27/2025 1:50 PM EDT - 03/27/2025 11:59 PM EDT Hospital Encounter [facility] XRay [address] [place] [phone] Batsheva Marino MD Chronic right shoulder pain; Pain in both wrists Discharge Disposition: Home or Self Care () 03/27/2025 1:00 PM EDT Office Visit [facility] [address] [place] [id number] Jitterbug Operator: Batsheva Saldivar MD Chronic right shoulder [...] Info) Description 10/16/2025 3:20 PM EST Follow-Up [facility] [address] [place] [address] [id number] Jitterbug Operator: Batsheva Saldivar MD [address] [place] [phone] Health Maintenance Due Date Last Done [...] complete this topic Procedures * Due to [place] DabK[employer] law, this organization might not be sharing [...] Last 3 Months Results * Due to [place] Dab[place] law, this organization might not be sharing [...] obtain the completed interpretation. ? Workstation ID: [id number] Narrative 03/27/2025 5:09 PM EDT COMPARISON: None. ?? Resulting Agency Comment [id number] Procedure Note Prince Estes MD - 03/27/2025 [...] possible to obtain thecompleted interpretation. Workstation ID: [id number] us Batsheva Marino MD IMG XR PROCEDURES [...] obtain the completed interpretation. ? Workstation ID: [id number] Narrative 03/27/2025 5:09 PM EDT COMPARISON: None. ?? Resulting Agency Comment [id number] Procedure Note Prince Estes MD - 03/27/2025 [...] possible to obtain thecompleted interpretation. Workstation ID: [id number] us Batsheva Marino MD IMG XR PROCEDURES [...] obtain the completed interpretation. ? Workstation ID: [id number] Narrative 03/27/2025 5:09 PM EDT COMPARISON: None. ?? Resulting Agency Comment [id number] Procedure Note Prince Estes MD - 03/27/2025 [...] possible to obtain thecompleted interpretation. Workstation ID: [id number] us Batsheva Marino MD IMG XR PROCEDURES [...] obtain the completed interpretation. ? Workstation ID: [id number] Narrative 03/27/2025 5:09 PM EDT COMPARISON: None. ?? Resulting Agency Comment [id number] Procedure Note Prince Estes MD - 03/27/2025 [...] possible to obtain thecompleted interpretation. Workstation ID: [id number] Batsheva Marino MD IMG XR PROCEDURES Final [...] obtain the completed interpretation. ? Workstation ID: [id number] Narrative 03/27/2025 5:09 PM EDT COMPARISON: None. ?? Resulting Agency Comment [id number] Procedure Note Prince Estes MD - 03/27/2025 [...] possible to obtain thecompleted interpretation. Workstation ID: [id number] us Batsheva Marino MD IMG XR PROCEDURES [...] obtain the completed interpretation. ? Workstation ID: [id number] Narrative 03/27/2025 5:09 PM EDT COMPARISON: None. ?? Resulting Agency Comment [id number] Procedure Note Prince Estes MD - 03/27/2025 [...] possible to obtain thecompleted interpretation. Workstation ID: [id number] us Batsheva Marino MD IMG XR PROCEDURES Final Resul t * LAB - SCANNED (03/21/2025) us Onbase Scan [facility] LAB HISTORICAL RESULTS Final Result from Last 3 Months Insurance BCBS MCR REPLACE PPO [facility] Care Teams Associate Of Science In Nursing Relationship Specialty Start Date End Date Shelby Escobar [address] [place] [address] [phone] PCP - General Internal Medicine 01/19/25
--- OUTSIDE RECORDS SUMMARY | 2025-04-20 11:51 | XMS_ITS | Encounter Summary ---
Author Organization [facility] Address [address] [place] [address] Phone Care Team Providers Care Manager Power Name Role Phone Keiko Reyes MD Primary Care Provider [phone] Encounter Details Date Type Department Care Team ([facility] st Contact Info) Description 05/24/2024 Office Communication [facility] [address] [place] [address] Alessandro Roman MD [id number] [facility] [address] [place] [phone] Social History Tobacco Use Types Packs/Day Years [...] on filedocumented in this encounter Care Teams Manager Power Relationship Specialty Start Date End Date Keiko Reyes MD PCP - General Internal Medicine 03/15/21 documented as of this encounter
--- OUTSIDE RECORDS SUMMARY | 2025-04-20 11:51 | XMS_ITS | Encounter Summary ---
Author Organization [facility] Address [address] [place] [address] Phone Care Team Providers Care Solar Energy Specialist Name Role Phone Keiko Reyes MD Primary Care Provider [phone] Encounter Details Date Type Department Care Team (Late st Contact Info) Description 04/16/2021 Orders Only [facility] [address] [place] [phone] Otto Major MD Type 2 diabetes mellitus [...] 1:18 PM EDT) Glucose 141(H) (70-99) MG/DL [facility] BUN 19 (6-20) MG/DL [facility] Creatinine 1.4(H) (0.5-1.0) MG/DL [facility] Sodium 143 (133-145) MMOL/L [facility] Potassium 4.8 (3.6-5.2) MMOL/L [facility] Chloride 104 (98-107) MMOL/L [facility] Bicarbonate (CO2) 31(H) (22-29) MMOL/L [facility] Anion Gap 8 (4-17) [facility] Albumin 4.2 (3.4-4.8) GM/DL [facility] Calcium 9.5 (8.6-10.5) MG/DL [facility] Phosphorus, Serum 3.9 (2.5-4.5) MG/DL [facility] Est GFR Non 41 ML/MIN/1.7 3 M2 [facility] Comment: Creatinine based estimated glomerular filtration rate (eGFR) is calculated using the Chronic Kidney Disease Epidemiology Collaboration (CKD-EPI). The CKD-EPI creatinine equation has not been validated in children (<18 years), women or in some racial or ethnic subgroups other than Caucasians and Americans. EST GFR 47 ML/MIN/1.7 3 M2 [facility] Comment: Creatinine based estimated glomerular filtration rate (eGFR) is calculated using the Chronic Kidney Disease Epidemiology Collaboration (CKD-EPI). The CKD-EPI creatinine equation has not been validated in children (<18 years), women or in some racial or ethnic subgroups other than Caucasians and Americans. Testing performed or reported by [facility], a Service of [facility], [address] [place] [address] Oksana Siegel MD, Service Vehicle Operator Blood specimen (specimen) Venous blood / Unknown 05/30/2021 1:18 PM EDT 05/30/2021 1:20 PM EDT us Otto Major MD LAB BLOOD ORDERABLES Final Resul t [facility] documented in this encounter Visit Diagnoses Diagnosis Type 2 diabetes mellitus with diabetic chronic kidney disease (HCC) Other proteinuria Hypertension Stage 3a chronic kidney disease (HCC) documented in this encounter Care Teams Solar Energy Specialist Relationship Specialty Start Date End Date Keiko Reyes MD PCP - General Internal Medicine 03/15/21 documented as of this encounter
--- OUTSIDE RECORDS SUMMARY | 2025-04-20 11:52 | XMS_ITS | Clinical Summary ---
Author Organization [facility] Address [address] [facility] [address] [place] [address] Phone Care Team Providers Care Manager Front Name Role Phone Keiko Reyes MD Primary Care Provider [phone] Allergies Active Allergy Reactions Criticality Noted Date [...] patient's age to complete this topic Insurance [facility] Medicaid [place] [facility] Medicaid [place] Care Teams Manager Front Relationship Specialty Start Date End Date Keiko Reyes MD PCP - General Internal Medicine 03/15/21
--- OUTSIDE RECORDS SUMMARY | 2025-04-20 11:52 | XMS_ITS | Encounter Summary ---
Author Organization [facility] Address [address] [place] [address] Care Team Providers Care Credentialing Analyst Name Role Phone Shelby Escobar Primary Care Provider [phone] Encounter Details Date Type Department Care Team (Late st Contact Info) Description 03/30/2025 Results Follow-Up [facility] Rhe[facility]ology Clinic [address] [place] [address] Building Maintenance Repairer: Batsheva Saldivar MD [address] [place] [phone] Social History Tobacco Use Types Packs/Day Years [...] any questions. Best regards, Batsheva Marino MD Mold Bunch Trimmer Division of Rheumatology documented in this encounter Plan of Treatment Upcoming Encounters Date Type Department Care Team (Late st Contact Info) Description 10/16/2025 3:20 PM EST Follow-Up [facility] [address] [place] [address] Building Maintenance Repairer: Batsheva Saldivar MD [address] [place] [address] documented as of this encounter Visit Diagnoses Not on filedocumented in this encounter Care Teams Credentialing Analyst Relationship Specialty Start Date End Date Shelby Escobar [address] [place] [id number] PCP - General Internal Medicine 01/19/25 documented as of this encounter
== END 2025-04-20 11:59 | disposition home or self-care (01) ==
LOC: HO.HMCFM 11:12
PROVIDERS: PCP Physician Assistant; Visit Provider Physician Assistant
DX: I12.9 Hypertensive chronic kidney disease with stage 1 through stage 4 chronic kidney disease, or unspecified chronic kidney disease (principal); E11.21 Type 2 diabetes mellitus with diabetic nephropathy; E11.22 Type 2 diabetes mellitus with diabetic chronic kidney disease; N18.30 Chronic kidney disease, stage 3 unspecified; E78.5 Hyperlipidemia, unspecified; F41.8 Other specified anxiety disorders

== ENCOUNTER → 2025-04-20 11:11 | Outpatient (BNVA) | payer MEDICARE, MEDICAID, SELFPAY | PROVIDERS: PCP Physician Assistant; Visit Provider Physician Assistant | DX: E11.21 Type 2 diabetes mellitus with diabetic nephropathy (principal); E11.22 Type 2 diabetes mellitus with diabetic chronic kidney disease; I12.9 Hypertensive chronic kidney disease with stage 1 through stage 4 chronic kidney disease, or unspecified chronic kidney disease; N18.30 Chronic kidney disease, stage 3 unspecified; D63.1 Anemia in chronic kidney disease; L40.50 Arthropathic psoriasis, unspecified; E78.5 Hyperlipidemia, unspecified; E66.01 Morbid (severe) obesity due to excess calories; F41.8 Other specified anxiety disorders; Z68.42 Body mass index [BMI] 45.0-49.9, adult | CPT/HCPCS: 96127; 99212 ==

== ENCOUNTER 2025-05-05 11:19 | Outpatient (AMB) | payer MEDICARE, MEDICAID, SELFPAY ==
--- NOTE | 2025-05-05 08:36 | A.OFFVIS_ITS ---
Vital Signs 05/05/25 11:26 Height 5 ft 3 in Weight 270 lb 4.587 oz BMI 47.9 BP 126/80 Blood Pressure Location Rt brachial Position Sitting Pulse 69 Pulse Source Pulse Oximeter Pulse Oximetry (%) 99 Oxygen Delivery Method Room Air Intake Visit Reasons: T2DM Intake Note: Patient presents today for a follow-up on Type 1 Diabetes Mellitus: Last Diabetic eye exam was on: 06/2024 Last Podiatry exam was on: Does not see a Speed Operator Most recent HbA1c: 6.8%, 03/22/2025 Random Glucose- 109 mg/dL, Today Biological Sciences Professor Required: No Accompanied by: Self / Same As Patient Allergies citalopram [From Celexa] Allergy (Mild, Verified 05/05/25 11:22) cramps Niacin Preparations Allergy (Mild, Verified 05/05/25 11:22) vomitinf/flu symptoms/flushing lisinopril Allergy (Unknown, Verified 05/05/25 11:22) cough/all ACEI niacin Allergy (Unknown, Verified 05/05/25 11:22) unknown tirzepatide [From Mounjaro] Adverse Reaction (Severe, Verified 05/05/25 11:22) Diarrhea methotrexate Adverse Reaction (Intermediate, Verified 05/05/25 11:22) Nausea metformin Adverse Reaction (Unknown, Verified 05/05/25 11:22) Abdominal Pain ziprasidone [Geodon] Adverse Reaction (Unknown, Verified 05/05/25 11:22) Unknown HPI Comments Details: Patient is a 64-year-old female with DM type 2 diagnosed in 2002 who presents for management of diabetes. She was last seen by myself 3 months ago. She has been on an Omnipod 5 with G6 for several years. Hgb A1C 03/22/25 6.8% 12/21/24 6.3%, 10/07/24 6.9%, 04/04/24 6.8% Diabetes medications: Humulin U 500 via Omnipod 5. Raghu had some GI intolerance in the past restarted and felt too much nausea Reports that she did not tolerate Ozempic or Trulicity due to constipation. She did not tolerate Jardiance due to vaginal itching. She has noticed that since starting Wellbutrin her appetite has decreased and she has lost 7 lb since her last visit. Dexcom average glucose: 126 14 day continuous glucose monitor report reviewed Glucose Managment indicator 6.3 % Days with CGM data 95 % TIme in ranges: 0 % very high (above 250) 5 % high ?(181-250) 92 % in range ?(70-180] 3 % low (69-55) 0 % ?very low (below 54) Interpretation: Well-controlled with postprandial lows to 70 after lunch and at times after supper Backup pump failure plan U500 75 units twice daily Basal rate(s) (units/hour) : 12 AM? to 1 AM? 1.5 units / hr 1 AM? to 8 AM? 1.4 units / hr 8 AM to 8 PM? 1.3 units / hr 8 PM? to 12 AM? 1.7 units / hr Bolus setting Insulin Carbohydrate Ratio (s) 12 AM? to 12 pm 1: 5.5 12 PM to 12 AM 1:5.5 new 1.6 Correction Factor / Sensitivity Factor 12am 1:15 12pm 1:22 4pm 1:22 Active Insulin Time:? 5 hours Target(s): 12 AM? to 12 PM? 120 mg/dL Correction Threshhold 180 mg/d Symptoms reported: denies numbness, tingling, cramping in lower extremities sees podiatry on Dr. Stephenson on an infrequent basis Hypoglycemia:none , Symptoms of shakiness and sweatiness. Very rare hypoglycemia Treats low with 3-4 tablets has been having some lows after lunch when she has higher before lunch Exercise: limited due to arthritis, walks some. She is having less knee pain Patient Financial Coordinator - CDE education: currently Has been going to the and using a treadmill at home No retinopathy: Ophthalmology evaluation: last appt in 06/2024 Has nephropathy: 11/29/25 EGFR 40 03/23/25 EGFR 47 06/16/24 microalbumin 311.0 On ARB Other specialists: nephrology, dermatology, no longer seeing hematology(anemia resolved) She has follow-up scheduled with nephrology Dr. Major LDL 97 04/17/25 Fibrosis-4 (Fib-4) Index for liver fibrosis (calculated on most recent lab work 2023) [ 0.62] points Advanced fibrosis [excluded] Approximate Fibrosis stage Torrey [0-1] PFSH Medical History (Reviewed 05/05/25 @ 11:22 by Rachel Núñez [facility]) Type 2 diabetes mellitus Hx of mammogram Psoriatic arthritis Anxiety Arthritis Anemia Psoriasis Stress incontinence Morbid obesity Hypertension Dyslipidemia custodial (current) use of insulin Surgical History Hx of colonoscopy History of selective laser trabeculoplasty History of total abdominal hysterectomy and bilateral salpingo-oophorectomy History of carpal tunnel release Hx of cholecystectomy Family History Father CVD (cardiovascular disease) Obesity Diabetes Alcohol abuse CAD (coronary artery disease) Mother CVD (cardiovascular disease) Diabetes Obesity Chronic lymphocytic leukemia Hx of myocardial infarction Brother Substance abuse Daughter FH: mental illness Paternal Aunt Breast cancer Social History Household Members: Spouse and Children Housing: Condominium Alcohol intake: current Alcohol intake frequency: does not drink Patient Tobacco Use Status: Never used Tobacco e-Cigarette/Vaping Use: Never Used Second Hand Smoke Exposure: No service: No Current occupational status: disabled Current occupational exposures/hazards: No Cognitive needs: No Hearing needs: Yes Vision needs: Yes Physical Exam Vital Signs: Last Vital Signs Pulse 69 05/05/25 11:26 BP 126/80 05/05/25 11:26 Pulse Ox 99 05/05/25 11:26 Oxygen Delivery Method Room Air 05/05/25 11:26 BMI result Body Mass Index 47.9 Const Other: Absence of Cushingoid features. Absence of acromegalic features. Neck exam re veals nl size thyroid about 15 gms. No thyroid nodules palpable. Heart S1 S2, Reg R/R. No M/R G. Skin exam reveals absence of vitiligo or acanthosis nigricans. No edema Visual exam of foot performed. No ulcerations or open lesions. No inter digit maceration or fissuring. + onychomycosis, nails thickened and yellowed but not elongated, tiny pinpoint scabbed area along nail great toe, no callouses. Sensation intact to monofilament exam. Vibratory sensation is normal with 128 Hz tuning fork. Office Procedures Glucose Monitoring Details Details: see hpi [id number] - Glucose monitoring, continuous-physician I&R Procedure code (CPT) selection complete Results Reviewed Results Reviewed: Laboratory Last Values Glucose (Clinic) 109 mg/dL (60-115) 05/05/25 11:30 Assessment & Plan Assessment & Plan (1) Type 2 diabetes mellitus: Code(s): E11.9 - Type 2 diabetes mellitus without complications Category: Medical Plan: 64-year-old type 2 diabetic with stable nephropathy followed by Nephrology doing well on an Omnipod insulin pump with U500 insulin. She is having some hypoglycemia post lunch and supper and her carb ratio was changed from 5.5-6.0. She was taught how to change her carb ratio and she was able to do a return demonstration several times. I asked her if she continues to have lows to change to 6.5 insulin to carb ratio from 12:00 to 00:00. Patient requested if she could come off U500. I advised her if we went to U 100 insulin should be using 185 units per day. We briefly discussed U 200 but with this you need to learn how to pen fill U 200 as this is not available in vials. She opted to continue current regi60 I suggest for backup pump failure that she use a quick pen. Backup pump failure would be 60 units U500 b.i.d.. She would start this once her sugars started to elevate above normal for pump failure. Not to start right away as there is a long-acting mode of action on U500 in her pump. The patient had an opportunity to ask questions regarding treatment plan. The patient expressed understanding and agreement with the above treatment plan. The patient is aware they should contact our office by phone for worsening gluc ose readings or for any low blood sugars which may warrant a change in diabetes medication. Compliance is encouraged with medications and any followup testing/consults which may have been ordered. Orders: Orders AMB Glucose Monitoring Today E11.9 - Type 2 diabetes mellitus without complica tions Medications: New Humulin R U-500 (Conc) Kwikpen (insulin regular hum U-500 conc) bid 12 hours apart 60 units (0.12 mL) subcut BID 30 days PRN 6 mL 1RF pump failure MDD 150 NS Refilled blood-glucose sensor (Dexcom G7 Sensor device) As directed every 10 days 9 ea 11RF pen needle, diabetic (Comfort EZ Pen [place]) As directed 100 ea 2RF Patient Instructions: Symptoms of DKA (diabetic ketoacidosis): early: frequent urination, dry mouth, fatigue, feeling ill, severe symptoms: ketones in the urine, abdominal pain, nausea, vomiting and weakness. It is important to hydrate with sugar free liquids every 15-30 minutes and bring the sugars down to normal levels. If you are moderate or severe with ketones or unable to bring glucose to less than 200, go to the emergency room. Handout given Troubleshooting after starting new pod or inserting new insulin set: Occlusion, adhesive tape sensitivity, redness Check BG 2 hours after site change Safety information: Importance of a backup plan, for manual injections, proper prescriptions and emergency supplies ketone strips, and rules for testing for ketones Coding Level of Care Code Est Pt Level 4 (09892) Complex EM visit Add On G2211 Diagnoses Type 2 diabetes mellitus E11.9 CPT Codes Details - CPT: 85265 - Glucose monitoring, continuous-physician I&R ([id number]) Time Spent (min) 30 Comment Time spent reviewing labs/provider notes, face to face, chart doc
[2025-05-05 11:26] VITALS: BP 126/80; PULSE 69; O2SAT 99; BMI 47.9
[2025-05-05 11:36] LABS: Glucose, Whole Blood 109 mg/dL (60-115)
--- OUTSIDE RECORDS SUMMARY | 2025-05-05 12:08 | XMS_ITS | Clinical Summary ---
Author Organization [facility] Address [address] [place] [address] Care Team Providers Care Merchandising Professor Name Role Phone EscobarShelby story Primary Care Provider [phone] Allergies Active Allergy Reactions Criticality Noted Date [...] any suspicion for an autoimmune process from Meat Grinder, at which time we can re-connect for a relevant workup. Today without objective muscle weakness or rashes. No synovitis. No Raynaud's. Encounters Date Type Department Care Team Description 03/30/2025 Results Follow-Up [facility] Rheumatology [facility] [address] [place] [phone] Science Consultant: Batsheva Saldivar MD 03/27/2025 1:50 PM EDT - 03/27/2025 11:59 PM EDT Hospital Encounter [facility] XRay [address] [place] [phone] Batsheva Marino MD Chronic right shoulder pain; Pain in both wrists Discharge Disposition: Home or Self Care () 03/27/2025 1:00 PM EDT Office Visit [facility] [address] [place] [phone] Science Consultant: Batsheva Saldivar MD Chronic right shoulder pain [...] Info) Description 10/16/2025 3:20 PM EST Follow-Up [facility] [address] [place] [address] [id number] Science Consultant: Batsheva Saldivar MD [address] [place] [address] Health Maintenance Due Date Last Done [...] this topic Procedures * Due to [place] IntroNet law, this organization might not be sharing [...] 3 Months Results * Due to [place] Intro[employer] law, this organization might not be sharing [...] obtain the completed interpretation. ? Workstation ID: [id number] Narrative 03/27/2025 5:09 PM EDT COMPARISON: None. ?? Resulting Agency Comment [id number] Procedure Note Prince Estes MD - 03/27/2025 [...] possible to obtain thecompleted interpretation. Workstation ID: [id number] us Batsheva Marino MD IMG XR PROCEDURES [...] obtain the completed interpretation. ? Workstation ID: [id number] Narrative 03/27/2025 5:09 PM EDT COMPARISON: None. ?? Resulting Agency Comment [id number] Procedure Note Prince Estes MD - 03/27/2025 [...] possible to obtain thecompleted interpretation. Workstation ID: [id number] us Batsheva Marino MD IMG XR PROCEDURES [...] obtain the completed interpretation. ? Workstation ID: [id number] Narrative 03/27/2025 5:09 PM EDT COMPARISON: None. ?? Resulting Agency Comment [id number] Procedure Note Prince Estes MD - 03/27/2025 [...] possible to obtain thecompleted interpretation. Workstation ID: [id number] us Batsheva Marino MD IMG XR PROCEDURES [...] obtain the completed interpretation. ? Workstation ID: [id number] Narrative 03/27/2025 5:09 PM EDT COMPARISON: None. ?? Resulting Agency Comment [id number] Procedure Note Prince Estes MD - 03/27/2025 [...] possible to obtain thecompleted interpretation. Workstation ID: [id number] Batsheva Marino MD IMG XR PROCEDURES Final [...] obtain the completed interpretation. ? Workstation ID: [id number] Narrative 03/27/2025 5:09 PM EDT COMPARISON: None. ?? Resulting Agency Comment [id number] Procedure Note Prince Estes MD - 03/27/2025 [...] possible to obtain thecompleted interpretation. Workstation ID: [id number] us Batsheva Marino MD IMG XR PROCEDURES [...] obtain the completed interpretation. ? Workstation ID: [id number] Narrative 03/27/2025 5:09 PM EDT COMPARISON: None. ?? Resulting Agency Comment [id number] Procedure Note Prince Estes MD - 03/27/2025 [...] possible to obtain thecompleted interpretation. Workstation ID: [id number] us Batsheva Marino MD IMG XR PROCEDURES Final Resul t * LAB - SCANNED (03/21/2025) us Onbase Scan [facility] LAB HISTORICAL RESULTS Final Result from Last 3 Months Insurance BCBS MCR REPLACE PPO [facility] Care Teams Merchandising Professor Relationship Specialty Start Date End Date Shelby Escobar [address] [place] [address] [phone] PCP - General Internal Medicine 01/19/25
== END 2025-05-05 12:08 | disposition home or self-care (01) ==
LOC: HO.ENCR 11:20
PROVIDERS: PCP Physician Assistant; Visit Provider Nurse Practitioner Adult Health
DX: E11.9 Type 2 diabetes mellitus without complications (principal)
CPT/HCPCS: 95251; 99214

== ENCOUNTER → 2025-05-05 11:19 | Outpatient (BNVA) | payer MEDICARE, MEDICAID, SELFPAY | PROVIDERS: PCP Physician Assistant; Visit Provider Nurse Practitioner Adult Health | DX: E11.9 Type 2 diabetes mellitus without complications (principal); Z79.4 Long term (current) use of insulin | CPT/HCPCS: 82947; 99212 ==

== ENCOUNTER 2025-07-19 10:05 | Outpatient (REF) | payer MEDICARE, MEDICAID, SELFPAY ==
[2025-07-19 11:12] LABS: MANUAL DIFF FLAG NO
--- OUTSIDE RECORDS SUMMARY | 2025-07-19 11:12 | XMS_ITS | Clinical Summary ---
Author Organization [facility] Address [address] [place] [address] Care Team Providers Care Hydraulic Blocker Name Role Phone Shelby Escobar PA-C Primary [...] age to complete this topic Care Teams Hydraulic Blocker Relationship Specialty Start Date End Date Shelby Escobar PA-C PCP - General Physician Training Lead 07/21/23
--- OUTSIDE RECORDS SUMMARY | 2025-07-19 11:12 | XMS_ITS | Encounter Summary ---
Author Organization [facility] Address [address] [place] [address] Phone Care Team Providers Care Meter Record Clerk Name Role Phone Keiko Reyes MD Primary Care Provider [phone] Encounter Details Date Type Department Care Team (Late st Contact Info) Description 04/16/2021 Orders Only [facility] [address] [place] [address] Otto Major MD Type 2 diabetes mellitus [...] 1:18 PM EDT) Glucose 141(H) (70-99) MG/DL [facility] BUN 19 (6-20) MG/DL [facility] Creatinine 1.4(H) (0.5-1.0) MG/DL [facility] Sodium 143 (133-145) MMOL/L [facility] Potassium 4.8 (3.6-5.2) MMOL/L [facility] Chloride 104 (98-107) MMOL/L [facility] Bicarbonate (CO2) 31(H) (22-29) MMOL/L [facility] Anion Gap 8 (4-17) [facility] Albumin 4.2 (3.4-4.8) GM/DL [facility] Calcium 9.5 (8.6-10.5) MG/DL [facility] Phosphorus, Serum 3.9 (2.5-4.5) MG/DL [facility] Est GFR Non 41 ML/MIN/1.7 3 M2 [facility] Comment: Creatinine based estimated glomerular filtration rate (eGFR) is calculated using the Chronic Kidney Disease Epidemiology Collaboration (CKD-EPI). The CKD-EPI creatinine equation has not been validated in children (<18 years), women or in some racial or ethnic subgroups other than Caucasians and Americans. EST GFR 47 ML/MIN/1.7 3 M2 [facility] Comment: Creatinine based estimated glomerular filtration rate (eGFR) is calculated using the Chronic Kidney Disease Epidemiology Collaboration (CKD-EPI). The CKD-EPI creatinine equation has not been validated in children (<18 years), women or in some racial or ethnic subgroups other than Caucasians and Americans. Testing performed or reported by [facility], a Service of [facility], [address] [place] [address] Oksana Siegel MD, Hair Baler Blood specimen (specimen) Venous blood / Unknown 05/30/2021 1:18 PM EDT 05/30/2021 1:20 PM EDT us Otto Major MD LAB BLOOD ORDERABLES Final Resul t [facility] documented in this encounter Visit Diagnoses Diagnosis Type 2 diabetes mellitus with diabetic chronic kidney disease (HCC) Other proteinuria Hypertension Stage 3a chronic kidney disease (HCC) documented in this encounter Care Teams Meter Record Clerk Relationship Specialty Start Date End Date Keiko Reyes MD PCP - General Internal Medicine 03/15/21 documented as of this encounter
--- OUTSIDE RECORDS SUMMARY | 2025-07-19 11:12 | XMS_ITS | Clinical Summary ---
Author Organization [facility] Address [address] [place] [address] Care Team Providers Care Wind Tunnel Mechanic Name Role Phone EscobarShelby story Primary Care Provider [phone] Allergies Active Allergy Reactions Criticality Noted Date [...] any suspicion for an autoimmune process from Bill Checker, at which time we can re-connect for [...] EST Follow-Up [facility] [address] [place] [phone] Yarn Comber: Batsheva Saldivar MD [address] [place] [phone] Health Maintenance Due Date Last Done Comments [...] patient's age to complete this topic Insurance [facility] MCR REPLACE PPO Care Teams Wind Tunnel Mechanic Relationship Specialty Start Date End Date Shelby Escobar [address] [place] [id number] PCP - General Internal Medicine 01/19/25
[2025-07-19 11:19] LABS: Hematocrit 35.9 % (37.0-47.0); Hemoglobin 11.9 g/dl (12.0-16.0); Imm Gran Abs Auto 0.04 X10*3/uL (0.00-0.03); Imm Gran Pct Auto 0.6 % (0.0-0.4); Lymphocytes Absolute Auto 1.5 X10*3/uL (1.2-4.9); Mean Corpuscular HGB Conc 33.1 g/dl (31.0-35.0); Mean Corpuscular Hemoglobin 29.9 pg (27.0-33.0); Mean Corpuscular Volume 90.2 fL (80.0-98.0); NRBC Abs Auto 0.000 X10*3/uL (0.0-0.012); NRBC Pct Auto 0.0 /100WBC (0.0-0.2); Platelet Count 203 X10*3/uL (160-400); Red Blood Count 3.98 X10*6/uL (4.20-5.50); White Blood Count 7.3 X10*3/uL (4.8-10.8)
[2025-07-19 12:02] LABS: Alanine Aminotransferase 21 U/L (0-31); Albumin Level 4.1 g/dL (3.5-5.0); Alkaline Phosphatase 71 U/L (39-117); Anion Gap 11 (12-20); Aspartate Amino Transferase 27 U/L (5-31); Blood Urea Nitrogen 29 mg/dL (9-16); Calcium 8.6 mg/dL (8.4-10.2); Carbon Dioxide 27 mmol/L (22-29); Chloride 108 mmol/L (96-108); Cholesterol 191 mg/dL (<200); Estimated Glomerular Filt Rate 35; HDL Cholesterol 40 mg/dL (>40); Potassium 3.9 mmol/L (3.3-5.1); Sodium 142 mmol/L (135-145); Total Protein 6.9 g/dL (6.5-8.0); Triglycerides 184 mg/dL (<150)
[2025-07-19 16:13] LABS: Microalbum/Creatinine Ratio Ur 278.8 ug/mg cr (<30)
== END 2025-07-19 10:06 | disposition home or self-care (01) ==
LOC: HO.WFDLDS 10:05
PROVIDERS: Referring Provider Internal Medicine Nephrology; Visit Provider Physician Assistant
DX: E11.22 Type 2 diabetes mellitus with diabetic chronic kidney disease (principal); I12.9 Hypertensive chronic kidney disease with stage 1 through stage 4 chronic kidney disease, or unspecified chronic kidney disease; N18.30 Chronic kidney disease, stage 3 unspecified; F41.8 Other specified anxiety disorders; E78.5 Hyperlipidemia, unspecified
CPT/HCPCS: 36415; 80053; 80061; 82043; 82570; 84443; 85025

== ENCOUNTER 2025-07-25 15:07 | Outpatient (AMB) | payer MEDICARE, MEDICAID, SELFPAY ==
--- NOTE | 2025-07-25 15:24 | HO.NEPHOV ---
Vital Signs 07/25/25 15:27 Height 5 ft 3 in Weight 271 lb 8 oz BMI 48.1 BP 120/70 Blood Pressure Location Lt brachial Position Sitting Pulse 65 Pulse Source Pulse Oximeter Pulse Oximetry (%) 97 Oxygen Delivery Method Room Air Intake Visit Reasons: Follow up 6mo-Conf Lacing Cutter Required: No Accompanied by: Self / Same As Patient Allergies citalopram (From Celexa) Allergy (Mild, Verified 07/25/25 15:27) cramps Niacin Preparations Allergy (Mild, Verified 07/25/25 15:27) vomitinf/flu symptoms/flushing lisinopril Allergy (Unknown, Verified 07/25/25 15:27) cough/all ACEI niacin Allergy (Unknown, Verified 07/25/25 15:27) unknown tirzepatide (From Mounjaro) Adverse Reaction (Severe, Verified 07/25/25 15:27) Diarrhea methotrexate Adverse Reaction (Intermediate, Verified 07/25/25 15:27) Nausea metformin Adverse Reaction (Unknown, Verified 07/25/25 15:27) Abdominal Pain ziprasidone (Geodon) Adverse Reaction (Unknown, Verified 07/25/25 15:27) Unknown HPI Comments Details: Dyan was seen in follow-up of her chronic kidney disease, diabetic nephropathy and hypertension. Her bipedal edema was resolved after discontinuation of amlodipine and being on diuretics. She is trying to have a low-sodium diet. Her weight is stable. Her blood sugars are better. She is on insulin pump. She could not tolerate Jardiance. She denies nausea, vomiting, shortness of breath, proximal nocturnal dyspnea, orthopnea, urinary symptoms. She does not have any vascular complaints. She has no orthostasis. She feels well otherwise. 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 Surgical History Hx of colonoscopy History of selective laser trabeculoplasty History of total abdominal hysterectomy and bilateral salpingo-oophorectomy History of carpal tunnel release Hx of cholecystectomy Family History Father CVD (cardiovascular disease) Obesity Diabetes Alcohol abuse CAD (coronary artery disease) Mother CVD (cardiovascular disease) Diabetes Obesity Chronic lymphocytic leukemia Hx of myocardial infarction Brother Substance abuse Daughter FH: mental illness Paternal Aunt Breast cancer Social History Household Members: Spouse and Children Housing: Condominium Alcohol intake: current Alcohol intake frequency: does not drink Patient Tobacco Use Status: Never used Tobacco e-Cigarette/Vaping Use: Never Used Second Hand Smoke Exposure: No service: No Current occupational status: disabled Current occupational exposures/hazards: No Cognitive needs: No Hearing needs: Yes Vision needs: Yes Review of Systems Const All systems reviewed & are unremarkable except as noted in HPI and below Physical Exam Vital Signs: Last Vital Signs Pulse 65 07/25/25 15:27 BP 150/80 H 07/25/25 15:27 Pulse Ox 97 07/25/25 15:27 Oxygen Delivery Method Room Air 07/25/25 15:27 BMI result Body Mass Index 48.1 Const General: comfortable and no acute distress Orientation/consciousness: patient oriented x3 HEENT Head: Yes normocephalic Mouth: Normal oral and palatal mucosa present Eyes EOM: EOMs intact bilaterally Neck Neck: Yes supple Resp Auscultation: clear to auscultation bilaterally Cardio Jugular venous distension: no JVD Rate: regular rate GI Palpation (GI): Soft to palpation Auscultation: normal bowel sounds General: Yes no CVA tenderness Back/Spine/Pelvis Back: no CVA tenderness Skin General skin exam: no rashes or lesions noted Neuro General: patient oriented x3 and moves all extremities Extrem General: Yes no pedal edema Results Reviewed Nephrology Results: Hgb, (12.0-16.0) 11.9 g/dl L 07/19/25 WBC, (4.8-10.8) 7.3 X10*3/uL 07/19/25 Plt Count, (160-400) 203 X10*3/uL 07/19/25 Sodium, (135-145) 142 mmol/L 07/19/25 Potassium, (3.3-5.1) 3.9 mmol/L 07/19/25 Chloride, (96-108) 108 mmol/L 07/19/25 Carbon Dioxide, (22-29) 27 mmol/L 07/19/25 BUN, (9-16) 29 mg/dL H 07/19/25 Creatinine, (0.5-1.4) 1.49 mg/dL H 07/19/25 Calcium, (8.4-10.2) 8.6 mg/dL Δ 07/19/25 Urine Creatinine 104.00 mg/dL 07/19/25 Assessment & Plan Assessment & Plan (1) Hypertension: Code(s): I10 - Essential (primary) hypertension Category: Medical Qualifiers: Hypertension type: primary hypertension Qualified Code(s): I10 - Essential (primary) hypertension (2) Diabetic nephropathy associated with type 2 diabetes mellitus: Code(s): E11.21 - Type 2 diabetes mellitus with diabetic nephropathy Category: Medical (3) CKD stage 3 due to type 2 diabetes mellitus: Code(s): E11.22 - Type 2 diabetes mellitus with diabetic chronic kidney disease; N18.30 - Chronic kidney disease, stage 3 unspecified Category: Medical Plan Aure has chronic kidney disease due to diabetic nephropathy. She is hypertensive and is on medications. Her blood pressure needs to be at goal. Her serum creatinine is stable. She could not tolerate Jardiance. She can be grat candidate for GLP1 agonist. She can continue Chlorthalidone every day. I may back off on losartan if her serum creatinine rises. She avoids nonsteroidal anti-inflammatory medications and maintain good hydration. Follow-up blood work ordered. Answered all questions. Follow-up given Orders: Orders Protein Creatinine Ratio, Ur 6 Months E11.21 - Type 2 diabetes mellitus with diabetic nephropathy, E11.22 - Type 2 diabetes mellitus with diabetic chronic kidney disease, I10 - Essential (primary) hypertension, N18.30 - Chronic kidney disease, stage 3 unspecified Creatinine 6 Months E11.21 - Type 2 diabetes mellitus with diabetic nephropathy, E11.22 - Type 2 diabetes mellitus with diabetic chronic kidney disease, I10 - Essential (primary) hypertension, N18.30 - Chronic kidney disease, stage 3 unspecified Blood Urea Nitrogen 6 Months E11.21 - Type 2 diabetes mellitus with diabetic nephropathy, E11.22 - Type 2 diabetes mellitus with diabetic chronic kidney disease, I10 - Essential (primary) hypertension, N18.30 - Chronic kidney disease, stage 3 unspecified Electrolytes 6 Months E11.21 - Type 2 diabetes mellitus with diabetic nephropathy, E11.22 - Type 2 diabetes mellitus with diabetic chronic kidney disease, I10 - Essential (primary) hypertension, N18.30 - Chronic kidney disease, stage 3 unspecified Coding Level of Care Code Est Pt Level 4 (42969) Diagnoses Primary hypertension I10 Hypertension type: primary hypertension Diabetic nephropathy associated with type 2 diabetes mellitus E11.21 CKD stage 3 due to type 2 diabetes mellitus E11.22; N18.30
[2025-07-25 15:27] VITALS: BP 120/70; PULSE 65; O2SAT 97; BMI 48.1
--- OUTSIDE RECORDS SUMMARY | 2025-07-25 16:03 | XMS_ITS | Clinical Summary ---
Author Organization [facility] Address [address] [facility] [address] [place] [address] Phone Care Team Providers Care Bomb Squad Officer Name Role Phone Keiko Reyes MD Primary Care Provider [phone] Allergies Active Allergy Reactions Criticality Noted Date [...] Visual Foot Exam 01/17/2021 Influenza Vaccine (#1) 2025 0, 12/10/2006 Pneumococcal Vaccine: Peds ( 0 to 5 Years) and At-Risk Patients (6 to 49 Years) Discontinued 01/09/2007 Hepatitis B Vaccine Aged Out No longe r eligible based on patient's age to complete this topic Insurance [facility] [place] [facility] Medicaid [place] Care Teams Bomb Squad Officer Relationship Specialty Start Date End Date Keiko Reyes MD PCP - General Internal Medicine 03/15/21
--- OUTSIDE RECORDS SUMMARY | 2025-07-25 16:03 | XMS_ITS | Encounter Summary ---
Author Organization [facility] Address [address] [place] [address] Phone Care Team Providers Care It Security Specialist Name Role Phone Keiko Reyes MD Primary Care Provider [phone] Encounter Details Date Type Department Care Team (Late st Contact Info) Description 04/16/2021 Orders Only [facility] [address] [place] [address] Otto Major MD Type 2 diabetes mellitus [...] 1:18 PM EDT) Glucose 141(H) (70-99) MG/DL [facility] BUN 19 (6-20) MG/DL [facility] Creatinine 1.4(H) (0.5-1.0) MG/DL [facility] Sodium 143 (133-145) MMOL/L [facility] Potassium 4.8 (3.6-5.2) MMOL/L [facility] Chloride 104 (98-107) MMOL/L [facility] Bicarbonate (CO2) 31(H) (22-29) MMOL/L [facility] Anion Gap 8 (4-17) [facility] Albumin 4.2 (3.4-4.8) GM/DL [facility] Calcium 9.5 (8.6-10.5) MG/DL [facility] Phosphorus, Serum 3.9 (2.5-4.5) MG/DL [facility] Est GFR Non 41 ML/MIN/1.7 3 M2 [facility] Comment: Creatinine based estimated glomerular filtration rate (eGFR) is calculated using the Chronic Kidney Disease Epidemiology Collaboration (CKD-EPI). The CKD-EPI creatinine equation has not been validated in children (<18 years), women or in some racial or ethnic subgroups other than Caucasians and Americans. EST GFR 47 ML/MIN/1.7 3 M2 [facility] Comment: Creatinine based estimated glomerular filtration rate (eGFR) is calculated using the Chronic Kidney Disease Epidemiology Collaboration (CKD-EPI). The CKD-EPI creatinine equation has not been validated in children (<18 years), women or in some racial or ethnic subgroups other than Caucasians and Americans. Testing performed or reported by [facility], a Service of [facility], [address] [place] [address] Oksana Siegel MD, Class A Lineman Blood specimen (specimen) Venous blood / Unknown 05/30/2021 1:18 PM EDT 05/30/2021 1:20 PM EDT us Otto Major MD LAB BLOOD ORDERABLES Final Resul t [facility] documented in this encounter Visit Diagnoses Diagnosis Type 2 diabetes mellitus with diabetic chronic kidney disease (HCC) Other proteinuria Hypertension Stage 3a chronic kidney disease (HCC) documented in this encounter Care Teams It Security Specialist Relationship Specialty Start Date End Date Keiko Reyes MD PCP - General Internal Medicine 03/15/21 documented as of this encounter
--- OUTSIDE RECORDS SUMMARY | 2025-07-25 16:03 | XMS_ITS | Encounter Summary ---
Author Organization [facility] Address [address] [place] [address] Phone Care Team Providers Care Visiting Professor Name Role Phone Keiko Reyes MD Primary Care Provider [phone] Encounter Details Date Type Department Care Team ([facility] st Contact Info) Description 05/24/2024 Office Communication [facility] [address] [place] [address] Alessandro Roman MD [id number] [facility] [address] [place] [id number] Social History Tobacco Use Types Packs/Day Years [...] on filedocumented in this encounter Care Teams Visiting Professor Relationship Specialty Start Date End Date Keiko Reyes MD PCP - General Internal Medicine 03/15/21 documented as of this encounter
--- OUTSIDE RECORDS SUMMARY | 2025-07-25 16:03 | XMS_ITS | Clinical Summary ---
Author Organization [facility] Address [address] [place] [address] Care Team Providers Care Fuel Attendant Name Role Phone EscobarShelby story Primary Care Provider [phone] Allergies Active Allergy Reactions Criticality Noted Date [...] any suspicion for an autoimmune process from Seismograph Supervisor, at which time we can re-connect for [...] Info) Description 10/16/2025 3:20 PM EST Follow-Up [facility] [address] [place] [id number] Vehicle Body Maker: Batsheva Saldivar MD [address] [place] [id number] Health Maintenance Due Date Last Done Comments [...] patient's age to complete this topic Insurance [facility] MCR REPLACE PPO Care Teams Fuel Attendant Relationship Specialty Start Date End Date Shelby Escobar [address] [place] [phone] PCP - General Internal Medicine 01/19/25
--- OUTSIDE RECORDS SUMMARY | 2025-07-25 16:03 | XMS_ITS | Clinical Summary ---
Author Organization [facility] Address [address] [place] [address] Care Team Providers Care Six Sigma Project Manager Name Role Phone Shelby Escobar PA-C Primary [...] age to complete this topic Care Teams Six Sigma Project Manager Relationship Specialty Start Date End Date Shelby Escobar PA-C PCP - General Physician Cupola Tender 07/21/23
== END 2025-07-25 15:50 | disposition home or self-care (01) ==
LOC: HO.HKAS 15:08
PROVIDERS: PCP Physician Assistant; Visit Provider Internal Medicine Nephrology
DX: I10 Essential (primary) hypertension (principal); E11.21 Type 2 diabetes mellitus with diabetic nephropathy; E11.22 Type 2 diabetes mellitus with diabetic chronic kidney disease; N18.30 Chronic kidney disease, stage 3 unspecified
CPT/HCPCS: 99214

== ENCOUNTER → 2025-07-25 15:07 | Outpatient (BNVA) | payer MEDICARE, MEDICAID, SELFPAY | PROVIDERS: PCP Physician Assistant; Visit Provider Internal Medicine Nephrology | DX: I10 Essential (primary) hypertension (principal); E11.21 Type 2 diabetes mellitus with diabetic nephropathy; E11.22 Type 2 diabetes mellitus with diabetic chronic kidney disease; N18.30 Chronic kidney disease, stage 3 unspecified | CPT/HCPCS: 99212 ==

== ENCOUNTER 2025-07-27 11:15 | Outpatient (AMB) | payer MEDICARE, MEDICAID, SELFPAY ==
--- NOTE | 2025-07-27 11:43 | MHC.PC.OV ---
Vital Signs 07/27/25 11:44 Height 5 ft 2 in Weight 270 lb 2 oz BMI 49.4 BP 132/66 Blood Pressure Location Lt brachial Position Sitting Respiration 14 Pulse 66 Pulse Source Pulse Oximeter Pulse Oximetry (%) 99 Oxygen Delivery Method Room Air Intake Visit Reasons: med check Intake Note: Medication follow up Engraver Block Required: No Allergies citalopram (From Celexa) Allergy (Mild, Verified 07/27/25 11:44) cramps Niacin Preparations Allergy (Mild, Verified 07/27/25 11:44) vomitinf/flu symptoms/flushing lisinopril Allergy (Unknown, Verified 07/27/25 11:44) cough/all ACEI niacin Allergy (Unknown, Verified 07/27/25 11:44) unknown tirzepatide (From Mounjaro) Adverse Reaction (Severe, Verified 07/27/25 11:44) Diarrhea methotrexate Adverse Reaction (Intermediate, Verified 07/27/25 11:44) Nausea metformin Adverse Reaction (Unknown, Verified 07/27/25 11:44) Abdominal Pain ziprasidone (Geodon) Adverse Reaction (Unknown, Verified 07/27/25 11:44) Unknown Medication List - Last Reconciled 07/27/25 by Shelby Escobar PA-C acetone (urine) test (Ketone Urine Test strips) prn glucose over 250, illness, nausea or vomiting tid atenolol 75 mg (1.5 x 50 mg) PO BID 90 days bisacodyl (Dulcolax (bisacodyl)) 20 mg (4 x 5 mg) PO ONCE 1 day blood sugar diagnostic As directed testing 5x per day. blood sugar diagnostic (OneTouch Verio test strips) USE 5 TIMES DAILY blood-glucose meter (OneTouch Verio Meter) As directed blood-glucose sensor (DexOrthoSensor G7 Sensor device) As directed every 10 days bupropion HCl 75 mg PO BID cetirizine (Zyrtec) 10 mg PO DAILY chlorthalidone 25 mg PO DAILY cholecalciferol (vitamin D3) 50 mcg PO DAILY clobetasol 0.05% mL topical diclofenac sodium 1% 1 g topical TID glucagon 3 mg/actuation (Baqsimi) 3 mg intranasal ONCE PRN 30 days MDD 6mg may repeat in 15 minutes Humulin R U-500 (Conc) Kwikpen (insulin regular hum U-500 conc) 60 units (0.12 mL) subcut BID PRN 30 days MDD 150 NS insulin pump cart,auto,BT,G6/7 (Omnipod 5 G6-G7 Pods (Gen 5) subcutaneous cartridge) CHANGE POD EVERY 72 HOURS insulin pump cart,auto,BT-cntr (Omnipod 5 G6 Intro Kit (Gen 5) subcutaneous cartridge with controller) As directed insulin regular hum U-500 conc (Humulin R U-500 (Concentrated) Insulin) Use up to 450 units via insulin pump subcut daily; lactobacillus combination no.4 (Probiotic) 3,000 mmu cells PO DAILY lancets As directed 5 times a day lorazepam 0.5 mg PO DAILY PRN 30 days losartan 50 mg PO BID nystatin 400,000 units (4 mL) buccal QID pen needle, diabetic (Comfort EZ Pen [place]) As directed bid prn pump failure polyethylene glycol 3350 (Miralax) 238 grams PO ONCE risankizumab-rzaa (Skyrizi) mg subcut Tobacco use date assessed: 07/27/25 Dental Screening Dental Screen Date: 04/20/25 HPI med check HPI Details Patient is a 65-year-old female with a significant past medical history of diabetes, diabetic nephropathy, chronic kidney disease, anemia, anxiety and depression, psoriatic arthritis, hypertension, hyperlipidemia morbid obesity presenting today for a follow up. Endo: Her A1c was 6.8. Managed by endocrinology. Controlled with her current insulin regimen. Recently starting on a diet. She would like to try Mounjaro again as she states that she needs to cut out her sugar cravings. In the past Mounjaro caused significant diarrhea but she is hoping to try a lower dose to see if this will be effective for her. in the past had significant GI upset with Trulicity, Ozempic and Mounjaro. She had the best benefits with Mounjaro in terms of not wanting to eat as much. Derm: Psoriasis was controlled on Taltz but insurance would not cover. She is going back skyrizz. She did have some exacerbation of arthritic symptoms however, stopped the statin and states that this improved significantly. Rheum: Recently discontinued simvastatin and states that her aches and pains in her hands are significantly improved. She is seeing [facility] rheumatology next week. Nephro: Labs are stable. Follows closely with Nephrology. Psych: She is following with her therapist closely. Currently not on medication and doing well with this. She states that she has a strong support group from [facility]. No SI/HI. She has tried prozac, zoloft, lexapro, geodon, and wellbutrin. CV: Blood pressure today in the office is 132/76. She is currently on losartan 50 mg daily, chlorthalidone 25 mg and atenolol 75 mg twice a day. Cholesterol is currently being diet controlled. She is intolerant of statins. Colonoscopy: scheduled next week Mammo: ILD at [place] Bone density: believe 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 Surgical History Hx of colonoscopy History of selective laser trabeculoplasty History of total abdominal hysterectomy and bilateral salpingo-oophorectomy History of carpal tunnel release Hx of cholecystectomy Family History Father CVD (cardiovascular disease) Obesity Diabetes Alcohol abuse CAD (coronary artery disease) Mother CVD (cardiovascular disease) Diabetes Obesity Chronic lymphocytic leukemia Hx of myocardial infarction Brother Substance abuse Daughter FH: mental illness Paternal Aunt Breast cancer Social History Household Members: Spouse and Children Housing: Condominium Alcohol intake: current Alcohol intake frequency: does not drink Patient Tobacco Use Status: Never used Tobacco e-Cigarette/Vaping Use: Never Used Second Hand Smoke Exposure: No service: No Current occupational status: disabled Current occupational exposures/hazards: No Cognitive needs: No Hearing needs: Yes Vision needs: Yes Questionnaire Thrive Questionnaire Date Thrive assessed: 12/15/24 I am a: Patient What is your living situation today?: I have a steady place to live Within the past 12 months, did the food you bought not last and you didn't have the money to get more?: Never true Within the past 12 months, did you worry whether your food would run out before you got money to buy more?: Never true Do you have trouble paying for medicines?: No Do you have trouble getting transportation to medical appointments?: No Do you have trouble paying your heating and electricity bill?: No Do you have trouble taking care of your child, family member or friend?: No Do you have trouble with day-to-day activities such as bathing, preparing meals, shopping, managing finances, etc.?: No Are you currently unemployed and looking for a job?: No Are you interested in more education?: No Please select the resources that you would like help with: None Currently or been in a relationship where the following occur: No concerns reported THRIVE Score: 0 DENNIS-7 AMB Questionnaire DENNIS-7 Date DENNIS - 7 assessed: 04/20/25 Source: Developed by Drs. Eligio Méndez, Mignon Colon, Pepe Turner and colleagues, with an educational nanette from [employer]. Physical exam (Primary Care) Vital Signs: Last Vital Signs Pulse 66 07/27/25 11:44 Resp 14 07/27/25 11:44 BP 132/66 07/27/25 11:44 Pulse Ox 99 07/27/25 11:44 Oxygen Delivery Method Room Air 07/27/25 11:44 BMI result Body Mass Index 49.4 Tobacco/Smoking Status: Tobacco use Status Tobacco use date assessed 07/27/25 07/27/25 11:45 Patient Tobacco Use Status Never used Tobacco 07/27/25 11:45 e-Cigarette/Vaping Use Never Used 07/27/25 11:45 Thrive Assessment: Date of Thrive Assessment Date Thrive assessed 12/15/24 07/27/25 11:45 Currently or been in a relationship where the following occur: No concerns reported Const Orientation/consciousness: patient oriented x3 HENID Ears: hearing grossly normal bilaterally Neck Thyroid: Thyroid normal Lymphatic: no lymphadenopathy noted Resp Auscultation: clear to auscultation bilaterally Cardio Rate: regular rate Rhythm: regular rhythm Heart sounds: S1 normal heart sound present and S2 normal heart sound present GI Inspection: Yes normal to inspection Palpation (GI): Soft to palpation and Other GI palpation findings present (nontender, no cva tenderness) Auscultation: normoactive bowel sounds Rectal Exam - Female: deferred Skin General skin exam: no rashes or lesions noted Neuro General: patient oriented x3, gait normal and no focal motor deficits Coding Level of Care Code Est Pt Level 4 (38873) Complex EM visit Add On G2211 Diagnoses Type 2 diabetes mellitus E11.9 Morbid obesity E66.01 Primary hypertension I10 Hypertension type: primary hypertension Anxiety with depression F41.8 Assessment & Plan Assessment & Plan (1) Type 2 diabetes mellitus: Code(s): E11.9 - Type 2 diabetes mellitus without complications Category: Medical Plan: We will start Mounjaro. Discussed risks and benefits and adverse effects of this medication. (2) Morbid obesity: Code(s): E66.01 - Morbid (severe) obesity due to excess calories Category: Medical Plan: As above (3) Hypertension: Code(s): I10 - Essential (primary) hypertension Category: Medical Qualifiers: Hypertension type: primary hypertension Qualified Code(s): I10 - Essential (primary) hypertension Plan: WNL. Continue current regimen (4) Anxiety with depression: Code(s): F41.8 - Other specified anxiety disorders Category: Medical Plan: Currently controlled with going to [facility]. Sees a therapist. Medications: New tirzepatide (Mounjaro) for 4 weeks 2.5 mg (0.5 mL) subcut QWEEK 2 mL 4RF
[2025-07-27 11:44] VITALS: BP 132/66; PULSE 66; RESP 14; O2SAT 99; BMI 49.4
--- OUTSIDE RECORDS SUMMARY | 2025-07-27 12:36 | XMS_ITS | Clinical Summary ---
Author Organization [facility] Address [address] [place] [address] Care Team Providers Care Socket Welder Helper Name Role Phone Shelby Escobar PA-C Primary Care Provider [phone] Allergies Active Allergy Reactions Criticality Noted Date [...] age to complete this topic Care Teams Socket Welder Helper Relationship Specialty Start Date End Date Shelby Escobar PA-C PCP - General Physician E Mail System Administrator 07/21/23
--- OUTSIDE RECORDS SUMMARY | 2025-07-27 12:36 | XMS_ITS | Encounter Summary ---
Author Organization [facility] Address [address] [place] [address] Phone Care Team Providers Care Dental Associate Name Role Phone Keiko Reyes MD Primary Care Provider [phone] Encounter Details Date Type Department Care Team (Late st Contact Info) Description 04/16/2021 Orders Only [facility] [address] [place] [address] Otto Major MD Type 2 diabetes mellitus [...] 1:18 PM EDT) Glucose 141(H) (70-99) MG/DL [facility] BUN 19 (6-20) MG/DL [facility] Creatinine 1.4(H) (0.5-1.0) MG/DL [facility] Sodium 143 (133-145) MMOL/L [facility] Potassium 4.8 (3.6-5.2) MMOL/L [facility] Chloride 104 (98-107) MMOL/L [facility] Bicarbonate (CO2) 31(H) (22-29) MMOL/L [facility] Anion Gap 8 (4-17) [facility] Albumin 4.2 (3.4-4.8) GM/DL [facility] Calcium 9.5 (8.6-10.5) MG/DL [facility] Phosphorus, Serum 3.9 (2.5-4.5) MG/DL [facility] Est GFR Non 41 ML/MIN/1.7 3 M2 [facility] Comment: Creatinine based estimated glomerular filtration rate (eGFR) is calculated using the Chronic Kidney Disease Epidemiology Collaboration (CKD-EPI). The CKD-EPI creatinine equation has not been validated in children (<18 years), women or in some racial or ethnic subgroups other than Caucasians and Americans. EST GFR 47 ML/MIN/1.7 3 M2 [facility] Comment: Creatinine based estimated glomerular filtration rate (eGFR) is calculated using the Chronic Kidney Disease Epidemiology Collaboration (CKD-EPI). The CKD-EPI creatinine equation has not been validated in children (<18 years), women or in some racial or ethnic subgroups other than Caucasians and Americans. Testing performed or reported by [facility], a Service of [facility], [address] [place] [address] Oksana Siegel MD, Program Clerk Blood specimen (specimen) Venous blood / Unknown 05/30/2021 1:18 PM EDT 05/30/2021 1:20 PM EDT us Otto Major MD LAB BLOOD ORDERABLES Final Resul t [facility] documented in this encounter Visit Diagnoses Diagnosis Type 2 diabetes mellitus with diabetic chronic kidney disease (HCC) Other proteinuria Hypertension Stage 3a chronic kidney disease (HCC) documented in this encounter Care Teams Dental Associate Relationship Specialty Start Date End Date Keiko Reyes MD PCP - General Internal Medicine 03/15/21 documented as of this encounter
--- OUTSIDE RECORDS SUMMARY | 2025-07-27 12:36 | XMS_ITS | Encounter Summary ---
Author Organization [facility] Address [address] [place] [address] Phone Care Team Providers Care Project Intern Name Role Phone Keiko Reyes MD Primary Care Provider [phone] Encounter Details Date Type Department Care Team ([facility] st Contact Info) Description 05/24/2024 Office Communication [facility] [address] [place] [address] Alessandro Roman MD [id number] [facility] [address] [place] [id number] Social History Tobacco Use Types Packs/Day Years [...] on filedocumented in this encounter Care Teams Project Intern Relationship Specialty Start Date End Date Keiko Reyes MD PCP - General Internal Medicine 03/15/21 documented as of this encounter
--- OUTSIDE RECORDS SUMMARY | 2025-07-27 12:36 | XMS_ITS | Clinical Summary ---
Author Organization [facility] Address [address] [place] [address] Care Team Providers Care District Manager Name Role Phone EscobarShelby story Primary Care Provider [phone] Allergies Active Allergy Reactions Criticality Noted Date [...] any suspicion for an autoimmune process from Salt Manager, at which time we can re-connect [...] Info) Description 10/16/2025 3:20 PM EST Follow-Up [facility] [address] [place] [id number] Magazine Keeper: Batsheva Saldivar MD [address] [place] [id number] Health Maintenance Due Date Last Done Comments [...] patient's age to complete this topic Insurance [facility] [employer] PPO Care Teams District Manager Relationship Specialty Start Date End Date Shelby Escobar [address] [place] [id number] PCP - General Internal Medicine 01/19/25
--- OUTSIDE RECORDS SUMMARY | 2025-07-27 12:36 | XMS_ITS | Clinical Summary ---
Author Organization [facility] Address [address] [facility] [address] [place] [address] Phone Care Team Providers Care Lumber Cutter Name Role Phone Keiko Reyes MD Primary Care Provider [phone] Allergies Active Allergy Reactions Criticality Noted Date [...] patient's age to complete this topic Insurance [facility] [place] [facility] [place] Care Teams Lumber Cutter Relationship Specialty Start Date End Date Keiko Reyes MD PCP - General Internal Medicine 03/15/21
== END 2025-07-27 11:57 | disposition home or self-care (01) ==
LOC: HO.HMCFM 11:17
PROVIDERS: PCP Physician Assistant; Visit Provider Physician Assistant
DX: E11.9 Type 2 diabetes mellitus without complications (principal); E66.01 Morbid (severe) obesity due to excess calories; Z68.42 Body mass index [BMI] 45.0-49.9, adult; I10 Essential (primary) hypertension; F41.8 Other specified anxiety disorders

== ENCOUNTER → 2025-07-27 11:15 | Outpatient (BNVA) | payer MEDICARE, MEDICAID, SELFPAY | PROVIDERS: PCP Physician Assistant; Visit Provider Physician Assistant | DX: E11.40 Type 2 diabetes mellitus with diabetic neuropathy, unspecified (principal); E11.22 Type 2 diabetes mellitus with diabetic chronic kidney disease; N18.9 Chronic kidney disease, unspecified; L40.50 Arthropathic psoriasis, unspecified; E78.5 Hyperlipidemia, unspecified; E66.01 Morbid (severe) obesity due to excess calories; F41.8 Other specified anxiety disorders; I12.9 Hypertensive chronic kidney disease with stage 1 through stage 4 chronic kidney disease, or unspecified chronic kidney disease; Z68.42 Body mass index [BMI] 45.0-49.9, adult | CPT/HCPCS: 99212 ==

== ENCOUNTER 2025-08-03 06:30 | Day surgery (SDC) | payer MEDICARE, MEDICAID, SELFPAY ==
--- OUTSIDE RECORDS SUMMARY | 2025-06-26 14:04 | XMS_ITS | Clinical Summary ---
Author Organization [facility] Address [address] [place] [address] Care Team Providers Care Millinery Blocker Name Role Phone EscobarShelby story Primary Care Provider [phone] Allergies Active Allergy Reactions Criticality Noted Date [...] any suspicion for an autoimmune process from Plant Guard, at which time we can re-connect for a relevant workup. Today without objective muscle weakness or rashes. No synovitis. No Raynaud's. Encounters Date Type Department Care Team Description 03/30/2025 Results Follow-Up [facility] [address] [place] [phone] Sanitation Manager: Batsheva Saldivar MD 03/27/2025 1:50 PM EDT - 03/27/2025 11:59 PM EDT Hospital Encounter [facility] Xray [address] [place] [id number] Batsheva Marino MD Chronic right shoulder pain; Pain in both wrists Discharge Disposition: Home or Self Care () 03/27/2025 1:00 PM EDT Office Visit [facility] [address] [place] [id number] Sanitation Manager: Batsheva Saldivar MD Chronic right shoulder [...] 73 03/27/2025 12:30 PM EDT Temperature 36.7 C (98.1 F) 03/27/2025 12:30 PM EDT Respiratory Rate - - Oxygen [...] PM EST Follow-Up [facility] [address] [place] [address] [phone] Sanitation Manager: Batsheva Saldivar MD [address] [place] [address] [phone] Health Maintenance Due Date Last Done Comments [...] Social Drivers of Health Annual Screening 11/30/2024 Influenza Vaccine (#1) 2025 , 11/07/2023, 10/07/2022, Additional history exists DTaP,Tdap,and Td Vaccines (3 - Td or Tdap) 06/19/2032 06/19/2022, 08/26/2012, 01/09/2007 Zoster Vaccines Completed 02/15/2022, 10/03/2021 Hepatitis B Vaccines Aged Out No long er eligible based on patient's age to complete this topic Procedures * Due to [place] [employer] law, this organization might not be sharing [...] 2:35 PM EDT Chronic right shoulder pain from Last 3 Months Results * Due to [place] [employer] law, this organization might not be sharing negative HIV tests. * XR Hand 3+ vw Right (03/27/2025 2:35 PM EDT) Anatomical Region Laterality Modality Upper Extremities, Hand Right Computed Radiography 03/27/2025 5:08 PM EDT Impressions 03/27/2025 5:09 PM EDT FINDINGS/IMPRESSION: Bilateral shoulders: No acute fracture or dislocation. No osseous erosions noted arthropathy. Glenohumeral alignment maintained. Mild acromioclavicular osteoarthritis. Amorphous calcifications adjacent to the right greater tuberosity related to calcific tendinopathy. Soft tissues unremarkable. Bilateral hands and wrists: No osseous erosions to suggest inflammatory arthropathy. Mild to moderate first carpometacarpal, triscaphe, distal radioulnar and interphalangeal joints osteoarthritis. No acute fracture or dislocation. Mild negative ulnar variance bilaterally. Soft tissues unremarkable. If this radiology report contains a blank impression section, it is an incomplete radiology report. Please contact the interpreting radiologist or applicable radiology division as soon as possible to obtain the completed interpretation. Workstation ID: [id number] Narrative 03/27/2025 5:09 PM EDT COMPARISON: None. Resulting Agency Comment [id number] Procedure Note Prince Estes MD - 03/27/2025 [...] possible to obtain thecompleted interpretation. Workstation ID: [id number] us Batsheva Marino MD IMG XR PROCEDURES Final Resul t * XR Hand 3+ vw Left (03/27/2025 2:35 PM EDT) Anatomical Region Laterality Modality Upper Extremities, Hand Left Computed Radiography 03/27/2025 5:08 PM EDT Impressions 03/27/2025 5:09 PM EDT FINDINGS/IMPRESSION: Bilateral shoulders: No acute fracture or dislocation. No osseous erosions noted arthropathy. Glenohumeral alignment maintained. Mild acromioclavicular osteoarthritis. Amorphous calcifications adjacent to the right greater tuberosity related to calcific tendinopathy. Soft tissues unremarkable. Bilateral hands and wrists: No osseous erosions to suggest inflammatory arthropathy. Mild to moderate first carpometacarpal, triscaphe, distal radioulnar and interphalangeal joints osteoarthritis. No acute fracture or dislocation. Mild negative ulnar variance bilaterally. Soft tissues unremarkable. If this radiology report contains a blank impression section, it is an incomplete radiology report. Please contact the interpreting radiologist or applicable radiology division as soon as possible to obtain the completed interpretation. Workstation ID: [id number] Narrative 03/27/2025 5:09 PM EDT COMPARISON: None. Resulting Agency Comment [id number] Procedure Note Prince Estes MD - 03/27/2025 [...] possible to obtain thecompleted interpretation. Workstation ID: [id number] us Batsheva Marino MD IMG XR PROCEDURES Final Resul t * X-Ray Wrist Right 3+ Views (03/27/2025 2:35 PM EDT) Anatomical Region Laterality Modality Upper Extremities, Wrist Right Compute d Radiography 03/27/2025 5:08 PM EDT Impressions 03/27/2025 5:09 PM EDT FINDINGS/IMPRESSION: Bilateral shoulders: No acute fracture or dislocation. No osseous erosions noted arthropathy. Glenohumeral alignment maintained. Mild acromioclavicular osteoarthritis. Amorphous calcifications adjacent to the right greater tuberosity related to calcific tendinopathy. Soft tissues unremarkable. Bilateral hands and wrists: No osseous erosions to suggest inflammatory arthropathy. Mild to moderate first carpometacarpal, triscaphe, distal radioulnar and interphalangeal joints osteoarthritis. No acute fracture or dislocation. Mild negative ulnar variance bilaterally. Soft tissues unremarkable. If this radiology report contains a blank impression section, it is an incomplete radiology report. Please contact the interpreting radiologist or applicable radiology division as soon as possible to obtain the completed interpretation. Workstation ID: [id number] Narrative 03/27/2025 5:09 PM EDT COMPARISON: None. Resulting Agency Comment [id number] Procedure Note Prince Estes MD - 03/27/2025 [...] possible to obtain thecompleted interpretation. Workstation ID: [id number] us Batsheva Marino MD IMG XR PROCEDURES Final Resul t * X-Ray Wrist Left 3+ Views (03/27/2025 2:35 PM EDT) Anatomical Region Laterality Modality Upper Extremities, Wrist Left Compute d Radiography 03/27/2025 5:08 PM EDT Impressions 03/27/2025 5:09 PM EDT FINDINGS/IMPRESSION: Bilateral shoulders: No acute fracture or dislocation. No osseous erosions noted arthropathy. Glenohumeral alignment maintained. Mild acromioclavicular osteoarthritis. Amorphous calcifications adjacent to the right greater tuberosity related to calcific tendinopathy. Soft tissues unremarkable. Bilateral hands and wrists: No osseous erosions to suggest inflammatory arthropathy. Mild to moderate first carpometacarpal, triscaphe, distal radioulnar and interphalangeal joints osteoarthritis. No acute fracture or dislocation. Mild negative ulnar variance bilaterally. Soft tissues unremarkable. If this radiology report contains a blank impression section, it is an incomplete radiology report. Please contact the interpreting radiologist or applicable radiology division as soon as possible to obtain the completed interpretation. Workstation ID: [id number] Narrative 03/27/2025 5:09 PM EDT COMPARISON: None. Resulting Agency Comment [id number] Procedure Note Prince Estes MD - 03/27/2025 [...] possible to obtain thecompleted interpretation. Workstation ID: [id number] us Batsheva Marino MD IMG XR PROCEDURES Final Resul t * XR Shoulder 2+ vw Right (03/27/2025 2:35 PM EDT) Anatomical Region Laterality Modality Upper Extremities, Shoulder Right Comp uted Radiography 03/27/2025 5:08 PM EDT Impressions 03/27/2025 5:09 PM EDT FINDINGS/IMPRESSION: Bilateral shoulders: No acute fracture or dislocation. No osseous erosions noted arthropathy. Glenohumeral alignment maintained. Mild acromioclavicular osteoarthritis. Amorphous calcifications adjacent to the right greater tuberosity related to calcific tendinopathy. Soft tissues unremarkable. Bilateral hands and wrists: No osseous erosions to suggest inflammatory arthropathy. Mild to moderate first carpometacarpal, triscaphe, distal radioulnar and interphalangeal joints osteoarthritis. No acute fracture or dislocation. Mild negative ulnar variance bilaterally. Soft tissues unremarkable. If this radiology report contains a blank impression section, it is an incomplete radiology report. Please contact the interpreting radiologist or applicable radiology division as soon as possible to obtain the completed interpretation. Workstation ID: [id number] Narrative 03/27/2025 5:09 PM EDT COMPARISON: None. Resulting Agency Comment [id number] Procedure Note Prince Estes MD - 03/27/2025 [...] possible to obtain thecompleted interpretation. Workstation ID: [id number] us Batsheva Marino MD IMG XR PROCEDURES Final Resul t * XR Shoulder 2+ vw Left (03/27/2025 2:35 PM EDT) Anatomical Region Laterality Modality Upper Extremities, Shoulder Left Comp uted Radiography 03/27/2025 5:08 PM EDT Impressions 03/27/2025 5:09 PM EDT FINDINGS/IMPRESSION: Bilateral shoulders: No acute fracture or dislocation. No osseous erosions noted arthropathy. Glenohumeral alignment maintained. Mild acromioclavicular osteoarthritis. Amorphous calcifications adjacent to the right greater tuberosity related to calcific tendinopathy. Soft tissues unremarkable. Bilateral hands and wrists: No osseous erosions to suggest inflammatory arthropathy. Mild to moderate first carpometacarpal, triscaphe, distal radioulnar and interphalangeal joints osteoarthritis. No acute fracture or dislocation. Mild negative ulnar variance bilaterally. Soft tissues unremarkable. If this radiology report contains a blank impression section, it is an incomplete radiology report. Please contact the interpreting radiologist or applicable radiology division as soon as possible to obtain the completed interpretation. Workstation ID: [id number] Narrative 03/27/2025 5:09 PM EDT COMPARISON: None. Resulting Agency Comment [id number] Procedure Note Prince Estes MD - 03/27/2025 [...] possible to obtain thecompleted interpretation. Workstation ID: [id number] us Batsheva Marino MD IMG XR PROCEDURES Final Resul t from Last 3 Months Insurance BCBS MCR REPLACE PPO [facility] Care Teams Millinery Blocker Relationship Specialty Start Date End Date Shelby Escobar [address] [place] [address] PCP - General Internal Medicine 01/19/25
--- OUTSIDE RECORDS SUMMARY | 2025-06-26 14:04 | XMS_ITS ---
Author Name [facility] Organization Unknown Care Team Organization Name Specialty Phone Email Start Date End Da te [facility] Keiko Reyes Primary Care 10/07/2022
--- OUTSIDE RECORDS SUMMARY | 2025-06-26 14:04 | XMS_ITS | Encounter Summary ---
Author Organization [facility] Address [address] [place] [address] Phone Care Team Providers Care Network Architect Name Role Phone Keiko Reyes MD Primary Care Provider [phone] Encounter Details Date Type Department Care Team (Late st Contact Info) Description 04/16/2021 Orders Only [facility] [address] [place] [phone] Otto Major MD Type 2 diabetes mellitus [...] 1:18 PM EDT) Glucose 141(H) (70-99) MG/DL [facility] BUN 19 (6-20) MG/DL [facility] Creatinine 1.4(H) (0.5-1.0) MG/DL [facility] Sodium 143 (133-145) MMOL/L [facility] Potassium 4.8 (3.6-5.2) MMOL/L [facility] Chloride 104 (98-107) MMOL/L [facility] Bicarbonate (CO2) 31(H) (22-29) MMOL/L [facility] Anion Gap 8 (4-17) [facility] Albumin 4.2 (3.4-4.8) GM/DL [facility] Calcium 9.5 (8.6-10.5) MG/DL [facility] Phosphorus, Serum 3.9 (2.5-4.5) MG/DL [facility] Est GFR Non 41 ML/MIN/1.7 3 M2 [facility] Comment: Creatinine based estimated glomerular filtration rate (eGFR) is calculated using the Chronic Kidney Disease Epidemiology Collaboration (CKD-EPI). The CKD-EPI creatinine equation has not been validated in children (<18 years), women or in some racial or ethnic subgroups other than Caucasians and Americans. EST GFR 47 ML/MIN/1.7 3 M2 [facility] Comment: Creatinine based estimated glomerular filtration rate (eGFR) is calculated using the Chronic Kidney Disease Epidemiology Collaboration (CKD-EPI). The CKD-EPI creatinine equation has not been validated in children (<18 years), women or in some racial or ethnic subgroups other than Caucasians and Americans. Testing performed or reported by [facility], a Service of [facility], [address] [place] [address] Oksana Siegel MD, Journeyman Lineman Blood specimen (specimen) Venous blood / Unknown 05/30/2021 1:18 PM EDT 05/30/2021 1:20 PM EDT us Otto Major MD LAB BLOOD ORDERABLES Final Resul t [facility] documented in this encounter Visit Diagnoses Diagnosis Type 2 diabetes mellitus with diabetic chronic kidney disease (HCC) Other proteinuria Hypertension Stage 3a chronic kidney disease (HCC) documented in this encounter Care Teams Network Architect Relationship Specialty Start Date End Date Keiko Reyes MD PCP - General Internal Medicine 03/15/21 documented as of this encounter
--- OUTSIDE RECORDS SUMMARY | 2025-06-26 14:04 | XMS_ITS | Clinical Summary ---
Author Organization [facility] Address [address] [place] [address] Care Team Providers Care Air Conditioning Sheet Metal Installer Name Role Phone Shelby Escobar PA-C Primary [...] 70 07/21/2023 10:30 AM EDT Temperature 36.3 C (97.4 F) 07/21/2023 10:29 AM EDT Respiratory Rate - - Oxygen [...] or Tdap) 08/26/2022 08/26/2012 Influenza Vaccine (#1) 2025 , 08/28/2021, 08/28/2021, Additional history exists RSV [...] age to complete this topic Care Teams Air Conditioning Sheet Metal Installer Relationship Specialty Start Date End Date Shelby Escobar PA-C PCP - General Physician Tire Fixer 07/21/23
[2025-08-01 10:57] VITALS: BMI 49.4
[2025-08-03 07:00] VITALS: BP 176/71; PULSE 76; RESP 16; TEMP 37.3; O2SAT 97; BMI 49.4
[2025-08-03] MEDS: Lactated Ringers 1,000 ML 100 ML IVCONT (07:06)
--- NOTE | 2025-08-03 07:09 | HO.ANESPROP2 ---
Documented by User: Tatyana Heath NP 08/01/25 14:50 HPI - Anesthesia Eval Consult details Narrative: 65 yr old female for colonoscopy Morbid obesity BMI 49 Type 2 DM: A1C 6.8%, started back on GLP-1 at 07/27/25 visit CKD Stage 3 due to DM: creat stable at 07/25/25 renal visit Anesthesia Pre-Procedure Meds Is the patient on any of the following meds?: GLP1/DPP4 PMFSH Active Problems Active Problems: All Active Problems (Updated 08/01/25 @ 10:54 by Brittanie Cain RN) Multiple pulmonary nodules (Acute) Abnormal chest xray (Acute) Chronic cough (Acute) Chronic interstitial lung disease (Acute) Mild cardiomegaly (Acute) Cough (Acute) Anxiety with depression (Acute) Bilateral hand pain (Acute) Hard of hearing (Acute) CKD stage 3 due to type 2 diabetes mellitus (Acute) Psoriasis (Acute) Diabetic nephropathy associated with type 2 diabetes mellitus (Acute) Type 2 diabetes mellitus (Acute) Psoriatic arthritis (Acute) Anemia (Acute) Stress incontinence (Acute) Morbid obesity (Acute) Hypertension (Acute) Dyslipidemia (Acute) skilled nursing (current) use of insulin (Acute) Past Medical History Medical History Mild cardiomegaly Diabetic nephropathy Depression Interstitial pulmonary disease Pulmonary nodule Type 2 diabetes mellitus Psoriatic arthritis Anxiety Arthritis Anemia Stress incontinence Morbid obesity Hypertension 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 Family History Family History Father CVD (cardiovascular disease) Obesity Diabetes Alcohol abuse CAD (coronary artery disease) Mother CVD (cardiovascular disease) Diabetes Obesity Chronic lymphocytic leukemia Hx of myocardial infarction Brother Substance abuse Daughter FH: mental illness Paternal Aunt Breast cancer Surgical History Surgical History Hx of colonoscopy History of selective laser trabeculoplasty History of total abdominal hysterectomy and bilateral salpingo-oophorectomy History of carpal tunnel release Hx of cholecystectomy Social History Social History Household Members: Spouse and Children Housing: Condominium Are you a primary career services assistant to a significant other at home: No Alcohol intake: current Alcohol intake frequency: holidays/special occasions only Patient Tobacco Use Status: Never used Tobacco e-Cigarette/Vaping Use: Never Used Second Hand Smoke Exposure: No Use of substances other than those prescribed or required for medical reasons: No Have you been hit, kicked, punched, or otherwise hurt by someone within the past year? If so, by whom?: No Are you DNR?: No Advance Directives: No Advance Directives Information Provided: Yes Patient : No Poor oral hygiene: No service: No Current occupational status: disabled Current occupational exposures/hazards: No Cognitive needs: No Hearing needs: Yes Vision needs: Yes Meds Allergies Allergy/AdvReac Type Severity Reaction Status Date / Time citalopram (From Celexa) Allergy Mild cramps Verified 08/03/25 06:54 tirzepatide (From Mounjaro) AdvReac Severe Diarrhea Verified 08/03/25 06:54 lisinopril AdvReac Intermediate cough/all Verified 08/03/25 06:54 ACEI metformin AdvReac Intermediate Abdominal Verified 08/03/25 06:54 Pain methotrexate AdvReac Intermediate Nausea Verified 08/03/25 06:54 Niacin Preparations AdvReac Mild vomiting/flu Verified 08/03/25 06:54 symptoms/flushing ziprasidone (Geodon) AdvReac Unknown Unknown Verified 08/03/25 06:54 Home Medications ?Medication ?Instructions ?Recorded ?Confirmed ?Last Taken ?Type clobetasol 0.05 % scalp solution 1 appl topical DAILY 03/21/21 08/01/25 Unknown History diclofenac sodium 1 % topical gel 1 g topical TID 03/21/21 08/01/25 Unknown History blood-glucose meter (OneTouch 08/19/22 07/27/25 Unknown History Verio Meter) lancets 33 gauge #100 ea 12/31/22 07/27/25 Unknown History lactobacillus combination no.4 3 3,000 mmu cells PO DAILY 12/21/24 08/01/25 Unknown History billion cell capsule (Probiotic) risankizumab-rzaa 150 mg/mL 150 mg subcut Q3M 04/05/25 08/01/25 Unknown History subcutaneous pen injector (Skyrizi) Exam Height,Weight and Vital Signs: Height 5 ft 2 in Weight 122.47 kg Pertinent Lab Results Pertinent Lab Results: Laboratory Tests 07/19/25 10:08 WBC 7.3 RBC 3.98 L Hgb 11.9 L Hct 35.9 L Plt Count 203 Sodium 142 Potassium 3.9 BUN 29 H Creatinine 1.49 H Narrative Narrative: Echo 11/2024 Conclusions: - The left ventricular systolic function is normal. The calculated ejection fraction is 64% by biplane method. - No obvious valvular pathology seen on this study. Chest CT 02/2025 Impression: No evidence of interstitial lung disease. Pulmonary nodules measuring up to 2 mm, likely infectious/inflammatory. No follow-up is required in low risk individuals. High risk individuals have the option of a 1 year follow-up chest CT. Documented by User: Coty Christensen DO 08/03/25 07:11 HPI - Anesthesia Eval Anesthesia Pre-Procedure Meds Is the patient on any of the following meds?: GLP1/DPP4 PMFSH Past Medical History Medical History Mild cardiomegaly Diabetic nephropathy Depression Interstitial pulmonary disease Pulmonary nodule Type 2 diabetes mellitus Psoriatic arthritis Anxiety Arthritis Anemia Stress incontinence Morbid obesity Hypertension Dyslipidemia skilled nursing (current) use of insulin Family History Family History Father CVD (cardiovascular disease) Obesity Diabetes Alcohol abuse CAD (coronary artery disease) Mother CVD (cardiovascular disease) Diabetes Obesity Chronic lymphocytic leukemia Hx of myocardial infarction Brother Substance abuse Daughter FH: mental illness Paternal Aunt Breast cancer Family history of problems with anesthesia: No Surgical History Surgical History Hx of colonoscopy History of selective laser trabeculoplasty History of total abdominal hysterectomy and bilateral salpingo-oophorectomy History of carpal tunnel release Hx of cholecystectomy History of Problems with Anesthesia: No Social History Social History Household Members: Spouse and Children [facility] Are you a primary career services assistant to a significant other at home: No Alcohol intake: current Alcohol intake frequency: holidays/special occasions only Patient Tobacco Use Status: Never used Tobacco e-Cigarette/Vaping Use: Never Used Second Hand Smoke Exposure: No Use of substances other than those prescribed or required for medical reasons: No Have you been hit, kicked, punched, or otherwise hurt by someone within the past year? If so, by whom?: No Are you DNR?: No Advance Directives: No Advance Directives Information Provided: Yes Patient : No Poor oral hygiene: No service: No Current occupational status: disabled Current occupational exposures/hazards: No Cognitive needs: No Hearing needs: Yes Vision needs: Yes Meds Allergies Allergy/AdvReac Type Severity Reaction Status Date / Time citalopram (From Celexa) Allergy Mild cramps Verified 08/03/25 06:54 tirzepatide (From Mounjaro) AdvReac Severe Diarrhea Verified 08/03/25 06:54 lisinopril AdvReac Intermediate cough/all Verified 08/03/25 06:54 ACEI metformin AdvReac Intermediate Abdominal Verified 08/03/25 06:54 Pain methotrexate AdvReac Intermediate Nausea Verified 08/03/25 06:54 Niacin Preparations AdvReac Mild vomiting/flu Verified 08/03/25 06:54 symptoms/flushing ziprasidone (Geodon) AdvReac Unknown Unknown Verified 08/03/25 06:54 Home Medications ?Medication ?Instructions ?Recorded ?Confirmed ?Last Taken ?Type clobetasol 0.05 % scalp solution 1 appl topical DAILY 03/21/21 08/01/25 Unknown History diclofenac sodium 1 % topical gel 1 g topical TID 03/21/21 08/01/25 Unknown History blood-glucose meter (OneTouch 08/19/22 07/27/25 Unknown History Verio Meter) lancets 33 gauge #100 ea 12/31/22 07/27/25 Unknown History lactobacillus combination no.4 3 3,000 mmu cells PO DAILY 12/21/24 08/01/25 Unknown History billion cell capsule (Probiotic) risankizumab-rzaa 150 mg/mL 150 mg subcut Q3M 04/05/25 08/01/25 Unknown History subcutaneous pen injector (Skyrizi) Exam Exam Date and Time: 9/4/25 07 Height,Weight and Vital Signs: Height 5 ft 2 in Weight 122.47 kg Vital Signs Temperature 99.1 F 08/03/25 07:00 Pulse Rate 76 08/03/25 07:00 Respiratory Rate 16 08/03/25 07:00 Blood Pressure 176/71 H 08/03/25 07:00 Pulse Oximetry 97 08/03/25 07:00 Oxygen Delivery Method Room Air 08/03/25 07:00 Temperature 99.1 F 08/03/25 07:00 Pulse Rate 76 08/03/25 07:00 Respiratory Rate 16 08/03/25 07:00 Blood Pressure 176/71 H 08/03/25 07:00 Pulse Oximetry 97 08/03/25 07:00 Oxygen Delivery Method Room Air 08/03/25 07:00 Airway Mallampati Class: II TM Dist: <=3cm Neck ROM: Full Loose/Missing/Broken Teeth: No (patient denies any loose or broken teeth) Heart: S1S2 Lungs: CTAB Assessment and Plan Assessment Anesthesia Assessment: Anesthesia Plan Discussed and Chart Reviewed Final Anesthetic Review Family History of Problems with Anesthesia: No History of Problems with Anesthesia: No NPO: Yes ASA Class: III Final Preanesthetic Review: No Changes in Pt Med Stat, Meds/Allgs Chart Reviewed, Consent Obtained/Reviewed and Anes Risks/Benef Reviewed Patient Risk: Intermediate Procedure Risk: Low Anesthetic Plan Anesthetic Plan: MAC: and Agree w/ Assess. and Plan Disposition: Standard PACU
--- NOTE | 2025-08-03 07:47 | P.HPSUR_ITS ---
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) Hx of colonoscopy History of selective laser trabeculoplasty History of total abdominal hysterectomy and bilateral salpingo-oophorectomy History of carpal tunnel release Hx of cholecystectomy Present Medications: see Short Stay Collaborative assessment Allergies: Allergies Allergy/AdvReac Type Severity Reaction Status Date / Time citalopram (From Celexa) Allergy Mild cramps Verified 08/03/25 06:54 tirzepatide (From Mounjaro) AdvReac Severe Diarrhea Verified 08/03/25 06:54 lisinopril AdvReac Intermediate cough/all Verified 08/03/25 06:54 ACEI metformin AdvReac Intermediate Abdominal Verified 08/03/25 06:54 Pain methotrexate AdvReac Intermediate Nausea Verified 08/03/25 06:54 Niacin Preparations AdvReac Mild vomiting/flu Verified 08/03/25 06:54 symptoms/flushing ziprasidone (Geodon) AdvReac Unknown Unknown Verified 08/03/25 06:54 Review of Systems Review of Systems Comment: Ten point ROS negative Exam Exam Comment: Gen appear: No acute distress HEENT: no icterus Chest: No overt resp distress Abd: soft, nontender, nondistended Psych: Stable affect, answering questions appropriately Neuro: A/Ox3 noted to move all extremities spontaneously Ext: no peripheral edema Plan Diagnosis/Plan: Unchanged I have reviewed the history and physical and performed a pertinent physical examination on my patient. No changes have occurred unless specified. Time Spent With Patient Time: Total time managing care of this patient today ____ minutes.
--- NOTE | 2025-08-03 08:26 | P.OPN-COLO_ITS ---
Colonoscopy Operative Note Operative Note Date of Service: 08/03/25 Narrative: Procedure: Colonoscopy Indication: Personal history of polyps Endoscopist: Nasima Parker MD Anesthesia Provider: Catherine Garcia CRNA Anesthesia type: MAC Instrument: Olympus [id number]-H190L Consent: Indication, risks vs benefits, and alternatives were discussed with the patient who gave written informed consent to proceed. EKG, pulse, pulse oximetry and blood pressure were monitored throughout the procedure. Please see anesthesia flowsheet. Procedure: The patient was brought to the procedure room and placed in the left lateral decubitus position. IV medications were administered by the anesthesia provider in attendance. A digital rectal exam was performed which was abnormal due to finding of hemorrhoids. A distal attachment cap was affixed to the tip of the colonoscope which was then inserted through the anus and advanced through the colon to the cecum at 75 cm,and terminal ileum. Appendiceal orifice and ileocecal valve were identified. Mucosa was carefully examined under high definition white light as the instrument was slowly withdrawn in a retrograde panoramic fashion. Retroflexion was performed in rectum. The procedure was not difficult. There were no immediate obvious complications. The quality of the prep was BBPS: 2+2+3 = adequate Withdrawal time 8 minutes. Limitations: No limitations. Findings: Mucosa: Normal to cecum and terminal ileum. Protruding lesions: * Large internal hemorrhoids without stigmata of recent bleeding. Impression: 1. Normal colon and terminal ileum mucosa 2. External and internal hemorrhoids Recommendations: - resume regular diet - repeat colonoscopy for asymptomatic colorectal cancer screening in 10 years
[2025-08-03 08:34] VITALS: BP 100/42; PULSE 70; RESP 16; TEMP 36.9; O2SAT 95
[2025-08-03 08:47] VITALS: BP 148/67; PULSE 72; RESP 18; O2SAT 93
[2025-08-03 08:58] VITALS: BP 142/72; PULSE 70; RESP 18; TEMP 36.8; O2SAT 94
== END 2025-08-03 09:36 | disposition home or self-care (01) ==
PROVIDERS: PCP Physician Assistant; Visit Provider Internal Medicine
PROC: 0DJD8ZZ Inspection of Lower Intestinal Tract, Via Natural or Artificial Opening Endoscopic (ICD-10-PCS; CPT 45378; principal; 2025-08-03 07:30)
DX: Z12.11 Encounter for screening for malignant neoplasm of colon (principal); K64.8 Other hemorrhoids; K64.4 Residual hemorrhoidal skin tags; Z86.0101 Personal history of adenomatous and serrated colon polyps; E11.9 Type 2 diabetes mellitus without complications; I10 Essential (primary) hypertension; E78.5 Hyperlipidemia, unspecified; J45.909 Unspecified asthma, uncomplicated; Z96.41 Presence of insulin pump (external) (internal); Z79.4 Long term (current) use of insulin; Z79.899 Other long term (current) drug therapy
CPT/HCPCS: G0105; J2003; J2250; J2704

== ENCOUNTER → 2025-08-03 06:30 | Outpatient (BNV) | payer MEDICARE, MEDICAID, SELFPAY | PROVIDERS: PCP Physician Assistant; Visit Provider Internal Medicine | DX: Z12.11 Encounter for screening for malignant neoplasm of colon (principal); Z86.0100 Personal history of colon polyps, unspecified; K64.8 Other hemorrhoids | CPT/HCPCS: G0105 ==

== ENCOUNTER 2025-08-04 11:35 | Outpatient (AMB) | payer MEDICARE, MEDICAID, SELFPAY ==
--- NOTE | 2025-08-04 11:38 | MHC.OFFVIS ---
Vital Signs 08/04/25 11:41 Height 5 ft 3 in Weight 271 lb 9.752 oz BMI 48.1 BP 138/52 L Blood Pressure Location Lt brachial Position Sitting Pulse 69 Pulse Source Pulse Oximeter Pulse Oximetry (%) 97 Oxygen Delivery Method Room Air Intake Visit Reasons: T2DM Intake Note: Patient present today for Type 2 Diabetes Mellitus Last Diabetic eye exam: Last exam was 06/2024 and has upcoming appt in August 2025. Last Podiatry Visit: Has councilman but hasn't seen them in a while. Random Glucose: 151 mg/dl HgA1C: 6.8% Label Rewinder Required: No Accompanied by: Self / Same As Patient Allergies citalopram (From Celexa) Allergy (Mild, Verified 08/04/25 11:45) cramps tirzepatide (From Mounjaro) Adverse Reaction (Severe, Verified 08/04/25 11:45) Diarrhea lisinopril Adverse Reaction (Intermediate, Verified 08/04/25 11:45) cough/all ACEI metformin Adverse Reaction (Intermediate, Verified 08/04/25 11:45) Abdominal Pain methotrexate Adverse Reaction (Intermediate, Verified 08/04/25 11:45) Nausea Niacin Preparations Adverse Reaction (Mild, Verified 08/04/25 11:45) vomiting/flu symptoms/flushing ziprasidone (Geodon) Adverse Reaction (Unknown, Verified 08/04/25 11:45) Unknown Medication List - Last Reconciled 08/04/25 by Megan Jacobs MD acetone (urine) test (Ketone Urine Test strips) prn glucose over 250, illness, nausea or vomiting tid atenolol 75 mg (1.5 x 50 mg) PO BID 90 days bisacodyl (Dulcolax (bisacodyl)) 20 mg (4 x 5 mg) PO ONCE 1 day blood sugar diagnostic As directed testing 5x per day. blood sugar diagnostic (OneTouch Verio test strips) USE 5 TIMES DAILY blood-glucose meter (OneTouch Verio Meter) As directed blood-glucose sensor ([employer] [facility] G7 Sensor device) As directed every 10 days bupropion HCl 75 mg PO BID cetirizine (Zyrtec) 10 mg PO DAILY chlorthalidone 25 mg PO DAILY cholecalciferol (vitamin D3) 50 mcg PO DAILY clobetasol 0.05% 1 appl topical DAILY diclofenac sodium 1% 1 g topical TID glucagon 3 mg/actuation (Baqsimi) 3 mg intranasal ONCE PRN 30 days MDD 6mg may repeat in 15 minutes Humulin R U-500 (Conc) Kwikpen (insulin regular hum U-500 conc) 60 units (0.12 mL) subcut BID PRN 30 days MDD 150 NS insulin pump cart,auto,BT,G6/7 (Omnipod 5 G6-G7 Pods (Gen 5) subcutaneous cartridge) CHANGE POD EVERY 72 HOURS insulin pump cart,auto,BT-cntr (Omnipod 5 G6 Intro Kit (Gen 5) subcutaneous cartridge with controller) As directed insulin regular hum U-500 conc (Humulin R U-500 (Concentrated) Insulin) Use up to 450 units via insulin pump subcut daily; lactobacillus combination no.4 (Probiotic) 3,000 mmu cells PO DAILY lancets As directed 5 times a day lorazepam 0.5 mg PO DAILY PRN 30 days losartan 50 mg PO BID nystatin 400,000 units (4 mL) buccal QID pen needle, diabetic (Comfort EZ Pen [place]) As directed bid prn pump failure polyethylene glycol 3350 (Miralax) 238 grams PO ONCE risankizumab-rzaa (Skyrizi) 150 mg subcut Q3M tirzepatide (Mounjaro) 2.5 mg (0.5 mL) subcut QWEEK HPI Comments Details: 64-year-old female with type 2 diabetes mellitus with complications of CKD stage 3, with long-term insulin use currently on Omnipod 5 with G7 with the Humulin U 500 insulin. History of diabetes mellitus diagnosed in 2002 She has been on an Omnipod 5 with G7 She was last seen by Sally Upton APRN in April 2025. . Hgb A1C 08/04/2025 6.8% POC 03/22/25 6.8% 12/21/24 6.3%, 10/07/24 6.9%, 04/04/24 6.8% Diabetes medications: Humulin U 500 via Omnipod 5. Raghu had some GI intolerance in the past and felt too much nausea, now wants to restart , has prescription would like to try every other week microdosing Prior medications Reports that she did not tolerate Ozempic or Trulicity due to constipation. She did not tolerate Jardiance due to vaginal itching. Omnipod 5 with G6 data downloaded from July 21 to 08/03/2025 Time CGM active 94% Average glucose 156 mg/dL G AR 7% Target range 70% High 25% Very high 3% Low 2% Very low 0% Coefficient of variation 29.1% Interpretation: Mostly well-controlled except some overnight hyperglycemia Insulin usage Insulin per day 47.3 units Basal per day 25.4 units, 54% Bolus per day 22 units, 46% In automated mode 100% Carbs per day 116.8 g Entries per day 2.4 Backup pump failure plan U500 75 units twice daily has nasal baqsimi has ketone strips Basal rate(s) (units/hour) : 12 AM? to 1 AM? 1.5 units / hr 1 AM? to 8 AM? 1.4 units / hr 8 AM to 8 PM? 1.3 units / hr 8 PM? to 12 AM? 1.7 units / hr Bolus setting Insulin Carbohydrate Ratio (s) 12 AM? to 12 pm 1: 5.5 12 PM to 12 AM 1.6 Correction Factor / Sensitivity Factor 12am 1:15 12pm 1:22 4pm 1:22 Active Insulin Time:? 5 hours Target(s): 12 AM? to 12 PM? 120 mg/dL Correction Threshhold 180 mg/d No neuropathy, Symptoms reported: denies numbness, tingling, cramping in lower extremities sees podiatry on Dr. Stephenson on an infrequent basis No retinopathy: Ophthalmology evaluation: last appt in 06/2024 Has nephropathy: 07/24 EGFR 35 07/24 microalbumin 270.0 On losartan Other specialists: nephrology, dermatology, no longer seeing hematology(anemia resolved) She has follow-up scheduled with nephrology Dr. Major LDL 115 07/24, not on statin Hypoglycemia:none , Symptoms of shakiness and sweatiness. Very rare hypoglycemia Treats low with 3-4 tablets has been having some lows after lunch when she has higher before lunch Exercise: limited due to arthritis, walks some. 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 Has been going to the and using a treadmill at home Fibrosis-4 (Fib-4) Index for liver fibrosis (calculated on most recent lab work 2023) [ 0.62] points Advanced fibrosis [excluded] Approximate Fibrosis stage Torrey [0-1] Physical exam General: sitting comfortably in no acute distress HEENT: normocephalic/atraumatic Neck: supple, Cardiac: normal heart sounds Pulm: normal breath sounds B/L, no added breath sounds Abd: not distended, no tenderness Extremities: no edema, no signs of myxedema Neuro: AAO x3, Speech: normal, no facial droop, moving all 4 extremities Laboratory Tests 07/19/25 07/19/25 08/04/25 10:08 10:18 11:47 Hgb 11.9 L Hct 35.9 L Plt Count 203 Creatinine 1.49 H Estimated GFR 35 Glucose (Clinic) 151 H Hgb A1c (Clinic) AST 27 ALT 21 Triglycerides 184 H Cholesterol 191 LDL Cholesterol, Calc 115 H HDL Cholesterol 40 L TSH 0.54 Urine Creatinine 104.00 Urine Microalbumin 290.0 Microalb/Creat Ratio 278.8 H 08/04/25 11:49 Hgb Hct Plt Count Creatinine Estimated GFR Glucose (Clinic) Hgb A1c (Clinic) 6.8 H AST ALT Triglycerides Cholesterol LDL Cholesterol, Calc HDL Cholesterol TSH Urine Creatinine Urine Microalbumin Microalb/Creat Ratio [facility] Medical History (Updated 08/04/25 @ 12:36 by Megan Jacobs MD) Insulin pump in place Dyslipidemia associated with type 2 diabetes mellitus Mild cardiomegaly Diabetic nephropathy Depression Interstitial pulmonary disease Pulmonary nodule Type 2 diabetes mellitus Psoriatic arthritis Anxiety Arthritis Anemia Stress incontinence Morbid obesity Hypertension Dyslipidemia care home (current) use of insulin Surgical History Hx of colonoscopy History of selective laser trabeculoplasty History of total abdominal hysterectomy and bilateral salpingo-oophorectomy History of carpal tunnel release Hx of cholecystectomy Family History Father CVD (cardiovascular disease) Obesity Diabetes Alcohol abuse CAD (coronary artery disease) Mother CVD (cardiovascular disease) Diabetes Obesity Chronic lymphocytic leukemia Hx of myocardial infarction Brother Substance abuse Daughter FH: mental illness Paternal Aunt Breast cancer Social History Household Members: Spouse and Children [facility] Are you a primary acute care assistant to a significant other at home: No Alcohol intake: current Alcohol intake frequency: holidays/special occasions only Patient Tobacco Use Status: Never used Tobacco e-Cigarette/Vaping Use: Never Used Second Hand Smoke Exposure: No service: No Current occupational status: disabled Current occupational exposures/hazards: No Cognitive needs: No Hearing needs: Yes Vision needs: Yes Physical Exam Vital Signs: Last Vital Signs Pulse 69 08/04/25 11:41 BP 138/52 L 08/04/25 11:41 Pulse Ox 97 08/04/25 11:41 Oxygen Delivery Method Room Air 08/04/25 11:41 BMI result Body Mass Index 48.1 Office Procedures Glucose Monitoring Details Details: See [facility] [address] - Glucose monitoring, continuous-physician I&R Procedure code (CPT) selection complete Results AMB Hemoglobin A1c AMB Hemoglobin A1c 6.8 % Last Edit by LYLE Guzman on 08/04/25 11:56 Results Reviewed Results Reviewed: Laboratory Last Values Glucose (Clinic) 151 mg/dL (60-115) H 08/04/25 11:47 Hgb A1c (Clinic) 6.8 % (4.0-6.0) H 08/04/25 11:49 Assessment & Plan Assessment & Plan (1) Type 2 diabetes mellitus: Comment: follows w/[facility] Endocrinology-has insulin pump-? 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 Pump data downloaded today shows she is having some overnight hyperglycemia, it is not very consistent, but in the near future we can consider tightening her target. Patient requested if she could come off U500. I advised her if we went to U 100 insulin should be using more than 200 units per day. We briefly discussed U 200 but with this you need to learn how to pen fill U 200 as this is not available in vials. She opted to continue current current regimen I suggest for backup pump failure that she use a quick pen. Backup pump failure would be 60 units U500 b.i.d.. She would start this once her sugars started to elevate above normal for pump failure. Not to start right away as there is a long-acting mode of action on U500 in her pump. No pump settings changed today. She has a lot of insulin resistance and her weight is 271 lb with BMI 48.1 kg per m2. I agree that she would benefit from Mounjaro. She previously could not tolerate it due to GI intolerance. Plan is to start every other week sort of like micro dosing and then up titrating it very slowly. She is now going to restart it, has prescription. The patient had an opportunity to ask questions regarding treatment plan. The patient expressed understanding and agreement with the above treatment plan. The patient is aware they should contact our office by phone for worsening glucose readings or for any low blood sugars which may warrant a change in diabetes medication. Compliance is encouraged with medications and any followup testing/consults which may have been ordered. (2) Dyslipidemia associated with type 2 diabetes mellitus: Code(s): E11.69 - Type 2 diabetes mellitus with other specified complication; E78.5 - Hyperlipidemia, unspecified Category: Medical Plan: LDL 115 mg/dL from June 2025 which has gone up previously from am being in the 90s. Her LDL goal is less than 70 mg/dL. She was previously on simvastatin but then apparently she was getting nervous about side effects of arthritis pain but she continues to have arthritis being since she has stopped the simvastatin. At this point I would prefer to put her on a stronger more potent statin such as atorvastatin. Plan: -start atorvastatin 40 mg daily -plan to repeat lipid panel earlier in 2025 (3) Insulin pump in place: Code(s): Z96.41 - Presence of insulin pump (external) (internal) Category: Medical Plan: I suggest for backup pump failure that she use a quick pen. Backup pump failure would be 60 units U500 b.i.d.. She would start this once her sugars started to elevate above normal for pump failure. Not to start right away as there is a long-acting mode of action on U500 in her pump. Has backup supplies including pen needles Has urine ketone strips Has nasal Baqsimi Plan I spent 30 minutes in reviewing the record, seeing the patient and documenting in the medical record. Orders: Orders AMB Hemoglobin A1c Today E11.9 - Type 2 diabetes mellitus without complications, Z13.9 - Encounter for screening, unspecified AMB Glucose Monitoring Today E11.9 - Type 2 diabetes mellitus without complications, Z79.4 - care home (current) use of insulin Medications: New atorvastatin (Lipitor) 40 mg PO BEDTIME 90 tabs 3RF Refilled insulin regular hum U-500 conc (Humulin R U-500 (Concentrated) Insulin) Use up to 450 units via insulin pump subcut daily; 60 mL 7RF E11.65 - Type 2 diabetes mellitus with hyperglycemia Patient Instructions: start atorvastatin 40 mg daily Coding Level of Care Code Est Pt Level 4 (79211) Diagnoses Type 2 diabetes mellitus with stage 3b chronic kidney disease, with long-term current use of insulin E11.22; N18.32; Z79.4 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
[2025-08-04 11:41] VITALS: BP 138/52; PULSE 69; O2SAT 97; BMI 48.1
[2025-08-04 11:50] LABS: Glucose, Whole Blood 151 mg/dL (60-115)
--- OUTSIDE RECORDS SUMMARY | 2025-08-04 12:31 | XMS_ITS | Encounter Summary ---
Author Organization [facility] Address [address] [place] [address] Phone Care Team Providers Care Drop Forge Hand Name Role Phone Keiko Reyes MD Primary Care Provider [phone] Encounter Details Date Type Department Care Team (Late st Contact Info) Description 04/16/2021 Orders Only [facility] [address] [place] [address] Otto Major MD Type 2 diabetes mellitus [...] 1:18 PM EDT) Glucose 141(H) (70-99) MG/DL [facility] BUN 19 (6-20) MG/DL [facility] Creatinine 1.4(H) (0.5-1.0) MG/DL [facility] Sodium 143 (133-145) MMOL/L [facility] Potassium 4.8 (3.6-5.2) MMOL/L [facility] Chloride 104 (98-107) MMOL/L [facility] Bicarbonate (CO2) 31(H) (22-29) MMOL/L [facility] Anion Gap 8 (4-17) [facility] Albumin 4.2 (3.4-4.8) GM/DL [facility] Calcium 9.5 (8.6-10.5) MG/DL [facility] Phosphorus, Serum 3.9 (2.5-4.5) MG/DL [facility] Est GFR Non 41 ML/MIN/1.7 3 M2 [facility] Comment: Creatinine based estimated glomerular filtration rate (eGFR) is calculated using the Chronic Kidney Disease Epidemiology Collaboration (CKD-EPI). The CKD-EPI creatinine equation has not been validated in children (<18 years), women or in some racial or ethnic subgroups other than Caucasians and Americans. EST GFR 47 ML/MIN/1.7 3 M2 [facility] Comment: Creatinine based estimated glomerular filtration rate (eGFR) is calculated using the Chronic Kidney Disease Epidemiology Collaboration (CKD-EPI). The CKD-EPI creatinine equation has not been validated in children (<18 years), women or in some racial or ethnic subgroups other than Caucasians and Americans. Testing performed or reported by [facility], a Service of [facility], [address] [place] [address] Oksana Siegel MD, Manager Developmental Blood specimen (specimen) Venous blood / Unknown 05/30/2021 1:18 PM EDT 05/30/2021 1:20 PM EDT us Otto Major MD LAB BLOOD ORDERABLES Final Resul t [facility] documented in this encounter Visit Diagnoses Diagnosis Type 2 diabetes mellitus with diabetic chronic kidney disease (HCC) Other proteinuria Hypertension Stage 3a chronic kidney disease (HCC) documented in this encounter Care Teams Drop Forge Hand Relationship Specialty Start Date End Date Keiko Reyes MD PCP - General Internal Medicine 03/15/21 documented as of this encounter
--- OUTSIDE RECORDS SUMMARY | 2025-08-04 12:31 | XMS_ITS | Encounter Summary ---
Author Organization [facility] Address [address] [place] [address] Phone Care Team Providers Care Human Anatomy Teacher Name Role Phone Keiko Reyes MD Primary Care Provider [phone] Encounter Details Date Type Department Care Team ([facility] st Contact Info) Description 05/24/2024 Office Communication [facility] [address] [place] [address] Alessandro Roman MD [id number] [facility] [address] [place] [phone] Social History Tobacco Use Types Packs/Day Years [...] on filedocumented in this encounter Care Teams Human Anatomy Teacher Relationship Specialty Start Date End Date Keiko Reyes MD PCP - General Internal Medicine 03/15/21 documented as of this encounter
--- OUTSIDE RECORDS SUMMARY | 2025-08-04 12:31 | XMS_ITS | Clinical Summary ---
Author Organization [facility] Address [address] [place] [address] Care Team Providers Care Technical Support Representative Name Role Phone EscobarShelby story Primary Care Provider [phone] Allergies Active Allergy Reactions Criticality Noted Date [...] any suspicion for an autoimmune process from Incoming Freight Clerk, at which time we can re-connect for [...] Info) Description 10/16/2025 3:20 PM EST Follow-Up [facility] [address] [place] [phone] Dietary Aide Teacher: Batsheva Saldivar MD [address] [place] [phone] Health Maintenance Due Date Last Done Comments [...] - Risk 60-74 years 1-dose series) 2022 Alcohol/Substance Use Screening 11/30/2024 Depression Screening and Follow-Up 11/30/2024 Social Drivers of Health Annual Screening 11/30/2024 COVID-19 Vaccine ( season) 2025 12/06/2021, 02/21/2021, 01/24/2021 Influenza Vaccine (#1) 2025 , 11/07/2023, 10/07/2022, Additional history exists DTaP,Tdap,and Td Vaccines (3 - Td or Tdap) 06/19/2032 06/19/2022, 08/26/2012, 01/09/2007 Zoster Vaccines Completed 02/15/2022, 10/03/2021 Hepatitis B Vaccines Aged Out No long er eligible based on patient's age to complete this topic Insurance [facility] [employer] PPO Care Teams Technical Support Representative Relationship Specialty Start Date End Date Shelby Escobar [address] [place] [id number] PCP - General Internal Medicine 01/19/25
--- OUTSIDE RECORDS SUMMARY | 2025-08-04 12:31 | XMS_ITS | Clinical Summary ---
Author Organization [facility] Address [address] [facility] [address] [place] [address] Phone Care Team Providers Care Car Body Mechanic Name Role Phone Keiko Reyes MD Primary Care Provider [phone] Allergies Active Allergy Reactions Criticality Noted Date [...] patient's age to complete this topic Insurance [facility] [place] [facility] [place] Care Teams Car Body Mechanic Relationship Specialty Start Date End Date Keiko Reyes MD PCP - General Internal Medicine 03/15/21
--- OUTSIDE RECORDS SUMMARY | 2025-08-04 12:31 | XMS_ITS | Clinical Summary ---
Author Organization [facility] Address [address] [place] [address] Care Team Providers Care Optical Dispenser Name Role Phone Shelby Escobar PA-C Primary [...] age to complete this topic Care Teams Optical Dispenser Relationship Specialty Start Date End Date Shelby Escobar PA-C PCP - General Physician Residential Plumber 07/21/23
== END 2025-08-04 12:18 | disposition home or self-care (01) ==
LOC: HO.ENCR 11:36
PROVIDERS: PCP Physician Assistant; Visit Provider Student in an Organized Health Care Education/Training Program
DX: E11.22 Type 2 diabetes mellitus with diabetic chronic kidney disease (principal); N18.32 Chronic kidney disease, stage 3b; Z79.4 Long term (current) use of insulin; E11.69 Type 2 diabetes mellitus with other specified complication; E78.5 Hyperlipidemia, unspecified; Z96.41 Presence of insulin pump (external) (internal); Z13.9 Encounter for screening, unspecified
CPT/HCPCS: 95251; 99214

== ENCOUNTER → 2025-08-04 11:35 | Outpatient (BNVA) | payer MEDICARE, MEDICAID, SELFPAY | PROVIDERS: PCP Physician Assistant; Visit Provider Student in an Organized Health Care Education/Training Program | DX: E11.22 Type 2 diabetes mellitus with diabetic chronic kidney disease (principal); E11.21 Type 2 diabetes mellitus with diabetic nephropathy; E11.69 Type 2 diabetes mellitus with other specified complication; N18.32 Chronic kidney disease, stage 3b; E78.5 Hyperlipidemia, unspecified; Z79.4 Long term (current) use of insulin; Z13.9 Encounter for screening, unspecified; Z96.41 Presence of insulin pump (external) (internal) | CPT/HCPCS: 82947; 83036; 99212 ==

== ENCOUNTER 2025-08-25 13:37 | Outpatient (AMB) | payer MEDICARE, MEDICAID, SELFPAY ==
--- NOTE | 2025-08-25 13:42 | MHC.PC.OV ---
Vital Signs 08/25/25 13:46 Height 5 ft 3 in Weight 269 lb 3 oz BMI 47.7 BP 152/76 H Blood Pressure Location Lt brachial Position Sitting Respiration 14 Pulse 66 Pulse Source Pulse Oximeter Temp 97.8 F Temp Source Oral Pulse Oximetry (%) 96 Oxygen Delivery Method Room Air Intake Visit Reasons: Arthritis flare in feet Intake Note: Patient c/o arthritis flare up on both feet Potato Peeling Machine Operator Required: No Allergies citalopram (From Celexa) Allergy (Mild, Verified 08/25/25 13:59) cramps tirzepatide (From Mounjaro) Adverse Reaction (Severe, Verified 08/25/25 13:59) Diarrhea lisinopril Adverse Reaction (Intermediate, Verified 08/25/25 13:59) cough/all ACEI metformin Adverse Reaction (Intermediate, Verified 08/25/25 13:59) Abdominal Pain methotrexate Adverse Reaction (Intermediate, Verified 08/25/25 13:59) Nausea Niacin Preparations Adverse Reaction (Mild, Verified 08/25/25 13:59) vomiting/flu symptoms/flushing ziprasidone (Geodon) Adverse Reaction (Unknown, Verified 08/25/25 13:59) Unknown Tobacco use date assessed: 08/25/25 Dental Screening Dental Screen Date: 08/25/25 Did you have a dental visit in the last 12 months?: Yes Did you have a dental problem in the last 6 months where you did not have access to dental care?: No Was dental information given to patient?: Patient has dentist HPI HPI Comments History of Present Illness Details Here today with complaints of pain in bilat feet Pain started in R foot 3 weeks ago pain across top of r foot favoring r side as a result then a few weeks later it got better then L foot started w/ pain through heel feels like flaming fire pain affecting sleep tried elevation took ibu x 2 it improved about 1 week later, can raise toes and flex which is improvement now the sx have returned on the R foot today feels fine No hx of gout Denies systemic sx. Due for flu shot Exam Bilat feet skin intact, neurovasc intact, chronic vascular changes noted, no erythema no edema, no excessive warmth. Toes/foot/ankle FROM. No antalgic gait. Pain over base of great toes bilat with palpation Plan Xray of bilat feet Uric acid level Results and plan to be sent via portal Flu shot admin today RTO as scheduled, sooner PRN Total time spent caring for the patient today was 30 minutes. This includes time spent before the visit reviewing the chart, time spent during the visit, and time spent after the visit on documentation, reviewing laboratory results, diagnostic imaging, medications, performing a medically necessary evaluation, counseling on diagnoses, care coordination, ordering appropriate tests, ordering appropriate medications, review of tests performed by other providers, reporting test results with the patient, communication with other healthcare providers. 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 Mild cardiomegaly Morbid obesity Psoriatic arthritis Pulmonary nodule Stress incontinence Type 2 diabetes mellitus Surgical History History of carpal tunnel release History of selective laser trabeculoplasty History of total abdominal hysterectomy and bilateral salpingo-oophorectomy Hx of cholecystectomy Hx of colonoscopy Family History Father CVD (cardiovascular disease) Obesity Diabetes Alcohol abuse CAD (coronary artery disease) Mother CVD (cardiovascular disease) Diabetes Obesity Chronic lymphocytic leukemia Hx of myocardial infarction Brother Substance abuse Daughter FH: mental illness Paternal Aunt Breast cancer Social History Household Members: Spouse and Children [facility] Are you a primary career education teacher to a significant other at home: No Alcohol intake: current Alcohol intake frequency: holidays/special occasions only Patient Tobacco Use Status: Never used Tobacco e-Cigarette/Vaping Use: Never Used Second Hand Smoke Exposure: No service: No Current occupational status: disabled Current occupational exposures/hazards: No Cognitive needs: No Hearing needs: Yes Vision needs: Yes Questionnaire Thrive Questionnaire Date Thrive assessed: 12/15/24 I am a: Patient What is your living situation today?: I have a steady place to live Within the past 12 months, did the food you bought not last and you didn't have the money to get more?: Never true Within the past 12 months, did you worry whether your food would run out before you got money to buy more?: Never true Do you have trouble paying for medicines?: No Do you have trouble getting transportation to medical appointments?: No Do you have trouble paying your heating and electricity bill?: No Do you have trouble taking care of your child, family member or friend?: No Do you have trouble with day-to-day activities such as bathing, preparing meals, shopping, managing finances, etc.?: No Are you currently unemployed and looking for a job?: No Are you interested in more education?: No Please select the resources that you would like help with: None Currently or been in a relationship where the following occur: No concerns reported THRIVE Score: 0 DENNIS-7 AMB Questionnaire DENNIS-7 Date DENNIS - 7 assessed: 04/20/25 Source: Developed by Drs. Eligio Méndez, Mignon Colon, Pepe Turner and colleagues, with an educational nanette from [employer]. Physical exam (Primary Care) Vital Signs: Last Vital Signs Temp 97.8 F 08/25/25 13:46 Pulse 66 08/25/25 13:46 Resp 14 08/25/25 13:46 BP 152/76 H 08/25/25 13:46 Pulse Ox 96 08/25/25 13:46 Oxygen Delivery Method Room Air 08/25/25 13:46 BMI result Body Mass Index 47.7 Tobacco/Smoking Status: Tobacco use Status Tobacco use date assessed 08/25/25 08/25/25 13:48 Patient Tobacco Use Status Never used Tobacco 08/25/25 13:48 e-Cigarette/Vaping Use Never Used 08/25/25 13:48 Thrive Assessment: Date of Thrive Assessment Date Thrive assessed 12/15/24 08/25/25 13:48 Currently or been in a relationship where the following occur: No concerns reported Office Procedures Flu Questionnaire Does the patient have a severe egg allergy?: No Does the patient have severe life threatening allergies?: No Does the patient have a fever or illness today?: No Has the patient ever had Guillain-Toomsuba Syndrome?: No Has the patient ever had any past reaction to a flu shot?: No Immunizations Fluarix [id number] (PF) 45 mcg (15 mcg x 3)/0.5 mL IM syringe Performing Provider: MARILIA Swenson Performing Location: [facility] Administered by: Melinda Barber MA on 08/25/25 13:53 Dose Route Admin Location Dispensed Lot Number Expiration Date [facility] Electroplating Sales Representative 0.5 mL IM Right Deltoid 0.5 mL [id number] 05/29/26 [id number] [employer] VIS Given Date VIS Provided VIS Publication Date 08/25/25 Single Vaccine 24 Eligibility Eligibility Date Funding Source Not [facility] Eligible 08/25/25 Private Coding Level of Care Code Est Pt Level 4 (76436) Complex EM visit Add On G2211 Diagnoses Influenza vaccination administered at current visit Z23 Foot pain, bilateral M79.671; M79.672 Assessment & Plan Assessment & Plan (1) Influenza vaccination administered at current visit: Code(s): Z23 - Encounter for immunization Category: Medical (2) Foot pain, bilateral: Code(s): M79.671 - Pain in right foot; M79.672 - Pain in left foot Category: Medical Plan . Orders: Orders Influenza [id number] Immunization Today Z23 - Encounter for immunization Uric Acid Today M79.671 - Pain in right foot, M79.672 - Pain in left foot XR foot RT min 3V Today M79.671 - Pain in right foot, M79.672 - Pain in left foot XR foot LT min 3V Today M79.671 - Pain in right foot, M79.672 - Pain in left foot
[2025-08-25 13:46] VITALS: BP 152/76; PULSE 66; RESP 14; TEMP 36.6; O2SAT 96; BMI 47.7
--- OUTSIDE RECORDS SUMMARY | 2025-08-25 14:54 | XMS_ITS | Encounter Summary ---
Author Organization [facility] Address [address] [place] [address] Phone Care Team Providers Care Bicycle Technician Name Role Phone Keiko Reyes MD Primary Care Provider Encounter Details Date Type Department Care Team (Late st Contact Info) Description 04/16/2021 Orders Only [facility] [address] [place] [address] Otto Major MD Type 2 diabetes mellitus [...] 1:18 PM EDT) Glucose 141(H) (70-99) MG/DL [facility] BUN 19 (6-20) MG/DL [facility] Creatinine 1.4(H) (0.5-1.0) MG/DL [facility] Sodium 143 (133-145) MMOL/L [facility] Potassium 4.8 (3.6-5.2) MMOL/L [facility] Chloride 104 (98-107) MMOL/L [facility] Bicarbonate (CO2) 31(H) (22-29) MMOL/L [facility] Anion Gap 8 (4-17) [facility] Albumin 4.2 (3.4-4.8) GM/DL [facility] Calcium 9.5 (8.6-10.5) MG/DL [facility] Phosphorus, Serum 3.9 (2.5-4.5) MG/DL [facility] Est GFR Non 41 ML/MIN/1.7 3 M2 [facility] Comment: Creatinine based estimated glomerular filtration rate (eGFR) is calculated using the Chronic Kidney Disease Epidemiology Collaboration (CKD-EPI). The CKD-EPI creatinine equation has not been validated in children (<18 years), women or in some racial or ethnic subgroups other than Caucasians and Americans. EST GFR 47 ML/MIN/1.7 3 M2 [facility] Comment: Creatinine based estimated glomerular filtration rate (eGFR) is calculated using the Chronic Kidney Disease Epidemiology Collaboration (CKD-EPI). The CKD-EPI creatinine equation has not been validated in children (<18 years), women or in some racial or ethnic subgroups other than Caucasians and Americans. Testing performed or reported by [facility], a Service of [facility], [address] [place] [address] Oksana Siegel MD, Stringer Up Soldering Machine Blood specimen (specimen) Venous blood / Unknown 05/30/2021 1:18 PM EDT 05/30/2021 1:20 PM EDT us Otto Major MD LAB BLOOD ORDERABLES Final Resul t [facility] documented in this encounter Visit Diagnoses Diagnosis Type 2 diabetes mellitus with diabetic chronic kidney disease (HCC) Other proteinuria Hypertension Stage 3a chronic kidney disease (HCC) documented in this encounter Care Teams Bicycle Technician Relationship Specialty Start Date End Date Keiko Reyes MD PCP - General Internal Medicine 03/15/21 documented as of this encounter
--- OUTSIDE RECORDS SUMMARY | 2025-08-25 14:54 | XMS_ITS | Clinical Summary ---
Author Organization [facility] Address [address] [place] [address] Care Team Providers Care Warp Hand Name Role Phone EscobarShelby story Primary Care Provider [phone] Allergies Active Allergy Reactions Criticality Noted Date [...] any suspicion for an autoimmune process from Steam Shovel Runner, at which time we can re-connect for [...] Info) Description 10/16/2025 3:20 PM EST Follow-Up [facility] [address] [place] [id number] Director Decision Support: Batsheva Saldivar MD [address] [place] [address] Health Maintenance Due Date Last Done Comments [...] age to complete this topic Insurance [facility] MCR REPLACE PPO Care Teams Warp Hand Relationship Specialty Start Date End Date Shelby Escobar [address] [place] [address] PCP - General Internal Medicine 01/19/25
--- OUTSIDE RECORDS SUMMARY | 2025-08-25 14:54 | XMS_ITS | Clinical Summary ---
Author Organization [facility] Address [address] [place] [address] Care Team Providers Care Dough Cutter Name Role Phone Shelby Escobar PA-C Primary Care Provider [phone] Allergies Active Allergy Reactions Criticality Noted Date [...] age to complete this topic Care Teams Dough Cutter Relationship Specialty Start Date End Date Shelby Escobar PA-C PCP - General Physician Spray Gun Striper 07/21/23
--- OUTSIDE RECORDS SUMMARY | 2025-08-25 14:54 | XMS_ITS | Clinical Summary ---
Author Organization [facility] Address [address] [facility] [address] [place] [address] Phone Care Team Providers Care Satellite Project Site Monitor Name Role Phone Keiko Reyes MD Primary Care Provider [phone] Allergies Active Allergy Reactions Criticality Noted Date [...] patient's age to complete this topic Insurance [facility] Medicaid [place] [facility] [place] Care Teams Satellite Project Site Monitor Relationship Specialty Start Date End Date Keiko Reyes MD PCP - General Internal Medicine 03/15/21
--- OUTSIDE RECORDS SUMMARY | 2025-08-25 14:54 | XMS_ITS | Encounter Summary ---
Author Organization [facility] Address [address] [place] [address] Phone Care Team Providers Care Progress Clerk Name Role Phone Keiko Reyes MD Primary Care Provider [phone] Encounter Details Date Type Department Care Team ([facility] st Contact Info) Description 05/24/2024 Office Communication [facility] [address] [place] [address] Alessandro Roman MD [address] [facility] [address] [place] [phone] Social History Tobacco Use Types Packs/Day Years [...] on filedocumented in this encounter Care Teams Progress Clerk Relationship Specialty Start Date End Date Keiko Reyes MD PCP - General Internal Medicine 03/15/21 documented as of this encounter
== END 2025-08-25 14:10 | disposition home or self-care (01) ==
LOC: HO.HMCFM 13:38
PROVIDERS: PCP Physician Assistant; Visit Provider Nurse Practitioner Family
DX: Z23 Encounter for immunization (principal); M79.671 Pain in right foot; M79.672 Pain in left foot

== ENCOUNTER → 2025-08-25 13:37 | Outpatient (BNVA) | payer MEDICARE, MEDICAID, SELFPAY | PROVIDERS: PCP Physician Assistant; Visit Provider Nurse Practitioner Family | DX: M19.072 Primary osteoarthritis, left ankle and foot (principal); M19.071 Primary osteoarthritis, right ankle and foot; Z23 Encounter for immunization | CPT/HCPCS: 90471; 90656; 99212 ==

== ENCOUNTER 2025-08-29 11:34 | Outpatient (REF) | payer MEDICARE, MEDICAID, SELFPAY ==
--- NOTE | ~2025-08-29 | XR_ITS ---
EXAMINATION: XR CHEST CLINICAL INFORMATION: R05.9 - Cough, unspecified COMPARISON: April 02, 2025 TECHNIQUE: 2 views of the chest were obtained. FINDINGS: There is minimal left basilar atelectasis and/or scarring. Lungs clear otherwise. Heart size is within normal limits. No pleural effusion is identified. XR/XR chest 2V IMPRESSION: Stable left basilar atelectasis and/or scarring. Electronically signed by: Oli Adkins MD 08/29/2025 12:44 PM EDT
--- NOTE | ~2025-08-29 | XR_ITS ---
Exam: XR FOOT 3 OR MORE VIEWS BILATERAL, bilateral foot x-rays TECHNIQUE: AP, OBL and lateral views lower extremity, bilateral feet INDICATION: M79.671 - Pain in right foot COMPARISON: None available. FINDINGS: RIGHT FOOT: There are small lucency with sclerotic margin is noted in the medial first metatarsal head. Small focal lucency is present at the lateral base of the proximal phalanx of the first digit. Small to medium calcaneal spur is noted. There is an os trigonum. There is soft tissue calcification anterior to the ankle joint. There is chondrocalcinosis involving talar dome and second and fourth MTP joints. LEFT FOOT: There are small marginal osteophytes involving the first MCP joint and articulations with the sesamoids. No erosions are identified. There is a small calcaneal spur. There is an ossification at the anterior margin of medial malleolus. There is an os trigonum. There is chondrocalcinosis involving the MTP joints. XR/XR Foot Jose R 3V IMPRESSION: Right foot: Nonspecific cystlike lucencies are assessed in the medial first metatarsal head and lateral first proximal phalanx base. Chondrocalcinosis. Left foot: Chondrocalcinosis. Mild changes of osteoarthritis. Electronically signed by: Oli Adkins MD 08/29/2025 12:43 PM EDT
[2025-08-29 12:42] LABS: Anion Gap 12 (12-20); Blood Urea Nitrogen 34 mg/dL (9-16); Carbon Dioxide 29 mmol/L (22-29); Chloride 105 mmol/L (96-108); Estimated Glomerular Filt Rate 33; Potassium 4.1 mmol/L (3.3-5.1); Sodium 142 mmol/L (135-145); Uric Acid 10.0 mg/dL (2.4-5.7)
--- OUTSIDE RECORDS SUMMARY | 2025-08-29 13:04 | XMS_ITS | Clinical Summary ---
Author Organization [facility] Address [address] [place] [address] Care Team Providers Care Blast Furnace Checker Name Role Phone Shelby Escobar PA-C Primary [...] age to complete this topic Care Teams Blast Furnace Checker Relationship Specialty Start Date End Date Shelby Escobar PA-C PCP - General Physician Pumper Gager Apprentice 07/21/23
--- OUTSIDE RECORDS SUMMARY | 2025-08-29 13:04 | XMS_ITS | Encounter Summary ---
Author Organization [facility] Address [address] [place] [address] Phone Care Team Providers Care Nurse Behavioral Health Care Name Role Phone Keiko Reyes MD Primary Care Provider [phone] Encounter Details Date Type Department Care Team (Late st Contact Info) Description 04/16/2021 Orders Only [facility] [address] [place] [address] Otto Major MD Type 2 diabetes mellitus [...] 1:18 PM EDT) Glucose 141(H) (70-99) MG/DL [facility] BUN 19 (6-20) MG/DL [facility] Creatinine 1.4(H) (0.5-1.0) MG/DL [facility] Sodium 143 (133-145) MMOL/L [facility] Potassium 4.8 (3.6-5.2) MMOL/L [facility] Chloride 104 (98-107) MMOL/L [facility] Bicarbonate (CO2) 31(H) (22-29) MMOL/L [facility] Anion Gap 8 (4-17) [facility] Albumin 4.2 (3.4-4.8) GM/DL [facility] Calcium 9.5 (8.6-10.5) MG/DL [facility] Phosphorus, Serum 3.9 (2.5-4.5) MG/DL [facility] Est GFR Non 41 ML/MIN/1.7 3 M2 [facility] Comment: Creatinine based estimated glomerular filtration rate (eGFR) is calculated using the Chronic Kidney Disease Epidemiology Collaboration (CKD-EPI). The CKD-EPI creatinine equation has not been validated in children (<18 years), women or in some racial or ethnic subgroups other than Caucasians and Americans. EST GFR 47 ML/MIN/1.7 3 M2 [facility] Comment: Creatinine based estimated glomerular filtration rate (eGFR) is calculated using the Chronic Kidney Disease Epidemiology Collaboration (CKD-EPI). The CKD-EPI creatinine equation has not been validated in children (<18 years), women or in some racial or ethnic subgroups other than Caucasians and Americans. Testing performed or reported by [facility], a Service of [facility], [address] [place] [address] Oksana Siegel MD, Chief Credit Officer Blood specimen (specimen) Venous blood / Unknown 05/30/2021 1:18 PM EDT 05/30/2021 1:20 PM EDT us Otto Major MD LAB BLOOD ORDERABLES Final Resul t [facility] documented in this encounter Visit Diagnoses Diagnosis Type 2 diabetes mellitus with diabetic chronic kidney disease (HCC) Other proteinuria Hypertension Stage 3a chronic kidney disease (HCC) documented in this encounter Care Teams Nurse Behavioral Health Care Relationship Specialty Start Date End Date Keiko Reyes MD PCP - General Internal Medicine 03/15/21 documented as of this encounter
--- OUTSIDE RECORDS SUMMARY | 2025-08-29 13:04 | XMS_ITS | Encounter Summary ---
Author Organization [facility] Address [address] [place] [address] Phone Care Team Providers Care Partnership Development Manager Name Role Phone Keiko Reyes MD Primary Care Provider [phone] Encounter Details Date Type Department Care Team ([facility] st Contact Info) Description 05/24/2024 Office Communication [facility] [address] [place] [address] Alessandro Roman MD [address] [facility] [address] [place] [phone] Social History Tobacco Use Types Packs/Day Years [...] on filedocumented in this encounter Care Teams Partnership Development Manager Relationship Specialty Start Date End Date Keiko Reyes MD PCP - General Internal Medicine 03/15/21 documented as of this encounter
--- OUTSIDE RECORDS SUMMARY | 2025-08-29 13:04 | XMS_ITS | Clinical Summary ---
Author Organization [facility] Address [address] [facility] [address] [place] [address] Phone Care Team Providers Care Cvir Tech Name Role Phone Keiko Reyes MD Primary Care Provider [phone] Allergies Active Allergy Reactions Criticality Noted Date [...] age to complete this topic Insurance [facility] [place] [facility] [place] Care Teams Cvir Tech Relationship Specialty Start Date End Date Keiko Reyes MD PCP - General Internal Medicine 03/15/21
--- OUTSIDE RECORDS SUMMARY | 2025-08-29 13:04 | XMS_ITS | Clinical Summary ---
Author Organization [facility] Address [address] [place] [address] Care Team Providers Care Client Service Coordinator Name Role Phone EscobarShelby story Primary Care Provider [phone] Allergies Active Allergy Reactions Criticality Noted Date [...] any suspicion for an autoimmune process from Food Safety Technician, at which time we can re-connect for [...] Info) Description 10/16/2025 3:20 PM EST Follow-Up [facility] [address] [place] [address] Sound Engineer: Batsheva Saldivar MD [address] [place] [address] Health Maintenance Due Date Last Done Comments [...] patient's age to complete this topic Insurance [facility] MCR REPLACE PPO Care Teams Client Service Coordinator Relationship Specialty Start Date End Date Shelyb Escobar [address] [place] [address] PCP - General Internal Medicine 01/19/25
== END 2025-08-29 11:35 | disposition home or self-care (01) ==
LOC: HO.LAB 11:34
PROVIDERS: Internal Medicine Nephrology; PCP Physician Assistant; Visit Provider Nurse Practitioner Family
DX: I12.9 Hypertensive chronic kidney disease with stage 1 through stage 4 chronic kidney disease, or unspecified chronic kidney disease (principal); E11.22 Type 2 diabetes mellitus with diabetic chronic kidney disease; E11.21 Type 2 diabetes mellitus with diabetic nephropathy; N18.30 Chronic kidney disease, stage 3 unspecified; R05.9 Cough, unspecified; M79.671 Pain in right foot
CPT/HCPCS: 71046; 73630; 80051; 82565; 84520; 84550

== ENCOUNTER → 2025-08-29 11:38 | Outpatient (BNV) | payer MEDICARE, MEDICAID, SELFPAY | PROVIDERS: PCP Physician Assistant; Visit Provider Radiology Diagnostic Radiology | DX: R05.9 Cough, unspecified (principal); M11.271 Other chondrocalcinosis, right ankle and foot; M11.272 Other chondrocalcinosis, left ankle and foot; M19.072 Primary osteoarthritis, left ankle and foot; R91.8 Other nonspecific abnormal finding of lung field | CPT/HCPCS: 71046; 73630 ==

== ENCOUNTER 2025-09-20 10:55 | Outpatient (AMB) | payer MEDICARE, MEDICAID, SELFPAY ==
--- NOTE | 2025-09-20 11:06 | A.OFFVIS_ITS ---
Vital Signs 09/20/25 11:07 Height 5 ft 3 in Weight 265 lb BMI 46.9 Intake Visit Reasons: Foot pain Intake Note: Aure is a 65 year old female who presents to the office today as a new patient referred by her PCP Tammie Sullivan for Foot pain. X-rays were obtained on 08/29/25 and in chart for review. Pt states she has bilateral foot pain that comes and goes and describes the pain as flaming fire pain . Pt states the pain has since disappeared and she would like to discuss her X-ray results and treatment options for her arthritis. Allergies citalopram (From Celexa) Allergy (Mild, Verified 09/20/25 11:08) cramps tirzepatide (From Mounjaro) Adverse Reaction (Severe, Verified 09/20/25 11:08) Diarrhea lisinopril Adverse Reaction (Intermediate, Verified 09/20/25 11:08) cough/all ACEI metformin Adverse Reaction (Intermediate, Verified 09/20/25 11:08) Abdominal Pain methotrexate Adverse Reaction (Intermediate, Verified 09/20/25 11:08) Nausea Niacin Preparations Adverse Reaction (Mild, Verified 09/20/25 11:08) vomiting/flu symptoms/flushing ziprasidone (Geodon) Adverse Reaction (Unknown, Verified 09/20/25 11:08) Unknown HPI Comments Details: The patient is a 65-year-old female presenting with bilateral foot pain and evaluation of potential underlying conditions. The patient reported experiencing pain across the top of her right foot, described as a heavy, deep pain similar to a cramp, which resolved spontaneously after a few weeks. Subsequently, she experienced a different type of pain in her left foot, described as a fire-like pain along the hallux and 1st met, which resolved within a week. The patient has no history of recent injuries. She took two Advils and performed some exercises, which helped alleviate the pain. The patient denies any numbness, tingling, or burning sensations in her feet. She has not experienced any pain associated with the bone spurs. The patient has varicose veins, which have not been previously evaluated by a vascular specialist. She does not wear compression socks. She also states she notices a mass to the plantar midfoot of the right foot without growth noted. She denies any drainage, purulence, or bleeding. Denies any other pedal concerns. PFSH Medical History (Updated 09/21/25 @ 07:59 by Rafaela Rosenberg DPM) Varicose veins of both lower extremities Xerosis of skin Insulin pump in place Dyslipidemia associated with type 2 diabetes mellitus Mild cardiomegaly Diabetic nephropathy Depression Interstitial pulmonary disease Pulmonary nodule Type 2 diabetes mellitus Psoriatic arthritis Anxiety Arthritis Anemia Stress incontinence Morbid obesity Hypertension Dyslipidemia prison (current) use of insulin Surgical History Hx of colonoscopy History of selective laser trabeculoplasty History of total abdominal hysterectomy and bilateral salpingo-oophorectomy History of carpal tunnel release Hx of cholecystectomy Family History Father CVD (cardiovascular disease) Obesity Diabetes Alcohol abuse CAD (coronary artery disease) Mother CVD (cardiovascular disease) Diabetes Obesity Chronic lymphocytic leukemia Hx of myocardial infarction Brother Substance abuse Daughter FH: mental illness Paternal Aunt Breast cancer Social History Household Members: Spouse and Children Housing: [facility] Are you a primary acute care registered nurse to a significant other at home: No Alcohol intake: current Alcohol intake frequency: holidays/special occasions only Patient Tobacco Use Status: Never used Tobacco e-Cigarette/Vaping Use: Never Used Second Hand Smoke Exposure: No service: No Current occupational status: disabled Current occupational exposures/hazards: No Cognitive needs: No Hearing needs: Yes Vision needs: Yes Review of Systems Const Details: - Musculoskeletal: Reports intermittent bilateral foot pain, resolved spontaneously All systems reviewed & are unremarkable except as noted in HPI and below Physical Exam Vital Signs: BMI result Body Mass Index 46.9 Extrem Other: B/L LE Focused Physical Exam: Derm: Mild mottling of skin noted. No open lesions, abrasions, or wounds noted. Palpable mass noted to the plantar aspect of the right midfoot measuring approximately 0.2 x 0.2 cm. Mass is not mobile or fluctuant. No drainage, purulence, or bleeding noted. Hyperkeratotic areas noted to the plantar and posterior aspects of the heels. Incurvation and change in shape of nails with mild thickness noted x10. No clinical signs of infection. Vasc: DP/PT pulses palpable. CFT < 3 secs. Temp gradient warm to warm. Pedal hair absent. Varicosities noted. Neuro: Protective sensations grossly intact. MSK: No pain on palpation to the feet. ROM of the forefoot, hindfoot, and ankles WNL. No crepitus noted, Nonantalgic gait unassisted noted. Pes planus foot type. No other gross abnormalities noted. Results Reviewed Results Reviewed: Laboratory Tests 08/04/25 08/04/25 08/29/25 11:47 11:49 12:10 Glucose (Clinic) 151 H Hgb A1c (Clinic) 6.8 H Uric Acid 10.0 H Podiatry Read of B/L foot x-rays (08/29/25): Arthritic changes noted with joint space narrowing and osteophyte formation. Calcium buildup noted to soft tissue. Bone spur noted to the plantar aspect of the calcaneus on the left and on the right bone spur noted to the plantar and posterior aspects. B/L foot x-rays (08/29/25): FINDINGS: RIGHT FOOT: There are small lucency with sclerotic margin is noted in the medial first metatarsal head. Small focal lucency is present at the lateral base of the proximal phalanx of the first digit. Small to medium calcaneal spur is noted. There is an os trigonum. There is soft tissue calcification anterior to the ankle joint. There is chondrocalcinosis involving talar dome and second and fourth MTP joints. LEFT FOOT: There are small marginal osteophytes involving the first MCP joint and articulations with the sesamoids. No erosions are identified. There is a small calcaneal spur. There is an ossification at the anterior margin of medial malleolus. There is an os trigonum. There is chondrocalcinosis involving the MTP joints. Right foot: Nonspecific cystlike lucencies are assessed in the medial first metatarsal head and lateral first proximal phalanx base. Chondrocalcinosis. Left foot: Chondrocalcinosis. Mild changes of osteoarthritis. Assessment & Plan Assessment & Plan (1) Xerosis of skin: Code(s): L85.3 - Xerosis cutis Category: Medical (2) Varicose veins of both lower extremities: Code(s): I83.93 - Asymptomatic varicose veins of bilateral lower extremities Category: Medical Plan Patient was informed and verbally consented to the use of an ambient scribe for clinic note documentation during this visit. I discussed with the patient the findings of mild arthritis, chondrocalcinosis, varicose veins, plantar fasciitis/plantar fibroma, and Achilles tendinitis as seen on the x-rays. We talked about the conservative management options, including the use of Voltaren gel, lidocaine patches, and compression socks. I advised her to avoid walking barefoot and to consider supportive footwear. We also discussed the importance of regular nail trimming to prevent complications from nail shape changes. - Recommend use of [id number] Voltaren gel or lidocaine patch for pain management as needed - Recommend wearing compression socks for varicose veins management. - Prescribed Ammonium lactate to be used in hyperkeratotic areas. - Advised against walking barefoot and recommend wearing supportive shoes - Consider orthopedic shoes and insoles if pain increases. - Provided vascular referral. RTC in 3 week for diabetic foot care/exam. Orders: Referrals Vascular Surgery Referral I83.93 - Asymptomatic varicose veins of bilateral lower extremities Medications: New ammonium lactate 12% 1 appl topical DAILY 385 grams 0RF L85.3 - Xerosis cutis Coding Level of Care Code New Pt Level 4 (10396) Diagnoses Xerosis of skin L85.3 Varicose veins of both lower extremities I83.93 Time Spent (min) 60
[2025-09-20 11:07] VITALS: BMI 46.9
--- OUTSIDE RECORDS SUMMARY | 2025-09-20 14:32 | XMS_ITS | Clinical Summary ---
Author Organization [facility] Address [address] [place] [address] Care Team Providers Care Splitter Tender Name Role Phone Shelby Escobar PA-C Primary Care Provider [phone] Allergies Active Allergy Reactions Criticality Noted Date [...] age to complete this topic Care Teams Splitter Tender Relationship Specialty Start Date End Date Shelby Escobar PA-C PCP - General Physician Ironer Or Presser 07/21/23
--- OUTSIDE RECORDS SUMMARY | 2025-09-20 14:32 | XMS_ITS | Clinical Summary ---
Author Organization [facility] Address [address] [place] [address] Care Team Providers Care [employer] Driver Name Role Phone EscobarShelby story Primary Care Provider [phone] Allergies Active Allergy Reactions Criticality Noted Date [...] any suspicion for an autoimmune process from Manager Terminal, at which time we can re-connect for [...] Info) Description 10/16/2025 3:20 PM EST Follow-Up [facility] [address] [place] [id number] Palliative Care Nurse Practitioner: Batsheva Saldivar MD [address] [place] [address] Health Maintenance Due Date Last Done Comments [...] patient's age to complete this topic Insurance [facility] MCR REPLACE PPO Care Teams [employer] Driver Relationship Specialty Start Date End Date Shelby Escobar [address] [place] [id number] PCP - General Internal Medicine 01/19/25
== END 2025-09-20 11:33 | disposition home or self-care (01) ==
LOC: HO.HPODS 10:56
PROVIDERS: PCP Physician Assistant; Visit Provider Student in an Organized Health Care Education/Training Program
DX: L85.3 Xerosis cutis (principal); I83.93 Asymptomatic varicose veins of bilateral lower extremities
CPT/HCPCS: 99204

== ENCOUNTER → 2025-09-20 10:55 | Outpatient (BNVA) | payer MEDICARE, MEDICAID, SELFPAY | PROVIDERS: PCP Physician Assistant; Visit Provider Student in an Organized Health Care Education/Training Program | DX: L85.3 Xerosis cutis (principal); I83.93 Asymptomatic varicose veins of bilateral lower extremities | CPT/HCPCS: 99202 ==

== ENCOUNTER 2025-09-26 11:00 | Outpatient (AMB) | payer MEDICARE, MEDICAID, SELFPAY ==
[2025-09-26 11:10] VITALS: BP 152/84; PULSE 54; O2SAT 97; BMI 47.9
--- NOTE | 2025-09-26 11:10 | A.OFFVIS_ITS ---
Vital Signs 09/26/25 11:10 Height 5 ft 3 in Weight 270 lb 6 oz BMI 47.9 BP 152/84 H Blood Pressure Location Lt brachial Position Sitting Pulse 54 Pulse Source Pulse Oximeter Pulse Oximetry (%) 97 Oxygen Delivery Method Room Air Intake Visit Reasons: Interstitial pulmonary disease Allergies citalopram (From Celexa) Allergy (Mild, Verified 09/26/25 11:12) cramps tirzepatide (From Mounjaro) Adverse Reaction (Severe, Verified 09/26/25 11:12) Diarrhea lisinopril Adverse Reaction (Intermediate, Verified 09/26/25 11:12) cough/all ACEI metformin Adverse Reaction (Intermediate, Verified 09/26/25 11:12) Abdominal Pain methotrexate Adverse Reaction (Intermediate, Verified 09/26/25 11:12) Nausea Niacin Preparations Adverse Reaction (Mild, Verified 09/26/25 11:12) vomiting/flu symptoms/flushing ziprasidone (Geodon) Adverse Reaction (Unknown, Verified 09/26/25 11:12) Unknown HPI HPI Interstitial pulmonary disease: Details: Aure is a pleasant 65 year old female, never smoker with underlying Psoriatic Arthritis, HTN, DMII, Anemia and CKDIII. She was previosly under the care of rheumatology for Psoriatic arthritis and has trialed multiple DMARDS including methotrexate, Humira, Cosentyz and Skyrizi with suboptimal effect. She is currently doing well on Talz. She was initially referred after abnormal CXR which suggested chronic interstitial changes. At the time of the CXR she did have URI and with treatedwith Doxycycline with significant improvement in symptoms. She underwent chest CT 02/2025 which did not reveal any interstitial changes, demonstrated pulmonary nodules <2 mm, with recommendations for repeat CT in one year to assess stability, order placed at prior visit. Prior PFT 02/2025 which revealed moderate restrictive ventilatory defect with no bronchodilator response, except in small to medium airways. Decreased expiratory reserve volume suggests extrathoracic restriction likely secondary to abdominal obesity, DLCO 74%. Combination of decreased diffusion capacity and restrictive ventilatory defect suggests underlying pulmonary parenchymal disease however no significant findings at this time on imaging. Since the last visit she denies any respiratory symptoms. [facility] Medical History (Updated 09/21/25 @ 07:59 by Rafaela Rosenberg DPM) Varicose veins of both lower extremities Xerosis of skin Insulin pump in place Dyslipidemia associated with type 2 diabetes mellitus Mild cardiomegaly Diabetic nephropathy Depression Interstitial pulmonary disease Pulmonary nodule Type 2 diabetes mellitus Psoriatic arthritis Anxiety Arthritis Anemia Stress incontinence Morbid obesity Hypertension Dyslipidemia correction (current) use of insulin Surgical History Hx of colonoscopy History of selective laser trabeculoplasty History of total abdominal hysterectomy and bilateral salpingo-oophorectomy History of carpal tunnel release Hx of cholecystectomy Family History Father CVD (cardiovascular disease) Obesity Diabetes Alcohol abuse CAD (coronary artery disease) Mother CVD (cardiovascular disease) Diabetes Obesity Chronic lymphocytic leukemia Hx of myocardial infarction Brother Substance abuse Daughter FH: mental illness Paternal Aunt Breast cancer Social History Household Members: Spouse and Children Housing: [facility] Are you a primary intensive care unit nurse to a significant other at home: No Alcohol intake: current Alcohol intake frequency: holidays/special occasions only Patient Tobacco Use Status: Never used Tobacco e-Cigarette/Vaping Use: Never Used Second Hand Smoke Exposure: No service: No Current occupational status: disabled Current occupational exposures/hazards: No Cognitive needs: No Hearing needs: Yes Vision needs: Yes Physical Exam Vital Signs: Last Vital Signs Pulse 54 09/26/25 11:10 BP 152/84 H 09/26/25 11:10 Pulse Ox 97 09/26/25 11:10 Oxygen Delivery Method Room Air 09/26/25 11:10 BMI result Body Mass Index 47.9 Assessment & Plan Assessment & Plan (1) Chronic cough: Code(s): R05.3 - Chronic cough Category: Medical (2) Multiple pulmonary nodules: Code(s): R91.8 - Other nonspecific abnormal finding of lung field Category: Medical Plan CT revealed subsegmental atelectasis versus linear scarring in the right middle lobe, lingula and left lower lobe. Calcified granuloma. Pulmonary nodules measuring up to 2 mm. No signs of interstitial lung disease. Will repeat in one year to assess stability of nodules, order placed at last visit. . At this time Aure reports overall improvements in cough, continues with intermittent productive cough possibly attributed to allergies. Deferred allergy testing at this time. Recommended to trial sinus rinse, antihistamine and Flonase. All questions were answered and patient is in agreement of plan. Will follow up in 3-6 months or sooner if needed. Coding Diagnoses Chronic cough R05.3 Multiple pulmonary nodules R91.8
--- NOTE | 2025-09-26 11:10 | MHC.OFFVIS ---
Vital Signs 09/26/25 11:10 Height 5 ft 3 in Weight 270 lb 6 oz BMI 47.9 BP 152/84 H Blood Pressure Location Lt brachial Position Sitting Pulse 54 Pulse Source Pulse Oximeter Pulse Oximetry (%) 97 Oxygen Delivery Method Room Air Intake Visit Reasons: Interstitial pulmonary disease Allergies citalopram (From Celexa) Allergy (Mild, Verified 09/26/25 11:12) cramps tirzepatide (From Mounjaro) Adverse Reaction (Severe, Verified 09/26/25 11:12) Diarrhea lisinopril Adverse Reaction (Intermediate, Verified 09/26/25 11:12) cough/all ACEI metformin Adverse Reaction (Intermediate, Verified 09/26/25 11:12) Abdominal Pain methotrexate Adverse Reaction (Intermediate, Verified 09/26/25 11:12) Nausea Niacin Preparations Adverse Reaction (Mild, Verified 09/26/25 11:12) vomiting/flu symptoms/flushing ziprasidone (Geodon) Adverse Reaction (Unknown, Verified 09/26/25 11:12) Unknown HPI HPI Interstitial pulmonary disease: Details: Aure is a pleasant 65 year old female, never smoker with underlying Psoriatic Arthritis, HTN, DMII, Anemia and CKDIII. She was previosly under the care of rheumatology for Psoriatic arthritis and has trialed multiple DMARDS including methotrexate, Humira, Cosentyz, now on Skyrizi. She was initially referred after abnormal CXR which suggested chronic interstitial changes. At the time of the CXR she did have an URI, treated with Doxycycline having significant improvement in symptoms. She underwent chest CT 02/2025 which did not reveal any interstitial changes, demonstrated pulmonary nodules <2 mm, with recommendations for repeat CT in one year to assess stability, order placed at prior visit. Prior PFT 02/2025 which revealed moderate restrictive ventilatory defect with no bronchodilator response, except in small to medium airways. Decreased expiratory reserve volume suggests extrathoracic restriction likely secondary to abdominal obesity, DLCO 74%. Combination of decreased diffusion capacity and restrictive ventilatory defect suggests underlying pulmonary parenchymal disease however no significant findings at this time on imaging. Since the last visit she denies any respiratory symptoms, reporting very infrequent cough, denies dyspnea, wheezing or chest tightness. 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 Surgical History Hx of colonoscopy History of selective laser trabeculoplasty History of total abdominal hysterectomy and bilateral salpingo-oophorectomy History of carpal tunnel release Hx of cholecystectomy Family History Father CVD (cardiovascular disease) Obesity Diabetes Alcohol abuse CAD (coronary artery disease) Mother CVD (cardiovascular disease) Diabetes Obesity Chronic lymphocytic leukemia Hx of myocardial infarction Brother Substance abuse Daughter FH: mental illness Paternal Aunt Breast cancer Social History Household Members: Spouse and Children Housing: [facility] Are you a primary healthcare management to a significant other at home: No Alcohol intake: current Alcohol intake frequency: holidays/special occasions only Patient Tobacco Use Status: Never used Tobacco e-Cigarette/Vaping Use: Never Used Second Hand Smoke Exposure: No service: No Current occupational status: disabled Current occupational exposures/hazards: No Cognitive needs: No Hearing needs: Yes Vision needs: Yes Review of Systems Const Denies chills, Denies excessive sweating, Denies fever(s), Denies headache(s) and Denies night sweats Eyes Denies dry eyes, Denies irritation and Denies itchy eyes ENT Reports Normal hearing present, Denies headache(s), Denies nasal congestion, Denies nasal discharge and Denies sore throat Card Denies chest pain, Denies chest pain at rest, Denies chest pain with activity, Denies claudication, Denies leg edema, Denies dyspnea, Denies dyspnea on exertion, Denies orthopnea and Denies paroxysmal nocturnal dyspnea Resp Denies chest congestion, Denies excessive phlegm production, Denies pain on inspiration, Denies pain with cough, Denies dyspnea, Denies dyspnea on exertion, Denies stridor and Denies wheezing Musc Denies myalgias Neuro Reports Normal hearing present and Denies headache(s) Endo Denies excessive sweating Donell/Lymph Denies lymphadenopathy Aller/Immun Denies itchy eyes, Denies seasonal rhinorrhea and Denies wheezing Physical Exam Vital Signs: Last Vital Signs Pulse 54 09/26/25 11:10 BP 152/84 H 09/26/25 11:10 Pulse Ox 97 09/26/25 11:10 Oxygen Delivery Method Room Air 09/26/25 11:10 BMI result Body Mass Index 47.9 Const General: cooperative, healthy appearing, comfortable, no acute distress, well developed and alert Nutritional Appearance: obese Orientation/consciousness: patient oriented x3 Limitations: no limitations HEENT Head: Yes normal to inspection, Yes normocephalic and Yes atraumatic Ears: hearing grossly normal bilaterally and external ears normal Eyes General: appearance normal, both eyes and all related structures Eyelids: Yes eyelids normal Sclerae: sclerae normal EOM: EOMs intact bilaterally Neck Neck: Yes normal visual inspection and Yes no lymphadenopathy Lymphatic: no lymphadenopathy noted Chest Chest palpation & inspection: normal inspection of the chest Resp Effort & Inspection: normal respiratory effort, able to speak in complete sentences, no audible wheezes, no cough, no stridor, not tachypneic, no tripod positioning and no use of accessory muscles Auscultation: clear to auscultation bilaterally Cardio Jugular venous distension: no JVD Rate: regular rate Rhythm: regular rhythm Skin Other: warm, dry General skin exam: no rashes or lesions noted Neuro General: patient oriented x3 Cranial nerves: Yes Normal hearing present Cognition (Neuro): normal cognition Gait exam (Neuro): Normal gait present Extrem General: Yes normal to inspection, Yes capillary refill normal, Yes no clubbing, cyanosis or edema and Yes no pedal edema Psych Appearance: grossly normal and well kempt Speech and movement: Normal speech and movement present and Clear speech present Affect: normal affect Attitude: cooperative Thought process: Normal thought process present Thought content: Normal thought content present Insight: Good insight present (Psych) Judgement: Good judgement present (Psych) Assessment & Plan Assessment & Plan (1) Chronic cough: Code(s): R05.3 - Chronic cough Category: Medical (2) Multiple pulmonary nodules: Code(s): R91.8 - Other nonspecific abnormal finding of lung field Category: Medical Plan 02/2025 CT chest revealed subsegmental atelectasis versus linear scarring in the right middle lobe, lingula and left lower lobe. Calcified granuloma and pulmonary nodules measuring up to 2 mm without any signs of interstitial lung disease. Will repeat in one year to assess stability of nodules, order placed at last visit. At this time Aure reports overall improvements in cough, continues with very infrequent cough and feels respiratory symptoms are well controlled. She is aware to call if symptoms change. All questions were answered and patient is in agreement of plan. Will follow up to review chest CT results or sooner if needed. Coding Level of Care Code Est Pt Level 3 (89528) Diagnoses Chronic cough R05.3 Multiple pulmonary nodules R91.8
--- OUTSIDE RECORDS SUMMARY | 2025-09-26 14:09 | XMS_ITS | Clinical Summary ---
Author Organization [facility] Address [address] [place] [address] Care Team Providers Care Deckhand [employer] Name Role Phone EscobarShelby story Primary Care Provider [phone] Allergies Active Allergy Reactions Criticality Noted Date [...] any suspicion for an autoimmune process from Newsagent, at which time we can re-connect for [...] Info) Description 10/16/2025 3:20 PM EST Follow-Up [facility] [address] [place] [id number] Adjunct History Instructor: Batsheva Saldivar MD [address] [place] [id number] Health Maintenance Due Date Last Done Comments [...] to complete this topic Insurance [facility] MCR REPLACE PPO Care Teams Deckhand [employer] Relationship Specialty Start Date End Date Shelby Escobar [address] [place] [id number] PCP - General Internal Medicine 01/19/25
--- OUTSIDE RECORDS SUMMARY | 2025-09-26 14:09 | XMS_ITS | Encounter Summary ---
Author Organization [facility] Address [address] [place] [address] Phone Care Team Providers Care Building Rental Superintendent Name Role Phone Keiko Reyes MD Primary Care Provider [phone] Encounter Details Date Type Department Care Team ([facility] st Contact Info) Description 05/24/2024 Office Communication [facility] [address] [place] [phone] Alessandro Roman MD [id number] [facility] [address] [place] [id number] Social History Tobacco Use Types Packs/Day Years [...] on filedocumented in this encounter Care Teams Building Rental Superintendent Relationship Specialty Start Date End Date Keiko Reyes MD PCP - General Internal Medicine 03/15/21 documented as of this encounter
--- OUTSIDE RECORDS SUMMARY | 2025-09-26 14:09 | XMS_ITS | Clinical Summary ---
Author Organization [facility] Address [address] [place] [address] Care Team Providers Care Numerical Control Lathe Operator Name Role Phone Shelby Escobar PA-C Primary Care Provider [phone] Allergies Active Allergy Reactions Criticality Noted Date [...] age to complete this topic Care Teams Numerical Control Lathe Operator Relationship Specialty Start Date End Date Shelby Escobar PA-C PCP - General Physician Electrolysis Needle Operator 07/21/23
--- OUTSIDE RECORDS SUMMARY | 2025-09-26 14:09 | XMS_ITS | Clinical Summary ---
Author Organization [facility] Address [address] [facility] [address] [place] [address] Phone Care Team Providers Care Firewall Administrator Name Role Phone Keiko Reyes MD Primary Care Provider [phone] Allergies Active Allergy Reactions Criticality Noted Date [...] patient's age to complete this topic Insurance [facility] Medicaid [place] [facility] Medicaid [place] Care Teams Firewall Administrator Relationship Specialty Start Date End Date Keiko Reyes MD PCP - General Internal Medicine 03/15/21
--- OUTSIDE RECORDS SUMMARY | 2025-09-26 14:09 | XMS_ITS | Encounter Summary ---
Author Organization [facility] Address [address] [place] [address] Phone Care Team Providers Care Cover Marker Name Role Phone Keiko Reyes MD Primary Care Provider [phone] Encounter Details Date Type Department Care Team (Late st Contact Info) Description 04/16/2021 Orders Only [facility] [address] [place] [address] Otto Major MD Type 2 diabetes mellitus [...] 1:18 PM EDT) Glucose 141(H) (70-99) MG/DL [facility] BUN 19 (6-20) MG/DL [facility] Creatinine 1.4(H) (0.5-1.0) MG/DL [facility] Sodium 143 (133-145) MMOL/L [facility] Potassium 4.8 (3.6-5.2) MMOL/L [facility] Chloride 104 (98-107) MMOL/L [facility] Bicarbonate (CO2) 31(H) (22-29) MMOL/L [facility] Anion Gap 8 (4-17) [facility] Albumin 4.2 (3.4-4.8) GM/DL [facility] Calcium 9.5 (8.6-10.5) MG/DL [facility] Phosphorus, Serum 3.9 (2.5-4.5) MG/DL [facility] Est GFR Non 41 ML/MIN/1.7 3 M2 [facility] Comment: Creatinine based estimated glomerular filtration rate (eGFR) is calculated using the Chronic Kidney Disease Epidemiology Collaboration (CKD-EPI). The CKD-EPI creatinine equation has not been validated in children (<18 years), women or in some racial or ethnic subgroups other than Caucasians and Americans. EST GFR 47 ML/MIN/1.7 3 M2 [facility] Comment: Creatinine based estimated glomerular filtration rate (eGFR) is calculated using the Chronic Kidney Disease Epidemiology Collaboration (CKD-EPI). The CKD-EPI creatinine equation has not been validated in children (<18 years), women or in some racial or ethnic subgroups other than Caucasians and Americans. Testing performed or reported by [facility], a Service of [facility], [address] [place] [address] Oksana Siegel MD, Soap Tender Blood specimen (specimen) Venous blood / Unknown 05/30/2021 1:18 PM EDT 05/30/2021 1:20 PM EDT us Otto Major MD LAB BLOOD ORDERABLES Final Resul t [facility] documented in this encounter Visit Diagnoses Diagnosis Type 2 diabetes mellitus with diabetic chronic kidney disease (HCC) Other proteinuria Hypertension Stage 3a chronic kidney disease (HCC) documented in this encounter Care Teams Cover Marker Relationship Specialty Start Date End Date Keiko Reyes MD PCP - General Internal Medicine 03/15/21 documented as of this encounter
== END 2025-09-26 11:32 | disposition home or self-care (01) ==
LOC: HO.HPSW 11:01
PROVIDERS: PCP Physician Assistant; Visit Provider Nurse Practitioner Family
DX: R05.3 Chronic cough (principal); R91.8 Other nonspecific abnormal finding of lung field
CPT/HCPCS: 99213

== ENCOUNTER → 2025-09-26 11:00 | Outpatient (BNVA) | payer MEDICARE, MEDICAID, SELFPAY | PROVIDERS: PCP Physician Assistant; Visit Provider Nurse Practitioner Family | DX: R05.3 Chronic cough (principal); R91.8 Other nonspecific abnormal finding of lung field | CPT/HCPCS: 99212 ==

== ENCOUNTER 2025-10-09 10:50 | Outpatient (AMB) | payer MEDICARE, MEDICAID, SELFPAY ==
[2025-10-09 10:50] VITALS: BMI 47.8
--- NOTE | 2025-10-09 10:50 | A.OFFVIS_ITS ---
Vital Signs 10/09/25 10:50 Height 5 ft 3 in Weight 270 lb BMI 47.8 Intake Visit Reasons: routine nail care Intake Note: Aure is a 65 year old female who presents today for a diabetic foot care/ nail care follow up. During her last visit she was advised the use of over the counter lidocaine patches or Voltaren gel for pain management. Office also recommended the use of compression stockings, she was prescribed ammonium lactate, and she was referred to vascular. Patient reports she has been using the ammonium lactate as reports it has helped with her dry skin. She states she has an upcoming appointment with vacular for november. Allergies citalopram (From Celexa) Allergy (Mild, Verified 09/26/25 11:12) cramps tirzepatide (From Mounjaro) Adverse Reaction (Severe, Verified 09/26/25 11:12) Diarrhea lisinopril Adverse Reaction (Intermediate, Verified 09/26/25 11:12) cough/all ACEI metformin Adverse Reaction (Intermediate, Verified 09/26/25 11:12) Abdominal Pain methotrexate Adverse Reaction (Intermediate, Verified 09/26/25 11:12) Nausea Niacin Preparations Adverse Reaction (Mild, Verified 09/26/25 11:12) vomiting/flu symptoms/flushing ziprasidone (Geodon) Adverse Reaction (Unknown, Verified 09/26/25 11:12) Unknown HPI Comments Details: The patient is a 65-year-old female presenting for a diabetic foot exam. Patient states she experiences intermittent pain to the feet similar to a clamp. Patient states she just recently started applying the ammonium lactate to the feet due to the dry skin. Patient states she has not appointment is scheduled for vascular in November. She has not started using compression stockings at this time. She denies any recent pedal injuries. She denies any other pedal concerns. The patient experiences discomfort to the toes due to thickened toenails. [facility] Medical History (Updated 10/09/25 @ 11:12 by Rafaela Rosenberg DPM) Pes planus Varicose veins of both lower extremities Xerosis of skin Insulin pump in place Dyslipidemia associated with type 2 diabetes mellitus Mild cardiomegaly Diabetic nephropathy Depression Interstitial pulmonary disease Pulmonary nodule Type 2 diabetes mellitus Psoriatic arthritis Anxiety Arthritis Anemia Stress incontinence Morbid obesity Hypertension Dyslipidemia detention (current) use of insulin Surgical History Hx of colonoscopy History of selective laser trabeculoplasty History of total abdominal hysterectomy and bilateral salpingo-oophorectomy History of carpal tunnel release Hx of cholecystectomy Family History Father CVD (cardiovascular disease) Obesity Diabetes Alcohol abuse CAD (coronary artery disease) Mother CVD (cardiovascular disease) Diabetes Obesity Chronic lymphocytic leukemia Hx of myocardial infarction Brother Substance abuse Daughter FH: mental illness Paternal Aunt Breast cancer Social History Household Members: Spouse and Children [facility] Are you a primary customer care voice consultant to a significant other at home: No Alcohol intake: current Alcohol intake frequency: holidays/special occasions only Patient Tobacco Use Status: Never used Tobacco e-Cigarette/Vaping Use: Never Used Second Hand Smoke Exposure: No service: No Current occupational status: disabled Current occupational exposures/hazards: No Cognitive needs: No Hearing needs: Yes Vision needs: Yes Review of Systems Const Details: - Musculoskeletal: Reports discomfort to the toes due to thickened toenails. All systems reviewed & are unremarkable except as noted in HPI and below Physical Exam Vital Signs: BMI result Body Mass Index 47.8 Extrem Other: B/L LE Focused Physical Exam: Derm: Mild mottling of skin noted. No open lesions, abrasions, or wounds noted. Palpable mass noted to the plantar aspect of the right midfoot measuring approximately 0.2 x 0.2 cm. Mass is not mobile or fluctuant. No drainage, purulence, or bleeding noted. Hyperkeratotic areas noted to the plantar and posterior aspects of the heels. Incurvation and change in shape of nails with mild thickness noted x10, toenails noted to be of normal length. No clinical signs of infection. Vasc: DP/PT pulses palpable. CFT < 3 secs. Temp gradient warm to warm. Pedal hair absent. Varicosities noted. Neuro: Protective sensations grossly intact to light touch and monofilament testing. MSK: No pain on palpation to the feet. ROM of the forefoot, hindfoot, and ankles WNL. No crepitus noted, Nonantalgic gait unassisted noted. Pes planus foot type. No other gross abnormalities noted. Office Procedures Diabetic Foot Exam G9226 - Diabetic Foot Exam Results Reviewed Results Reviewed: Laboratory Tests 08/04/25 08/04/25 08/29/25 11:47 11:49 12:10 Glucose (Clinic) 151 H Hgb A1c (Clinic) 6.8 H Uric Acid 10.0 H Podiatry Read of B/L foot x-rays (08/29/25): Arthritic changes noted with joint space narrowing and osteophyte formation. Calcium buildup noted to soft tissue. Bone spur noted to the plantar aspect of the calcaneus on the left and on the right bone spur noted to the plantar and posterior aspects. B/L foot x-rays (08/29/25): FINDINGS: RIGHT FOOT: There are small lucency with sclerotic margin is noted in the medial first metatarsal head. Small focal lucency is present at the lateral base of the proximal phalanx of the first digit. Small to medium calcaneal spur is noted. There is an os trigonum. There is soft tissue calcification anterior to the ankle joint. There is chondrocalcinosis involving talar dome and second and fourth MTP joints. LEFT FOOT: There are small marginal osteophytes involving the first MCP joint and articulations with the sesamoids. No erosions are identified. There is a small calcaneal spur. There is an ossification at the anterior margin of medial malleolus. There is an os trigonum. There is chondrocalcinosis involving the MTP joints. Right foot: Nonspecific cystlike lucencies are assessed in the medial first metatarsal head and lateral first proximal phalanx base. Chondrocalcinosis. Left foot: Chondrocalcinosis. Mild changes of osteoarthritis. Assessment & Plan Assessment & Plan (1) Xerosis of skin: Code(s): L85.3 - Xerosis cutis Category: Medical (2) Varicose veins of both lower extremities: Code(s): I83.93 - Asymptomatic varicose veins of bilateral lower extremities Category: Medical (3) Diabetic nephropathy associated with type 2 diabetes mellitus: Code(s): E11.21 - Type 2 diabetes mellitus with diabetic nephropathy Category: Medical (4) CKD stage 3 due to type 2 diabetes mellitus: Code(s): E11.22 - Type 2 diabetes mellitus with diabetic chronic kidney disease; N18.30 - Chronic kidney disease, stage 3 unspecified Category: Medical (5) Type 2 diabetes mellitus: Code(s): E11.9 - Type 2 diabetes mellitus without complications Category: Medical Qualifiers: Diabetes mellitus intermediate insulin use: with extermination inspector use Diabetes mellitus complication status: with kidney complications Diabetes mellitus complication detail: with chronic kidney disease Chronic kidney disease stage: stage 3 (moderate) Chronic kidney disease stage 3 subtype: stage 3b (GFR 30-44) Qualified Code(s): E11.22 - Type 2 diabetes mellitus with diabetic chronic kidney disease; N18.32 - Chronic kidney disease, stage 3b; Z79.4 - detention (current) use of insulin Plan Patient was informed and verbally consented to the use of an ambient scribe for clinic note documentation during this visit. Educated patient on diabetes in the effects of the lower extremities. I discussed with the patient the importance of managing venous insufficiency to prevent complications such as ulcers. We talked about the use of compression stockings and potential procedures to improve venous function pending vascular evaluation. I also explained the process for obtaining diabetic shoes and inserts. - Continue with vascular consultation to determine appropriate compression therapy for venous insufficiency. - Continue application of ammonium lactate to the feet. - Prescription for diabetic shoes and inserts was provided. - Advised patient to avoid barefoot walking and to wear supportive shoe gear. - Recommend use of [id number] Voltaren gel or lidocaine patch for pain management as needed - Recommend wearing compression socks for varicose veins management. RTC in 9 weeks for diabetic nail care. Orders: Orders AMB Diabetic Foot Exam Today E11.21 - Type 2 diabetes mellitus with diabetic nephropathy, E11.22 - Type 2 diabetes mellitus with diabetic chronic kidney disease, N18.30 - Chronic kidney disease, stage 3 unspecified, N18.32 - Chronic kidney disease, stage 3b, Z79.4 - detention (current) use of insulin Medications: New [Diabetic shoes and inserts] Please dispense 1 pair of diabetic shoes and 1-3 pairs of diabetic inserts 1 ea 0RF E11.21 - Type 2 diabetes mellitus with diabetic nephropathy, E11.22 - Type 2 diabetes mellitus with diabetic chronic kidney disease, I83.93 - Asymptomatic varicose veins of bilateral lower extremi ties, L85.3 - Xerosis cutis, M21.40 - Flat foot [pes planus] (acquired), unspecified foot, N18.30 - Chronic kidney disease, stage 3 unspecified, N18.32 - Chronic kidney disease, stage 3b, Z79.4 - extermination inspector (current) use of insulin Coding Level of Care Code Est Pt Level 4 (15959) Diagnoses Xerosis of skin L85.3 Varicose veins of both lower extremities I83.93 Diabetic nephropathy associated with type 2 diabetes mellitus E11.21 CKD stage 3 due to type 2 diabetes mellitus E11.22; N18.30 Type 2 diabetes mellitus with stage 3b chronic kidney disease, with long-term current use of insulin E11.22; N18.32; Z79.4 Diabetes mellitus extermination inspector insulin use: with intermediate use Diabetes mellitus complication status: with kidney complications Diabetes mellitus complication detail: with chronic kidney disease Chronic kidney disease stage: stage 3 (moderate) Chronic kidney disease stage 3 subtype: stage 3b (GFR 30-44) CPT Codes Diabetic Foot Exam - CPT: G9226 - Diabetic Foot Exam ([id number]) Time Spent (min) 35
--- OUTSIDE RECORDS SUMMARY | 2025-10-09 12:56 | XMS_ITS | Clinical Summary ---
Author Organization [facility] Address [address] [place] [address] Care Team Providers Care Afloat Cryptologic Manager Name Role Phone EscobarShelby story Primary Care Provider [phone] Allergies Active Allergy Reactions Criticality Noted Date [...] any suspicion for an autoimmune process from Motor Bike Mechanic, at which time we can re-connect for [...] Info) Description 10/16/2025 3:20 PM EST Follow-Up [facility] [address] [place] [id number] Animal Husbandry Teacher: Batsheva Saldivar MD [address] [place] [id number] Health Maintenance Due Date Last Done Comments [...] patient's age to complete this topic Insurance [facility] [employer] PPO Care Teams Afloat Cryptologic Manager Relationship Specialty Start Date End Date Shelby Escobar [address] [place] [id number] PCP - General Internal Medicine 01/19/25
--- OUTSIDE RECORDS SUMMARY | 2025-10-09 12:56 | XMS_ITS | Clinical Summary ---
Author Organization [facility] Address [address] [place] [address] Care Team Providers Care Commercial Administrator Name Role Phone Shelby Escobar PA-C Primary [...] age to complete this topic Care Teams Commercial Administrator Relationship Specialty Start Date End Date Shelby Escobar PA-C PCP - General Physician Food Service Associate 07/21/23
--- OUTSIDE RECORDS SUMMARY | 2025-10-09 12:56 | XMS_ITS | Clinical Summary ---
Author Organization [facility] Address [address] [facility] [address] [place] [address] Phone Care Team Providers Care Board Runner Name Role Phone Keiko Reyes MD Primary Care Provider [phone] Allergies Active Allergy Reactions Criticality Noted Date [...] patient's age to complete this topic Insurance [facility] Medicaid [place] [facility] Medicaid [place] Care Teams Board Runner Relationship Specialty Start Date End Date Keiko Reyes MD PCP - General Internal Medicine 03/15/21
--- OUTSIDE RECORDS SUMMARY | 2025-10-09 12:56 | XMS_ITS | Encounter Summary ---
Author Organization [facility] Address [address] [place] [address] Phone Care Team Providers Care Document Processing Specialist Name Role Phone Keiko Reyes MD Primary Care Provider [phone] Encounter Details Date Type Department Care Team (Late st Contact Info) Description 04/16/2021 Orders Only [facility] [address] [place] [address] Otto Major MD Type 2 diabetes mellitus [...] 1:18 PM EDT) Glucose 141(H) (70-99) MG/DL [facility] BUN 19 (6-20) MG/DL [facility] Creatinine 1.4(H) (0.5-1.0) MG/DL [facility] Sodium 143 (133-145) MMOL/L [facility] Potassium 4.8 (3.6-5.2) MMOL/L [facility] Chloride 104 (98-107) MMOL/L [facility] Bicarbonate (CO2) 31(H) (22-29) MMOL/L [facility] Anion Gap 8 (4-17) [facility] Albumin 4.2 (3.4-4.8) GM/DL [facility] Calcium 9.5 (8.6-10.5) MG/DL [facility] Phosphorus, Serum 3.9 (2.5-4.5) MG/DL [facility] Est GFR Non 41 ML/MIN/1.7 3 M2 [facility] Comment: Creatinine based estimated glomerular filtration rate (eGFR) is calculated using the Chronic Kidney Disease Epidemiology Collaboration (CKD-EPI). The CKD-EPI creatinine equation has not been validated in children (<18 years), women or in some racial or ethnic subgroups other than Caucasians and Americans. EST GFR 47 ML/MIN/1.7 3 M2 [facility] Comment: Creatinine based estimated glomerular filtration rate (eGFR) is calculated using the Chronic Kidney Disease Epidemiology Collaboration (CKD-EPI). The CKD-EPI creatinine equation has not been validated in children (<18 years), women or in some racial or ethnic subgroups other than Caucasians and Americans. Testing performed or reported by [facility], a Service of [facility], [address] [place] [address] Oksana Siegel MD, Stockkeeper Blood specimen (specimen) Venous blood / Unknown 05/30/2021 1:18 PM EDT 05/30/2021 1:20 PM EDT us Otto Major MD LAB BLOOD ORDERABLES Final Resul t [facility] documented in this encounter Visit Diagnoses Diagnosis Type 2 diabetes mellitus with diabetic chronic kidney disease (HCC) Other proteinuria Hypertension Stage 3a chronic kidney disease (HCC) documented in this encounter Care Teams Document Processing Specialist Relationship Specialty Start Date End Date Keiko Reyes MD PCP - General Internal Medicine 03/15/21 documented as of this encounter
== END 2025-10-09 11:08 | disposition home or self-care (01) ==
LOC: HO.HPODS 10:51
PROVIDERS: PCP Physician Assistant; Visit Provider Student in an Organized Health Care Education/Training Program
DX: L85.3 Xerosis cutis (principal); I83.93 Asymptomatic varicose veins of bilateral lower extremities; E11.21 Type 2 diabetes mellitus with diabetic nephropathy; E11.22 Type 2 diabetes mellitus with diabetic chronic kidney disease; N18.30 Chronic kidney disease, stage 3 unspecified; N18.32 Chronic kidney disease, stage 3b; Z79.4 Long term (current) use of insulin
CPT/HCPCS: 99214; G9226

== ENCOUNTER → 2025-10-09 10:50 | Outpatient (BNVA) | payer MEDICARE, MEDICAID, SELFPAY | PROVIDERS: PCP Physician Assistant; Visit Provider Student in an Organized Health Care Education/Training Program | DX: L85.3 Xerosis cutis (principal); I83.93 Asymptomatic varicose veins of bilateral lower extremities; E11.21 Type 2 diabetes mellitus with diabetic nephropathy; E11.22 Type 2 diabetes mellitus with diabetic chronic kidney disease; Z79.4 Long term (current) use of insulin; N18.32 Chronic kidney disease, stage 3b | CPT/HCPCS: 99212 ==

== ENCOUNTER 2025-11-02 12:52 | Outpatient (AMB) | payer MEDICARE, MEDICAID, SELFPAY ==
--- NOTE | 2025-11-02 12:56 | A.OFFVIS_ITS ---
Vital Signs 3 11/02/25 12:57 Height 5 ft 3 in Weight 266 lb 8.622 oz BMI 47.2 BP 138/76 Blood Pressure Location Lt brachial Position Sitting Pulse 80 Pulse Source Pulse Oximeter Pulse Oximetry (%) 98 Oxygen Delivery Method Room Air Intake Visit Reasons: T2DM on onmipod Intake Note: Patient presents today for a follow-up on Type 1 Diabetes Mellitus Insulin Pump: Last Diabetic eye exam was on: Last exam was 09/2025 Last Podiatry exam was on: Last time seen was early September 2025. 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: No Accompanied by: Self / Same As Patient Allergies citalopram (From Celexa) Allergy (Mild, Verified 11/02/25 13:02) cramps tirzepatide (From Mounjaro) Adverse Reaction (Severe, Verified 11/02/25 13:02) Diarrhea lisinopril Adverse Reaction (Intermediate, Verified 11/02/25 13:02) cough/all ACEI metformin Adverse Reaction (Intermediate, Verified 11/02/25 13:02) Abdominal Pain methotrexate Adverse Reaction (Intermediate, Verified 11/02/25 13:02) Nausea Niacin Preparations Adverse Reaction (Mild, Verified 11/02/25 13:02) vomiting/flu symptoms/flushing ziprasidone (Geodon) Adverse Reaction (Unknown, Verified 11/02/25 13:02) Unknown Medication List - Last Reconciled 11/02/25 by Yeset Teagan Dunne MD acetone (urine) test (Ketone Urine Test strips) prn glucose over 250, illness, nausea or vomiting tid ammonium lactate 12% 1 appl topical DAILY atenolol 75 mg (1.5 x 50 mg) PO BID 90 days atorvastatin (Lipitor) 40 mg PO BEDTIME blood sugar diagnostic As directed testing 5x per day. blood sugar diagnostic (OneTouch Verio test strips) USE 5 TIMES DAILY blood-glucose meter (OneTouch Verio Meter) As directed blood-glucose sensor (DexCoinPass G7 Sensor device) As directed every 10 days chlorthalidone 25 mg PO DAILY cholecalciferol (vitamin D3) 50 mcg PO DAILY clobetasol 0.05% 1 appl topical DAILY [Diabetic shoes and inserts Please dispense 1 pair of diabetic shoes and 1-3 pairs of diabetic inserts] diclofenac sodium 1% 1 g topical TID glucagon 3 mg/actuation (Baqsimi) 3 mg intranasal ONCE PRN 30 days MDD 6mg may repeat in 15 minutes Humulin R U-500 (Conc) Kwikpen (insulin regular hum U-500 conc) 60 units (0.12 mL) subcut BID PRN 30 days MDD 150 NS insulin pump cart,auto,BT,G6/7 (Omnipod 5 G6-G7 Pods (Gen 5) subcutaneous cartridge) CHANGE POD EVERY 72 HOURS insulin pump cart,auto,BT-cntr (Omnipod 5 G6 Intro Kit (Gen 5) subcutaneous cartridge with controller) As directed insulin regular hum U-500 conc (Humulin R U-500 (Concentrated) Insulin) Use up to 450 units via insulin pump subcut daily; lactobacillus combination no.4 (Probiotic) 3,000 mmu cells PO DAILY lancets As directed 5 times a day lorazepam 0.5 mg PO DAILY PRN 30 days losartan 50 mg PO BID pen needle, diabetic (Comfort EZ Pen [place]) As directed bid prn pump failure risankizumab-rzaa (Skyrizi) 150 mg subcut Q3M tirzepatide (Mounjaro) 2.5 mg (0.5 mL) subcut QWEEK HPI Comments Details: 64-year-old female with type 2 diabetes mellitus with complications of CKD stage 3, with long-term insulin use currently on Omnipod 5 with G7 with the Humulin U 500 insulin. History of diabetes mellitus diagnosed in 2002 She has been on an Omnipod 5 with G7 Last seen by Dr. Jacobs on 08/04/2025. This is my 1st time seeing this patient Hgb A1C 11/02/25 6.7% 08/04/2025 6.8% POC 03/22/25 6.8% 12/21/24 6.3%, 10/07/24 6.9%, 04/04/24 6.8% Diabetes medications: Humulin U 500 via Omnipod 5. Raghu had some GI intolerance in the past and felt too much nausea, now wants to restart , has prescription would like to try every other week microdosing Prior medications Reports that she did not tolerate Ozempic or Trulicity due to constipation. She did not tolerate Jardiance due to vaginal itching. Interval history: Feeling overall well She noticed that she has had multiple disconnections between pump and CGM, specially when the sensor is more than couple of inches from the pump She reports that she is so busy sometimes that she forgets to eat, which could lead to hypoglycemia. She is also more active. No recent changes in her setting. CGM/Pump data: Interpretation: Overall well-controlled diabetes, she does have scattered episode of hypoglycemia that seems to be related to disconnections between the pumps and CGM. Possible also related to missed meals and increased activity. Insulin usage Insulin per day 38.4 units Basal per day 17.9 units, 47% Bolus per day 20.4 units, 53% In automated mode 99% Carbs per day 118 g Entries per day 2.3 Backup pump failure plan U500 75 units twice daily has nasal baqsimi has ketone strips Basal rate(s) (units/hour) : 12 AM? to 1 AM? 1.5 units / hr 1 AM? to 8 AM? 1.4 units / hr 8 AM to 8 PM? 1.3 units / hr 8 PM? to 12 AM? 1.7 units / hr Bolus setting Insulin Carbohydrate Ratio (s) 12 AM? to 12 pm 1: 5.5 12 PM to 12 AM 1.6 Correction Factor / Sensitivity Factor 12am 1:15 12pm 1:22 4pm 1:22 Active Insulin Time:? 5 hours Target(s): 12 AM? to 12 PM? 120 mg/dL Correction Threshhold 180 mg/d No neuropathy, Symptoms reported: denies numbness, tingling, cramping in lower extremities sees podiatry on Dr. Stephenson on an infrequent basis No retinopathy: Ophthalmology evaluation: last appt in 06/2024 Has nephropathy: 07/24 EGFR 35 07/24 microalbumin 270.0 On losartan Other specialists: nephrology, dermatology, no longer seeing hematology(anemia resolved) She has follow-up scheduled with nephrology Dr. Major LDL 115 07/24, not on statin Hypoglycemia:none , Symptoms of shakiness and sweatiness. Very rare hypoglycemia Treats low with 3-4 tablets has been having some lows after lunch when she has higher before lunch Exercise: limited due to arthritis, walks some. 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 Has been going to the and using a treadmill at home Fibrosis-4 (Fib-4) Index for liver fibrosis (calculated on most recent lab work 2023) [ 0.62] points Advanced fibrosis [excluded] Approximate Fibrosis stage [place] [0-1] Physical exam General: sitting comfortably in no acute distress HEENT: normocephalic/atraumatic Neck: supple, Cardiac: normal heart sounds Pulm: normal breath sounds B/L, no added breath sounds Abd: not distended, no tenderness Extremities: no edema, no signs of myxedema Neuro: AAO x3, Speech: normal, no facial droop, moving all 4 extremities Laboratory Tests 07/19/25 07/19/25 08/04/25 10:08 10:18 11:47 Hgb 11.9 L Hct 35.9 L Plt Count 203 Creatinine 1.49 H Estimated GFR 35 Glucose (Clinic) 151 H Hgb A1c (Clinic) AST 27 ALT 21 Triglycerides 184 H Cholesterol 191 LDL Cholesterol, Calc 115 H HDL Cholesterol 40 L TSH 0.54 Urine Creatinine 104.00 Urine Microalbumin 290.0 Microalb/Creat Ratio 278.8 H 08/04/25 11:49 Hgb Hct Plt Count Creatinine Estimated GFR Glucose (Clinic) Hgb A1c (Clinic) 6.8 H AST ALT Triglycerides Cholesterol LDL Cholesterol, Calc HDL Cholesterol TSH Urine Creatinine Urine Microalbumin Microalb/Creat Ratio [facility] Medical History (Updated 10/09/25 @ 11:12 by Rafaela Rosenberg DPM) Pes planus Varicose veins of both lower extremities Xerosis of skin Insulin pump in place Dyslipidemia associated with type 2 diabetes mellitus Mild cardiomegaly Diabetic nephropathy Depression Interstitial pulmonary disease Pulmonary nodule Type 2 diabetes mellitus Psoriatic arthritis Anxiety Arthritis Anemia Stress incontinence Morbid obesity Hypertension Dyslipidemia assisted (current) use of insulin Surgical History Hx of colonoscopy History of selective laser trabeculoplasty History of total abdominal hysterectomy and bilateral salpingo-oophorectomy History of carpal tunnel release Hx of cholecystectomy Family History Father CVD (cardiovascular disease) Obesity Diabetes Alcohol abuse CAD (coronary artery disease) Mother CVD (cardiovascular disease) Diabetes Obesity Chronic lymphocytic leukemia Hx of myocardial infarction Brother Substance abuse Daughter FH: mental illness Paternal Aunt Breast cancer Social History Household Members: Spouse and Children Housing: Condominium Are you a primary home health care coordinator to a significant other at home: No Alcohol intake: current Alcohol intake frequency: holidays/special occasions only Patient Tobacco Use Status: Never used Tobacco e-Cigarette/Vaping Use: Never Used Second Hand Smoke Exposure: No service: No Current occupational status: disabled Current occupational exposures/hazards: No Cognitive needs: No Hearing needs: Yes Vision needs: Yes Physical Exam Vital Signs: Last Vital Signs Pulse 80 11/02/25 12:57 BP 138/76 11/02/25 12:57 Pulse Ox 98 11/02/25 12:57 Oxygen Delivery Method Room Air 11/02/25 12:57 BMI result Body Mass Index 47.2 Office Procedures Glucose Monitoring Details Details: See HPI 47427 - Glucose Monitoring, continuous Procedure code (CPT) selection complete Results AMB Hemoglobin A1c 2 AMB Hemoglobin A1c 6.7 % Last Edit by LYLE Guzman on 11/02/25 13:25 Results Reviewed Results Reviewed: Laboratory Last Values Glucose (Clinic) 102 mg/dL (60-115) 11/02/25 13:04 Assessment & Plan Assessment & Plan (1) Type 2 diabetes mellitus: Code(s): E11.9 - Type 2 diabetes mellitus without complications Category: Medical Qualifiers: Diabetes mellitus snf insulin use: with watermaster use Diabetes mellitus complication status: with kidney complications Diabetes mellitus complication detail: with chronic kidney disease Chronic kidney disease stage: stage 3 (moderate) Chronic kidney disease stage 3 subtype: stage 3b (GFR 30-44) Qualified Code(s): E11.22 - Type 2 diabetes mellitus with diabetic chronic kidney disease; N18.32 - Chronic kidney disease, stage 3b; 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 Pump data downloaded today shows she is having some overnight hyperglycemia, it is not very consistent, but in the near future we can consider tightening her target. Patient requested if she could come off U500. I advised her if we went to U 100 insulin should be using more than 200 units per day. We briefly discussed U 200 but with this you need to learn how to pen fill U 200 as this is not available in vials. She opted to continue current current regimen I suggest for backup pump failure that she use a quick pen. Backup pump failure would be 60 units U500 b.i.d.. She would start this once her sugars started to elevate above normal for pump failure. Not to start right away as there is a long-acting mode of action on U500 in her pump. No pump settings changed today. Given that she has had multiple disconnections from the CGM, and in view of multiple reports of Dexcom failures. We have decided to change the patient to Paul 2+. A sensor and a reader where provided. We briefly discussed weight loss. Unfortunately, she has not tolerated GLP1s as she has had side effects. Last one she tried was Mounjaro, and she developed diarrhea with the lower dose. We have discussed bariatric surgery referral but patient declined. We discussed checking FS when BG low or > 400 on CGM. Follow up in 3 months (2) Dyslipidemia associated with type 2 diabetes mellitus: Code(s): E11.69 - Type 2 diabetes mellitus with other specified complication; E78.5 - Hyperlipidemia, unspecified Category: Medical Plan: LDL 115 mg/dL from June 2025 which has gone up previously from am being in the 90s. Her LDL goal is less than 70 mg/dL. She was previously on simvastatin but then apparently she was getting nervous about side effects of arthritis pain but she continues to have arthritis being since she has stopped the simvastatin. At this point I would prefer to put her on a stronger more potent statin such as atorvastatin. Plan: -start atorvastatin 40 mg daily -plan to repeat lipid panel earlier in 2025 (3) Insulin pump in place: Code(s): Z96.41 - Presence of insulin pump (external) (internal) Category: Medical Plan: I suggest for backup pump failure that she use a quick pen. Backup pump failure would be 60 units U500 b.i.d.. She would start this once her sugars started to elevate above normal for pump failure. Not to start right away as there is a long-acting mode of action on U500 in her pump. Has backup supplies including pen needles Has urine ketone strips Has nasal Baqsimi Plan I spent 30 minutes in reviewing the record, seeing the patient and documenting in the medical record. 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 AMB Hemoglobin A1c Today E11.22 - Type 2 diabetes mellitus with diabetic chronic kidney disease, N18.32 - Chronic kidney disease, stage 3b, Z13.9 - Encounter for screening, unspecified, Z79.4 - assisted (current) use of insulin Medications: New 2 blood-glucose sensor (FreeStyle Paul 2 Plus Sensor device) As directed for monitoring of hypoglycemia 2 ea 3RF E11.69 - Type 2 diabetes mellitus with other specified complication, E78.5 - Hyperlipidemia, unspecified flash glucose scanning reader (FreeStyle Paul 2 [place]) As directed 1 ea 0RF Coding Level of Care Code Est Pt Level 4 (50378) Complex visit Add On G2211 Diagnoses Type 2 diabetes mellitus with stage 3b chronic kidney disease, with long-term current use of insulin E11.22; N18.32; Z79.4 Diabetes mellitus watermaster insulin use: with watermaster use Diabetes mellitus complication status: with kidney complications Diabetes mellitus complication detail: with chronic kidney disease Chronic kidney disease stage: stage 3 (moderate) Chronic kidney disease stage 3 subtype: stage 3b (GFR 30-44) Dyslipidemia associated with type 2 diabetes mellitus E11.69; E78.[address] Z96.41 CPT Codes Details - CPT: 37251 - Glucose Monitoring, continuous ([id number])
[2025-11-02 12:57] VITALS: BP 138/76; PULSE 80; O2SAT 98; BMI 47.2
[2025-11-02 13:08] LABS: Glucose, Whole Blood 102 mg/dL (60-115)
== END 2025-11-02 13:30 | disposition home or self-care (01) ==
LOC: HO.ENCR 12:52
PROVIDERS: PCP Physician Assistant; Visit Provider Student in an Organized Health Care Education/Training Program
DX: E11.22 Type 2 diabetes mellitus with diabetic chronic kidney disease (principal); N18.32 Chronic kidney disease, stage 3b; Z79.4 Long term (current) use of insulin; E11.69 Type 2 diabetes mellitus with other specified complication; E78.5 Hyperlipidemia, unspecified; Z96.41 Presence of insulin pump (external) (internal); Z13.9 Encounter for screening, unspecified
CPT/HCPCS: 99214; G2211

== ENCOUNTER → 2025-11-02 12:52 | Outpatient (BNVA) | payer MEDICARE, MEDICAID, SELFPAY | PROVIDERS: PCP Physician Assistant; Visit Provider Student in an Organized Health Care Education/Training Program | DX: E11.22 Type 2 diabetes mellitus with diabetic chronic kidney disease (principal); E11.69 Type 2 diabetes mellitus with other specified complication; E78.5 Hyperlipidemia, unspecified; N18.32 Chronic kidney disease, stage 3b; Z96.41 Presence of insulin pump (external) (internal); Z79.4 Long term (current) use of insulin | CPT/HCPCS: 82947; 83036; 95250; 99212 ==

== ENCOUNTER 2025-11-08 10:54 | Outpatient (AMB) | payer MEDICARE, MEDICAID, SELFPAY ==
--- NOTE | 2025-11-08 11:07 | A.OFFPC_ITS ---
Vital Signs 11/08/25 11:09 11/08/25 11:18 Height 5 ft 3 in Weight 268 lb 2 oz BMI 47.5 BP 202/81 H 154/84 H Blood Pressure Location Lt brachial Lt brachial Position Sitting Sitting Pulse 63 Pulse Source Pulse Oximeter Temp 98.1 F Temp Source Oral Pulse Oximetry (%) 97 Oxygen Delivery Method Room Air Intake Visit Reasons: pain on both hands Intake Note: Bilateral hand pain. Wants to discuss reducing Atorvastatin to see if helps with arthritis pain. Program Research Specialist Required: No Allergies citalopram (From Celexa) Allergy (Mild, Verified 11/08/25 11:07) cramps tirzepatide (From Mounjaro) Adverse Reaction (Severe, Verified 11/08/25 11:07) Diarrhea lisinopril Adverse Reaction (Intermediate, Verified 11/08/25 11:07) cough/all ACEI metformin Adverse Reaction (Intermediate, Verified 11/08/25 11:07) Abdominal Pain methotrexate Adverse Reaction (Intermediate, Verified 11/08/25 11:07) Nausea Niacin Preparations Adverse Reaction (Mild, Verified 11/08/25 11:07) vomiting/flu symptoms/flushing ziprasidone (Geodon) Adverse Reaction (Unknown, Verified 11/08/25 11:07) Unknown Medication List - Last Reconciled 11/08/25 by Shelby Escobar PA-C acetone (urine) test (Ketone Urine Test strips) prn glucose over 250, illness, nausea or vomiting tid ammonium lactate 12% 1 appl topical DAILY atenolol 75 mg (1.5 x 50 mg) PO BID 90 days atorvastatin (Lipitor) 40 mg PO BEDTIME blood sugar diagnostic As directed testing 5x per day. blood sugar diagnostic (OneTouch Verio test strips) USE 5 TIMES DAILY blood-glucose meter (OneTouch Verio Meter) As directed blood-glucose sensor (DexFunsherpa G7 Sensor device) As directed every 10 days blood-glucose sensor (FreeStyle Paul 2 Plus Sensor device) As directed for monitoring of hypoglycemia chlorthalidone 25 mg PO DAILY cholecalciferol (vitamin D3) 50 mcg PO DAILY clobetasol 0.05% 1 appl topical DAILY [Diabetic shoes and inserts Please dispense 1 pair of diabetic shoes and 1-3 pairs of diabetic inserts] diclofenac sodium 1% 1 g topical TID flash glucose scanning reader (FreeStyle Paul 2 [place]) As directed glucagon 3 mg/actuation (Baqsimi) 3 mg intranasal ONCE PRN 30 days MDD 6mg may repeat in 15 minutes Humulin R U-500 (Conc) Kwikpen (insulin regular hum U-500 conc) 60 units (0.12 mL) subcut BID PRN 30 days MDD 150 NS insulin pump cart,auto,BT,G6/7 (Omnipod 5 G6-G7 Pods (Gen 5) subcutaneous cartridge) CHANGE POD EVERY 72 HOURS insulin pump cart,auto,BT-cntr (Omnipod 5 G6 Intro Kit (Gen 5) subcutaneous cartridge with controller) As directed insulin regular hum U-500 conc (Humulin R U-500 (Concentrated) Insulin) Use up to 450 units via insulin pump subcut daily; lactobacillus combination no.4 (Probiotic) 3,000 mmu cells PO DAILY lancets As directed 5 times a day lorazepam 0.5 mg PO DAILY PRN 30 days losartan 50 mg PO BID pen needle, diabetic (Comfort EZ Pen [place]) As directed bid prn pump failure risankizumab-rzaa (Skyrizi) 150 mg subcut Q3M Tobacco use date assessed: 08/25/25 Dental Screening Dental Screen Date: 08/25/25 HPI pain on both hands HPI Details Patient is a 65-year-old female with a significant past medical history of diabetes, diabetic nephropathy, chronic kidney disease, anemia, anxiety and depression, psoriatic arthritis, hypertension, hyperlipidemia morbid obesity pre senting today for a follow up. Endo: Her A1c was 6.8. Managed by endocrinology. Controlled with her current insulin regimen. Recently starting on a diet. in the past had significant GI upset with Trulicity, Ozempic and Mounjaro. Derm: Psoriasis was controlled on Taltz but insurance would not cover. She is going back skyriz. She did have some exacerbation of arthritic symptoms [place] felipe, stopped the statin and states that this improved significantly. Rheum: Recently discontinued simvastatin and states that her aches and pains in her hands improved initially but then returned. She is now On atorvastatin. Has tried to come off of statins but does have poorly controlled cholesterol. She is not sure but thinks that the cholesterol medication is worsening muscle aches but states it could also just be related to her arthritis.. She is seeing [facility] rheumatology. Nephro: Labs are stable. Follows closely with Nephrology. Psych: She is following with her therapist closely. Currently not on medication and doing well with this. She states that she has a strong support group from buddhist. No SI/HI. She has tried prozac, zoloft, lexapro, geodon, and wellbutrin. CV: Blood pressure today in the office is 154/84. She is currently on losartan 50 mg daily, chlorthalidone 25 mg and atenolol 75 mg twice a day. Cholesterol is currently being managed with atorvastatin. Colonoscopy: scheduled next week Mammo: AKD at [place] Bone density: believe [facility] Medical History (Updated 10/09/25 @ 11:12 by Rafaela Rosenberg DPM) Pes planus Varicose veins of both lower extremities Xerosis of skin Insulin pump in place Dyslipidemia associated with type 2 diabetes mellitus Mild cardiomegaly Diabetic nephropathy Depression Interstitial pulmonary disease Pulmonary nodule Type 2 diabetes mellitus Psoriatic arthritis Anxiety Arthritis Anemia Stress incontinence Morbid obesity Hypertension Dyslipidemia [facility] (current) use of insulin Surgical History Hx of colonoscopy History of selective laser trabeculoplasty History of total abdominal hysterectomy and bilateral salpingo-oophorectomy History of carpal tunnel release Hx of cholecystectomy Family History Father CVD (cardiovascular disease) Obesity Diabetes Alcohol abuse CAD (coronary artery disease) Mother CVD (cardiovascular disease) Diabetes Obesity Chronic lymphocytic leukemia Hx of myocardial infarction Brother Substance abuse Daughter FH: mental illness Paternal Aunt Breast cancer Social History Household Members: Spouse and Children Housing: [facility] Are you a primary critical care transport nurse to a significant other at home: No Alcohol intake: current Alcohol intake frequency: holidays/special occasions only Patient Tobacco Use Status: Never used Tobacco e-Cigarette/Vaping Use: Never Used Second Hand Smoke Exposure: No service: No Current occupational status: disabled Current occupational exposures/hazards: No Cognitive needs: No Hearing needs: Yes Vision needs: Yes Questionnaire Thrive Questionnaire Date Thrive assessed: 12/15/24 I am a: Patient What is your living situation today?: I have a steady place to live Within the past 12 months, did the food you bought not last and you didn't have the money to get more?: Never true Within the past 12 months, did you worry whether your food would run out before you got money to buy more?: Never true Do you have trouble paying for medicines?: No Do you have trouble getting transportation to medical appointments?: No Do you have trouble paying your heating and electricity bill?: No Do you have trouble taking care of your child, family member or friend?: No Do you have trouble with day-to-day activities such as bathing, preparing meals, shopping, managing finances, etc.?: No Are you currently unemployed and looking for a job?: No Are you interested in more education?: No Please select the resources that you would like help with: None Currently or been in a relationship where the following occur: No concerns reported THRIVE Score: 0 DENNIS-7 AMB Questionnaire DENNIS-7 Date DENNIS - 7 assessed: 04/20/25 Source: Developed by Drs. Eligio Méndez, Mignon Colon, Pepe Turner and colleagues, with an educational nanette from [employer]. Physical exam (Primary Care) Vital Signs: Last Vital Signs Temp 98.1 F 11/08/25 11:09 Pulse 63 11/08/25 11:09 BP 202/81 H 11/08/25 11:09 Pulse Ox 97 11/08/25 11:09 Oxygen Delivery Method Room Air 11/08/25 11:09 BMI result Body Mass Index 47.5 Tobacco/Smoking Status: Tobacco use Status Tobacco use date assessed 08/25/25 11/08/25 11:13 Patient Tobacco Use Status Never used Tobacco 11/08/25 11:13 e-Cigarette/Vaping Use Never Used 11/08/25 11:13 Thrive Assessment: Date of Thrive Assessment Date Thrive assessed 12/15/24 11/08/25 11:13 Currently or been in a relationship where the following occur: No concerns rep orted Const Orientation/consciousness: patient oriented x3 HENMT Ears: hearing grossly normal bilaterally Neck Thyroid: Thyroid normal Lymphatic: no lymphadenopathy noted Resp Auscultation: clear to auscultation bilaterally Cardio Rate: regular rate Rhythm: regular rhythm Heart sounds: S1 normal heart sound present and S2 normal heart sound present GI Inspection: Yes normal to inspection Palpation (GI): Soft to palpation and Other GI palpation findings present (nontender, no cva tenderness) Auscultation: normoactive bowel sounds Rectal Exam - Female: deferred Skin General skin exam: no rashes or lesions noted Neuro General: patient oriented x3, gait normal and no focal motor deficits Coding Level of Care Code Est Pt Level 4 (39755) Add On Problem Visit Only Diagnoses Dyslipidemia E78.5 Primary hypertension I10 Hypertension type: primary hypertension CKD stage 3 due to type 2 diabetes mellitus E11.22; N18.30 Psoriatic arthritis L40.50 Assessment & Plan Assessment & Plan (1) Dyslipidemia: Code(s): E78.5 - Hyperlipidemia, unspecified Category: Medical Plan: We will recheck lipids. Advised to try Co Q10. We will check a CK (2) Hypertension: Code(s): I10 - Essential (primary) hypertension Category: Medical Qualifiers: Hypertension type: primary hypertension Qualified Code(s): I10 - Essential (primary) hypertension Plan: Continue current regimen as blood pressures are generally usually well- controlled. (3) CKD stage 3 due to type 2 diabetes mellitus: Code(s): E11.22 - Type 2 diabetes mellitus with diabetic chronic kidney disease; N18.30 - Chronic kidney disease, stage 3 unspecified Category: Medical Plan: Advised to avoid/limit use of NSAIDs (4) Psoriatic arthritis: Comment: dx 2021 Code(s): L40.50 - Arthropathic psoriasis, unspecified Category: Medical Plan: She will continue follow up with Rheumatology but at this point believes it is a slow progressive osteoarthritis over a psoriatic arthritis. We will try tramadol. Discussed risks and benefits and adverse effects of this medication. Orders: Orders Complete Blood Count Auto Diff Today E11.22 - Type 2 diabetes mellitus with diabetic chronic kidney disease, E78.5 - Hyperlipidemia, unspecified, I10 - Essential (primary) hypertension, L40.50 - Arthropathic psoriasis, unspecified, N18.30 - Chronic kidney disease, stage 3 unspecified Lipid Panel Today E11.22 - Type 2 diabetes mellitus with diabetic chronic kidney disease, E78.5 - Hyperlipidemia, unspecified, I10 - Essential (primary) hypertension, L40.50 - Arthropathic psoriasis, unspecified, N18.30 - Chronic kidney disease, stage 3 unspecified TSH reflex Free T4 Today E11.22 - Type 2 diabetes mellitus with diabetic chronic kidney disease, E78.5 - Hyperlipidemia, unspecified, I10 - Essential (primary) hypertension, L40.50 - Arthropathic psoriasis, unspecified, N18.30 - Chronic kidney disease, stage 3 unspecified Creatine Kinase Total Today E11.22 - Type 2 diabetes mellitus with diabetic chronic kidney disease, E78.5 - Hyperlipidemia, unspecified, I10 - Essential (primary) hypertension, L40.50 - Arthropathic psoriasis, unspecified, N18.30 - Chronic kidney disease, stage 3 unspecified Comprehensive Met. Panel Today E11.22 - Type 2 diabetes mellitus with diabetic chronic kidney disease, E78.5 - Hyperlipidemia, unspecified, I10 - Essential (primary) hypertension, L40.50 - Arthropathic psoriasis, unspecified, N18.30 - Chronic kidney disease, stage 3 unspecified Medications: New tramadol 50 mg PO BID PRN 60 tabs 5RF pain 30 days coenzyme Q10 100 mg PO DAILY 90 caps 2RF
[2025-11-08 11:09] VITALS: BP 202/81; PULSE 63; TEMP 36.7; O2SAT 97; BMI 47.5
[2025-11-08 11:18] VITALS: BP 154/84
== END 2025-11-08 11:46 | disposition home or self-care (01) ==
LOC: HO.HMCFM 10:56
PROVIDERS: PCP Physician Assistant; Visit Provider Physician Assistant
DX: I12.9 Hypertensive chronic kidney disease with stage 1 through stage 4 chronic kidney disease, or unspecified chronic kidney disease (principal); E11.22 Type 2 diabetes mellitus with diabetic chronic kidney disease; N18.30 Chronic kidney disease, stage 3 unspecified; L40.50 Arthropathic psoriasis, unspecified; E78.5 Hyperlipidemia, unspecified

== ENCOUNTER → 2025-11-08 10:54 | Outpatient (BNVA) | payer MEDICARE, MEDICAID, SELFPAY | PROVIDERS: PCP Physician Assistant; Visit Provider Physician Assistant | DX: M79.642 Pain in left hand (principal); M79.641 Pain in right hand; E78.5 Hyperlipidemia, unspecified; I10 Essential (primary) hypertension; E11.22 Type 2 diabetes mellitus with diabetic chronic kidney disease; N18.30 Chronic kidney disease, stage 3 unspecified; L40.50 Arthropathic psoriasis, unspecified | CPT/HCPCS: 99212 ==